=== PATIENT | female | born 1975 | race Caucasian/White ===

== ENCOUNTER → 2017-01-29 | Outpatient (CLI) | payer OTHER ==
[~2017-01-29] MED LIST: ALPR-385 PO; CYCL5TAB PO; DOCU-94 PO; DOXE100C4 PO; FRCT/ PO; HYDR2TAB3 PO; IBUP-1277 PO; METHADONE PO; METO-157 PO; MULT-513 PO; ONDA8TAB13 SL; PRAZ2CAP3 PO; SALI0.6510; SUMA6KIT2 INJ; TOPI200T14 PO; TPM100 PO; TRAM-453 PO; TRAZ50TA35 PO; [UNRECOGNIZED DRUG - CODE] PO
== END ==
LOC: C.PAPS 10:20
PROVIDERS: ATTEND Obstetrics & Gynecology
DX: Z01.419 Encounter for gynecological examination (general) (routine) without abnormal findings (principal)

== ENCOUNTER 2020-03-10 20:36 | Inpatient (IN) ==
[2020-03-10] MEDS ORDERED: DIAZEPAM 5 MG/ML INJ 10ML VIAL IV STA ×2 (21:17→22:01)
[2020-03-10] MEDS ORDERED: SODIUM CHLORIDE 0.9% 1000ML 1,000 ML IV SCH (21:30)
--- NOTE | 2020-03-10 21:31 | Emergency Department Note ---
Impression & Plan Hyperglycemic crisis in diabetes mellitus, Paresthesia of right leg, Right leg weakness, Muscle spasm of right lower extremity ED Provider Note CHIEF COMPLAINT: Right leg pain, numbness, weakness HISTORY OF PRESENTING ILLNESS: This is a 44-year-old female who presents to the emergency department via EMS with complaint of right leg pain and cramping spasms that started tonight. Patient states that she has been having some numbness in the leg for the past 1.5 weeks that has been getting progressively worse and she has also noticed that the legs felt a little bit weak the last few days. Today while she was in the shower the entire leg seized up and started spasming, and gave out on her causing her to fall in the shower. She states that her father is a retired surgeon and he is concerned that she is having a seizure in her leg. She denies any history of seizures in the past. She is followed by a neurologist for migraine headaches. She notes that she has some pain in her lower back as well, and reports a history of degenerative disc disease in her back and has received pain injections for this in the past, most recently June of last year. She received 0.5 mg IV Ativan by EMS on the way here, which she states did seem to help the leg spasms somewhat, but she states she has had 2 more since arriving to the emergency department. The leg spasms were witnessed by the ED nurse, who reports that the entire leg looks like it is twitching and shaking, and she continued to be alert and talkative during the episode and was complaining of pain with this. Patient states she has no pain except in the leg spasms, but when it starts to spasm and cramp up the pain is severe and she rates it an 8/10. She denies any headaches, vision changes, neck pain or stiffness, chest pain, shortness of breath, abdominal pain, nausea or vomiting, recent illness, cough or URI symptoms, fevers or chills. She denies any saddle paresthesias or bowel or bladder dysfunction. REVIEW OF SYSTEMS: A complete 10 point review of systems was reviewed with the patient with pertinent positives and negatives as per history of present illness. All else were negative. PAST MEDICAL HISTORY: Migraine headaches, cluster headaches, anxiety, chronic pain syndrome SOCIAL HISTORY: Lives at home with family, she denies tobacco use ALLERGIES: No known allergies PHYSICAL EXAM: CONSTITUTIONAL: Pleasant and cooperative. Nontoxic-appearing and in no acute distress. Mildly dehydrated, but otherwise well appearing and well nourished. HEENT: Normocephalic, atraumatic. PERRL, EOMI with no nystagmus. TMs normal, no hemotympanum. Pharynx normal. Tacky mucous membranes. NECK: Supple, full active range of motion without discomfort. No midline tenderness to palpation of the cervical spine. RESPIRATORY: Clear to auscultation bilaterally with no wheezing, crackles, rhonchi or stridor. Equal expansion bilaterally. CARDIOVASCULAR: Regular rate and rhythm with no murmurs, rubs or gallops. Normal peripheral perfusion. No edema. GASTROINTESTINAL: Soft, nontender, nondistended. No palpable masses or HSM. Bowel sounds present in all quadrants. DIGITAL RECTAL EXAM: Visible external hemorrhoids on inspection. Sensation intact to the perineum. A sterile, water-soluble lubricant was applied to the examiner's gloved finger prior to internal exam. No rectal vault tenderness. No rectal masses. Normal rectal tone. A nurse top knitter was present for the entirety of the exam. INTEGUMENTARY: Abrasions noted to the right ankle and right anterior calf, no active bleeding. No rash or other significant dermatologic conditions noted. MUSCULOSKELETAL: No muscle atrophy, erythema, or edema noted of the back. There is no midline tenderness over the lumbar spinous processes. There is mild t enderness over the paraspinous muscles of the lumbar region on the right. There is no midline tenderness over the thoracic spine or paraspinous muscles. There are no obvious muscle spasms present. The patient is slow to move around with maximum tenderness with bending and twisting at the waist. Negative straight leg raise test. NEURO: Patient was alert and oriented to person place and time. Sensation is intact to light touch, the patient does endorse decreased sensation along the dorsal and medial aspect of the foot and the medial aspect of the calf from the knee down. Achilles and patellar deep tendon reflexes 1+ in the right lower extremity, 2+ in the left lower extremity. Dorsalis pedis pulse 2+ bilaterally with brisk cap refill. Strength 5/5 in the left lower extremity, 3/5 in the right lower extremity with effort against gravity, hip flexion, knee extension and flexion. Dorsiflexion and plantarflexion of the right foot is 2/5. NEUROLOGIC: Alert and oriented X 4 with normal affect. Cranial nerves II-XII grossly intact, no facial droop. No pronator drift. [id number] testing normal. Normal speech. ED COURSE AND MEDICAL DECISION MAKING: CC: Patient presenting with complaint of right leg pain/spasms, numbness and weakness DIFFERENTIAL DIAGNOSIS: Includes, but not limited to muscle spasms, muscle cramps, musculoskeletal sprain/strain, lumbar radiculopathy/sciatica, spinal cord lesion, cauda equina syndrome, electrolyte abnormality, dehydration, focal seizure, brain mass or mass-effect, among others. INTERPRETATION OF LABS: No leukocytosis, no anemia, normal platelets, significant hyperglycemia with refractory hyponatremia and hypochloremia, gap is open at 14.0 with a normal bicarb, normal renal function, normal liver enzymes. UA negative for infection, shows 3+ glucose and 3+ ketones. IMAGING: CT brain noncontrast--preliminary read by [facility] IMPRESSION: Comparison is made to CT head on 01/31/2015. No acute intracranial abnormality identified. MEDICATION RECONCILIATION: I attest that I have personally reviewed the patient's current medication list. INITIAL VITAL SIGNS REVIEW: I reviewed the patient's initial vital signs and i nterpret them as follows: T: Afebrile; BP: Hypertensive; HR: Tachycardic; RR: Within normal limits; Pulse Ox: Within normal limits on room air. Blood pressure screening: The patient was found to have an elevated blood pressure and was referred to the inpatient team for further management. MDM SUMMARY: Patient was evaluated at bedside, history and physical exam performed. Patient is alert and oriented, in no acute distress, resting in the stretcher. She endorses some numbness in the right leg, and demonstrates weakness of the right lower extremity when compared to the left. She complains primarily of severe spasms of the entire right leg that are episodic and started today. She notes that the numbness has been ongoing for 1.5 weeks and the weakness started several days ago. She has not had any bowel or bladder dysfunction. Normal rectal tone on my exam with saddle sensation intact. Cardiac monitoring: An order was placed for continuous cardiac monitoring. The monitor shows a rate of 112 bpm with sinus tachycardia rhythm. Orders were placed at bedside for labs, UA, IV fluid bolus for hydration, x-rays of the right tibia/fibula and right ankle to evaluate for trauma, CT of the head and MRI of the lumbar spine to evaluate for right leg weakness/numbness. Patient discussed with Dr. Palacio, who agrees with my assessment, plan, and disposition. Patient was initially given 2 mg IV Valium to help with potential muscle cramps/spasms. Labs and x-ray imaging reviewed as above, labs are significant for marked hyperglycemia. The patient does not have any history of diabetes. Patient did not have any relief in her spasms after the 2 mg IV Valium and is requesting something further. She is afraid she will not be able to hold still for the MRI, she was given an additional 3 mg IV Valium prior to further imaging studies. CT of the head is normal. MRI of the lumbar spine results pending. Given the significant hyperglycemia of unknown etiology with the patient's other symptoms, I did feel the patient would warrant admission for further work-up. I spoke with Dr. Orantes, [facility] hospitalist, who agrees to evaluate the patient for admission. Patient was stable at time of admission. The chart was completed utilizing [employer] Speech voice recognition software. Grammatical errors, random word insertions, pronoun errors, and incomplete sentences are an occasional consequence of this system due to software limitations, ambient noise, and hardware issues. Any formal questions or concerns about the content, text, or information contained within the body of this dictation should be directly addressed to the nurse practitioner for clarification. Past Med/Surg History Medical History (Updated 03/11/20 @ 14:30 by SERGIO Monterroso) Cluster headache Drug abuse (Resolved) Migraine without aura, not intractable, without status migrainosus Psychosis (Resolved 01/10/14) Status post hysteroscopy Surgical History S/P laparoscopic procedure S/P LEEP of cervix Social History Preferred Language: Greek Communication Ability: Effective Beliefs That Will Affect Care: None Current Living Situation: Parent Other Information That Helps Us Care for You: No Feels Safe at Home: Yes Safety Concerns: Feels Safe At This Time Smoking Status: Former smoker Do You Dip or Chew Tobacco: No ; Second Hand Exposure: No ; Hx Alcohol Use: No Hx Substance Use: Yes substance use type: former substance user Allergies Allergies Allergy/AdvReac Type Severity Reaction Status Date / Time No Known Allergies Allergy Verified 03/11/20 00:57 Home Meds Home Medications Medication Instructions Recorded Confirmed doxepin 100 mg capsule 200 mg PO HS PRN cap 06/07/19 03/11/20 promethazine 50 mg tablet 50 mg PO Q8H PRN #20 tab 06/07/19 03/11/20 zolpidem 10 mg tablet 20 mg PO HS tab 06/07/19 03/11/20 ondansetron HCl 4 mg tablet 4 mg PO TID PRN #20 tab 06/30/19 03/11/20 adapalene [Differin] 1 applic TOPICAL HS PRN 03/11/20 03/11/20 baclofen 20 mg PO BID PRN 03/11/20 03/11/20 cyclobenzaprine 5 mg PO TID PRN 03/11/20 03/11/20 dextroamphetamine-amphetamine 20 mg PO DAILY PRN 03/11/20 03/11/20 [Adderall] methadone 202 mg PO DAILY 03/11/20 03/11/20 mupirocin calcium 1 applic TOPICAL TID PRN 03/11/20 03/11/20 norethindrone ac-eth estradiol 1 tab PO DAILY 03/11/20 03/11/20 [June10/27 ()] sumatriptan succinate 6 mg SUBCUT .UD PRN 03/11/20 03/11/20 tacrolimus 1 applic TOPICAL BID PRN 03/11/20 03/11/20 tizanidine 8 mg PO HS PRN 03/11/20 03/11/20 zolmitriptan [Zomig] 5 mg PO .DAILY/UD PRN MDD 2 DOSES 03/11/20 03/11/20 Previous Rx's Medication Instructions Recorded topiramate 50 mg tablet 50 mg PO BID #60 tab 01/20/20 rizatriptan 10 mg tablet 10 mg PO .COMPLEX PRN 30 Days #9 02/05/20 tab Results & Data (ED) Vital Signs Vital Signs - 24 hr 03/10/20 20:24 03/10/20 21:43 03/10/20 21:44 Temperature 37.1 C Temperature Source Oral Pulse Rate 112 H Pulse Rate [Finger] Pulse Rhythm Regular Pulse Strength Normal Respiratory Rate 14 Respiratory Effort / Characteristics Non-Labored Respiratory Depth Normal Respiratory Pattern Regular Blood Pressure 159/108 H Blood Pressure [Right Arm] Blood Pressure Mean 125 Blood Pressure Mean [Right Arm] Blood Pressure Position Lying Blood Pressure Position [Right Arm] Pulse Oximetry 96 Oxygen Delivery Method Room Air Room Air Room Air Sepsis Recent Fever Within 48 Hours No Sepsis New/Unexplained Change in Mental Status No Sepsis Action Taken by Nursing No Action Required 03/10/20 23:47 Temperature Temperature Source Pulse Rate Pulse Rate [Finger] 94 H Pulse Rhythm Pulse Strength Respiratory Rate 16 Respiratory Effort / Characteristics Non-Labored Respiratory Depth Normal Respiratory Pattern Blood Pressure Blood Pressure [Right Arm] 156/98 H Blood Pressure Mean Blood Pressure Mean [Right Arm] 117 Blood Pressure Position Blood Pressure Position [Right Arm] Sitting Pulse Oximetry 99 Oxygen Delivery Method Room Air Sepsis Recent Fever Within 48 Hours Sepsis New/Unexplained Change in Mental Status Sepsis Action Taken by Nursing Laboratory Data Result diagrams: 03/11/20 05:15 03/11/20 05:15 Lab Results 03/10/20 03/10/20 03/10/20 Range/Units 21:35 21:35 21:35 WBC 7.51 (4.8-10.8) K/uL RBC 4.16 L (4.2-5.4) M/uL Hgb 12.8 (12.0-16.0) g/dL POC Hgb (12.0-16.0) g/dl Hct 37.2 (37-47) % POC Hct (37-47) % MCV 89.4 (80-100) fL MCH 30.8 (25-34) pg MCHC 34.4 (32-36) g/dL RDW Std Deviation 41.4 (36.4-46.3) fL RDW Coeff of Renae 12.9 (11.5-14.5) % Plt Count 268 (130-400) K/uL MPV 10.7 H (7.4-10.4) fL Immature Gran % (Auto) 0.1 % Neut % (Auto) 76.0 % Lymph % (Auto) 16.0 % Mineral % (Auto) 5.9 % Eos % (Auto) 1.6 % Baso % (Auto) 0.4 % Immature Gran # (Auto) 0.01 (0.00-0.02) K/uL Neut # (Auto) 5.71 (1.4-6.5) K/uL Lymph # (Auto) 1.20 (1.2-3.4) K/uL Mineral # (Auto) 0.44 (0.11-0.59) K/uL Eos # (Auto) 0.12 (0-0.5) K/uL Baso # (Auto) 0.03 (0-0.2) K/uL POC Sodium (135-144) mmol/L Sodium 124 L (136-145) mmol/L POC Potassium (3.3-5.0) mmol/L Potassium (3.5-5.1) mmol/L POC Chloride (101-112) mmol/L Chloride 87 L (98-107) mmol/L Carbon Dioxide 23 (21-32) mmol/L POC Total CO2 (24-31) mmol/L Anion Gap 14.0 H (3-11) POC Anion Gap (16-25) mmol/L POC BUN (7-18) mg/dl BUN 11 (7-18) mg/dl Creatinine 1.08 (0.6-1.2) mg/dl POC Creatinine (0.6-1.3) mg/dl Est Cr Clr Drug Dosing 76.9 ml/min Est GFR ( Amer) 72.8 Est GFR (Non-Af Amer) 62.8 BUN/Creatinine Ratio 10.1 (10-20) Glucose 790 H* (70-99) mg/dl POC Glucose (other) (70-99) mg/dl Estimat Average Glucose 395 mg/dl Hemoglobin A1c 15.4 H (4.5-5.6) % Osmolality (280-300) mOsm/kg Calcium 8.8 (8.5-10.1) mg/dl POC Ioniz Calcium Gaby (1.12-1.32) mmol/l Phosphorus (2.5-4.9) mg/dl Magnesium (1.8-2.4) mg/dl Total Bilirubin 0.4 (0.2-1) mg/dl AST (15-37) U/L ALT 24 (12-78) U/L Alkaline Phosphatase 114 (45-117) U/L Total Creatine Kinase (26-192) U/L Total Protein 7.1 (6.4-8.2) gm/dl Albumin 3.2 L (3.4-5.0) gm/dl Globulin 3.9 (2.5-4.0) gm/dl Albumin/Globulin Ratio 0.8 L (0.9-2) Beta-Hydroxybutyric Acd (0.2-2.81) mg/dl TSH (0.300-4.500) uIu/ml Urine Color Urine Appearance (Clear) Urine pH (4.5-7.5) Ur Specific Hughes (1.000-1.030) Urine Protein (Negative) Urine Glucose (UA) (Negative) Urine Ketones (Negative) Urine Blood (Negative) Urine Nitrite (Negative) Urine Bilirubin (Negative) Urine Urobilinogen (Negative) Ur Leukocyte Esterase (Negative) Urine RBC (0-4) /hpf Urine WBC (0-5) /hpf Ur Epithelial Cells (0-5) /lpf Urine Bacteria (Negative) Urine Test (Negative) Urine Opiates Screen (Neg) Ur Methadone, Qual (Neg) Urine Barbiturates (Neg) Ur Phencyclidine (PCP) (Neg) U Amphetamin/Meth Scrn (Neg) MDMA (Ecstasy) Screen (Neg) U Benzodiazepines Scrn (Neg) Ur Cocaine Metabolite (Neg) U Marijuana (THC) Screen (Neg) 03/10/20 03/10/20 03/10/20 Range/Units 22:15 22:15 22:15 WBC (4.8-10.8) K/uL RBC (4.2-5.4) M/uL Hgb (12.0-16.0) g/dL POC Hgb (12.0-16.0) g/dl Hct (37-47) % POC Hct (37-47) % MCV (80-100) fL MCH (25-34) pg MCHC (32-36) g/dL RDW Std Deviation (36.4-46.3) fL RDW Coeff of Renae (11.5-14.5) % Plt Count (130-400) K/uL MPV (7.4-10.4) fL Immature Gran % (Auto) % Neut % (Auto) % Lymph % (Auto) % Mineral % (Auto) % Eos % (Auto) % Baso % (Auto) % Immature Gran # (Auto) (0.00-0.02) K/uL Neut # (Auto) (1.4-6.5) K/uL Lymph # (Auto) (1.2-3.4) K/uL Mineral # (Auto) (0.11-0.59) K/uL Eos # (Auto) (0-0.5) K/uL Baso # (Auto) (0-0.2) K/uL POC Sodium (135-144) mmol/L Sodium (136-145) mmol/L POC Potassium (3.3-5.0) mmol/L Potassium (3.5-5.1) mmol/L POC Chloride (101-112) mmol/L Chloride (98-107) mmol/L Carbon Dioxide (21-32) mmol/L POC Total CO2 (24-31) mmol/L Anion Gap (3-11) POC Anion Gap (16-25) mmol/L POC BUN (7-18) mg/dl BUN (7-18) mg/dl Creatinine (0.6-1.2) mg/dl POC Creatinine (0.6-1.3) mg/dl Est Cr Clr Drug Dosing ml/min Est GFR ( Amer) Est GFR (Non-Af Amer) BUN/Creatinine Ratio (10-20) Glucose (70-99) mg/dl POC Glucose (other) (70-99) mg/dl Estimat Average Glucose mg/dl Hemoglobin A1c (4.5-5.6) % Osmolality (280-300) mOsm/kg Calcium (8.5-10.1) mg/dl POC Ioniz Calcium Gaby (1.12-1.32) mmol/l Phosphorus (2.5-4.9) mg/dl Magnesium (1.8-2.4) mg/dl Total Bilirubin (0.2-1) mg/dl AST (15-37) U/L ALT (12-78) U/L Alkaline Phosphatase (45-117) U/L Total Creatine Kinase (26-192) U/L Total Protein (6.4-8.2) gm/dl Albumin (3.4-5.0) gm/dl Globulin (2.5-4.0) gm/dl Albumin/Globulin Ratio (0.9-2) Beta-Hydroxybutyric Acd (0.2-2.81) mg/dl TSH (0.300-4.500) uIu/ml Urine Color Yellow Urine Appearance Clear (Clear) Urine pH 5.0 (4.5-7.5) Ur Specific Hughes 1.037 H (1.000-1.030) Urine Protein Negative (Negative) Urine Glucose (UA) 3+ H (Negative) Urine Ketones 3+ H (Negative) Urine Blood 2+ H (Negative) Urine Nitrite Negative (Negative) Urine Bilirubin Negative (Negative) Urine Urobilinogen Negative (Negative) Ur Leukocyte Esterase Negative (Negative) Urine RBC 5-10 H (0-4) /hpf Urine WBC 0-5 (0-5) /hpf Ur Epithelial Cells >30 H (0-5) /lpf Urine Bacteria 1+ H (Negative) Urine Test Negative (Negative) Urine Opiates Screen Neg (Neg) Ur Methadone, Qual Pos H (Neg) Urine Barbiturates Neg (Neg) Ur Phencyclidine (PCP) Neg (Neg) U Amphetamin/Meth Scrn Neg (Neg) MDMA (Ecstasy) Screen Neg (Neg) U Benzodiazepines Scrn Neg (Neg) Ur Cocaine Metabolite Neg (Neg) U Marijuana (THC) Screen Neg (Neg) 03/10/20 03/10/20 03/10/20 Range/Units 23:49 23:49 23:54 WBC (4.8-10.8) K/uL RBC (4.2-5.4) M/uL Hgb (12.0-16.0) g/dL POC Hgb 12.9 (12.0-16.0) g/dl Hct (37-47) % POC Hct 38 (37-47) % MCV (80-100) fL MCH (25-34) pg MCHC (32-36) g/dL RDW Std Deviation (36.4-46.3) fL RDW Coeff of Renae (11.5-14.5) % Plt Count (130-400) K/uL MPV (7.4-10.4) fL Immature Gran % (Auto) % Neut % (Auto) % Lymph % (Auto) % Mineral % (Auto) % Eos % (Auto) % Baso % (Auto) % Immature Gran # (Auto) (0.00-0.02) K/uL Neut # (Auto) (1.4-6.5) K/uL Lymph # (Auto) (1.2-3.4) K/uL Mineral # (Auto) (0.11-0.59) K/uL Eos # (Auto) (0-0.5) K/uL Baso # (Auto) (0-0.2) K/uL POC Sodium 128 L (135-144) mmol/L Sodium 129 L (136-145) mmol/L POC Potassium 4.8 (3.3-5.0) mmol/L Potassium 4.7 (3.5-5.1) mmol/L POC Chloride 95 L (101-112) mmol/L Chloride 95 L (98-107) mmol/L Carbon Dioxide 22 (21-32) mmol/L POC Total CO2 21 L (24-31) mmol/L Anion Gap 12.0 H (3-11) POC Anion Gap 18.0 (16-25) mmol/L POC BUN 9 (7-18) mg/dl BUN 9 (7-18) mg/dl Creatinine 0.82 (0.6-1.2) mg/dl POC Creatinine 0.5 L (0.6-1.3) mg/dl Est Cr Clr Drug Dosing 101.3 ml/min Est GFR ( Amer) 101.6 Est GFR (Non-Af Amer) 87.6 BUN/Creatinine Ratio 11.4 (10-20) Glucose 608 H* (70-99) mg/dl POC Glucose (other) 582 H* (70-99) mg/dl Estimat Average Glucose mg/dl Hemoglobin A1c (4.5-5.6) % Osmolality 304 H (280-300) mOsm/kg Calcium 8.3 L (8.5-10.1) mg/dl POC Ioniz Calcium Gaby 1.16 (1.12-1.32) mmol/l Phosphorus 3.7 (2.5-4.9) mg/dl Magnesium 2.1 (1.8-2.4) mg/dl Total Bilirubin (0.2-1) mg/dl AST (15-37) U/L ALT (12-78) U/L Alkaline Phosphatase (45-117) U/L Total Creatine Kinase 6196 H (26-192) U/L Total Protein (6.4-8.2) gm/dl Albumin (3.4-5.0) gm/dl Globulin (2.5-4.0) gm/dl Albumin/Globulin Ratio (0.9-2) Beta-Hydroxybutyric Acd 32.54 H (0.2-2.81) mg/dl TSH 23.500 H (0.300-4.500) uIu/ml Urine Color Urine Appearance (Clear) Urine pH (4.5-7.5) Ur Specific Hughes (1.000-1.030) Urine Protein (Negative) Urine Glucose (UA) (Negative) Urine Ketones (Negative) Urine Blood (Negative) Urine Nitrite (Negative) Urine Bilirubin (Negative) Urine Urobilinogen (Negative) Ur Leukocyte Esterase (Negative) Urine RBC (0-4) /hpf Urine WBC (0-5) /hpf Ur Epithelial Cells (0-5) /lpf Urine Bacteria (Negative) Urine Test (Negative) Urine Opiates Screen (Neg) Ur Methadone, Qual (Neg) Urine Barbiturates (Neg) Ur Phencyclidine (PCP) (Neg) U Amphetamin/Meth Scrn (Neg) MDMA (Ecstasy) Screen (Neg) U Benzodiazepines Scrn (Neg) Ur Cocaine Metabolite (Neg) U Marijuana (THC) Screen (Neg) Administered Medications Cyclobenzaprine HCl (Flexeril) 5 mg PO TID PRN PRN Reason: Spasms Stop: 04/10/20 02:07 Last Admin: 03/11/20 06:48 Dose: 5 mg Documented by: [id number] Enoxaparin Sodium (Lovenox) 40 mg SQ QAM [facility] Stop: 04/10/20 08:59 Last Admin: 03/11/20 08:09 Dose: 40 mg Documented by: [id number] Lactated Ringer's (Lr) 1,000 mls @ 150 mls/hr IV .Q6H40M [facility] Stop: 03/12/20 06:14 Last Admin: 03/11/20 13:00 Dose: 150 mls/hr Documented by: [id number] Infusion: 03/11/20 12:55 Dose: 0 mls/hr Documented by: [id number] Admin: 03/11/20 06:21 Dose: 150 mls/hr Documented by: [id number] Insulin Aspart (Novolog Flexpen) 0 units SC ACHS [facility] Stop: 04/10/20 08:29 Last Admin: 03/11/20 12:59 Dose: 8 units Documented by: [id number] Cosigned by: [id number] Admin: 03/11/20 08:30 Dose: Not Given Documented by: [id number] Cosigned by: [id number] Ketorolac Tromethamine (Toradol) 15 mg IV Q6H PRN PRN Reason: Pain Stop: 03/16/20 02:07 Last Admin: 03/11/20 08:14 Dose: 15 mg Documented by: [id number] Miscellaneous (Order Awaiting Action) 1 ea N/A QS [facility] Stop: 04/10/20 07:59 Last Admin: 03/11/20 07:43 Dose: Not Given Documented by: [id number] Non-Formulary Medication (Patient's Own Controlled Med) 1 ea PO DAILY@0500 [facility] Stop: 03/25/20 06:29 Last Admin: 03/11/20 06:47 Dose: 202 mg Documented by: [id number] Topiramate (Topamax) 50 mg PO BID [facility] Stop: 04/10/20 02:07 Last Admin: 03/11/20 08:10 Dose: 50 mg Documented by: [id number] Admin: 03/11/20 03:11 Dose: 50 mg Documented by: [id number] Discontinued Medications Alprazolam (Xanax) Confirm Administered Dose 0.5 mg .ROUTE .STK-MED ONE Stop: 03/11/20 10:44 Last Admin: 03/11/20 11:03 Dose: 0.5 mg Documented by: [id number] Diazepam (Valium) 2 mg IV NOW STA Stop: 03/10/20 21:18 Last Admin: 03/10/20 21:58 Dose: 2 mg Documented by: [id number] Diazepam (Valium) 3 mg IV NOW STA Stop: 03/10/20 22:02 Last Admin: 03/10/20 22:08 Dose: 3 mg Documented by: [id number] Sodium Chloride (Nss 1000ml) 1,000 mls @ 100 mls/hr IV .Q10H [facility]IF Stop: 03/11/20 07:29 Last Infusion: 03/11/20 03:14 Dose: 0 mls/hr Documented by: [id number] Admin: 03/10/20 21:57 Dose: 100 mls/hr Documented by: [id number] Sodium Chloride (Nss 1000ml) 1,000 mls @ 999 mls/hr IV .Q1H1M ONE Stop: 03/10/20 23:41 Last Infusion: 03/11/20 02:10 Dose: 0 mls/hr Documented by: [id number] Admin: 03/11/20 00:01 Dose: 999 mls/hr Documented by: [id number] Insulin Human Regular 250 (units/ Sodium Chloride) 250 mls @ 6.7 mls/hr IV .Q24H ATIF; Protocol Stop: 03/11/20 11:30 Last Titration: 03/11/20 10:30 Dose: 6.7 units/hr, 6.7 mls/hr Documented by: [id number] Cosigned by: [id number] Titration: 03/11/20 09:41 Dose: 5.6 units/hr, 5.6 mls/hr Documented by: [id number] Cosigned by: [id number] Titration: 03/11/20 08:46 Dose: 4 units/hr, 4 mls/hr Documented by: [id number] Cosigned by: [id number] Titration: 03/11/20 07:30 Dose: 4 units/hr, 4 mls/hr Documented by: [id number] Cosigned by: [id number] Titration: 03/11/20 06:32 Dose: 3.3 units/hr, 3.3 mls/hr Documented by: [id number] Cosigned by: [id number] Titration: 03/11/20 05:30 Dose: 3.3 units/hr, 3.3 mls/hr Documented by: [id number] Cosigned by: [id number] Titration: 03/11/20 04:33 Dose: 3.3 units/hr, 3.3 mls/hr Documented by: [id number] Cosigned by: [id number] Titration: 03/11/20 03:34 Dose: 4.1 units/hr, 4.1 mls/hr Documented by: [id number] Cosigned by: [id number] Titration: 03/11/20 02:30 Dose: 2.9 units/hr, 2.9 mls/hr Documented by: [id number] Cosigned by: [id number] Titration: 03/11/20 01:31 Dose: 2.9 units/hr, 2.9 mls/hr Documented by: [id number] Cosigned by: [id number] Admin: 03/11/20 00:32 Dose: 3.6 units/hr, 3.6 mls/hr Documented by: [id number] Cosigned by: [id number] Sodium Chloride (Nss 1000ml) 1,000 mls @ 200 mls/hr IV .Q5H ATIF Stop: 04/10/20 01:02 Last Infusion: 03/11/20 06:23 Dose: 0 mls/hr Documented by: [id number] Admin: 03/11/20 04:30 Dose: 200 mls/hr Documented by: [id number] Infusion: 03/11/20 04:30 Dose: 200 mls/hr Documented by: [id number] Admin: 03/11/20 01:09 Dose: 200 mls/hr Documented by: [id number] Insulin Aspart (Novolog Flexpen) 0 units SC ACHS [facility] Stop: 03/11/20 08:29 Last Admin: 03/11/20 08:05 Dose: 4 units Documented by: [id number] Cosigned by: [id number] Admin: 03/11/20 06:49 Dose: 6 units Documented by: [id number] Cosigned by: [id number] Insulin Glargine (Lantus Solostar Pen) 25 units SC NOW STA Stop: 03/11/20 06:24 Last Admin: 03/11/20 07:42 Dose: 25 units Documented by: [id number] Cosigned by: [id number] Insulin Glargine (Lantus Solostar Pen) 10 units SC NOW ONE Stop: 03/11/20 09:16 Last Admin: 03/11/20 09:42 Dose: 10 units Documented by: [id number] Cosigned by: [id number] Insulin Human Regular (Novolin R Bolus From Bag) 3.5 units IV ONE ONE Stop: 03/11/20 00:31 Last Admin: 03/11/20 00:33 Dose: 3.5 units Documented by: [id number] Cosigned by: [id number] Methadone HCl (Methadone Hcl) 202 mg PO DAILY ATIF Stop: 03/25/20 08:59 Last Admin: 03/11/20 06:57 Dose: 202 mg Documented by: [id number] Miscellaneous Information (Dc Iv Insulin Infusion) 1 ea N/A ONE ONE Stop: 03/11/20 11:38 Last Admin: 03/11/20 11:39 Dose: 1 ea Documented by: [id number] Potassium Chloride (Klor-Con M20) 40 meq PO NOW STA Stop: 03/11/20 06:17 Last Admin: 03/11/20 07:43 Dose: 40 meq Documented by: [id number] Zolpidem Tartrate (Ambien) Confirm Administered Dose 10 mg PO .STK-MED ONE Stop: 03/11/20 03:09 Last Admin: 03/11/20 03:12 Dose: 10 mg Documented by: [id number] Discharge Plan Visit Data *Final* Discharge Date/Time: 03/11/20 01:33 Chief Complaint: Leg Injury/Pain Stated Complaint: LEG CRAMPS ED Provider: Salvador Palacio ED Midlevel Provider: Trang Bloom Discharge Problem: Hyperglycemic crisis in diabetes mellitus, Paresthesia of right leg, Right leg weakness, Muscle spasm of right lower extremity Patient Disposition: Admitted As Inpatient Discharge Instructions Interventions: ED Discharge Assessment Last Done: 03/11/20 01:33
[2020-03-10 21:48] LABS: Basophils # (auto) 0.03 K/uL (0-0.2); Basophils % (auto) 0.4 %; Eosinophils # (auto) 0.12 K/uL (0-0.5); Eosinophils % (auto) 1.6 %; Hematocrit (blood only) 37.2 % (37-47); Hemoglobin 12.8 g/dL (12.0-16.0); Immature Granulocytes # (auto) 0.01 K/uL (0.00-0.02); Immature Granulocytes % (auto) 0.1 %; Mean Corpuscular Hemoglobin 30.8 pg (25-34); Mean Corpuscular Hgb Conc 34.4 g/dL (32-36); Mean Corpuscular Volume 89.4 fL (80-100); Mean Platelet Volume 10.7 fL (7.4-10.4); Monocytes # (auto) 0.44 K/uL (0.11-0.59); Monocytes % (auto) 5.9 %; Neutrophils # (auto) 5.71 K/uL (1.4-6.5); Platelet Count 268 K/uL (130-400); RDW Coefficient of Variation 12.9 % (11.5-14.5); RDW Standard Deviation 41.4 fL (36.4-46.3); Red Blood Count 4.16 M/uL (4.2-5.4); White Blood Count 7.51 K/uL (4.8-10.8)
[2020-03-10 22:13] LABS: Albumin Globulin Ratio 0.8 (0.9-2); Albumin Level 3.2 gm/dl (3.4-5.0); BUN Creatinine Ratio 10.1 (10-20); Bilirubin,Total 0.4 mg/dl (0.2-1); Calcium 8.8 mg/dl (8.5-10.1); Creatinine Clr Calc Pharmacy 76.9 ml/min; Est GFR (African American) 72.8; Est GFR (Non-African American) 62.8; Globulin 3.9 gm/dl (2.5-4.0); Total Protein 7.1 gm/dl (6.4-8.2)
[2020-03-10] MEDS ORDERED: SODIUM CHLORIDE 0.9% 1000ML 1,000 ML IV ONE (22:41)
[2020-03-10 22:54] LABS: Appearance Urine Clear (Clear); Bilirubin Urine Negative (Negative); Blood Urine 2+ (Negative); Color Urine Yellow; Glucose Urine UA 3+ (Negative); Ketones Urine 3+ (Negative); Leukocyte Esterase Urine Negative (Negative); Nitrite Urine Negative (Negative); Protein Urine Negative (Negative); Specific Gravity Urine 1.037 (1.000-1.030); Urobilinogen Urine Negative (Negative)
[2020-03-10 23:29] LABS: Bacteria Urine 1+ (Negative); Epithelial Cell Urine >30 /lpf (0-5); WBC Urine 0-5 /hpf (0-5)
[2020-03-10 23:48] LABS: Amphetamines+Metham, Urine Neg (Neg); Barbiturates, Urine Neg (Neg); Benzodiazepine, Urine Neg (Neg); Cocaine, Urine Neg (Neg); MDMA (Ecstacy), Urine Neg (Neg); Methadone, Urine Pos (Neg); Opiate, Urine Neg (Neg); Phencyclidine, Urine Neg (Neg)
[2020-03-11] MEDS ORDERED: INSULIN PROTOCOL GOAL RANGE ONE (00:09)
[2020-03-11] MEDS ORDERED: SEVERE STRESS LEVEL ONE (00:09)
--- NOTE | 2020-03-11 00:10 | History & Physical Report ---
Date of Service March 11, 2020 Assessment & Plan (1) Hyperglycemic crisis in diabetes mellitus: New diagnosis of DM associated with rhabdomyolysis. anxiety disorder, at baseline hx chronic pain/opiate addiction on methadone migraine, stable endometriosis status post surgery Elevated TSH, probable new diagnosis of hypothyroidism Medical telemetry IV insulin Check hemoglobin A1c May benefit from Pharmacy glycemic control consultation DM education pending HgA1c results IVF, monitor CPK Judicious narcotic use given history of opiate addiction Repeat TSH, initiate levothyroxine if persistently elevated DVT prophylaxis per Lovenox subcu Full code Text document was generated using [employer] voice recognition software. It may contain grammatical or spelling errors. Kindly contact undersigned for clarification of any documentation item in question. History of Present Illness Chief Complaint: Right leg pain Primary Care Provider: Yovanny Davis MD History obtained from patient and records. Medical history significant for anxiety disorder, chronic pain/opiate addiction on methadone, history of migraine, endometriosis status post surgery. Last confinement February 2015 for intractable migraine symptoms. About 10 days ago, patient noted numbness on the right leg which later progressed to right lower leg pain worse on motion. Some back discomfort. Doing a lot of walking to lose weight. No chest pain, no S OB. At the shower last night, right leg started spasming causing her to fall down. No head trauma, no LOC, no syncope. Patient consulted ER. BSG upon arrival to ER was 790. Medical History as above Surgical History : Gynecologic laparoscopic procedures, dental surgery, Family History : Breast cancer, esophageal cancer, hypertension, skin cancer Personal/Social history : Non-smoker, no EtOH intake, disabled/part-time hairstylist Allergies Allergy/AdvReac Type Severity Reaction Status Date / Time No Known Allergies Allergy Verified 03/11/20 00:57 Home Medications Home Medications Medication Instructions Recorded Confirmed Type doxepin 100 mg capsule 200 mg PO HS PRN cap 06/07/19 03/11/20 History promethazine 50 mg tablet 50 mg PO Q8H PRN #20 tab 06/07/19 03/11/20 History zolpidem 10 mg tablet 20 mg PO HS tab 06/07/19 03/11/20 History ondansetron HCl 4 mg tablet 4 mg PO TID PRN #20 tab 06/30/19 03/11/20 History topiramate 50 mg tablet 50 mg PO BID #60 tab 01/20/20 03/11/20 Rx rizatriptan 10 mg tablet 10 mg PO .COMPLEX PRN 30 Days #9 02/05/20 03/11/20 Rx tab adapalene [Differin] 1 applic TOPICAL HS PRN 03/11/20 03/11/20 History baclofen 20 mg PO BID PRN 03/11/20 03/11/20 History cyclobenzaprine 5 mg PO TID PRN 03/11/20 03/11/20 History dextroamphetamine-amphetamine 20 mg PO DAILY PRN 03/11/20 03/11/20 History [Adderall] methadone 202 mg PO DAILY 03/11/20 03/11/20 History mupirocin calcium 1 applic TOPICAL TID PRN 03/11/20 03/11/20 History norethindrone ac-eth estradiol 1 tab PO DAILY 03/11/20 03/11/20 History [Junel 10/27 (21)] sumatriptan succinate 6 mg SUBCUT .UD PRN 03/11/20 03/11/20 History tacrolimus 1 applic TOPICAL BID PRN 03/11/20 03/11/20 History tizanidine 8 mg PO HS PRN 03/11/20 03/11/20 History zolmitriptan [Zomig] 5 mg PO .DAILY/UD PRN MDD 2 DOSES 03/11/20 03/11/20 History Past Med/Surg History Medical History (Updated 03/11/20 @ 03:47 by Tres Ruby MD) Cluster headache Drug abuse (Resolved) Migraine without aura, not intractable, without status migrainosus Psychosis (Resolved 01/10/14) Status post hysteroscopy Surgical History S/P laparoscopic procedure S/P LEEP of cervix Social History Preferred Language: Danish Communication Ability: Effective Beliefs That Will Affect Care: None Current Living Situation: Parent Other Information That Helps Us Care for You: No Feels Safe at Home: Yes Safety Concerns: Feels Safe At This Time Smoking Status: Former smoker Do You Dip or Chew Tobacco: No ; Second Hand Exp osure: No ; Hx Alcohol Use: No Hx Substance Use: Yes substance use type: former substance user Review of Systems Review of Systems: As per HPI, all 10 systems reviewed, all other ROS negative Physical Exam Physical Exam: GENERAL: uncomfortable, slightly anxious, obese, no respiratory distress SKIN: Normal color, warm HEENT: Marty palpebral conjunctivae, no ptosis, dry buccal mucosa NECK : Supple, short neck, no tenderness CHEST : CTA, no tenderness HEART : RRR, no obvious murmurs ABDOMEN: Some distention, nontender BACK : Negative overt tenderness, negative straight leg raise test EXTREMITIES : RLE tenderness with some abrasions noted, RLE movement somewhat limited by pain, no other conspicuous deformities noted NEUROLOGIC : Coherent, no facial asymmetry, no other gross focality Results & Data Results & Data ([facility]) Vital Signs (Past 12 Hours) Vital Signs Temp Pulse Pulse Resp BP BP Pulse Ox 03/10/20 23:47 94 H 16 156/98 H 99 03/10/20 20:24 37.1 C 112 H 14 159/108 H 96 Laboratory Results Laboratory Results WBC 7.51 K/uL (4.8-10.8) 03/10/20 21:35 RBC 4.16 M/uL (4.2-5.4) L 03/10/20 21:35 Hgb 12.8 g/dL (12.0-16.0) 03/10/20 21:35 Hct 37.2 % (37-47) 03/10/20 21:35 MCV 89.4 fL (80-100) 03/10/20 21:35 MCH 30.8 pg (25-34) 03/10/20 21:35 MCHC 34.4 g/dL (32-36) 03/10/20 21:35 RDW Std Deviation 41.4 fL (36.4-46.3) 03/10/20 21:35 RDW Coeff of Renae 12.9 % (11.5-14.5) 03/10/20 21:35 Plt Count 268 K/uL (130-400) 03/10/20 21:35 MPV 10.7 fL (7.4-10.4) H 03/10/20 21:35 Immature Gran % (Auto) 0.1 % 03/10/20 21:35 Neut % (Auto) 76.0 % 03/10/20 21:35 Lymph % (Auto) 16.0 % 03/10/20 21:35 [place] % (Auto) 5.9 % 03/10/20 21:35 Eos % (Auto) 1.6 % 03/10/20 21:35 Baso % (Auto) 0.4 % 03/10/20 21:35 Immature Gran # (Auto) 0.01 K/uL (0.00-0.02) 03/10/20 21:35 Neut # (Auto) 5.71 K/uL (1.4-6.5) 03/10/20 21:35 Lymph # (Auto) 1.20 K/uL (1.2-3.4) 03/10/20 21:35 [place] # (Auto) 0.44 K/uL (0.11-0.59) 03/10/20 21:35 Eos # (Auto) 0.12 K/uL (0-0.5) 03/10/20 21:35 Baso # (Auto) 0.03 K/uL (0-0.2) 03/10/20 21:35 Sodium 124 mmol/L (136-145) L 03/10/20 21:35 Potassium mmol/L (3.5-5.1) 03/10/20 21:35 Chloride 87 mmol/L (98-107) L 03/10/20 21:35 Carbon Dioxide 23 mmol/L (21-32) 03/10/20 21:35 Anion Gap 14.0 (3-11) H 03/10/20 21:35 BUN 11 mg/dl (7-18) 03/10/20 21:35 Creatinine 1.08 mg/dl (0.6-1.2) 03/10/20 21:35 Est Cr Clr Drug Dosing 76.9 ml/min 03/10/20 21:35 Est GFR ( Amer) 72.8 03/10/20 21:35 Est GFR (Non-Af Amer) 62.8 03/10/20 21:35 BUN/Creatinine Ratio 10.1 (10-20) 03/10/20 21:35 Glucose 790 mg/dl (70-99) H* 03/10/20 21:35 Calcium 8.8 mg/dl (8.5-10.1) 03/10/20 21:35 Total Bilirubin 0.4 mg/dl (0.2-1) 03/10/20 21:35 AST U/L (15-37) 03/10/20 21:35 ALT 24 U/L (12-78) 03/10/20 21:35 Alkaline Phosphatase 114 U/L (45-117) 03/10/20 21:35 Total Creatine Kinase U/L (26-192) 03/10/20 21:35 Total Protein 7.1 gm/dl (6.4-8.2) 03/10/20 21:35 Albumin 3.2 gm/dl (3.4-5.0) L 03/10/20 21:35 Globulin 3.9 gm/dl (2.5-4.0) 03/10/20 21:35 Albumin/Globulin Ratio 0.8 (0.9-2) L 03/10/20 21:35 Beta-Hydroxybutyric Acd mg/dl (0.2-2.81) 03/10/20 21:35 Urine Color Yellow 03/10/20 22:15 Urine Appearance Clear (Clear) 03/10/20 22:15 Urine pH 5.0 (4.5-7.5) 03/10/20 22:15 Ur Specific [place] 1.037 (1.000-1.030) H 03/10/20 22:15 Urine Protein Negative (Negative) 03/10/20 22:15 Urine Glucose (UA) 3+ (Negative) H 03/10/20 22:15 Urine Ketones 3+ (Negative) H 03/10/20 22:15 Urine Blood 2+ (Negative) H 03/10/20 22:15 Urine Nitrite Negative (Negative) 03/10/20 22:15 Urine Bilirubin Negative (Negative) 03/10/20 22:15 Urine Urobilinogen Negative (Negative) 03/10/20 22:15 Ur Leukocyte Esterase Negative (Negative) 03/10/20 22:15 Urine RBC 5-10 /hpf (0-4) H 03/10/20 22:15 Urine WBC 0-5 /hpf (0-5) 03/10/20 22:15 Ur Epithelial Cells >30 /lpf (0-5) H 03/10/20 22:15 Urine Bacteria 1+ (Negative) H 03/10/20 22:15 Urine Opiates Screen Neg (Neg) 06/03/20 22:15 Ur Methadone, Qual Pos (Neg) H 03/10/20 22:15 Urine Barbiturates Neg (Neg) 03/10/20 22:15 Ur Phencyclidine (PCP) Neg (Neg) 03/10/20 22:15 U Amphetamin/Meth Scrn Neg (Neg) 03/10/20 22:15 MDMA (Ecstasy) Screen Neg (Neg) 03/10/20 22:15 U Benzodiazepines Scrn Neg (Neg) 03/10/20 22:15 Ur Cocaine Metabolite Neg (Neg) 03/10/20 22:15 U Marijuana (THC) Screen Neg (Neg) 03/10/20 22:[address] head initial read: No acute intracranial abnormality Lumbar spine MRI initial read: Mild bilateral L4-L5 and L5-S1 foraminal narrowing secondary to posterior disc bulges and facet arthropathy. Small annular fissure at L5-S1. Right ankle x-ray read pending Right tibia-fibula x-ray read pending Ultrasound venous right lower extremity initial read no evidence of DVT.
[2020-03-11] MEDS ORDERED: INSULIN REGULAR 250 UNITS in SODIUM CHLORIDE 0.9% 247.5 ML IV SCH (00:15)
[2020-03-11 00:22] LABS: iSTAT Creatinine 0.5 mg/dl (0.6-1.3); iSTAT Hemoglobin 12.9 g/dl (12.0-16.0); iSTAT Ionized Calcium 1.16 mmol/l (1.12-1.32); iSTAT Potassium 4.8 mmol/L (3.3-5.0)
[2020-03-11] MEDS ORDERED: NovoLIN-R BOLUS FROM BAG IV ONE (00:30)
[2020-03-11] MEDS ORDERED: GLUCOSE 10 TABS/TUBE PO PRN ×2 (00:30→06:07)
[2020-03-11] MEDS ORDERED: GLUCAGON FOR INJ 1 MG VIAL IM PRN (00:30)
[2020-03-11] MEDS ORDERED: CARBOHYDRATES FOR HYPOGLYCEMIA PO PRN ×2 (00:30→06:07)
[2020-03-11] MEDS ORDERED: GLUCOSE 40% GEL 15 GM TUBE PO PRN ×2 (00:30→06:07)
[2020-03-11] MEDS ORDERED: DEXTROSE 50% 50 ML SYRINGE IV PRN ×2 (00:30→06:07)
[2020-03-11 00:35] LABS: BUN Creatinine Ratio 11.4 (10-20); Calcium 8.3 mg/dl (8.5-10.1); Creatinine Clr Calc Pharmacy 101.3 ml/min; Est GFR (African American) 101.6; Est GFR (Non-African American) 87.6; Magnesium 2.1 mg/dl (1.8-2.4); Potassium 4.7 mmol/L (3.5-5.1); Thyroid Stimulating Hormone 23.5 uIu/ml (0.300-4.500)
[2020-03-11 00:36] LABS: Beta-Hydroxybutyrate 32.54 mg/dl (0.2-2.81)
[2020-03-11] MEDS: SODIUM CHLORIDE 0.9% 1000ML 1,000 ML IV SCH ×2 (01:09→04:30)
[2020-03-11] MEDS ORDERED: CYCLOBENZAPRINE HCL 5 MG TAB PO PRN (02:08)
[2020-03-11] MEDS ORDERED: PROMETHAZINE HCL 12.5 MG in SODIUM CHLORIDE 0.9% 50 ML IV PRN (02:08)
[2020-03-11] MEDS ORDERED: LORazepam 0.5 MG/1 ML VIAL IV PRN (02:08)
[2020-03-11] MEDS ORDERED: OXYCODONE HCL IR 5 MG TAB (IMMEDIATE RELEASE) PO PRN (02:08)
[2020-03-11] MEDS ORDERED: ACETAMINOPHEN 325 MG TAB PO PRN (02:08)
[2020-03-11] MEDS ORDERED: TIZANIDINE HCL 4 MG TABLET PO PRN (02:08)
[2020-03-11] MEDS ORDERED: SODIUM CHLORIDE 0.9% 1000ML 1,000 ML IV SCH (02:08)
[2020-03-11 02:26] LABS: Pregnancy Test, Urine Negative (Negative)
[2020-03-11] MEDS ORDERED: ZOLPIDEM TARTRATE 10 MG TAB PO ONE (03:08)
[2020-03-11] MEDS: TOPIRAMATE 50 MG TAB PO SCH ×3 (03:11→20:11)
[2020-03-11 04:16] LABS: Phosphorus 3.7 mg/dl (2.5-4.9)
[2020-03-11 05:34] LABS: Basophils # (auto) 0.05 K/uL (0-0.2); Basophils % (auto) 0.5 %; Eosinophils # (auto) 0.21 K/uL (0-0.5); Eosinophils % (auto) 2.2 %; Hematocrit (blood only) 34.8 % (37-47); Hemoglobin 12.3 g/dL (12.0-16.0); Immature Granulocytes # (auto) 0.02 K/uL (0.00-0.02); Immature Granulocytes % (auto) 0.2 %; Lymphocytes # (auto) 2.74 K/uL (1.2-3.4); Lymphocytes % (auto) 28.8 %; Mean Corpuscular Hemoglobin 30.4 pg (25-34); Mean Corpuscular Hgb Conc 35.3 g/dL (32-36); Mean Corpuscular Volume 85.9 fL (80-100); Mean Platelet Volume 10.1 fL (7.4-10.4); Monocytes # (auto) 0.74 K/uL (0.11-0.59); Monocytes % (auto) 7.8 %; Neutrophils # (auto) 5.74 K/uL (1.4-6.5); Neutrophils % (auto) 60.5 %; Platelet Count 278 K/uL (130-400); RDW Coefficient of Variation 12.6 % (11.5-14.5); RDW Standard Deviation 39.2 fL (36.4-46.3); Red Blood Count 4.05 M/uL (4.2-5.4)
[2020-03-11 05:50] LABS: Estimated Average Glucose 395 mg/dl; Hemoglobin A1C 15.4 % (4.5-5.6)
[2020-03-11 05:57] LABS: BUN Creatinine Ratio 10.9 (10-20); Calcium 8.5 mg/dl (8.5-10.1); Creatinine Clr Calc Pharmacy 133.9 ml/min; Est GFR (African American) 129.4; Est GFR (Non-African American) 111.6; Potassium 3.2 mmol/L (3.5-5.1)
[2020-03-11] MEDS ORDERED: GLUCAGON FOR INJ 1 MG VIAL SQ PRN (06:07)
[2020-03-11] MEDS ORDERED: POTASSIUM CHLORIDE 20 MEQ TABCR PO STA (06:16)
[2020-03-11] MEDS: LACTATED RINGER'S 1,000 ML IV SCH ×3 (06:21→19:46)
[2020-03-11] MEDS ORDERED: INSULIN GLARGINE SOLOSTAR 100 UNITS/ML 3 ML PEN SC STA (06:23)
[2020-03-11 06:25] LABS: T4 Free Thyroxine 0.82 ng/dl (0.8-1.6); Thyroid Stimulating Hormone 15.6 uIu/ml (0.300-4.500)
[2020-03-11] MEDS: METHADONE PO SCH (06:47)
[2020-03-11] MEDS: INSULIN ASPART 100 UNITS/ML 3 ML PEN SC SCH ×6 (06:49→21:08)
--- NOTE | 2020-03-11 06:52 | CT Scan Report ---
CT head/brain wo con CLINICAL HISTORY: leg spasms, weak/numb, ? focal seizures COMPARISON STUDY: 01/31/2015 TECHNIQUE: Axial CT of the brain is performed from the vertex to the skull base. IV contrast was not administered for this examination. A dose lowering technique was utilized adhering to the principles of ALARA. CT DOSE: 537.48 mGy.cm FINDINGS: No intra or extra-axial mass lesions are visualized. There is no CT evidence of acute cortical infarc tion. There is no evidence of midline shift. There is no acute hemorrhage. No calvarial fractures ar e visualized. There is no evidence of pathologic ventricular dilatation. There is no evidence of acute sinusitis IMPRESSION: No acute intracranial findings ACT 112: Negative or not required by law. Electronically signed by: Sridhar Cam M.D. 03/11/2020 6:51 AM
--- NOTE | 2020-03-11 07:00 | Ultrasound Report ---
US venous doppler LE RT CLINICAL HISTORY: RLE pain COMPARISON STUDY: No previous studies for comparison. FINDINGS: Real-time and color flow Doppler imaging were performed. Flow was seen within the femoral, popliteal and calf veins with no intraluminal thrombus demonstrated. The saphenous vein is patent. IMPRESSION: No evidence of right lower extremity DVT. ACT 112: Negative or not required by law. Electronically signed by: Sridhar Cam M.D. 03/11/2020 6:59 AM
--- NOTE | 2020-03-11 07:18 | Magnetic Resonance Report ---
MR lumbar spine wo con CLINICAL HISTORY: Low back pain. Right leg pain. Weakness. INABILITY TO AMBULATE. TECHNIQUE: Sagittal and axial T1, T2 and STIR images were obtained. COMPARISON STUDY: June 2019 OBSERVATIONS: The vertebral bodies and posterior elements appear intact. There is no abnormal bony signal present t o suggest a marrow replacement process. L1-2: No disc protrusions or extrusions. No evidence of spinal canal or neural foraminal compromise. L2-3: No disc protrusions or extrusions. No evidence of spinal canal or neural foraminal compromise. L3-4: No disc protrusions or extrusions. No evidence of spinal canal or neural foraminal compromise. L4-5: There is a minimal circumferential disc bulge. There is no significant spinal or foraminal sten osis L5-S1: There is a left-sided annular fissure. There is an associated tiny left paracentral disc protr usion. There is no significant canal compromise. There is no foraminal stenosis. The conus medullaris and cauda equina appear normal. IMPRESSION: 1. No significant change from the prior study. Annular fissure and tiny left paracentral disc protrus ion at the L5-S1 level. There is no significant mass effect on the thecal sac. There is no foraminal narrowing. ACT 112: Negative or not required by law. Electronically signed by: Sridhar Cam M.D. 03/11/2020 7:16 AM
[2020-03-11] MEDS: JUNEL~ORDER AWAITING ACTION SCH ×2 (07:43→20:03)
--- NOTE | 2020-03-11 07:59 | XRay Report ---
XR ankle RT min 3V routine CLINICAL HISTORY: fall, eval trauma trauma. Pain. COMPARISON: None. DISCUSSION: The bones and joint spaces appear intact. There is no evidence of fracture, dislocation o r bony disease. There is no evidence for soft tissue swelling. IMPRESSION: Negative study. ACT 112: Negative or not required by law. The above report was generated using voice recognition software. It may contain grammatical, syntax or spelling errors. Electronically signed by: Mitch Arana M.D. 03/11/2020 7:58 AM
--- NOTE | 2020-03-11 07:59 | XRay Report ---
XR tibia fibula RT 2V CLINICAL HISTORY: fall, eval trauma trauma. Pain. COMPARISON: None. DISCUSSION: The bones and joint spaces appear intact. There is no evidence of fracture, dislocation o r bony disease. There is no evidence for soft tissue swelling. IMPRESSION: Negative study. ACT 112: Negative or not required by law. The above report was generated using voice recognition software. It may contain grammatical, syntax or spelling errors. Electronically signed by: Mitch Arana M.D. 03/11/2020 7:57 AM
[2020-03-11] MEDS ORDERED: PNEUMOCOCCAL ADMINISTRATION CHARGE ONE (08:00)
[2020-03-11] MEDS ORDERED: PNEUMOCOCCAL POLYSACCHARIDES 25 MCG/0.5 ML VIAL/SYR IM ONE (08:00)
[2020-03-11] MEDS: ENOXAPARIN INJ 40 MG/0.4 ML SYR SQ SCH (08:09)
[2020-03-11] MEDS: KETOROLAC TROMETHAMINE 15 MG/ML VIAL IV PRN ×2 (08:14→15:11)
[2020-03-11] MEDS ORDERED: PATIENT'S OWN CONTROLLED MED PO SCH ×2 (09:00)
[2020-03-11] MEDS ORDERED: METHADONE ORAL SOLN 2 MG/ML PO SCH (09:00)
[2020-03-11] MEDS ORDERED: PHARMACY GLYCEMIC MGMT CONSULT PRN (09:02)
[2020-03-11] MEDS ORDERED: INSULIN GLARGINE SOLOSTAR 100 UNITS/ML 3 ML PEN SC ONE (09:15)
[2020-03-11] MEDS ORDERED: ALPRAZolam 0.5 MG TABLET PO STA (10:40)
[2020-03-11] MEDS ORDERED: ALPRAZolam 0.5 MG TABLET ONE (10:43)
[2020-03-11] MEDS ORDERED: DC IV INSULIN INFUSION 1 EA DEVI ONE (11:37)
--- NOTE | 2020-03-11 13:34 | Pharmacy Report ---
Glycemic Control Consultation - Date of Service March 11, 2020 - Scope Scope: Glycemic Pharmacist consulted for glycemic control and to write orders per [facility] inpatient glycemic control protocol. - Objective Weight: 89.9 kg Accuchecks BSG (last 24hrs): 03/10/20 03/10/20 03/10/20 21:35 23:49 23:54 Glucose 790 H* 608 H* POC Glucose POC Glucose (other) 582 H* 03/11/20 03/11/20 03/11/20 01:31 02:30 03:29 Glucose POC Glucose 398 H* 295 H 331 H* POC Glucose (other) 03/11/20 03/11/20 03/11/20 04:30 05:15 05:32 Glucose 229 H POC Glucose 249 H 233 H POC Glucose (other) 03/11/20 03/11/20 03/11/20 06:33 07:33 08:30 Glucose POC Glucose 222 H 243 H 214 H POC Glucose (other) 03/11/20 03/11/20 03/11/20 09:32 10:34 11:32 Glucose POC Glucose 301 H* 277 H 208 H POC Glucose (other) Laboratory Data (last 24hrs): 03/10/20 03/10/20 03/10/20 21:35 23:49 23:49 Potassium 4.7 Carbon Dioxide 23 22 Anion Gap 14.0 H 12.0 H Creatinine 1.08 0.82 Est Cr Clr Drug Dosing 76.9 101.3 Osmolality 304 H Beta-Hydroxybutyric Acd 32.54 H 03/11/20 05:15 Potassium 3.2 L D Carbon Dioxide 25 Anion Gap 8.0 Creatinine 0.60 Est Cr Clr Drug Dosing 133.9 Osmolality Beta-Hydroxybutyric Acd HbA1c: Hemoglobin A1c 15.4 % (4.5-5.6) H 03/10/20 21:35 - Recent Pertinent Medications Outpatient Anti-diabetic Regimen: * N/A The patient is currently receiving: * Basal insulin: Lantus 25 units SQ x 1 * Correctional Insulin: Novolog Correction per scale ACHS Goal Range: Low --- mg/dL - High -- mg/dL Correction Factor: -- mg/dL/unit * Prandial insulin: Per carb ratio of 1 unit per (per insulin infusion) grams CHO consumed * Insulin infusion running at 4 units/hr Risk Factors for Insulin Resistance: * Diet: T2DM - Assessment & Plan Assessment & Plan: ASSESSMENT: * Ms Cardenas is a 44 y/o F with a PMH of undiagnosed diabetes. Average blood sugar per A1C is around 400 mg/dL. * Presenting blood sugar was 790 mg/dL - patient placed on insulin infusion and given 25 units of Lantus this morning. * Pharmacy was consulted. Provided additional 10 units this morning for total of 35 units of Lantus (slightly more than full weight-based stress of 2) plus Novolog weight-based stress of 3. * Per nurse patient is sweating but vitals stable. Patient has anxiety. Monitor patient closely as mentioned above average BSG was almost 400 mg/dL for unknown period of time. Patient may have hypoglycemia at blood sugars less than 200 mg/dL. PLAN FOR INPATIENT GLYCEMIC CONTROL: * d/c insulin infusion about 4 hours after Lantus 25 units given so around 1130 AM * Basal insulin * Lantus 35 units SQ today then start scale tomorrow based on BSGs today. * Bolus insulin * NovoLog per scale ACHS or Q6hrs while NPO * Goal Range: Low 110 mg/dL - High 140 mg/dL * Correction Factor: 20 mg/dL/unit * Nutritional / Prandial insulin per carb ratio of 1 unit per 6 grams CHO consumed * Please note that the plan above was derived based on current level of insulin resistance and hospital stress. These recommendations are appropriate for inpatient admission only. Plan of care upon discharge will need to be reassessed to avoid potential outpatient hypo/hyperglycemia. Thank you.
--- NOTE | 2020-03-11 16:08 | Hospitalist Progress Note ---
Date of Service March 11, 2020 Assessment & Plan (1) Hyperglycemic crisis in diabetes mellitus: DM Type II:New diagnosis HbA1C:15.4 Continue Insulin Therapy Appreciate glycemic pharmacist Input Monitor BGs Diabetic education provided Needs close follow-up with PCP upon discharge Rhabdomyolysis. Right leg pain Likely secondary to fall CK: [id number] Venous Doppler:No evidence of right lower extremity DVT. Right Tibia/Fibula X ray:Negative study. Right Ankle X ray:Negative study Continue IV fluids Monitor renal function, CK Hypokalemia Hyponatremia Replete electrolytes as needed Monitor Anxiety disorder Continue home medications Follows with Psychiatrist as outpatient Chronic pain/opiate addiction On methadone Migraine stable H/O Endometriosis S/P surgery Elevated TSH Normal Free T4 Will repeat thyroid function test in AM DVT Px: Lovenox SQ Code Status Full code Disposition Expect to discharge home when stable Admission and Anticipated Discharge Date Admission Date: March 11, 2020 Subjective Patient is seen and examined at bedside Complains of right leg pain/spasms Also states having anxiety earlier today as per RN Denies any chest pain, shortness of breath, dizziness, nausea, abdominal pain Offers no other complaints Review of Systems Review of Systems: All systems reviewed & are unremarkable except as noted in HPI & below Physical Exam Physical Exam: Physical Exam: Vitals signs as noted above General Appearance:Moderately built and nourished, no apparent distress Head: normocephalic, Atraumatic Eyes: normal inspection, EOMI Neck: supple, Trachea midline Respiratory/Chest: Normal breath sounds, CTA, No accessory muscle use Cardiovascular: S1, S2, No murmur Abdomen/GI:Soft, Non tender, Bowel sounds present Extremities/Musculoskelatal:normal inspection, no edema, Right leg mild tender Neurologic/Psych:AAOX3, grossly no focal neurological deficits Skin: normal color, warm Results & Data Results & Data ([facility]) Vital Signs (Past 12 Hours) Vital Signs Temp Pulse Pulse Resp BP Pulse Ox 03/11/20 15:35 36.6 C 92 H 18 116/83 96 03/11/20 12:05 36.6 C 85 18 118/84 96 03/11/20 08:02 36.7 C 88 16 119/81 94 03/11/20 08:00 89 03/11/20 04:00 36.6 C 91 H 20 119/84 97 Laboratory Results Short CBC 03/10/20 03/11/20 Range/Units 21:35 05:15 WBC 7.51 9.50 (4.8-10.8) K/uL Hgb 12.8 12.3 (12.0-16.0) g/dL Hct 37.2 34.8 L (37-47) % Plt Count 268 278 (130-400) K/uL BMP 03/10/20 03/10/20 03/11/20 21:35 23:49 05:15 Sodium 124 L 129 L 136 D Potassium 4.7 3.2 L D Chloride 87 L 95 L 103 Carbon Dioxide 23 22 25 BUN 11 9 7 Creatinine 1.08 0.82 0.60 Glucose 790 H* 608 H* 229 H Calcium 8.8 8.3 L 8.5 Cardiac Enzymes 03/10/20 03/10/20 03/11/20 Range/Units 21:35 23:49 05:15 Total Creatine Kinase 6196 H 35524 H (26-192) U/L Liver Function 03/10/20 Range/Units 21:35 Total Bilirubin 0.4 (0.2-1) mg/dl AST (15-37) U/L ALT 24 (12-78) U/L Alkaline Phosphatase 114 (45-117) U/L Albumin 3.2 L (3.4-5.0) gm/dl Urine 03/10/20 Range/Units 22:15 Urine Color Yellow Urine Appearance Clear (Clear) Urine pH 5.0 (4.5-7.5) Ur Specific [place] 1.037 H (1.000-1.030) Urine Protein Negative (Negative) Urine Glucose (UA) 3+ H (Negative)
--- NOTE | 2020-03-11 16:58 | Electrocardiogram Report ---
Test Reason : Blood Pressure : / mmHG Vent. Rate : 086 BPM Atrial Rate : 086 BPM P-R Int : 160 ms QRS Dur : 088 ms QT Int : 402 ms P-R-T Axes : 049 032 026 degrees QTc Int : 481 ms Normal sinus rhythm Possible Inferior infarct , age undetermined Abnormal ECG When compared with ECG of 27-JAN-2016 07:45, Borderline criteria for Inferior infarct are now Present Nonspecific T wave abnormality, worse in Inferior leads Nonspecific T wave abnormality now evident in Anterolateral leads Confirmed by Yefri Hodge ([id number]) on 03/11/2020 4:58:43 PM Referred By: REFERRED SELF Confirmed By:Yefri Hodge
[2020-03-11] MEDS ORDERED: POLYETHYLENE (MIRALAX) 17 GM PACK PO PRN (17:03)
[2020-03-11] MEDS ORDERED: DOCUSATE SODIUM 100 MG CAP PO ONE (17:03)
[2020-03-11] MEDS: DOCUSATE SODIUM 100 MG CAP PO SCH (20:11)
[2020-03-11] MEDS ORDERED: INSULIN GLARGINE SOLOSTAR 100 UNITS/ML 3 ML PEN SC SCH (21:00)
[2020-03-11] MEDS: DOXEPIN HCL 50 MG CAPSULE PO PRN (21:08)
[2020-03-11] MEDS: ZOLPIDEM TARTRATE 10 MG TAB PO PRN (21:08)
[2020-03-12] MEDS: JUNEL~ORDER AWAITING ACTION SCH ×3 (01:15→18:47)
[2020-03-12] MEDS: LACTATED RINGER'S 1,000 ML IV SCH ×3 (02:22→19:16)
[2020-03-12] MEDS: METHADONE PO SCH (06:26)
[2020-03-12] MEDS: METHADONE ORAL SOLN 2 MG/ML PO SCH ×2 (06:26→09:14)
[2020-03-12] MEDS: DOCUSATE SODIUM 100 MG CAP PO SCH ×2 (08:03→20:59)
[2020-03-12] MEDS: ENOXAPARIN INJ 40 MG/0.4 ML SYR SQ SCH (08:03)
[2020-03-12 08:06] LABS: BUN Creatinine Ratio 7.2 (10-20); Calcium 8.9 mg/dl (8.5-10.1); Creatinine Clr Calc Pharmacy 40.8 ml/min; Est GFR (African American) 35.2; Est GFR (Non-African American) 30.4; Magnesium 2.1 mg/dl (1.8-2.4)
[2020-03-12] MEDS: TOPIRAMATE 50 MG TAB PO SCH ×2 (08:06→21:54)
[2020-03-12] MEDS: ALPRAZolam 0.5 MG TABLET PO PRN ×2 (08:16→19:15)
[2020-03-12] MEDS: INSULIN ASPART 100 UNITS/ML 3 ML PEN SC SCH ×5 (08:17→23:34)
[2020-03-12 08:20] LABS: Beta-Hydroxybutyrate 4.99 mg/dl (0.2-2.81); Thyroid Stimulating Hormone 33.6 uIu/ml (0.300-4.500)
[2020-03-12 08:37] LABS: T4 Free Thyroxine 0.87 ng/dl (0.8-1.6)
[2020-03-12] MEDS ORDERED: INSULIN GLARGINE SOLOSTAR 100 UNITS/ML 3 ML PEN SC SCH ×3 (09:00→21:00)
[2020-03-12 11:02] LABS: Creatinine Clr Calc Pharmacy 43.9 ml/min; Est GFR (African American) 38.5; Est GFR (Non-African American) 33.2
[2020-03-12] MEDS ORDERED: INSULIN GLARGINE SOLOSTAR 100 UNITS/ML 3 ML PEN SC ONE ×2 (12:30)
[2020-03-12] MEDS ORDERED: INSULIN HUMAN REGULAR IV BOLUS 5 UNITS in SYRINGE 0 ML IV ONE (12:30)
--- NOTE | 2020-03-12 14:21 | Pharmacy Report ---
Glycemic Control Progress Note - Date of Service March 12, 2020 - Scope Glycemic Pharmacist consulted for glycemic control to write orders per [facility] inpatient glycemic control protocol. - Objective Accuchecks BSG(last 24 hours):: 03/11/20 03/11/20 03/12/20 16:54 21:05 07:04 Glucose 361 H* POC Glucose 151 H 164 H 03/12/20 03/12/20 03/12/20 07:41 07:42 11:41 Glucose POC Glucose 355 H* 354 H* 401 H* 03/12/20 11:43 Glucose POC Glucose 389 H* HbA1c:: Hemoglobin A1c 15.4 % (4.5-5.6) H 03/10/20 21:35 - Recent Pertinent Medications The patient is currently receiving: * Basal insulin: Lantus 35 units every 24 hours * Correctional Insulin: Novolog Correction per scale ACHS Goal Range: Low 110 mg/dL - High 140 mg/dL Correction Factor: 20 mg/dL/unit * Prandial insulin: Per carb ratio of 1 unit per 6 grams CHO consumed - Outpatient Anti-Diabetic Meds n/a - Assessment & Plan ASSESSMENT: * See progress note from 03/11/2020 for more background info, in short: * Pt receiving SQ basal bolus insulin regimen for hyperglycemia secondary to baseline DM (new diagnosis). * Patient is currently receiving an average of 58 units of insulin per day + insulin infusion until 1130 AM * 35 units of basal insulin * 23 units of prandial/correctional insulin * BSGs ranging 151 - 331 mg/dl over the past 24hrs * Changes needed to insulin regimen: * AM Fasting BSG = 354 mg/dl. This is above goal range for patient based on inpatient targets and co-morbidities. Therefore Basal insulin will be increased to 45 units. (originally given 35 units at breakfast and then 10 units at lunch). Plan for this as baseline morning dose tomorrow. Overnight accuchecks to determine additional basal deficiency. * Post-prandial BSGs became more elevated today. Tighten CF/CR. * Total daily dose TBD PLAN FOR INPATIENT GLYCEMIC CONTROL: * Increasing Lantus to 45 units SQ qAM * TIGHTENING correction factor to 18 mg/dl/unit * TIGHTENING carb ratio to 1 unit per 6 grams CHO consumed * Continuing goal range of Low 110 mg/dL - High 140 mg/dL * Please note that the plan above was derived based on current level of insulin resistance and hospital stress. These recommendations are appropriate for inpatient admission only. Plan of care upon discharge will need to be reassessed to avoid potential outpatient hypo/hyperglycemia. Thank you.
--- NOTE | 2020-03-12 19:16 | Hospitalist Progress Note ---
Date of Service March 12, 2020 Assessment & Plan (1) Hyperglycemic crisis in diabetes mellitus: DM Type II:New diagnosis HbA1C:15.4 Appreciate glycemic pharmacist Input Monitor BGs Diabetic education provided Needs close follow-up with PCP upon discharge Continue insulin therapy Acute Kidney Injury Likely due to Rhabdo, Toradol Toradol discontinued Avoid nephrotoxic agents as able Continue IV fluids Monitor renal function Rhabdomyolysis. Right leg pain Likely secondary to fall CK: [id number] Venous Doppler:No evidence of right lower extremity DVT. Right Tibia/Fibula X ray:Negative study. Right Ankle X ray:Negative study Continue IV fluids Monitor renal function, CK Hypokalemia Hyponatremia Replete electrolytes as needed Monitor Anxiety disorder Continue home medications Follows with Psychiatrist as outpatient Chronic pain/opiate addiction On methadone Migraine stable H/O Endometriosis S/P surgery Elevated TSH Normal Free T4 Will need repeat thyroid function tests as outpatient DVT Px: Heparin SQ Code Status Full code Disposition Expect to discharge home when stable Admission and Anticipated Discharge Date Admission Date: March 11, 2020 Subjective Patient is seen and examined at bedside Leg pain, numbness improved No new complaints Creatinine levels worsened today CK levels improving Denies any chest pain, SOB, dizziness, nausea, abdominal pain Offers no other complaints Review of Systems Review of Systems: All systems reviewed & are unremarkable except as noted in HPI & below Physical Exam Physical Exam: Physical Exam: Vitals signs as noted above General Appearance:Moderately built and nourished, no apparent distress Head: normocephalic, Atraumatic Eyes: normal inspection, EOMI Neck: supple, Trachea midline Respiratory/Chest: Normal breath sounds, CTA, No accessory muscle use Cardiovascular: S1, S2, No murmur Abdomen/GI:Soft, Non tender, Bowel sounds present Extremities/Musculoskelatal:normal inspection, no edema, Right leg mild tender Neurologic/Psych:AAOX3, grossly no focal neurological deficits Skin: normal color, warm Results & Data Results & Data ([facility]) Vital Signs (Past 12 Hours) Vital Signs Temp Pulse Pulse Resp BP Pulse Ox 03/12/20 15:07 37.1 C 96 H 18 130/86 97 03/12/20 15:00 90 03/12/20 07:26 91 H 03/12/20 07:21 36.6 C 88 18 132/88 97 Laboratory Results [facility] 03/12/20 03/12/20 07:04 10:34 Sodium 136 Potassium 4.0 D Chloride 105 Carbon Dioxide 24 BUN 14 D Creatinine 1.97 H D 1.83 H Glucose 361 H* Calcium 8.9 Cardiac Enzymes 03/12/20 Range/Units 07:04 Total Creatine Kinase 5662 H (26-192) U/L
[2020-03-12] MEDS: ZOLPIDEM TARTRATE 10 MG TAB PO PRN (20:59)
[2020-03-12] MEDS: DOXEPIN HCL 50 MG CAPSULE PO PRN (20:59)
[2020-03-12 23:29] LABS: Methadone, Ur Metabolite 6480 ng/mL (<100)
[2020-03-13] MEDS: JUNEL~ORDER AWAITING ACTION SCH ×2 (00:25→08:18)
[2020-03-13] MEDS: INSULIN ASPART 100 UNITS/ML 3 ML PEN SC SCH ×3 (03:26→12:42)
[2020-03-13] MEDS: LACTATED RINGER'S 1,000 ML IV SCH ×2 (03:27→12:37)
[2020-03-13] MEDS: METHADONE ORAL SOLN 2 MG/ML PO SCH (04:34)
[2020-03-13] MEDS: METHADONE PO SCH (04:37)
[2020-03-13] MEDS: TOPIRAMATE 50 MG TAB PO SCH (08:18)
[2020-03-13] MEDS: DOCUSATE SODIUM 100 MG CAP PO SCH (08:18)
[2020-03-13] MEDS: ALPRAZolam 0.5 MG TABLET PO PRN (08:28)
[2020-03-13] MEDS ORDERED: HEPARIN SOD 5,000 UNIT/0.5 ML VIAL SQ SCH (09:00)
[2020-03-13] MEDS ORDERED: INSULIN GLARGINE SOLOSTAR 100 UNITS/ML 3 ML PEN SC SCH (09:00)
[2020-03-13 09:09] LABS: BUN Creatinine Ratio 7.7 (10-20); Calcium 8.9 mg/dl (8.5-10.1); Creatinine Clr Calc Pharmacy 67.6 ml/min; Est GFR (African American) 62.8; Est GFR (Non-African American) 54.2; Potassium 3.6 mmol/L (3.5-5.1)
--- NOTE | 2020-03-13 09:54 | Pharmacy Report ---
Pharmacy Glycemic Short Note 2 - Date of Service March 13, 2020 - Glycemic Short BSG Results (Last 24 hours): 03/12/20 03/12/20 03/12/20 11:41 11:43 14:38 Glucose POC Glucose 401 H* 389 H* 281 H 03/12/20 03/12/20 03/12/20 16:44 20:34 21:54 Glucose POC Glucose 163 H 96 93 03/12/20 03/13/20 03/13/20 23:22 03:21 07:37 Glucose POC Glucose 90 185 H 215 H 03/13/20 07:43 Glucose 219 H POC Glucose OUTPATIENT ANTIDIABETIC REGIMEN: * n/a - NEW DIAGNOSIS of diabetes per A1c > 6.5% * A1c = 15.4% on 03/10/2020 ASSESSMENT: * 44 yo female with new diagnosis of DMT2 * Pt has been requiring ~ 90 units of insulin per day for near-adequate control. BSgs still above goal range but will slowly bring BSGs down since pt is likely to feel hypo at otherwise normal BSGs based on significantly elevated A1c * Typically - patients require higher insulin doses the first few days of admission and then can taper back on dosing once steady state is reached. Recommending ~ 10% decrease in insulin dosing for discharge recommendations to prevent hypo as an outpatient. Close outpatient f/u needed - DM educator or provider can adjust insulin based on BSG logs. PLAN FOR INPATIENT GLYCEMIC CONTROL: * Basal insulin * Continue Lantus 45 units SQ daily in AM for inpatient use - will need slightly lower dose for outpatient which can then be titrated by provider. * Bolus insulin- no change for inpatient. Will use fixed dosing for outpatient * NovoLog per scale ACHS or Q6hrs while NPO * Goal Range: Low 110 mg/dL - High 140 mg/dL * Correction Factor: 18 mg/dL/unit * Nutritional / Prandial insulin per carb ratio of 1 unit per 5 grams CHO consumed PLAN FOR DISCHARGE: 1. Lantus 40 units SQ once daily in AM + Novolog 12 units (pre-set dose) SQ TID with meals 2. Possible addition of Metformin for insulin resistance. PCP to start this as an outpatient once Scr stabilizes and rhabdomyolysis resolves. 3. SMBG 4x/day- before meals/bedtime. 4. A1c > 9%/new diagnosis- pt will need close follow-up post-discharge. PRESCRIPTIONS NEEDED: 1. Lantus Solostar pen. 2. Novolog Flexpen. 3. BD Sharon insulin pen needles 5/32 (4mm) x 32G. 4. OneTouch Verio test strips to check 4x/day (100 strips/25 days). 5. OneTouch Delica lancets.
--- NOTE | 2020-03-13 12:41 | Hospitalist Progress Note ---
Date of Service March 13, 2020 Assessment & Plan (1) Hyperglycemic crisis in diabetes mellitus: DM Type II:New diagnosis HbA1C:15.4 Appreciate glycemic pharmacist Input Monitor BGs Diabetic education provided Needs close follow-up with PCP upon discharge Plan to discharge on Lantus 40 units SQ daily, Novolog 12 units TID with meals Acute Kidney Injury Likely due to Rhabdo, Toradol Toradol discontinued Avoid nephrotoxic agents as able DC IV fluids Monitor renal function Resolved Rhabdomyolysis. Right leg pain Likely secondary to fall CK: [id number] Venous Doppler:No evidence of right lower extremity DVT. Right Tibia/Fibula X ray:Negative study. Right Ankle X ray:Negative study Received IV fluids Monitor renal function, CK Hypokalemia Hyponatremia Replete electrolytes as needed Monitor Anxiety disorder Continue home medications Follows with Psychiatrist as outpatient Chronic pain/opiate addiction On methadone Migraine stable H/O Endometriosis S/P surgery Elevated TSH Normal Free T4 Will need repeat thyroid function tests as outpatient DVT Px: Heparin SQ Code Status Full code Disposition Plan to discharge home today Admission and Anticipated Discharge Date Admission Date: March 11, 2020 Subjective Patient is seen and examined at bedside Doing much better today No significant Leg pain/numbness Denies any chest pain, SOB, dizziness, nausea, abdominal pain Offers no other complaints Review of Systems Review of Systems: All systems reviewed & are unremarkable except as noted in HPI & below Physical Exam Physical Exam: Physical Exam: Vitals signs as noted above General Appearance:Moderately built and nourished, no apparent distress Head: normocephalic, Atraumatic Eyes: normal inspection, EOMI Neck: supple, Trachea midline Respiratory/Chest: Normal breath sounds, CTA, No accessory muscle use Cardiovascular: S1, S2, No murmur Abdomen/GI:Soft, Non tender, Bowel sounds present Extremities/Musculoskelatal:normal inspection, no edema, Right leg mild tender Neurologic/Psych:AAOX3, grossly no focal neurological deficits Skin: normal color, warm Results & Data Results & Data ([facility]) Vital Signs (Past 12 Hours) Vital Signs Temp Pulse Pulse Resp BP BP Pulse Ox 03/13/20 12:16 36.7 C 86 20 110/81 95 03/13/20 08:00 82 03/13/20 07:00 36.5 C 81 18 110/77 94 Laboratory Results [facility] 03/13/20 07:43 Sodium 142 Potassium 3.6 Chloride 109 H Carbon Dioxide 26 BUN 9 D Creatinine 1.22 H D Glucose 219 H Calcium 8.9 Cardiac Enzymes 03/13/20 Range/Units 07:43 Total Creatine Kinase 2341 H (26-192) U/L
--- NOTE | 2020-03-13 12:55 | Discharge Summary ---
Date of Service March 13, 2020 Admission HPI Per Admitting Provider History obtained from patient and records. Medical history significant for anxiety disorder, chronic pain/opiate addiction on methadone, history of migraine, endometriosis status post surgery. Last confinement February 2015 for intractable migraine symptoms. About 10 days ago, patient noted numbness on the right leg which later progressed to right lower leg pain worse on motion. Some back discomfort. Doing a lot of walking to lose weight. No chest pain, no S OB. At the shower last night, right leg started spasming causing her to fall down. No head trauma, no LOC, no syncope. Patient consulted ER. BSG upon arrival to ER was 790. Medical History as above Surgical History : Gynecologic laparoscopic procedures, dental surgery, Family History : Breast cancer, esophageal cancer, hypertension, skin cancer Personal/Social history : Non-smoker, no EtOH intake, disabled/part-time hairstylist Admission Exam Per Admitting Provider Physical Exam Physical Exam: GENERAL: uncomfortable, slightly anxious, obese, no respiratory distress SKIN: Normal color, warm HEENT: [place] palpebral conjunctivae, no ptosis, dry buccal mucosa NECK : Supple, short neck, no tenderness CHEST : CTA, no tenderness HEART : RRR, no obvious murmurs ABDOMEN: Some distention, nontender BACK : Negative overt tenderness, negative straight leg raise test EXTREMITIES : RLE tenderness with some abrasions noted, RLE movement somewhat limited by pain, no other conspicuous deformities noted NEUROLOGIC : Coherent, no facial asymmetry, no other gross focality Principal Diagnosis Rhabdomyolysis Acute kidney injury Hypokalemia Diabetes mellitus --New Diagnosis Discharge Data Allergies Allergy/AdvReac Type Severity Reaction Status Date / Time No Known Allergies Allergy Verified 03/11/20 00:57 Consultations 03/10/20 23:04 ED Decision to Admit Stat Ordered Studies 03/10/20 21:17 CT head/brain wo con Urgent MR lumbar spine wo con Urgent 03/11/20 00:08 US venous doppler LE RT Urgent Hospital Course (1) Hyperglycemic crisis in diabetes mellitus: DM Type II:New diagnosis HbA1C:15.4 Appreciate glycemic pharmacist Input Monitor BGs Diabetic education provided Needs close follow-up with PCP upon discharge Plan to discharge on Lantus 40 units SQ daily, Novolog 12 units TID with meals Acute Kidney Injury Likely due to Rhabdo, Toradol Toradol discontinued Avoid nephrotoxic agents as able DC IV fluids Monitor renal function Resolved Rhabdomyolysis. Right leg pain Likely secondary to fall CK: [id number] Venous Doppler:No evidence of right lower extremity DVT. Right Tibia/Fibula X ray:Negative study. Right Ankle X ray:Negative study Received IV fluids Monitor renal function, CK Hypokalemia Hyponatremia Replete electrolytes as needed Monitor Anxiety disorder Continue home medications Follows with Psychiatrist as outpatient Chronic pain/opiate addiction On methadone Migraine stable H/O Endometriosis S/P surgery Elevated TSH Normal Free T4 Will need repeat thyroid function tests as outpatient DVT Px: Heparin SQ Code Status Full code Disposition Plan to discharge home today Total Time Total Time Spent Total Time Spent (In Minutes): 40 minutes Total Time Includes: Examination of the Patient, Discharge Planning, Medication Reconciliation, Communication With Other Providers and Other Discharge Plan Discharge Items Patient Disposition: Home - Self-Care Reason For Visit: HYPERGLYCEMIC CRISIS Discharge Diagnosis: Rhabdomyolysis Acute kidney injury Hypokalemia Diabetes mellitus --New Diagnosis Activity: Per Instructions section Exercise/Sports: Gradually increase as tolerated Non-emergency contact: Primary Care Provider Call non-emergency contact if: you have any medication questions, your symptoms worsen, your pain is not controlled, your pain is worsening, your pain is unusual for you, your pain is concerning for you and you have a fever Follow-up/Referrals: Yovanny Davis MD [Primary Care Provider] - Diet: Carb Consistent or DM2 Addtl Attending Provider Instructions: Follow-up with your primary care physician Dr. Bridges on March 15, 2020 at 9:05AM Follow-up with your intermediate card tender as advised Seek immediate medical attention if your symptoms reoccur or worsen Get Thyroid Function test as outpatient and further management as per your Primary Care Physician Check you blood sugar levels regularly as advised. Pending Studies at Discharge: No Stand-Alone Forms: My [employer], Smoking Cessation Medications and DC Order Prescriptions: New polyethylene glycol 3350 [Miralax] 17 gram Powder In Packet 17 g PO DAILY PRN (Reason: constipation) 30 Days Qty: 30 RF: 0 Basaglar KwikPen U-100 Insulin 100 unit/mL (3 mL) insulin pen 40 units SQ DAILY 30 Days Qty: 12 RF: 0 insulin aspart U-100 [Novolog Flexpen U-100 Insulin] 100 unit/mL (3 mL) Insulin Pen 12 units SC TIDM 30 Days Qty: 4 RF: 0 Continued ondansetron HCl 4 mg tablet 4 mg PO TID PRN (Reason: nausea and vomiting) Qty: 20 RF: 0 rizatriptan 10 mg tablet 10 mg PO .COMPLEX PRN (Reason: migraine headache) 30 Days Qty: 9 RF: 3 topiramate 50 mg tablet 50 mg PO BID Qty: 60 RF: 2 zolpidem 10 mg tablet 20 mg PO HS RF: 0 doxepin 100 mg capsule 200 mg PO HS PRN (Reason: Insomnia) RF: 0 promethazine 50 mg tablet 50 mg PO Q8H PRN (Reason: Nausea) Qty: 20 RF: 0 methadone 10 mg/mL Concentrate 202 mg PO DAILY RF: 0 tizanidine 4 mg tablet 8 mg PO HS PRN (Reason: muscle spasticity) RF: 0 norethindrone ac-eth estradiol [Junel 10/27 ()] 1-20 mg-mcg tablet 1 tab PO DAILY RF: 0 baclofen 20 mg Tablet 20 mg PO BID PRN (Reason: Spasms) RF: 0 mupirocin calcium 2 % Cream 1 applic TOPICAL TID PRN (Reason: Skin Irritation) RF: 0 adapalene [Differin] 0.1 % Gel 1 applic TOPICAL HS PRN (Reason: Skin Irritation) RF: 0 tacrolimus 0.1 % Ointment 1 applic TOPICAL BID PRN (Reason: Skin Irritation) RF: 0 cyclobenzaprine 5 mg Tablet 5 mg PO TID PRN (Reason: Spasms) RF: 0 zolmitriptan [Zomig] 5 mg Tablet 5 mg PO .DAILY/UD MDD 2 DOSES PRN (Reason: Migraine Headache) RF: 0 dextroamphetamine-amphetamine [Adderall] 20 mg Tablet 20 mg PO DAILY PRN (Reason: .CONCENTRATION) RF: 0 sumatriptan succinate 6 mg/0.5 mL Pen Injector 6 mg SUBCUT .UD PRN (Reason: Migraine Headache) RF: 0 alprazolam 0.5 mg PO TID PRN (Reason: Anxiety) RF: 0 Discharge Orders: Discharge Order (Routine); Ordered 03/13/20 Ordered By: Pascual Barnett/Other Patient Handouts: Diabetes Personal Financial Representative Complications, Hyperglycemia, Hypoglycemia, Diabetes Type 1 Managing, Insulin Types, A1C Admission Data Admit Date/Time: 03/11/20 00:13 Attending Provider: Pascual Alfred Admit Provider: Tres Ruby Primary Care Provider: Yovanny Davis Other Providers: Tres Ruby Other Interventions: Discharge Summary Assessment (RN) Last Done: 03/13/20 13:47 DC Date/Time DO NOT enter until pt leaves facility: 03/13/20 15:30
== END 2020-03-13 15:30 | disposition home or self-care (01) | DRG 638 ==
LOC: ED 20:36 → 2W 03-11 00:13

== ENCOUNTER 2021-12-28 22:55 | Inpatient (IN) ==
[2021-12-28] MEDS ORDERED: SODIUM CHLORIDE 0.9% 1000ML 1,000 ML IV ONE (23:07)
--- NOTE | 2021-12-28 23:08 | Emergency Department Note ---
Impression & Plan DKA (diabetic ketoacidosis) ADMIT ED Provider Note HPI: The patient is a 46-year-old female with history of drug abuse, diabetes, psychosis, presents the emergency department today with altered mental status. Patient reportedly was last seen in her normal state of health yesterday. On arrival here to the ED the patient has profound encephalopathy, she is exhibiting Kussmaul breathing, blood sugar is noted to be 402. Patient is not tachycardic, blood pressure stable at 146/102, patient is saturating well on room air. No outward evidence of trauma is appreciated. Patient is unable to provide me with any history on arrival. 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 Shortly after arrival IVs were established, patient was placed on the front desk monitor, blood pressure stable, patient is nontachycardic, she is afebrile on arrival but is actually noted to be hypothermic at 34.2 and warming blankets were placed, patient is saturating well on room air on arrival and she is protecting her airway. Lab work shows evidence of florid diabetic ketoacidosis, elevated anion gap of 34, patient is noted to have serum bicarbonate level of only 3, pH on venous blood gas is 6.98, patient was started on multiple IV fluid boluses shortly after arrival and was also started on a sodium bicarbonate drip. Lab work shows a normal potassium level therefore insulin drip was also ordered. Patient is noted to have a leukocytosis greater than 20,000 without an obvious source for bacterial infection, urine does not show evidence of infection, chest x-ray does not show pneumonia, CT imaging of the head was obtained that shows no evidence of intracranial bleeding or mass. Given the patient leukocytosis broad-spectrum antibiotics were ordered for coverage, blood cultures were obtained shortly after the patient arrived. Procalcitonin is noted to be low. While here in the ED the following fluid resuscitation the patient did become more responsive and somewhat agitated at times, these episodes did resolve after 1 to 2 minutes at a time. I discussed the above findings with the on-call admitting hospitalist for [facility], Dr. Orantes, and the patient will be admitted to the ICU for further care for diabetic ketoacidosis. * CRITICAL CARE TIME: (50) minutes -Treatment of severe diabetic ketoacidosis with elevated anion gap, severely low serum bicarbonate levels, requiring initiation of insulin drip and aggressive fluid resuscitation as well as sodium bicarbonate drip initiation, discussion with other healthcare providers, arrangement of admission to intensive care Diagnosis: 1. Metabolic encephalopathy 2. Diabetic ketoacidosis with altered mental status 3. Lactic acidosis 4. Ketonuria 5. Thrombocytosis Disposition: Admission Mitch Quintero DO Emergency Medicine Past Med/Surg History Medical History Cluster headache Drug abuse Migraine without aura, not intractable, without status migrainosus Psychosis (01/10/14) Status post hysteroscopy Surgical History S/P laparoscopic procedure S/P LEEP of cervix S/P wisdom tooth extraction Family History Mother Cancer Breast cancer Skin cancer Insomnia Melanoma Panic attacks Grandmother (Maternal) Breast cancer Sister Anxiety Depression Father Insomnia Low back pain Panic attacks Aunt Panic attacks Social History Smoking Status: Unknown if ever smoked Second Hand Exposure: No; Hx Alcohol Use: No Hx Substance Use: Yes Preferred Language: Albanian Communication Ability: Effective Beliefs That Will Affect Care: None Current Living Situation: Parent current occupational status: disabled Feels Safe at Home: Yes Dental Care, Regularly: Yes Physical Activity Frequency: Does not Exercise Seatbelt Use: always Sunscreen Use: Yes Assistive Devices: None Allergies Allergies Allergy/AdvReac Type Severity Reaction Status Date / Time lamotrigine Allergy diarrhea Verified 03/10/21 14:05 Home Meds Home Medications Medication Instructions Recorded Confirmed doxepin 100 mg capsule 200 mg PO HS PRN cap 06/07/19 03/10/21 promethazine 50 mg tablet 50 mg PO Q8H PRN #20 tab 06/07/19 03/10/21 zolpidem 10 mg tablet 20 mg PO HS tab 06/07/19 03/10/21 adapalene 0.1 % topical gel 1 applic TOPICAL HS PRN 03/11/20 03/10/21 (Differin) dextroamphetamine-amphetamine 20 20 mg PO DAILY PRN 03/11/20 03/10/21 mg tablet (Adderall) methadone 10 mg/mL oral concentrate 202 mg PO DAILY 03/11/20 03/10/21 mupirocin calcium 2 % topical cream 1 applic TOPICAL TID PRN 03/11/20 03/10/21 tacrolimus 0.1 % topical ointment 1 applic TOPICAL BID PRN 03/11/20 03/10/21 alprazolam PO 03/10/21 03/10/21 dulaglutide [Trulicity] SUBCUT 03/10/21 03/10/21 empagliflozin 10 mg tablet 10 mg PO DAILY 03/10/21 03/10/21 (Jardiance) metformin PO 03/10/21 03/10/21 Previous Rx's Medication Instructions Recorded blood sugar diagnostic (OneTouch #100 ea 03/15/20 Verio test strips) lancets 30 gauge (OneTouch Delica #100 ea 03/15/20 Lancets) naproxen 500 mg tablet 500 mg PO TID PRN #30 tab 07/07/20 nitrofurantoin 100 mg PO BID #30 cap 03/10/21 monohydrate/macrocrystals 100 mg capsule (Macrobid) eletriptan 40 mg tablet (Relpax) 40 mg PO .COMPLEX PRN #9 tab 03/21/21 norethindrone acetate 1 mg-ethinyl 2 tab PO DAILY #168 tab 06/30/21 estradiol 20 mcg tablet (Junel) tizanidine 4 mg tablet See Rx Instructions .ROUTE 11/04/21 .COMPLEX #270 tab fluconazole 150 mg tablet 150 mg PO Q3D #2 tab 12/04/21 Results & Data (ED) Vital Signs Vital Signs - 24 hr 12/28/21 23:19 12/29/21 00:07 12/29/21 00:08 Temperature 34.2 C L Temperature Source Rectal Pulse Rate 88 Pulse Rate [Apical] 79 Respiratory Rate 26 H 19 19 Respiratory Effort / Characteristics Non-Labored Spontaneous Respiratory Depth Normal Respiratory Pattern Regular Blood Pressure 146/104 H Blood Pressure [Right Arm] 167/98 H Blood Pressure Mean 118 Blood Pressure Mean [Right Arm] 121 Blood Pressure Position Lying Pulse Oximetry 99 100 100 Oxygen Delivery Method Room Air Room Air Room Air Sepsis Recent Fever Within 48 Hours No Sepsis New/Unexplained Change in Mental Status Yes Sepsis Action Taken by Nursing No Action Required Laboratory Data Result diagrams: 12/28/21 23:21 12/28/21 23:21 Lab Results 12/28/21 12/28/21 12/28/21 Range/Units 23:01 23:03 23:21 WBC 20.17 H (4.8-10.8) K/uL RBC 5.02 (4.2-5.4) M/uL Hgb 15.4 (12.0-16.0) g/dL Hct 46.6 (37-47) % MCV 92.8 (80-100) fL MCH 30.7 (25-34) pg MCHC 33.0 (32-36) g/dL RDW Std Deviation 45.4 (36.4-46.3) fL RDW Coeff of Renae 13.3 (11.5-14.5) % Plt Count 821 H (130-400) K/uL MPV 9.8 (7.4-10.4) fL Immature Gran % (Auto) 1.3 % Neut % (Auto) 82.0 % Lymph % (Auto) 13.4 % Waller % (Auto) 3.1 % Eos % (Auto) 0.0 % Baso % (Auto) 0.2 % Neut # (Auto) 16.53 H (1.4-6.5) K/uL Lymph # (Auto) 2.70 (1.2-3.4) K/uL Waller # (Auto) 0.62 H (0.11-0.59) K/uL Eos # (Auto) 0.01 (0-0.5) K/uL Baso # (Auto) 0.05 (0-0.2) K/uL Immature Gran # (Auto) 0.26 H (0.00-0.02) K/uL PT (9.0-12.0) Seconds INR (0.9-1.1) APTT (21.0-31.0) Seconds PTT Ratio VBG pH (7.36-7.41) VBG pCO2 (38-50) mmHg VBG pO2 mmHg VBG HCO3 mmol/L VBG O2 Saturation % VBG Base Excess mEq/L Barometric Pressure mm/Hg Sodium (136-145) mmol/L Potassium (3.5-5.1) mmol/L Chloride (98-107) mmol/L Carbon Dioxide (21-32) mmol/L Anion Gap (3-11) BUN (6-23) mg/dl Creatinine (0.6-1.2) mg/dl Est Cr Clr Drug Dosing Est GFR ( Amer) ml/min Est GFR (Non-Af Amer) ml/min BUN/Creatinine Ratio (10-20) Glucose (70-99(Fasting)) mg/dl POC Glucose 389 H* 402 H* (70-99) mg/dl Lactate (0.4-2.0) mmol/L Calcium (8.5-10.1) mg/dl Magnesium (1.7-2.4) mg/dl Total Bilirubin (0.2-1.0) mg/dl AST (13-39) U/L ALT (7-52) U/L Alkaline Phosphatase (34-104) U/L Troponin I (0-0.04) ng/ml Total Protein (6.0-8.3) gm/dl Albumin (3.4-5.0) gm/dl Globulin (2.5-4.0) gm/dl Albumin/Globulin Ratio (0.9-2) Procalcitonin (0-0.5) ng/ml Urine Color Urine Appearance (Clear) Urine pH (4.5-7.5) Ur Specific Cactus (1.000-1.030) Urine Protein (Negative) Urine Glucose (UA) (Negative) Urine Ketones (Negative) Urine Blood (Negative) Urine Nitrite (Negative) Urine Bilirubin (Negative) Urine Urobilinogen (Negative) Ur Leukocyte Esterase (Negative) Urine WBC (Auto) (0-5) /hpf Urine RBC (Auto) (0-4) /hpf U Hyaline Cast (Auto) (0-5) /lpf U Epithel Cells (Auto) (0-5) /lpf Urine Bacteria (Auto) (Negative) SARS-CoV-2, RNA, NAAT (NEGATIVE) 12/28/21 12/28/21 12/28/21 Range/Units 23:21 23:21 23:21 WBC (4.8-10.8) K/uL RBC (4.2-5.4) M/uL Hgb (12.0-16.0) g/dL Hct (37-47) % MCV (80-100) fL MCH (25-34) pg MCHC (32-36) g/dL RDW Std Deviation (36.4-46.3) fL RDW Coeff of Renae (11.5-14.5) % Plt Count (130-400) K/uL MPV (7.4-10.4) fL Immature Gran % (Auto) % Neut % (Auto) % Lymph % (Auto) % Waller % (Auto) % Eos % (Auto) % Baso % (Auto) % Neut # (Auto) (1.4-6.5) K/uL Lymph # (Auto) (1.2-3.4) K/uL Waller # (Auto) (0.11-0.59) K/uL Eos # (Auto) (0-0.5) K/uL Baso # (Auto) (0-0.2) K/uL Immature Gran # (Auto) (0.00-0.02) K/uL PT 10.1 (9.0-12.0) Seconds INR 0.9 (0.9-1.1) APTT 28.9 (21.0-31.0) Seconds PTT Ratio 1.1 VBG pH (7.36-7.41) VBG pCO2 (38-50) mmHg VBG pO2 mmHg VBG HCO3 mmol/L VBG O2 Saturation % VBG Base Excess mEq/L Barometric Pressure mm/Hg Sodium 136 (136-145) mmol/L Potassium 4.6 (3.5-5.1) mmol/L Chloride 99 (98-107) mmol/L Carbon Dioxide 3 L* (21-32) mmol/L Anion Gap 34 H (3-11) BUN 20 (6-23) mg/dl Creatinine 1.17 (0.6-1.2) mg/dl Est Cr Clr Drug Dosing Not Reportable Est GFR ( Amer) 65.2 ml/min Est GFR (Non-Af Amer) 56.2 ml/min BUN/Creatinine Ratio 17.1 (10-20) Glucose 399 H* (70-99(Fasting)) mg/dl POC Glucose (70-99) mg/dl Lactate 3.7 H* (0.4-2.0) mmol/L Calcium 9.3 (8.5-10.1) mg/dl Magnesium 2.5 H (1.7-2.4) mg/dl Total Bilirubin 0.3 (0.2-1.0) mg/dl AST 14 (13-39) U/L ALT 14 (7-52) U/L Alkaline Phosphatase 76 (34-104) U/L Troponin I < 0.03 (0-0.04) ng/ml Total Protein 8.6 H (6.0-8.3) gm/dl Albumin 4.7 (3.4-5.0) gm/dl Globulin 3.9 (2.5-4.0) gm/dl Albumin/Globulin Ratio 1.2 (0.9-2) Procalcitonin (0-0.5) ng/ml Urine Color Urine Appearance (Clear) Urine pH (4.5-7.5) Ur Specific Cactus (1.000-1.030) Urine Protein (Negative) Urine Glucose (UA) (Negative) Urine Ketones (Negative) Urine Blood (Negative) Urine Nitrite (Negative) Urine Bilirubin (Negative) Urine Urobilinogen (Negative) Ur Leukocyte Esterase (Negative) Urine WBC (Auto) (0-5) /hpf Urine RBC (Auto) (0-4) /hpf U Hyaline Cast (Auto) (0-5) /lpf U Epithel Cells (Auto) (0-5) /lpf Urine Bacteria (Auto) (Negative) SARS-CoV-2, RNA, NAAT (NEGATIVE) 12/28/21 12/28/21 12/28/21 Range/Units 23:21 23:21 23:30 WBC (4.8-10.8) K/uL RBC (4.2-5.4) M/uL Hgb (12.0-16.0) g/dL Hct (37-47) % MCV (80-100) fL MCH (25-34) pg MCHC (32-36) g/dL RDW Std Deviation (36.4-46.3) fL RDW Coeff of Renae (11.5-14.5) % Plt Count (130-400) K/uL MPV (7.4-10.4) fL Immature Gran % (Auto) % Neut % (Auto) % Lymph % (Auto) % Waller % (Auto) % Eos % (Auto) % Baso % (Auto) % Neut # (Auto) (1.4-6.5) K/uL Lymph # (Auto) (1.2-3.4) K/uL Waller # (Auto) (0.11-0.59) K/uL Eos # (Auto) (0-0.5) K/uL Baso # (Auto) (0-0.2) K/uL Immature Gran # (Auto) (0.00-0.02) K/uL PT (9.0-12.0) Seconds INR (0.9-1.1) APTT (21.0-31.0) Seconds PTT Ratio VBG pH 6.98 L (7.36-7.41) VBG pCO2 21 L (38-50) mmHg VBG pO2 63 mmHg VBG HCO3 5 mmol/L VBG O2 Saturation 81.3 % VBG Base Excess -25.3 mEq/L Barometric Pressure 727.9 mm/Hg Sodium (136-145) mmol/L Potassium (3.5-5.1) mmol/L Chloride (98-107) mmol/L Carbon Dioxide (21-32) mmol/L Anion Gap (3-11) BUN (6-23) mg/dl Creatinine (0.6-1.2) mg/dl Est Cr Clr Drug Dosing Est GFR ( Amer) ml/min Est GFR (Non-Af Amer) ml/min BUN/Creatinine Ratio (10-20) Glucose (70-99(Fasting)) mg/dl POC Glucose (70-99) mg/dl Lactate (0.4-2.0) mmol/L Calcium (8.5-10.1) mg/dl Magnesium (1.7-2.4) mg/dl Total Bilirubin (0.2-1.0) mg/dl AST (13-39) U/L ALT (7-52) U/L Alkaline Phosphatase (34-104) U/L Troponin I (0-0.04) ng/ml Total Protein (6.0-8.3) gm/dl Albumin (3.4-5.0) gm/dl Globulin (2.5-4.0) gm/dl Albumin/Globulin Ratio (0.9-2) Procalcitonin < 0.05 (0-0.5) ng/ml Urine Color Yellow Urine Appearance Clear (Clear) Urine pH 5.0 (4.5-7.5) Ur Specific Cactus 1.025 (1.000-1.030) Urine Protein 2+ H (Negative) Urine Glucose (UA) 3+ H (Negative) Urine Ketones 4+ H (Negative) Urine Blood 1+ H (Negative) Urine Nitrite Negative (Negative) Urine Bilirubin Negative (Negative) Urine Urobilinogen Negative (Negative) Ur Leukocyte Esterase Negative (Negative) Urine WBC (Auto) 0 (0-5) /hpf Urine RBC (Auto) 0-4 (0-4) /hpf U Hyaline Cast (Auto) 1-5 (0-5) /lpf U Epithel Cells (Auto) 0-5 (0-5) /lpf Urine Bacteria (Auto) Negative (Negative) SARS-CoV-2, RNA, NAAT (NEGATIVE) 12/28/21 12/29/21 Range/Units 23:30 00:02 WBC (4.8-10.8) K/uL RBC (4.2-5.4) M/uL Hgb (12.0-16.0) g/dL Hct (37-47) % MCV (80-100) fL MCH (25-34) pg MCHC (32-36) g/dL RDW Std Deviation (36.4-46.3) fL RDW Coeff of Renae (11.5-14.5) % Plt Count (130-400) K/uL MPV (7.4-10.4) fL Immature Gran % (Auto) % Neut % (Auto) % Lymph % (Auto) % Waller % (Auto) % Eos % (Auto) % Baso % (Auto) % Neut # (Auto) (1.4-6.5) K/uL Lymph # (Auto) (1.2-3.4) K/uL Waller # (Auto) (0.11-0.59) K/uL Eos # (Auto) (0-0.5) K/uL Baso # (Auto) (0-0.2) K/uL Immature Gran # (Auto) (0.00-0.02) K/uL PT (9.0-12.0) Seconds INR (0.9-1.1) APTT (21.0-31.0) Seconds PTT Ratio VBG pH (7.36-7.41) VBG pCO2 (38-50) mmHg VBG pO2 mmHg VBG HCO3 mmol/L VBG O2 Saturation % VBG Base Excess mEq/L Barometric Pressure mm/Hg Sodium (136-145) mmol/L Potassium (3.5-5.1) mmol/L Chloride (98-107) mmol/L Carbon Dioxide (21-32) mmol/L Anion Gap (3-11) BUN (6-23) mg/dl Creatinine (0.6-1.2) mg/dl Est Cr Clr Drug Dosing Est GFR ( Amer) ml/min Est GFR (Non-Af Amer) ml/min BUN/Creatinine Ratio (10-20) Glucose (70-99(Fasting)) mg/dl POC Glucose 339 H* (70-99) mg/dl Lactate (0.4-2.0) mmol/L Calcium (8.5-10.1) mg/dl Magnesium (1.7-2.4) mg/dl Total Bilirubin (0.2-1.0) mg/dl AST (13-39) U/L ALT (7-52) U/L Alkaline Phosphatase (34-104) U/L Troponin I (0-0.04) ng/ml Total Protein (6.0-8.3) gm/dl Albumin (3.4-5.0) gm/dl Globulin (2.5-4.0) gm/dl Albumin/Globulin Ratio (0.9-2) Procalcitonin (0-0.5) ng/ml Urine Color Urine Appearance (Clear) Urine pH (4.5-7.5) Ur Specific Cactus (1.000-1.030) Urine Protein (Negative) Urine Glucose (UA) (Negative) Urine Ketones (Negative) Urine Blood (Negative) Urine Nitrite (Negative) Urine Bilirubin (Negative) Urine Urobilinogen (Negative) Ur Leukocyte Esterase (Negative) Urine WBC (Auto) (0-5) /hpf Urine RBC (Auto) (0-4) /hpf U Hyaline Cast (Auto) (0-5) /lpf U Epithel Cells (Auto) (0-5) /lpf Urine Bacteria (Auto) (Negative) SARS-CoV-2, RNA, NAAT NEGATIVE (NEGATIVE) Administered Medications Discontinued Medications Sodium Chloride (Nss 1000ml) 1,000 mls @ 999 mls/hr IV .Q1H1M ATIF Stop: 12/29/21 00:06 Last Admin: 12/28/21 23:22 Dose: 999 mls/hr Documented by: [id number] Sodium Chloride (Nss 1000ml) 1,000 mls @ 999 mls/hr IV .Q1H1M ONE Stop: 12/29/21 00:07 Last Admin: 12/28/21 23:21 Dose: 999 mls/hr Documented by: [id number] Discharge Plan Visit Data Chief Complaint: Hyperglycemia ED Provider: Mitch Quintero Discharge Problem: DKA (diabetic ketoacidosis) Forms Stand Alone Forms: [facility] Prescriptions Prescriptions: No Action naproxen 500 mg tablet 500 mg PO TID PRN (Reason: pain) Qty: 30 RF: 1 norethindrone ac-eth estradiol [10/27 (21)] 1-20 mg-mcg tablet 2 tab PO DAILY Qty: 168 RF: 3 tizanidine 4 mg tablet See Rx Instructions .ROUTE .COMPLEX Qty: 270 RF: 0 fluconazole 150 mg tablet 150 mg PO Q3D Qty: 2 RF: 0 eletriptan [Relpax] 40 mg tablet 40 mg PO .COMPLEX PRN (Reason: migraine headache) Qty: 9 RF: 5 zolpidem 10 mg tablet 20 mg PO HS RF: 0 doxepin 100 mg capsule 200 mg PO HS PRN (Reason: Insomnia) RF: 0 promethazine 50 mg tablet 50 mg PO Q8H PRN (Reason: Nausea) Qty: 20 RF: 0 alprazolam PO RF: 0 Jardiance 10 mg tablet 10 mg PO DAILY RF: 0 metformin PO RF: 0 dulaglutide subcut RF: 0 nitrofurantoin monohyd/m-cryst [Macrobid] 100 mg capsule 100 mg PO BID Qty: 30 RF: 3 methadone 10 mg/mL Concentrate 202 mg PO DAILY RF: 0 mupirocin calcium 2 % Cream 1 applic TOPICAL TID PRN (Reason: Skin Irritation) RF: 0 adapalene [Differin] 0.1 % Gel 1 applic TOPICAL HS PRN (Reason: Skin Irritation) RF: 0 tacrolimus 0.1 % Ointment 1 applic TOPICAL BID PRN (Reason: Skin Irritation) RF: 0 dextroamphetamine-amphetamine [Adderall] 20 mg Tablet 20 mg PO DAILY PRN (Reason: .CONCENTRATION) RF: 0 (DME) blood sugar diagnostic [OneTouch Verio test strips] Strip See Rx Instructions .ROUTE .MEDSUPPLY Qty: 100 RF: 0 (DME) lancets [OneTouch Delica Lancets] 30 gauge misc See Rx Instructions .ROUTE .MEDSUPPLY Qty: 100 RF: 0 Referrals Referrals: Yovanny Davis MD [Primary Care Provider] - Discharge Problem: DKA (diabetic ketoacidosis) Qualifiers: Diabetes mellitus type: other specified (including BELLA) Diabetes mellitus complication detail: with coma Qualified Code(s): E13.11 - Other specified diabetes mellitus with ketoacidosis with coma
[2021-12-28] MEDS ORDERED: SODIUM CHLORIDE 0.9% 1000ML 1,000 ML IV SCH (23:15)
[2021-12-28 23:31] LABS: Hematocrit (blood only) 46.6 % (37-47); Hemoglobin 15.4 g/dL (12.0-16.0); Mean Corpuscular Hemoglobin 30.7 pg (25-34); Mean Corpuscular Volume 92.8 fL (80-100); Mean Platelet Volume 9.8 fL (7.4-10.4); Platelet Count 821 K/uL (130-400); RDW Coefficient of Variation 13.3 % (11.5-14.5); RDW Standard Deviation 45.4 fL (36.4-46.3); Red Blood Count 5.02 M/uL (4.2-5.4); White Blood Count 20.17 K/uL (4.8-10.8)
[2021-12-28 23:43] LABS: INR 0.9 (0.9-1.1); Partial Thromboplastin Ratio 1.1; Partial Thromboplastin Time 28.9 Seconds (21.0-31.0); Prothrombin Time 10.1 Seconds (9.0-12.0)
[2021-12-28 23:44] LABS: Base Excess VBG -25.3 mEq/L; Oxygen Saturation VBG 81.3 %; pH VBG 6.98 (7.36-7.41)
[2021-12-28] MEDS ORDERED: SODIUM BICARBONATE 8.4% 150 MEQ in WATER, STERILE 1,000 ML IV SCH (23:45)
[2021-12-28 23:53] LABS: Basophils # (auto) 0.05 K/uL (0-0.2); Basophils % (auto) 0.2 %; Eosinophils # (auto) 0.01 K/uL (0-0.5); Immature Granulocytes # (auto) 0.26 K/uL (0.00-0.02); Immature Granulocytes % (auto) 1.3 %; Lymphocytes % (auto) 13.4 %; Monocytes # (auto) 0.62 K/uL (0.11-0.59); Monocytes % (auto) 3.1 %; Neutrophils # (auto) 16.53 K/uL (1.4-6.5); Troponin I < 0.03 ng/ml (0-0.04)
[2021-12-28] MEDS ORDERED: LACTATED RINGER'S 2,000 ML IV ONE (23:53)
[2021-12-29 00:04] LABS: Appearance Urine Clear (Clear); Bacteria Urine Automated Negative (Negative); Bilirubin Urine Negative (Negative); Blood Urine 1+ (Negative); Color Urine Yellow; Epithelial Cell Urine Auto 0-5 /lpf (0-5); Glucose Urine UA 3+ (Negative); Ketones Urine 4+ (Negative); Leukocyte Esterase Urine Negative (Negative); Nitrite Urine Negative (Negative); Protein Urine 2+ (Negative); RBC Urine Automated 0-4 /hpf (0-4); Specific Gravity Urine 1.025 (1.000-1.030); Urobilinogen Urine Negative (Negative); WBC Urine Automated 0 /hpf (0-5)
[2021-12-29 00:07] LABS: Alanine Aminotransferase 14 U/L (7-52); Albumin Globulin Ratio 1.2 (0.9-2); Albumin Level 4.7 gm/dl (3.4-5.0); Alkaline Phosphatase 76 U/L (34-104); Anion Gap 34 (3-11); Aspartate Aminotransferase 14 U/L (13-39); BUN Creatinine Ratio 17.1 (10-20); Bilirubin,Total 0.3 mg/dl (0.2-1.0); Blood Urea Nitrogen 20 mg/dl (6-23); Calcium 9.3 mg/dl (8.5-10.1); Carbon Dioxide 3 mmol/L (21-32); Chloride 99 mmol/L (98-107); Est GFR (African American) 65.2 ml/min; Est GFR (Non-African American) 56.2 ml/min; Globulin 3.9 gm/dl (2.5-4.0); Glucose 399 mg/dl (70-99(Fasting)); Magnesium 2.5 mg/dl (1.7-2.4); Potassium 4.6 mmol/L (3.5-5.1); Sodium 136 mmol/L (136-145); Total Protein 8.6 gm/dl (6.0-8.3)
[2021-12-29] MEDS ORDERED: STAT IV Infusion **Titration per Protocol STA ×3 (00:09→01:55)
[2021-12-29] MEDS ORDERED: CEFEPIME 2,000 MG/20 ML VIAL IV STA (00:23)
[2021-12-29] MEDS ORDERED: VANCOMYCIN CONSULT ACTIVE PRN (00:23)
[2021-12-29] MEDS ORDERED: VANCOMYCIN HCL 1,750 MG in SODIUM CHLORIDE 0.9% 500 ML IV ONE (00:23)
[2021-12-29] MEDS ORDERED: LACTATED RINGER'S 1,000 ML IV ONE (00:32)
--- NOTE | 2021-12-29 00:46 | History & Physical Report ---
Date of Service December 29, 2021 Assessment & Plan (1) Encephalopathy: Plan: Multifactorial: DKA, DM2 insulin requiring, suboptimal control as of recent hemoglobin A1c of 8.08 September 2021 Home narcotics/multiple neuropsychotropic meds contributory hx chronic pain/opiate addiction on methadone Hypothyroidism, euthyroid as of today's TSH Rule out occult infection ICU IVF, IV insulin Bicarb drip indicated for severe metabolic acidosis Pharmacy glycemic control consult Update hemoglobin A1c Hold home narcotics, neuropsychotropic meds until patient mentation back to baseline CS, hold antibiotics for now until source of bacterial infection found. DVT prophylaxis per Lovenox subcu Full code Attempted to contact patient's father (Dr. Aubrey Liz, contact #[phone] ) over the phone to obtain additional history. No answer. Will request morning provider to reattempt contact in a.m. Text document was generated using Oral[employer] voice recognition software. It may contain grammatical or spelling errors. Kindly contact undersigned for clarification of any documentation item in question. History of Present Illness Chief Complaint: Unresponsiveness as per records Primary Care Provider: Yovanny Davis MD History obtained from ER provider and records. Unable to obtain history from patient secondary to disorientation. Medical history significant for DM2 insulin requiring, hypothyroidism, anxiety disorder, chronic pain/opiate addiction on methadone, history of migraine, endo metriosis status post surgery. Last confinement March 2020 for hyperglycemic crisis, new diagnosis of DM2. Patient discharged on insulin regimen. Patient found to be unresponsive at home by family last night. Patient known to be well 2 nights ago. EMS summoned by family. BSG noted to be 300 at patient's home. IV insulin, bicarb initiated at the ER for DKA. Vancomycin and cefepime administered for possible sepsis. Ativan and Haldol administered for agitation. Medical Historyas above Surgical History : Gynecologic laparoscopic procedures, dental surgery Family History : Breast cancer, esophageal cancer, hypertension, skin cancer Personal/Social history : Non-smoker, no EtOH intake, disabled/part-time hairstylist Allergies Allergy/AdvReac Type Severity Reaction Status Date / Time lamotrigine Allergy diarrhea Verified 12/29/21 00:45 Home Medications Medication Instructions Recorded Confirmed Type adapalene 0.1 % topical gel 1 applic TOPICAL HS 12/29/21 12/29/21 History alprazolam 0.5 mg disintegrating 0.5 mg PO HS PRN 12/29/21 12/29/21 History tablet betamethasone valerate 0.1 % 1 applic TOPICAL BID 12/29/21 12/29/21 History topical cream qurspitsvf-xynnlwsntphav-mfxlvrku 1 tab PO BID PRN 12/29/21 12/29/21 History 50 mg-325 mg-40 mg tablet doxepin 100 mg capsule 200 mg PO HS PRN 12/29/21 12/29/21 History dulaglutide 4.5 mg/0.5 mL 4.5 mg SUBCUT WE 12/29/21 12/29/21 History subcutaneous pen injector (Trulicity) empagliflozin 25 mg tablet 25 mg PO DAILY 12/29/21 12/29/21 History (Jardiance) insulin aspart U-100 100 unit/mL 8 unit SUBCUT TIDM 12/29/21 12/29/21 History (3 mL) subcutaneous pen (Novolog Flexpen U-100 Insulin aspart) insulin glargine 100 unit/mL (3 10 unit SUBCUT DAILY 12/29/21 12/29/21 History mL) subcutaneous pen (Basaglar KwikPen U-100 Insulin) levothyroxine 75 mcg tablet 75 mcg PO DAILY 12/29/21 12/29/21 History metformin 500 mg tablet,extended 2,000 mg PO DAILY 12/29/21 12/29/21 History release 24 hr methadone 10 mg/mL oral concentrate 0 mg PO DIRECTED 12/29/21 12/29/21 History metronidazole 0.75 % topical cream 1 applic TOPICAL BID 12/29/21 12/29/21 History (MetroCream) mupirocin calcium 2 % topical cream 1 applic TOPICAL TID 12/29/21 12/29/21 History norethindrone acetate 1 mg-ethinyl 1 tab PO DAILY 12/29/21 12/29/21 History estradiol 20 mcg tablet (Junel) ondansetron HCl 8 mg tablet 8 mg PO Q4 PRN 12/29/21 12/29/21 History polyethylene glycol 3350 17 17 g PO BID PRN 12/29/21 12/29/21 History gram/dose oral powder (Miralax) promethazine 50 mg tablet 50 mg PO DIRECTED PRN 12/29/21 12/29/21 History tacrolimus 0.1 % topical ointment 1 applic TOPICAL BID PRN 12/29/21 12/29/21 History tizanidine 4 mg tablet 4 mg PO TID PRN 12/29/21 12/29/21 History zolmitriptan 5 mg tablet 5 mg PO DIRECTED PRN 12/29/21 12/29/21 History zolpidem 10 mg tablet 10 mg PO HS 12/29/21 12/29/21 History Past Med/Surg History Medical History Cluster headache Drug abuse Migraine without aura, not intractable, without status migrainosus 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 Insomnia Melanoma Panic attacks Grandmother (Maternal) Breast cancer Sister Anxiety Depression Father Insomnia Low back pain Panic attacks Aunt Panic attacks Social History Smoking Status: Unknown if ever smoked Second Hand Exposure: No; Hx Alcohol Use: No Hx Substance Use: Yes Preferred Language: Setswana Communication Ability: Effective Beliefs That Will Affect Care: None Current Living Situation: Parent current occupational status: disabled Feels Safe at Home: Yes Dental Care, Regularly: Yes Physical Activity Frequency: Does not Exercise Seatbelt Use: always Sunscreen Use: Yes Assistive Devices: None Review of Systems Review of Systems: Could not be reliably obtained secondary to agitation Physical Exam Physical Exam: GENERAL: Uncomfortable, agitated, disoriented minimal respiratory distress SKIN: Normal color, warm HEENT: [place] palpebral conjunctivae, no ptosis, dry buccal mucosa NECK : Supple, no tenderness CHEST : Decreased breath sounds, occasional expiratory wheezes, no tenderness HEART : Tachycardic , no obvious murmurs ABDOMEN: Some distention, nontender EXTREMITIES : No LE swelling/tenderness, no other conspicuous deformities noted NEUROLOGIC : Agitated, disoriented, no facial asymmetry, gait and stance not assessed Results & Data Results & Data ([facility]) Vital Signs (Past 12 Hours) Vital Signs Temp Pulse Pulse Resp BP BP Pulse Ox 12/29/21 00:08 19 100 12/29/21 00:07 79 19 167/98 H 100 12/28/21 23:19 34.2 C L 88 26 H 146/104 H 99 Laboratory Results Laboratory Results WBC 20.17 K/uL (4.8-10.8) H 12/28/21 23: RBC 5.02 M/uL (4.2-5.4) 12/28/21 23:21 Hgb 15.4 g/dL (12.0-16.0) 12/28/21 23: Hct 46.6 % (37-47) 12/28/21 23: MCV 92.8 fL (80-100) 12/28/21 23: MCH 30.7 pg (25-34) 12/28/21 23: MCHC 33.0 g/dL (32-36) 12/28/21 23: RDW Std Deviation 45.4 fL (36.4-46.3) 12/28/21 23: RDW Coeff of Renae 13.3 % (11.5-14.5) 12/28/21 23: Plt Count 821 K/uL (130-400) H 12/28/21 23:21 MPV 9.8 fL (7.4-10.4) 12/28/21 23: Immature Gran % (Auto) 1.3 % 12/28/21 23: Neut % (Auto) 82.0 % 12/28/21 23: Lymph % (Auto) 13.4 % 12/28/21 23:21 [place] % (Auto) 3.1 % 12/28/21 23: Eos % (Auto) 0.0 % 12/28/21 23: Baso % (Auto) 0.2 % 12/28/21 23: Neut # (Auto) 16.53 K/uL (1.4-6.5) H 12/28/21 23:21 Lymph # (Auto) 2.70 K/uL (1.2-3.4) 12/28/21 23: [place] # (Auto) 0.62 K/uL (0.11-0.59) H 12/28/21 23: Eos # (Auto) 0.01 K/uL (0-0.5) 12/28/21 23: Baso # (Auto) 0.05 K/uL (0-0.2) 12/28/21 23: Immature Gran # (Auto) 0.26 K/uL (0.00-0.02) H 12/28/21 23: PT 10.1 Seconds (9.0-12.0) 12/28/21: INR 0.9 (0.9-1.1) 12/28/21: APTT 28.9 Seconds (21.0-31.0) 12/28/21: PTT Ratio 1.1 12/28/21: VBG pH 6.98 (7.36-7.41) L 12/28/21: VBG pCO2 21 mmHg (38-50) L 12/28/21: VBG pO2 63 mmHg 12/28/21: VBG HCO3 5 mmol/L 12/28/21 23: VBG O2 Saturation 81.3 % 12/28/21 23: VBG Base Excess -25.3 mEq/L 12/28/21 23: Barometric Pressure 727.9 mm/Hg 12/28/21 23: Sodium 136 mmol/L (136-145) 12/28/21 23: Potassium 4.6 mmol/L (3.5-5.1) 12/28/21 23: Chloride 99 mmol/L (98-107) 12/28/21: Carbon Dioxide 3 mmol/L (21-32) L* 12/28/21 23: Anion Gap 34 (3-11) H 12/28/21 23: BUN 20 mg/dl (6-23) 12/28/21 23: Creatinine 1.17 mg/dl (0.6-1.2) 12/28/21: Est Cr Clr Drug Dosing Not Reportable 12/28/21: Est GFR ( Amer) 65.2 ml/min 12/28/21 23: Est GFR (Non-Af Amer) 56.2 ml/min 12/28/21: BUN/Creatinine Ratio 17.1 (10-20) 12/28/21 23:21 Glucose 399 mg/dl (70-99(Fasting)) H* 12/28/21 23:21 POC Glucose 339 mg/dl (70-99) H* 12/29/21 00:02 Lactate 3.7 mmol/L (0.4-2.0) H* 12/28/21 23:21 Calcium 9.3 mg/dl (8.5-10.1) 12/28/21 23: Magnesium 2.5 mg/dl (1.7-2.4) H 12/28/21 23:21 Total Bilirubin 0.3 mg/dl (0.2-1.0) 12/28/21 23: AST 14 U/L (13-39) 12/28/21 23: ALT 14 U/L (7-52) 12/28/21 23: Alkaline Phosphatase 76 U/L (34-104) 12/28/21 23: Troponin I < 0.03 ng/ml (0-0.04) 12/28/21 23: Total Protein 8.6 gm/dl (6.0-8.3) H 12/28/21 23: Albumin 4.7 gm/dl (3.4-5.0) 12/28/21 23: Globulin 3.9 gm/dl (2.5-4.0) 12/28/21 23: Albumin/Globulin Ratio 1.2 (0.9-2) 12/28/21 23: Procalcitonin < 0.05 ng/ml (0-0.5) 12/28/21 23: Urine Color Yellow 12/28/21 23:30 Urine Appearance Clear (Clear) 12/28/21 23:30 Urine pH 5.0 (4.5-7.5) 12/28/21 23:30 Ur Specific [place] 1.025 (1.000-1.030) 12/28/21 23: Urine Protein 2+ (Negative) H 12/28/21 23:30 Urine Glucose (UA) 3+ (Negative) H 12/28/21 23:30 Urine Ketones 4+ (Negative) H 12/28/21 23: Urine Blood 1+ (Negative) H 12/28/21 23:30 Urine Nitrite Negative (Negative) 12/28/21 23:30 Urine Bilirubin Negative (Negative) 12/28/21 23:30 Urine Urobilinogen Negative (Negative) 12/28/21 23:30 Ur Leukocyte Esterase Negative (Negative) 12/28/21 23:30 Urine WBC (Auto) 0 /hpf (0-5) 12/28/21 23:30 Urine RBC (Auto) 0-4 /hpf (0-4) 12/28/21 23: U Hyaline Cast (Auto) 1-5 /lpf (0-5) 12/28/21 23:30 U Epithel Cells (Auto) 0-5 /lpf (0-5) 12/28/21 23:30 Urine Bacteria (Auto) Negative (Negative) 12/28/21 23:30 SARS-CoV-2, RNA, NAAT NEGATIVE (NEGATIVE) 12/28/21 23:[address] head initial read: No acute intracranial hemorrhage. No midline shift or mass effect. The territorial campuzano-white matter differentiation is maintained throughout. The ventricles and sulci are commensurate with age. Chest x-ray as per my interpretation no congestion EKG as per my interpretation : Rate 95, NSR, normal axis, QTC 520
[2021-12-29] MEDS: INSULIN REGULAR 250 UNITS in SODIUM CHLORIDE 0.9% 247.5 ML IV SCH (00:57)
[2021-12-29] MEDS ORDERED: HALOPERIDOL LACTATE 5 MG/ML 1 ML VIAL IM STA (00:59)
[2021-12-29] MEDS ORDERED: LORazepam 2 MG/1 ML VIAL IM STA (00:59)
[2021-12-29] MEDS ORDERED: OLANZapine 10 MG/2.1 ML SDV IM PRN (01:15)
[2021-12-29] MEDS ORDERED: ACETAMINOPHEN 1,000 MG/100 ML VIAL IV PRN (01:49)
[2021-12-29 02:02] LABS: Pregnancy Test, Urine Negative (Negative)
[2021-12-29] MEDS ORDERED: POLYETHYLENE (MIRALAX) 17 GM PACK PO PRN (02:39)
[2021-12-29] MEDS ORDERED: PHARMACY GLYCEMIC MGMT CONSULT PRN (02:39)
[2021-12-29] MEDS ORDERED: PROMETHAZINE HCL 12.5 MG in SODIUM CHLORIDE 0.9% 50 ML IV PRN (02:39)
[2021-12-29] MEDS ORDERED: ACETAMINOPHEN 325 MG TAB PO PRN (02:39)
[2021-12-29 02:48] LABS: Amphetamines+Metham, Urine Neg (Neg); Barbiturates, Urine Neg (Neg); Benzodiazepine, Urine Neg (Neg); Cocaine, Urine Neg (Neg); MDMA (Ecstacy), Urine Neg (Neg); Methadone, Urine Pos (Neg); Opiate, Urine Neg (Neg); Phencyclidine, Urine Neg (Neg)
[2021-12-29 03:25] LABS: iSTAT Art Bld Gas pCO2 Correct 10 mmHg (35-46); iSTAT Art Bld Gas pH Corrected 7.001 (7.35-7.45); iSTAT Arterial Blood Gas HCO3 3 meg/L (19-24); iSTAT Arterial Blood Gas pCO2 11 mmHg (35-46); iSTAT Arterial Blood Gas pH 6.97 (7.35-7.45); iSTAT Arterial Blood Gas pO2 66 mmHg (80-95); iSTAT Arterial Blood Gas pO2 C 57; iSTAT Carbon Dioxide < 5 mmol/L (24-31); iSTAT Hematocrit 33 % (37-47); iSTAT Hemoglobin 11.2 g/dl (12.0-16.0); iSTAT Potassium 4.1 mmol/L (3.3-5.0); iSTAT Site L Brachial; iSTAT Sodium 131 mmol/L (135-144)
[2021-12-29 03:25] LABS: iSTAT Allen Test Pass; iSTAT Art Bld Gas pCO2 Correct 15 mmHg (35-46); iSTAT Art Bld Gas pH Corrected 6.939 (7.35-7.45); iSTAT Arterial Blood Gas HCO3 3 meg/L (19-24); iSTAT Arterial Blood Gas pCO2 17 mmHg (35-46); iSTAT Arterial Blood Gas pH 6.91 (7.35-7.45); iSTAT Arterial Blood Gas pO2 51 mmHg (80-95); iSTAT Arterial Blood Gas pO2 C 44; iSTAT Carbon Dioxide < 5 mmol/L (24-31); iSTAT Hematocrit 41 % (37-47); iSTAT Hemoglobin 13.9 g/dl (12.0-16.0); iSTAT Potassium 4.6 mmol/L (3.3-5.0); iSTAT Site L Radial; iSTAT Sodium 139 mmol/L (135-144)
[2021-12-29] MEDS ORDERED: SODIUM BICARB 8.4% INJ 50 MEQ/50 ML SYR IV STA (03:37)
[2021-12-29] MEDS ORDERED: STAT IV STA (03:39)
--- NOTE | 2021-12-29 03:40 | Critical Care Consultation ---
Date of Consultation December 29, 2021 Assessment & Plan (1) Admitted to intensive care unit: Reason Critically Ill: 46-year-old female presenting in profound DKA with respiratory distress with Kussmaul respirations and metabolic encephalopathy requiring close monitoring for multiple medication, drip changes, possible need for airway intervention. NEURO - * CAM ICU: POSITIVE * Metabolic encephalopathy: * Likely secondary to acute of illness, acidosis, respiratory failure. * CT head unremarkable. * Monitor for improvements with improvements in underlying presenting condition. CARDIAC/VASCULAR - * Tachycardia: * Likely compensatory in the acutely ill patient with profound DKA. * Continue to monitor for improvement with correction of underlying acidosis, volume depletion, etc. * Prolonged QTC: * Withhold from further QTc prolonging agents. * Monitor for any changes in rhythm. * Maximize electrolytes. * EKG: Normal sinus rhythm at [address] or T wave changes noted. QTc prolongation at 519 ms. * Monitor on telemetry. RESPIRATORY - * Respiratory distress: * Compensatory in the setting of profound DKA. Patient presenting with Kussmaul respirations. Will allow for permissive tachypnea at this time. I am concerned that the patient has showed some slowing of her respiratory rate which I am concerned may be to a degree contributed to sedation versus tiring out. Because of this, and known high risk for intubating profoundly acidotic patient's, will apply BiPAP to maximize patient's respiratory effort and allow her to continue to blow CO2 to correct underlying acidosis until we are able to continue to treat the baseline problem. ABGs will be obtained frequently to assess for changes in respiratory status. Not requiring oxygen at this time. Saturating well on room air. * Would attempt to maximize patient's respiratory status without the need for intubation if at all possible as this would likely create a catastrophe given her underlying acidosis and compensatory breathing at this time. GI/NUTRITION - * N.p.o. * Prophylaxis: Famotidine RENAL/LYTES - * High anion gap metabolic acidosis: * Secondary to DKA with associated lactic acidosis. * Received aggressive fluid resuscitation in the emergency department. * Continue with insulin drip. * Patient persistently profoundly acidotic with worsening respiratory function. Will treat with 2 A of bicarb IV as well as increase in the rate of bicarb drip. Understanding that the situation, certainly there is the potential for rebound which is understood, however patient's respiratory status is too tenuous at this point and I am afraid the patient will deteriorate and require intubation which will only further worsen her condition. * Will increase bicarb gtt for now. * Serial Lytes. * Close monitoring of potassium with insulin/bicarb gtts. * IVF: D5W + 3 amps HCO3 @ 200 mL/Hr - * Salomon in place - Strict I&Os. ENDO - * Profound DKA * BSGs per unit protocol. ISS --> gtt per unit policy. * See RENAL/LYTES * Hypothyroidism: * Continue home dosing when appropriate. HEME - * Leukocytosis: * Likely stress response. ID - * Patient presenting with profound DKA, substantial leukocytosis, and elevated lactate. * Covered prophylactically with vanc/cefepime. * PCT wnl * Agree with holding antibiotics for now. LINES/IV ACCESS - * PIVs x3 * RIGHT Radial A line * Salomon DVT PROPHYLAXIS - * Lovenox * SCDs I have personally spent 65 minutes of critical care time in the direct management of this patient. This is a life/limb threatening event. This includes time spent evaluating patient, direct bedside care, chart review, placing orders, interpretation of diagnostic studies, discussion with consultants, patient, and family members, as well as other required patient management activities. This time is exclusive of all separately billable procedures, and teaching time and separate from and in addition to any other critical care service time. Thank you for allowing us to participate in the care of this patient. Please refer to my attending physician's documentation for any further recommendations. (2) DKA (diabetic ketoacidosis): (3) High anion gap metabolic acidosis: (4) Kussmaul breathing: History of Present Illness Attending Physician: Mauro Robbins MD History of Present Illness Patient is a 46-year-old female with significant past medical history of insulin-dependent diabetes migraine headaches, cluster headaches, anxiety, chronic abdominal pain, and spasticity of the RIGHT lower extremity. Patient had apparently been sick for the past few days and had not been utilizing her medications including insulin. She presented to the emergency department in significant distress with Kussmaul respirations and encephalopathy. Patient was aggressively resuscitated with fluids. Insulin drip was started. VBG noted pH to be 6.9. Patient started on bicarb drip as well. Patient apparently became increasingly agitated and did require sedation in the emergency department. Otherwise, upon my evaluation in the ICU, patient unable to contribute to history of present illness. Allergies Allergy/AdvReac Type Severity Reaction Status Date / Time lamotrigine Allergy diarrhea Verified 12/29/21 00:45 Home Medications Medication Instructions Recorded Confirmed Type adapalene 0.1 % topical gel 1 applic TOPICAL HS 12/29/21 12/29/21 History alprazolam 0.5 mg disintegrating 0.5 mg PO HS PRN 12/29/21 12/29/21 History tablet betamethasone valerate 0.1 % 1 applic TOPICAL BID 12/29/21 12/29/21 History topical cream [id number]-ixcnmstogukju-xogsdszf 1 tab PO BID PRN 12/29/21 12/29/21 History 50 mg-325 mg-40 mg tablet doxepin 100 mg capsule 200 mg PO HS PRN 12/29/21 12/29/21 History dulaglutide 4.5 mg/0.5 mL 4.5 mg SUBCUT WE 12/29/21 12/29/21 History subcutaneous pen injector (Trulicity) empagliflozin 25 mg tablet 25 mg PO DAILY 12/29/21 12/29/21 History (Jardiance) insulin aspart U-100 100 unit/mL 8 unit SUBCUT TIDM 12/29/21 12/29/21 History (3 mL) subcutaneous pen (Novolog Flexpen U-100 Insulin aspart) insulin glargine 100 unit/mL (3 10 unit SUBCUT DAILY 12/29/21 12/29/21 History mL) subcutaneous pen (Basaglar KwikPen U-100 Insulin) levothyroxine 75 mcg tablet 75 mcg PO DAILY 12/29/21 12/29/21 History metformin 500 mg tablet,extended 2,000 mg PO DAILY 12/29/21 12/29/21 History release 24 hr methadone 10 mg/mL oral concentrate 0 mg PO DIRECTED 12/29/21 12/29/21 History metronidazole 0.75 % topical cream 1 applic TOPICAL BID 12/29/21 12/29/21 History (MetroCream) mupirocin calcium 2 % topical cream 1 applic TOPICAL TID 12/29/21 12/29/21 History norethindrone acetate 1 mg-ethinyl 1 tab PO DAILY 12/29/21 12/29/21 History estradiol 20 mcg tablet (Junel) ondansetron HCl 8 mg tablet 8 mg PO Q4 PRN 12/29/21 12/29/21 History polyethylene glycol 3350 17 17 g PO BID PRN 12/29/21 12/29/21 History gram/dose oral powder (Miralax) promethazine 50 mg tablet 50 mg PO DIRECTED PRN 12/29/21 12/29/21 History tacrolimus 0.1 % topical ointment 1 applic TOPICAL BID PRN 12/29/21 12/29/21 History tizanidine 4 mg tablet 4 mg PO TID PRN 12/29/21 12/29/21 History zolmitriptan 5 mg tablet 5 mg PO DIRECTED PRN 12/29/21 12/29/21 History zolpidem 10 mg tablet 10 mg PO HS 12/29/21 12/29/21 History Patient History Medical History Cluster headache Drug abuse Migraine without aura, not intractable, without status migrainosus 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 Insomnia Melanoma Panic attacks Grandmother (Maternal) Breast cancer Sister Anxiety Depression Father Insomnia Low back pain Panic attacks Aunt Panic attacks Social History Smoking Status: Unknown if ever smoked Second Hand Exposure: No; Hx Alcohol Use: No Hx Substance Use: Yes Preferred Language: Libyan Communication Ability: Effective Beliefs That Will Affect Care: None Current Living Situation: Parent current occupational status: disabled Feels Safe at Home: Yes Dental Care, Regularly: Yes Physical Activity Frequency: Does not Exercise Seatbelt Use: always Sunscreen Use: Yes Assistive Devices: None Review of Systems Review of Systems: Unobtainable due to cognitive status Physical Exam Physical Exam: VITAL SIGNS - Vital signs and nursing notes were reviewed. GENERAL - 46-year-old female appearing her stated age who is in moderate respiratory distress. Agitated with Kussmaul respirations. SKIN - Without rashes. HEAD - NC/AT. EYES - PERRL with EOMI bilaterally. Sclera anicteric. EARS - No deformities of external structures noted on gross examination bilaterally. NOSE - Midline and without cyanosis. No epistaxis or purulent drainage noted. MOUTH/OROPHARYNX - Without perioral cyanosis. Buccal mucosa pink and dry. NECK - Neck with FROM. Supple to palpation. No nuchal rigidity. LUNGS - Tachypneic. Chest wall symmetric without accessory muscle use, intercostals retractions, or central cyanosis. Normal vesicular breath sounds CTA B/L. No wheezes, rales, or rhonchi appreciated. CARDIAC - RRR with S1/S2. No murmur, rubs, or gallops appreciated. ABDOMEN - Abdominal contour obese without pulsations or visible masses. BS normoactive all four quadrants. No tenderness, palpable masses, hepatosplenomegaly, or ascites noted. EXTREMITIES - Mottling of the lower extremities noted. No clubbing or peripheral cyanosis. No pretibial edema present. +3/5 radial and dorsalis pedis pulses palpated throughout. NEUROLOGIC - No focal neurological deficits note. Unable to fully assess secondary to sedation and encephalopathy. Results & Data Results & Data ([facility]) Vital Signs (Past 12 Hours) Vital Signs Temp Pulse Pulse Resp BP BP Pulse Ox 12/29/21 03:05 34.9 C L 102 H 27 H 150/125 H 99 12/29/21 03:00 34.8 C L 96 H 21 100 12/29/21 02:50 34.9 C L 100 H 30 H 99 12/29/21 02:44 34.9 C L 104 H 27 H 150/125 H 100 12/29/21 02:40 34.8 C L 111 H 26 H 100 12/29/21 02:36 109 H 25 H 12/29/21 02:10 92 H 22 100 12/29/21 02:00 99 H 28 H 150/98 H 100 12/29/21 01:50 96 H 29 H 100 12/29/21 01:45 95 H 27 H 158/95 H 100 12/29/21 01:40 94 H 30 H 100 12/29/21 01:35 94 H 30 H 163/101 H 100 12/29/21 01:30 93 H 31 H 163/101 H 100 12/29/21 01:20 94 H 27 H 100 12/29/21 01:10 100 H 27 H 99 12/29/21 01:00 34 H 97 12/29/21 00:50 98 H 28 H 95 12/29/21 00:46 94 H 35 H 161/121 H 12/29/21 00:40 88 33 H 12/29/21 00:30 83 28 H 161/112 H 100 12/29/21 00:20 75 19 100 12/29/21 00:16 76 19 171/103 H 100 12/29/21 00:10 76 18 100 12/29/21 00:08 19 100 12/29/21 00:07 79 19 167/98 H 100 12/29/21 00:01 87 22 167/98 H 100 12/29/21 00:00 91 H 27 H 100 12/28/21 23:56 94 H 32 H 12/28/21 23:40 100 12/28/21 23:31 92 H 26 H 177/98 H 100 12/28/21 23:30 95 H 28 H 98 12/28/21 23:20 86 25 H 99 12/28/21 23:19 34.2 C L 88 26 H 146/104 H 99 12/28/21 23:16 97 H 37 H 114/96 12/28/21 23:14 86 30 H 167/88 H 12/28/21 23:10 84 23 12/28/21 23:05 86 25 H Coding Level of Care Code Critical Care 1st 30-74 mins Diagnoses Admitted to intensive care unit Z78.9 DKA (diabetic ketoacidosis) E13.11 Diabetes mellitus complication detail: with coma Diabetes mellitus type: other specified (including BELLA) High anion gap metabolic acidosis E87.2 Kussmaul breathing E87.2 Time Spent (min) 65 (1) DKA (diabetic ketoacidosis) Diabetes mellitus complication detail: with coma Diabetes mellitus type: other specified (including BELLA) Qualified Code(s): E13.11 - Other specified diabetes mellitus with ketoacidosis with coma
--- NOTE | 2021-12-29 03:41 | Procedure Note ---
Procedure Note Date of Service December 29, 2021 Note Procedure: Arterial Line Placement Attending: Dr. Ordaz APC: Chris Hoskins PA-C Indication: Hemodynamic monitoring Anesthesia: Lidocaine 1% Emergent Consent implied in the setting of clinical deterioration and need for close hemodynamic monitoring, ABG monitoring, frequent lab draws, etc. A time-out was completed verifying correct patient, procedure, site, positioning, and implant(s) or special equipment if applicable. Allens test was performed to ensure adequate perfusion. Patients RIGHT wrist was prepped and draped in the usual sterile fashion. Ultrasound guidance was used to aid needle placement. A 20g Arrow arterial line was introduced into the RIGHT Radial artery. Catheter was threaded, and the needle was removed with appropriate blood return. Good waveform was observed. The patient tolerated the procedure well. Confirmation of placement with ultrasound. Blood Loss: Minimal Complications: None Procedural Ultrasound Guidance: Procedure Date: 12/29/2021 Indication: Hemodynamic Monitoring, Frequent ABGs/Lab draws. Attending: Dr. Ordaz APC: Chris Hoskins PA-C Artery Identified: YES Line confirmed in Artery with ultrasound: YES Complications: NONE Patient tolerated procedure: WELL Coding CPT Codes Tubes, Drains, and Vasc Access - Tubes, Drains, and Vasc Access: [id number] Place Catheter In Ar[place] ([id number]) [facility] [place] Codes (Charges) Tubes, Drains, and Vasc Access Procedure 1: Tubes, Drains, and Vasc Access: [id number] Place Catheter In Artery
[2021-12-29 03:52] LABS: Hematocrit (blood only) 42.6 % (37-47); Hemoglobin 13.3 g/dL (12.0-16.0); Mean Corpuscular Hemoglobin 29.4 pg (25-34); Mean Corpuscular Hgb Conc 31.2 g/dL (32-36); Mean Corpuscular Volume 94.2 fL (80-100); Mean Platelet Volume 9.8 fL (7.4-10.4); Platelet Count 636 K/uL (130-400); RDW Coefficient of Variation 13.3 % (11.5-14.5); RDW Standard Deviation 45.6 fL (36.4-46.3); Red Blood Count 4.52 M/uL (4.2-5.4); White Blood Count 33.27 K/uL (4.8-10.8)
[2021-12-29 03:53] LABS: Basophils # (auto) 0.03 K/uL (0-0.2); Basophils % (auto) 0.1 %; Echinocytes 2+; Immature Granulocytes # (auto) 0.32 K/uL (0.00-0.02); Lymphocytes # (auto) 1.91 K/uL (1.2-3.4); Lymphocytes % (auto) 5.7 %; Monocytes # (auto) 2.16 K/uL (0.11-0.59); Monocytes % (auto) 6.5 %; Neutrophils # (auto) 28.85 K/uL (1.4-6.5); Neutrophils % (auto) 86.7 %
[2021-12-29 04:08] LABS: Calcium 8.2 mg/dl (8.5-10.1); Creatinine Clr Calc Pharmacy 80.1 ml/min; Est GFR (African American) 88.3 ml/min; Est GFR (Non-African American) 76.2 ml/min; Phosphorus 5.2 mg/dl (2.5-4.9); Potassium 4.5 mmol/L (3.5-5.1)
[2021-12-29] MEDS: SODIUM BICARBONATE 8.4% 150 MEQ in DEXTROSE 5% 1,000 ML IV SCH ×5 (04:27→19:13)
[2021-12-29] MEDS: LEVOTHYROXINE SODIUM 75 MCG TABLET PO SCH (05:45)
[2021-12-29 06:10] LABS: iSTAT Art Bld Gas pCO2 Correct 16 mmHg (35-46); iSTAT Arterial Blood Gas HCO3 8 meg/L (19-24); iSTAT Arterial Blood Gas pCO2 16 mmHg (35-46); iSTAT Arterial Blood Gas pH 7.29 (7.35-7.45); iSTAT Arterial Blood Gas pO2 150 mmHg (80-95); iSTAT Arterial Blood Gas pO2 C 148; iSTAT Carbon Dioxide 8 mmol/L (24-31); iSTAT FiO2 30 %; iSTAT Hematocrit 33 % (37-47); iSTAT Hemoglobin 11.2 g/dl (12.0-16.0); iSTAT Potassium 3.6 mmol/L (3.3-5.0); iSTAT Site Art Line; iSTAT Sodium 144 mmol/L (135-144)
[2021-12-29] MEDS ORDERED: PNEUMOCOCCAL Polysaccharide Vaccine 25mcg/0.5mL vial/Syr IM ONE (06:30)
[2021-12-29] MEDS ORDERED: Flu Vaccine (Fluarix) 0.5mL SYR (Standard Dose) IM ONE (06:30)
[2021-12-29] MEDS ORDERED: GLUCOSE 40% GEL 15 GM TUBE PO PRN (07:00)
[2021-12-29] MEDS ORDERED: DEXTROSE 50% 50 ML SYRINGE IV PRN (07:00)
[2021-12-29] MEDS ORDERED: CARBOHYDRATES FOR HYPOGLYCEMIA PO PRN (07:00)
[2021-12-29] MEDS ORDERED: GLUCAGON FOR INJ 1 MG VIAL IM PRN (07:00)
[2021-12-29] MEDS ORDERED: GLUCOSE 10 TABS/TUBE PO PRN (07:00)
--- NOTE | 2021-12-29 07:29 | CT Scan Report ---
HEAD CT NONCONTRAST CT DOSE: 614.27 mGy.cm HISTORY: Altered mental status. TECHNIQUE: Multiaxial CT images of the head were performed without the use of intravenous contrast. A utomated exposure control was utilized for this study. A dose lowering technique was utilized adheri ng to the principles of ALARA. Comparison: Head CT 03/10/2020. Findings: The paranasal sinuses and mastoid air cells are clear. The calvarium and skull base are int act. The ventricles and sulci are within normal limits. There is no mass, hematoma, midline shift, or acute infarct. Impression: No acute intracranial abnormality. ACT 112: Negative or not required by law. Electronically signed by: Russ Torres M.D. 12/29/2021 7:28 AM
[2021-12-29 07:53] LABS: Estimated Average Glucose 174 mg/dl; Hemoglobin A1C 7.7 % (4.5-5.6)
[2021-12-29 08:00] LABS: BUN Creatinine Ratio 26.5 (10-20); Calcium 7.5 mg/dl (8.5-10.1); Creatinine Clr Calc Pharmacy 107.6 ml/min; Est GFR (African American) 122.4 ml/min; Est GFR (Non-African American) 105.6 ml/min; Potassium 3.5 mmol/L (3.5-5.1)
--- NOTE | 2021-12-29 08:05 | XRay Report ---
XR chest 1V portable CLINICAL HISTORY: SEPSIS TECHNIQUE: Single frontal radiograph of the chest was obtained. Comparison: None available at the time of this dictation. FINDINGS: No lines and tubes are seen. The cardiomediastinal silhouette is normal. The lungs are clear. No evid ence of pleural effusion or pneumothorax. IMPRESSION: No acute abnormality and in particular no evidence of pneumonia. ACT 112: Negative or not required by law. Electronically signed by: Jeff Jimenez M.D. 12/29/2021 8:04 AM
[2021-12-29] MEDS ORDERED: POTASSIUM CHLORIDE 40 MEQ in SODIUM CHLORIDE 0.45 % 1,000 ML IV SCH (08:45)
[2021-12-29] MEDS ORDERED: SODIUM BICARBONATE 8.4% 150 MEQ, POTASSIUM CHLORIDE 40 MEQ in DEXTROSE 5% 1,000 ML IV SCH (08:45)
--- NOTE | 2021-12-29 08:48 | Critical Care Progress Note ---
Date of Service December 29, 2021 Assessment & Plan (1) Admitted to intensive care unit: (2) High anion gap metabolic acidosis: (3) Kussmaul breathing: (4) DKA (diabetic ketoacidosis): Plan: Reason Critically Ill: 46-year-old female presenting in profound DKA with re spiratory distress with Kussmaul respirations and metabolic encephalopathy requiring close monitoring for multiple medication, drip changes, possible need for airway intervention. NEURO - * CAM ICU: POSITIVE * Metabolic encephalopathy: * Likely secondary to acute of illness, acidosis, respiratory failure. * CT head unremarkable. * Monitor for improvements with improvements in underlying presenting condition. * RASS -4 CARDIAC/VASCULAR - * Tachycardia: * Likely compensatory in the acutely ill patient with profound DKA. * Continue to monitor for improvement with correction of underlying acidosis, volume depletion, etc. * Prolonged QTC: * Withhold from further QTc prolonging agents. * Monitor for any changes in rhythm. * Maximize electrolytes. * EKG: Normal sinus rhythm at [address] or T wave changes noted. QTc prolongation at 519 ms. * Monitor on telemetry. RESPIRATORY - * Respiratory distress: * Compensatory in the setting of profound DKA. Patient presenting with Kussmaul respirations. Permissive tachypnea at this time on BIPAP to correct underlying acidosis. Freq. ABGs. Not requiring oxygen at this time. Saturating well on room air. * ABG 7.3/16/148 * VBGs ordered q4 GI/NUTRITION - * N.p.o. * Prophylaxis: none RENAL/LYTES - * High anion gap metabolic acidosis: * Secondary to DKA with associated lactic acidosis. * Received aggressive fluid resuscitation in the emergency department. Started Insulin drip, bicarb with KCl, D5 half normal saline. Will dc bicarb after current bag finished * Serial Lytes BMP q4 * anion gap improving, bicarb improving * Maintain potassium between 3.3 and 5.5. If below 3.3 stop insulin, if above 5.5 stop IV fluids - * Aguilar in place - Strict I&Os. * I/O: +2825, 2800 urine * Methadone present in urine drug screen uncertain if this is patient's home medication, cannot find in PDMP, do not give for now ENDO - * Profound DKA * BSGs per unit protocol. ISS --> gtt per unit policy. * See RENAL/LYTES * Hypothyroidism: * Continue home dosing when appropriate. HEME - * Leukocytosis: * Likely stress response. ID - * Patient presenting with profound DKA, substantial leukocytosis, and elevated lactate. * received vanc/cefepime in ED, dc'd * PCT wnl * hold antibiotics for now. LINES/IV ACCESS - * PIVs x3 * RIGHT Radial A line * Aguilar DVT PROPHYLAXIS - * Lovenox * SCDs Admission and Anticipated Discharge Date Admission Date: December 29, 2021 Supervising Physician Co-Signing Physician Notes Dr. Mesa was the resident-physician during care of patient. I separately evaluated patient for simon portions of the history and the exam. I was present during the critical portion of medical decision making, and I discussed the case with the resident. I generally agree with the findings and plan except for any additions/exceptions noted. Patient seen and examined at bedside. No acute distress Patient was on BiPAP She is very somnolent not answering any questions Hemodynamically she is stable Constitutional: No acute distress HEENT: EOMI, PERRLA Respiratory system: Decreased antibiotic, no wheeze, no rhonchi, no crackles CVS: S1-S2 positive, no murmurs or gallops Abdomen: Soft, nontender, nondistended, positive bowel sounds x4, obese Extremities: +2 pulses bilaterally radialis/ dorsalis pedis, no cyanosis, no edema Neuro: Somnolent Psych: Unable to assess G/U: Positive Aguilar --Prophylaxis VTE: Lovenox GI: None Lines: Right radial, peripheral Diet: N.p.o. Plan: In/out: +2.8 L, urine output [address] head was negative She still very somnolent This could all be from DKA. Continue to monitor Bicarb at the presentation was 3 which went up to 4 On the repeat lab it was 12 and then WBC count is 33,000. Chest x-ray is clean. Procalcitonin negative patient got vancomycin and cefepime in the ER. Right now I do not see any indication for patient to be on antibiotics. No rashes or abdominal tenderness. Lipase within normal limit Continue with insulin drip. Will discontinue bicarb drip later today based on bicarb in the serum I have personally spent additional 40 minutes of critical care time in the direct management of this patient. This is a life/limb threatening event. This includes time spent evaluating patient, direct bedside care, chart review, placing orders, interpretation of diagnostic studies, discussion with consultants, patient, and/or family members regarding treatment decisions, as w ell as other required patient management activities. This time is exclusive of all separately billable procedures, and teaching time and separate from and in addition to any other critical care service time. Subjective Patient seen at bedside asleep, comfortable, some grimaces to significant physical agitation. Bipap present, aguilar present. No significant events overnight. Review of Systems Review of Systems: Unobtainable due to reduced consciousness Physical Exam Constitutional: WD/WN, vitals as above + lethargic and + overweight ENMT: external ear and nose normal, oropharynx normal Neck: trachea midline, no thyromegaly Respiratory: + tachypneic BIPAP present, crackles noted LLL Cardiovascular: Rate/Rhythm: regular rhythm and + tachycardic Chest (Breasts): Chest: normal inspection of chest Gastrointestinal (Abdomen): normal bowel sounds, soft, nontender, no hepatosplenomegaly Skin: no rashes, warm and dry Results & Data Results & Data ([facility]) Vital Signs (Past 12 Hours) Vital Signs Temp Pulse Pulse Resp BP BP Pulse Ox 12/29/21 07:39 113 H 30 H 100 12/29/21 07:32 37.3 C 108 H 20 118/81 99 12/29/21 07:30 37.4 C 94 H 15 100 12/29/21 07:17 37.3 C 95 H 14 112/77 100 12/29/21 07:15 37.3 C 95 H 15 100 12/29/21 07:00 37.2 C 97 H 14 100 12/29/21 06:47 37.1 C 95 H 15 123/79 100 12/29/21 06:46 93 H 12/29/21 06:45 37.1 C 96 H 15 100 12/29/21 06:32 37.0 C 82 14 114/81 100 12/29/21 06:30 36.9 C 79 13 100 12/29/21 06:17 36.8 C 84 13 118/83 100 12/29/21 06:15 36.8 C 88 13 100 12/29/21 06:02 36.7 C 93 H 15 103/81 99 12/29/21 06:00 36.7 C 93 H 15 100 12/29/21 05:47 36.5 C 92 H 15 127/88 100 12/29/21 05:45 36.5 C 94 H 15 100 12/29/21 05:32 36.4 C L 93 H 15 108/87 12/29/21 05:30 36.4 C L 93 H 15 100 12/29/21 05:17 36.2 C L 110 H 23 142/109 H 100 12/29/21 05:15 36.2 C L 91 H 15 100 12/29/21 05:02 36.0 C L 94 H 16 121/90 100 12/29/21 05:00 35.9 C L 110 H 95 H 26 H 144/72 H 100 12/29/21 04:45 35.7 C L 85 14 100 12/29/21 04:32 35.6 C L 94 H 16 135/92 100 12/29/21 04:30 35.5 C L 94 H 16 100 12/29/21 04:18 35.4 C L 100 H 17 125/102 H 100 12/29/21 04:15 35.3 C L 107 H 22 100 12/29/21 04:10 102 H 30 H 100 12/29/21 04:03 35.2 C L 111 H 32 H 140/106 H 100 12/29/21 04:00 35.1 C L 97 H 14 100 12/29/21 03:48 35.0 C L 102 H 20 151/87 H 100 12/29/21 03:45 35.0 C L 105 H 27 H 100 12/29/21 03:33 34.9 C L 105 H 21 151/115 H 100 12/29/21 03:30 34.9 C L 108 H 26 H 100 12/29/21 03:15 34.8 C L 97 H 24 100 12/29/21 03:05 34.9 C L 102 H 27 H 150/125 H 99 12/29/21 03:00 34.8 C L 96 H 21 100 12/29/21 02:50 34.9 C L 100 H 30 H 99 12/29/21 02:44 34.9 C L 104 H 27 H 150/125 H 100 12/29/21 02:40 34.8 C L 111 H 26 H 100 12/29/21 02:36 109 H 25 H 12/29/21 02:10 92 H 22 100 12/29/21 02:00 99 H 28 H 150/98 H 100 12/29/21 01:50 96 H 29 H 100 12/29/21 01:45 95 H 27 H 158/95 H 100 12/29/21 01:40 94 H 30 H 100 12/29/21 01:35 94 H 30 H 163/101 H 100 12/29/21 01:30 93 H 31 H 163/101 H 100 12/29/21 01:20 94 H 27 H 100 12/29/21 01:10 100 H 27 H 99 12/29/21 01:00 34 H 97 12/29/21 00:50 98 H 28 H 95 12/29/21 00:46 94 H 35 H 161/121 H 12/29/21 00:40 88 33 H 12/29/21 00:30 83 28 H 161/112 H 100 12/29/21 00:20 75 19 100 12/29/21 00:16 76 19 171/103 H 100 12/29/21 00:10 76 18 100 12/29/21 00:08 19 100 12/29/21 00:07 79 19 167/98 H 100 12/29/21 00:01 87 22 167/98 H 100 12/29/21 00:00 91 H 27 H 100 12/28/21 23:56 94 H 32 H 12/28/21 23:40 100 12/28/21 23:31 92 H 26 H 177/98 H 100 12/28/21 23:30 95 H 28 H 98 12/28/21 23:20 86 25 H 99 12/28/21 23:19 34.2 C L 88 26 H 146/104 H 99 12/28/21 23:16 97 H 37 H 114/96 12/28/21 23:14 86 30 H 167/88 H 12/28/21 23:10 84 23 12/28/21 23:05 86 25 H Resident Activity Tracking Resident Involvement: Resident Care Provided Care Provided: Adult Hospital Medicine (1) DKA (diabetic ketoacidosis) Diabetes mellitus complication detail: with coma Diabetes mellitus type: other specified (including BELLA) Qualified Code(s): E13.11 - Other specified diabetes mellitus with ketoacidosis with coma
[2021-12-29] MEDS: INSULIN ASPART PER UNIT SC SCH ×4 (09:10→20:26)
[2021-12-29] MEDS: POTASSIUM CHLORIDE / WTR 10 MEQ/100 ML PLCT IV SCH ×6 (09:11→21:59)
[2021-12-29] MEDS ORDERED: MAGNESIUM SULFATE / D5W 1 GM/100 ML BAG IV ONE (09:23)
[2021-12-29] MEDS: ENOXAPARIN INJ 40 MG/0.4 ML SYR SQ SCH (11:06)
[2021-12-29 11:22] LABS: BUN Creatinine Ratio 26.2 (10-20); Calcium 7.6 mg/dl (8.5-10.1); Creatinine Clr Calc Pharmacy 119.9 ml/min; Est GFR (African American) 126.9 ml/min; Est GFR (Non-African American) 109.5 ml/min; Potassium 3.9 mmol/L (3.5-5.1)
[2021-12-29 11:26] LABS: iSTAT Sodium 143 mmol/L (135-144)
[2021-12-29 11:27] LABS: iSTAT Arterial Blood Gas pCO2 8 mmHg (35-46); iSTAT Arterial Blood Gas pH 7.03 (7.35-7.45); iSTAT Arterial Blood Gas pO2 133 mmHg (80-95); iSTAT Hematocrit 38 % (37-47); iSTAT Hemoglobin 12.9 g/dl (12.0-16.0)
[2021-12-29 11:28] LABS: iSTAT Arterial Blood Gas HCO3 2 meg/L (19-24); iSTAT Carbon Dioxide < 5 mmol/L (24-31)
[2021-12-29 11:29] LABS: iSTAT Hemoglobin 11.9 g/dl (12.0-16.0); iSTAT Potassium 3.6 mmol/L (3.3-5.0); iSTAT Sodium 143 mmol/L (135-144)
[2021-12-29 11:30] LABS: iSTAT Arterial Blood Gas HCO3 6 meg/L (19-24); iSTAT Arterial Blood Gas pCO2 14 mmHg (35-46); iSTAT Arterial Blood Gas pH 7.23 (7.35-7.45); iSTAT Arterial Blood Gas pO2 163 mmHg (80-95); iSTAT Carbon Dioxide 6 mmol/L (24-31); iSTAT Hematocrit 35 % (37-47)
--- NOTE | 2021-12-29 12:20 | Pharmacy Report ---
Pharmacy Glycemic Short Note 2 - Date of Service December 29, 2021 - Glycemic Short BSG Results (Last 24 hours): 12/28/21 12/28/21 12/28/21 23:01 23:03 23:21 Glucose 399 H* POC Glucose 389 H* 402 H* 12/29/21 12/29/21 12/29/21 00:02 00:57 02:07 Glucose POC Glucose 339 H* 316 H* 329 H* 12/29/21 12/29/21 12/29/21 02:35 02:45 02:49 Glucose POC Glucose 299 H 264 H 251 H 12/29/21 12/29/21 12/29/21 03:06 03:43 04:40 Glucose 264 H POC Glucose 180 H 172 H 12/29/21 12/29/21 12/29/21 05:41 06:39 07:12 Glucose 130 H POC Glucose 153 H 137 H 12/29/21 12/29/21 12/29/21 07:52 09:07 09:58 Glucose POC Glucose 129 H 109 H 116 H 12/29/21 12/29/21 10:51 11:13 Glucose 119 H POC Glucose 101 H OUTPATIENT ANTIDIABETIC REGIMEN: * Basaglar 10 units daily * Novolog 8units TIDM * metformin 2000mg daily * Trulicity 4.5mg weekly * empagliflozin 25mg PO daily ASSESSMENT: * Patient is a 46 YO F who presented encephalopathic with respiratory distress and Kussmaul respirations found to be in DKA. Initial labs: pH-7.03, HCO3 - 3, AG-34, BSG-389. Patient initiated on insulin infusion per DKA protocol and pharmacy consulted to assist with management. * Continue insulin infusion per DKA protocol (goal BSG 150-200mg/dL) until AG<12, HCO3 >/=15, and pH>7.3 and mentating appropriately to transition to SQ. Average insulin drip rate ~ 5 unit/hr over 11hr. Bicarb drip running (in D5W) @ 150mL/hr (to d/c this afternoon) and dextrose/potassium containing IVF on board. PLAN FOR INPATIENT GLYCEMIC CONTROL: * Hold outpatient oral diabetes medications * Basal insulin * Insulin infusion per DKA protocol * Bolus insulin * NovoLog per scale ACHS or Q6hrs while NPO * Goal Range: Low 110 mg/dL - High 140 mg/dL * Correction Factor: n/a while on insulin drip * Nutritional / Prandial insulin per carb ratio of 1 unit per 10 grams CHO consumed
[2021-12-29] MEDS: POTASSIUM CHLORIDE 40 MEQ in D5W AND 1/2NSS 1,000 ML IV SCH ×3 (12:53→20:26)
[2021-12-29 15:22] LABS: Influenza A virus by PCR Negative (Negative); Influenza B virus by PCR Negative (Negative)
[2021-12-29 15:29] LABS: BUN Creatinine Ratio 19.7 (10-20); Calcium 7.6 mg/dl (8.5-10.1); Creatinine Clr Calc Pharmacy 119.9 ml/min; Est GFR (African American) 126.9 ml/min; Est GFR (Non-African American) 109.5 ml/min; Potassium 3.7 mmol/L (3.5-5.1)
--- NOTE | 2021-12-29 16:08 | Billing Data ---
Date of Service December 29, 2021 Coding Level of Care Code Critical Care ea addt'l 30 min Time Spent (min) 40
--- NOTE | 2021-12-29 16:08 | Hospitalist Progress Note ---
Date of Service December 29, 2021 Assessment & Plan (1) Encephalopathy: Plan: Metabolic encephalopathy Could be multifactorial due to DKA Home narcotics/multiple neuropsychotropic meds contributory CT head showed no acute intracranial abnormality Not awake yet but continue to moan with tactile stimuli Continue monitor closely in the ICU DKA Diabetes Hemoglobin A1c 7.7 Elevated anion gap on admission 34 ABG on admission with pH 6.9, PCO2 15 received IVF and starting on insulin drip Anion gap 17 and pH 7.3 and PCo2 16 Continue IVF, bicarb and insulin drip Pharmacy on board for glycemic management Continue monitor BMP Continue monitor closely in the ICU Elevated WBC Possible reactive due to DKA Received IV cefepime and Vanco on admission Blood culture pending We will hold on antibiotics for now Chronic pain syndrome On methadone ICU team resident will contact pain management Will defer with organ tuner electronic about when to resume it Hypothyroidism Continue levothyroxine DVT prophylaxis per Lovenox subcu Full code Admission and Anticipated Discharge Date Admission Date: December 29, 2021 Subjective Pt was seen and examined for follow up of encephalopathy and DKA She is not awake, but able to move her legs when I scratched the bottom of her feet Staff said that she has not been able to wake up, but she moans when i shook it She continues to have an open anion gap and continue to be on Insulin drip Review of Systems Review of Systems: All systems reviewed & are unremarkable except as noted in Subjective Physical Exam Physical Exam: General- not awake Head- atraumatic Eyes- PERRL, EOMI, ENT- oropharynx clear Neck- supple, no JVD Lungs- clear to auscultation Heart- regular rhythm; no murmur Abdomen- normal bowel sounds, soft, nontender Extremities- no calf tenderness, no edema Neuro- PERRL, able to move extremity, no facial palsy; no dysarthria Skin- warm & dry Results & Data Results & Data ([facility]) Vital Signs (Past 12 Hours) Vital Signs Temp Pulse Pulse Resp BP BP Pulse Ox 12/29/21 15:08 89 30 H 100 12/29/21 12:33 37.3 C 95 H 29 H 145/86 H 89 L 12/29/21 12:30 37.3 C 98 H 26 H 100 12/29/21 12:18 37.3 C 87 26 H 134/80 100 12/29/21 12:15 37.3 C 89 30 H 100 12/29/21 12:03 37.3 C 97 H 24 153/78 H 97 12/29/21 12:00 37.3 C 87 23 145/86 H 100 12/29/21 11:47 37.3 C 90 27 H 143/80 H 100 12/29/21 11:45 37.3 C 88 28 H 100 12/29/21 11:32 37.3 C 87 27 H 139/84 100 12/29/21 11:30 37.3 C 82 23 100 12/29/21 11:17 37.3 C 92 H 25 H 135/84 100 12/29/21 11:15 37.3 C 87 25 H 100 12/29/21 11:02 37.3 C 85 24 138/82 100 12/29/21 11:00 37.3 C 81 30 H 100 12/29/21 10:47 37.3 C 88 23 142/84 H 100 12/29/21 10:45 37.3 C 93 H 28 H 100 12/29/21 10:32 37.3 C 82 18 130/80 100 12/29/21 10:30 37.3 C 85 20 100 12/29/21 10:17 37.2 C 95 H 23 132/81 99 12/29/21 10:15 37.2 C 84 19 99 12/29/21 10:00 37.2 C 86 22 100 12/29/21 09:47 37.2 C 91 H 25 H 135/82 98 12/29/21 09:45 37.2 C 92 H 21 99 12/29/21 09:32 37.3 C 103 H 21 132/90 97 12/29/21 09:30 37.4 C 83 16 98 12/29/21 09:17 37.4 C 84 15 124/79 97 12/29/21 09:15 37.4 C 86 16 98 12/29/21 09:02 37.4 C 85 16 116/80 97 12/29/21 09:00 37.4 C 86 16 98 12/29/21 08:47 37.5 C 87 16 129/75 99 12/29/21 08:45 37.5 C 85 14 99 12/29/21 08:30 37.4 C 92 H 16 99 12/29/21 08:17 37.4 C 90 13 112/78 98 12/29/21 08:16 37.4 C 93 H 15 99 12/29/21 08:02 37.4 C 90 15 118/76 98 12/29/21 08:00 37.4 C 92 H 14 100 12/29/21 07:47 37.4 C 94 H 15 121/77 98 12/29/21 07:45 37.4 C 92 H 14 100 12/29/21 07:39 113 H 30 H 100 12/29/21 07:32 37.3 C 108 H 20 118/81 99 12/29/21 07:30 37.4 C 94 H 15 100 12/29/21 07:17 37.3 C 95 H 14 112/77 100 12/29/21 07:15 37.3 C 95 H 15 100 12/29/21 07:00 37.2 C 97 H 14 100 12/29/21 06:47 37.1 C 95 H 15 123/79 100 12/29/21 06:46 93 H 12/29/21 06:45 37.1 C 96 H 15 100 12/29/21 06:32 37.0 C 82 14 114/81 100 12/29/21 06:30 36.9 C 79 13 100 12/29/21 06:17 36.8 C 84 13 118/83 100 12/29/21 06:15 36.8 C 88 13 100 12/29/21 06:02 36.7 C 93 H 15 103/81 99 12/29/21 06:00 36.7 C 93 H 15 100 12/29/21 05:47 36.5 C 92 H 15 127/88 100 12/29/21 05:45 36.5 C 94 H 15 100 12/29/21 05:32 36.4 C L 93 H 15 108/87 12/29/21 05:30 36.4 C L 93 H 15 100 12/29/21 05:17 36.2 C L 110 H 23 142/109 H 100 12/29/21 05:15 36.2 C L 91 H 15 100 12/29/21 05:02 36.0 C L 94 H 16 121/90 100 12/29/21 05:00 35.9 C L 110 H 95 H 26 H 144/72 H 100 12/29/21 04:45 35.7 C L 85 14 100 12/29/21 04:32 35.6 C L 94 H 16 135/92 100 12/29/21 04:30 35.5 C L 94 H 16 100 12/29/21 04:18 35.4 C L 100 H 17 125/102 H 100 12/29/21 04:15 35.3 C L 107 H 22 100 12/29/21 04:10 102 H 30 H 100
[2021-12-29] MEDS ORDERED: [UNRECOGNIZED DRUG - REMARK] ONE (16:30)
[2021-12-29] MEDS ORDERED: PENDING D5 1/2NS+40mEq KCL IVF ONE (16:30)
--- NOTE | 2021-12-29 16:57 | Electrocardiogram Report ---
Test Reason : Blood Pressure : / mmHG Vent. Rate : 093 BPM Atrial Rate : 093 BPM P-R Int : 158 ms QRS Dur : 082 ms QT Int : 400 ms P-R-T Axes : 062 058 051 degrees QTc Int : 498 ms Normal sinus rhythm Prolonged QT Abnormal ECG When compared with ECG of 11-MAR-2020 06:42, Borderline criteria for Inferior infarct are no longer Present Nonspecific T wave abnormality no longer evident in Inferior leads Nonspecific T wave abnormality no longer evident in Anterolateral leads Confirmed by Desean Calix ([id number]) on 12/29/2021 4:56:51 PM Referred By: REFERRED SELF Confirmed By:Waqar Calix
[2021-12-29 19:28] LABS: BUN Creatinine Ratio 17.9 (10-20); Calcium 7.8 mg/dl (8.5-10.1); Creatinine Clr Calc Pharmacy 130.7 ml/min; Est GFR (African American) 130.5 ml/min; Est GFR (Non-African American) 112.6 ml/min; Potassium 3.4 mmol/L (3.5-5.1)
[2021-12-29] MEDS ORDERED: D5W AND 1/2NSS + 20MEQ KCL 20 MEQ/1,000 ML BAG IV SCH (19:45)
[2021-12-30] MEDS: POTASSIUM CHLORIDE 40 MEQ in D5W AND 1/2NSS 1,000 ML IV SCH ×2 (01:14→06:04)
[2021-12-30 01:44] LABS: Calcium 6.9 mg/dl (8.5-10.1); Creatinine Clr Calc Pharmacy 170.2 ml/min; Est GFR (African American) 142.4 ml/min; Est GFR (Non-African American) 122.8 ml/min; Magnesium 1.5 mg/dl (1.7-2.4); Phosphorus 1.2 mg/dl (2.5-4.9); Potassium 3.2 mmol/L (3.5-5.1)
[2021-12-30] MEDS ORDERED: POTASSIUM PHOS 3 MMOL/1 ML INFUSION IV STA ×2 (01:47→07:35)
[2021-12-30] MEDS: MAGNESIUM SULFATE / D5W 1 GM/100 ML BAG IV SCH ×3 (02:00→06:04)
[2021-12-30] MEDS ORDERED: POTASSIUM PHOSPHATE 15 MMOL in SODIUM CHLORIDE 0.9% 250 ML IV ONE ×2 (02:15→08:00)
[2021-12-30] MEDS: INSULIN REGULAR 250 UNITS in SODIUM CHLORIDE 0.9% 247.5 ML IV SCH ×2 (02:30→07:03)
[2021-12-30] MEDS: LEVOTHYROXINE SODIUM 75 MCG TABLET PO SCH (05:17)
[2021-12-30 07:19] LABS: Basophils # (auto) 0.01 K/uL (0-0.2); Basophils % (auto) 0.1 %; Eosinophils # (auto) 0.02 K/uL (0-0.5); Eosinophils % (auto) 0.1 %; Hematocrit (blood only) 36.9 % (37-47); Immature Granulocytes # (auto) 0.03 K/uL (0.00-0.02); Immature Granulocytes % (auto) 0.2 %; Lymphocytes # (auto) 2.53 K/uL (1.2-3.4); Lymphocytes % (auto) 18.3 %; Mean Corpuscular Hemoglobin 30.3 pg (25-34); Mean Corpuscular Hgb Conc 35.2 g/dL (32-36); Mean Platelet Volume 9.2 fL (7.4-10.4); Monocytes % (auto) 6.5 %; Neutrophils % (auto) 74.8 %; Platelet Count 531 K/uL (130-400); RDW Coefficient of Variation 13.5 % (11.5-14.5); RDW Standard Deviation 42.1 fL (36.4-46.3); Red Blood Count 4.29 M/uL (4.2-5.4); White Blood Count 13.79 K/uL (4.8-10.8)
[2021-12-30 07:20] LABS: Calcium 8.5 mg/dl (8.5-10.1); Creatinine Clr Calc Pharmacy 128.6 ml/min; Est GFR (African American) 129.8 ml/min; Magnesium 2.5 mg/dl (1.7-2.4)
[2021-12-30] MEDS: INSULIN ASPART PER UNIT SC SCH ×5 (07:56→22:31)
[2021-12-30] MEDS: ENOXAPARIN INJ 40 MG/0.4 ML SYR SQ SCH (07:56)
[2021-12-30] MEDS ORDERED: D5W AND 1/2NSS + 20MEQ KCL 20 MEQ/1,000 ML BAG IV SCH (08:30)
--- NOTE | 2021-12-30 08:34 | Critical Care Progress Note ---
Date of Service December 30, 2021 Assessment & Plan (1) Admitted to intensive care unit: (2) High anion gap metabolic acidosis: (3) Kussmaul breathing: (4) DKA (diabetic ketoacidosis): Plan: Reason Critically Ill: 46-year-old female presenting in profound DKA with re spiratory distress with Kussmaul respirations and metabolic encephalopathy requiring close monitoring for multiple medication, drip changes, possible need for airway intervention. NEURO - * CAM ICU: Negative * Metabolic encephalopathy: * Likely secondary to acute of illness, acidosis, respiratory failure. Mostly resolved, occasional confusion * CT head unremarkable. * Patient noted to be on 202mg Methadone daily, will hold for now given patient's occasional confusion CARDIAC/VASCULAR - * Tachycardia: resolved * Likely compensatory in the acutely ill patient with profound DKA. * Prolonged QTC: * Withhold from further QTc prolonging agents. * Monitor for any changes in rhythm. * Maximize electrolytes. * EKG: Normal sinus rhythm at [address] or T wave changes noted. QTc prolongation at 519 ms. Repeat EKG ordered * Monitor on telemetry. * elevated BP noted, if continue may start medication for BP control RESPIRATORY - * Respiratory distress:Resolved * Compensatory in the setting of profound DKA. Patient arrived with Kussmaul respirations, placed on BIPAP. Currently breathing without assistance on room air * last ABG 7.3/148 * CXR unremarkable. Started albuterol, mucinex for throat discomfort GI/NUTRITION - * DM2 carb consistent diet * Prophylaxis: none RENAL/LYTES - * High anion gap metabolic acidosis: * Secondary to DKA with associated lactic acidosis. * Received aggressive fluid resuscitation in the emergency department. Started Insulin drip, bicarb with KCl, D5 half normal saline. Fluids and insulin dc/d today * anion gap improving, bicarb improving * trend BMPs - * Salomon in place - Strict I&Os. * I/O: +3300, 5900 urine ENDO - * Profound DKA * BSGs per unit protocol. ISS --> gtt per unit policy. * See RENAL/LYTES * Hypothyroidism: * Continue home dosing when appropriate. HEME - * Leukocytosis: * Likely stress response. Downtrending ID - * Patient presenting with profound DKA, substantial leukocytosis, and elevated lactate. * received vanc/cefepime in ED, dc'd * PCT wnl * hold antibiotics for now. LINES/IV ACCESS - * PIVs x3 DVT PROPHYLAXIS - * Lovenox * SCDs Admission and Anticipated Discharge Date Admission Date: December 29, 2021 Supervising Physician Co-Signing Physician Notes Dr. Mesa was the resident-physician during care of patient. I separately evaluated patient for simon portions of the history and the exam. I was present during the critical portion of medical decision making, and I discussed the case with the resident. I generally agree with the findings and plan except for any additions/exceptions noted. Patient seen and examined at bedside. No acute distress She was on room air. She is more alert and awake today. Answering all the questions appropriately. Denies any chest pain, no shortness of breath, no headache, no nausea, no vomiting. Asking for food Constitutional: No acute distress HEENT: EOMI, PERRLA Respiratory system: Decreased air entry bilaterally, no wheeze, no rhonchi, no crackles CVS: S1-S2 positive, no murmurs or gallops Abdomen: Soft, nontender, nondistended, positive bowel sounds x4, obese Extremities: +2 pulses bilaterally radialis/ dorsalis pedis, no cyanosis, no edema Neuro: Awake alert oriented x3 Psych: Normal mood and affect G/U: Positive Salomon --Prophylaxis VTE: Lovenox GI: None Lines: Right radial DC 12/30/2021, peripheral Diet: Diabetic diet Plan: In/out: +3.5 L, urine output 5900 Patient bicarb is improved. She has been off bicarb drip for more than 12 hours Phosphorus is being replaced. Start diabetic diet. Bridge to subcu insulin Patient blood pressure is a bit on the higher side. I will start her on amlodipine 5 mg on a daily basis She does take methadone 202 mg from the methadone clinic. She is not asking for any medications right now If need be we will resume her medication. Patient does have prolonged QTC with latest being 482. Need to keep an eye on it given the patient is on methadone. Will DC olanzapine We will discontinue A-line as well as Salomon today I have personally spent additional 35 minutes of critical care time in the direct management of this patient. This is a life/limb threatening event. This includes time spent evaluating patient, direct bedside care, chart review, placing orders, interpretation of diagnostic studies, discussion with consultants, patient, and/or family members regarding treatment decisions, as well as other required patient management activities. This time is exclusive of all separately billable procedures, and teaching time and separate from and in addition to any other critical care service time. Subjective Patient seen at bedside awake breathing room air, calm comfortable cooperative. She is oriented x3, states she only went 5hr without her diabetes medications before getting symptoms, states she would like to eat food and drink water. No other events overnight. Review of Systems Review of Systems: Negative fever chills Negative headache dizziness Negative chest pain palpitations SOB Negative nausea vomitting diarrhea constipation Negative numbness tingling rash swelling Physical Exam Constitutional: WD/WN, vitals as above + overweight Eyes: PERRL, conjunctivae normal, anicteric sclerae ENMT: external ear and nose normal, oropharynx normal Neck: trachea midline, no thyromegaly Respiratory: normal respiratory effort, lungs clear to auscultation + stridor (noted on right) Cardiovascular: Rate/Rhythm: regular rate and regular rhythm Chest (Breasts): Chest: normal inspection of chest Gastrointestinal (Abdomen): normal bowel sounds, soft, nontender, no hepatosplenomegaly Skin: no rashes, warm and dry Psychiatric: Orientation: oriented x 3 Mood: + anxious mood Results & Data Results & Data ([facility]) Vital Signs (Past 12 Hours) Vital Signs Temp Pulse Resp BP Pulse Ox 12/30/21 06:15 36.9 C 77 19 100 12/30/21 06:00 36.9 C 76 17 100 12/30/21 05:48 36.8 C 87 18 169/99 H 12/30/21 05:45 36.8 C 86 24 99 12/30/21 05:30 36.8 C 76 18 100 12/30/21 05:15 36.8 C 77 21 100 12/30/21 05:00 36.9 C 75 19 100 12/30/21 04:48 36.9 C 80 21 165/111 H 100 12/30/21 04:45 36.9 C 76 20 100 12/30/21 04:30 36.9 C 76 17 100 12/30/21 04:15 36.9 C 89 20 100 12/30/21 04:00 36.9 C 83 21 155/92 H 98 12/30/21 03:48 37.0 C 83 18 158/113 H 96 12/30/21 03:45 37.0 C 83 20 97 12/30/21 03:30 37.1 C 81 19 97 12/30/21 03:15 37.1 C 84 17 98 12/30/21 03:00 37.1 C 81 20 99 12/30/21 02:48 37.1 C 86 17 163/101 H 99 12/30/21 02:45 37.1 C 80 19 100 12/30/21 02:30 37.1 C 83 21 100 12/30/21 02:15 37.1 C 75 19 100 12/30/21 02:00 37.2 C 78 18 100 12/30/21 01:48 37.2 C 82 18 156/106 H 99 12/30/21 01:45 37.2 C 82 18 99 12/30/21 01:30 37.3 C 82 20 100 12/30/21 01:15 37.3 C 76 19 100 12/30/21 01:00 37.3 C 73 20 100 12/30/21 00:48 37.2 C 73 21 147/97 H 100 12/30/21 00:45 37.2 C 79 21 100 12/30/21 00:30 37.2 C 71 27 H 100 12/30/21 00:15 37.2 C 88 25 H 99 12/30/21 00:00 37.3 C 72 22 140/107 H 100 12/29/21 23:48 37.4 C 80 26 H 154/94 H 99 12/29/21 23:45 37.5 C 74 22 99 12/29/21 23:30 37.5 C 67 19 100 12/29/21 23:15 37.5 C 74 27 H 100 12/29/21 23:00 37.5 C 77 23 100 12/29/21 22:45 37.5 C 67 21 100 12/29/21 22:40 86 12/29/21 22:33 37.5 C 85 26 H 138/102 H 95 12/29/21 22:30 37.5 C 68 23 99 12/29/21 22:18 37.5 C 80 30 H 159/120 H 98 12/29/21 22:15 37.5 C 72 24 100 12/29/21 22:03 37.6 C H 82 24 158/109 H 100 12/29/21 22:00 37.6 C H 80 34 H 95 12/29/21 21:45 37.7 C H 86 40 H 98 12/29/21 21:34 37.6 C H 106 H 32 H 151/128 H 80 L 12/29/21 21:30 37.6 C H 90 32 H 100 12/29/21 21:19 37.6 C H 82 24 174/82 H 100 12/29/21 21:15 37.6 C H 85 35 H 100 12/29/21 21:10 37.6 C H 82 29 H 141/109 H 100 12/29/21 21:00 37.6 C H 82 27 H 100 12/29/21 20:45 37.6 C H 83 28 H 100 Resident Activity Tracking Resident Involvement: Resident Care Provided Care Provided: Adult Hospital Medicine (1) DKA (diabetic ketoacidosis) Diabetes mellitus complication detail: with coma Diabetes mellitus type: other specified (including BELLA) Qualified Code(s): E13.11 - Other specified diabetes mellitus with ketoacidosis with coma
[2021-12-30] MEDS ORDERED: INSULIN GLARGINE SOLOSTAR 100 UNITS/ML 3 ML PEN SC ONE (08:45)
--- NOTE | 2021-12-30 12:07 | Billing Data ---
Date of Service December 30, 2021 Coding Level of Care Code Critical Care 1st 30-74 mins Time Spent (min) 35
[2021-12-30] MEDS: amLODIPine BESYLATE 5 MG TAB PO SCH (12:40)
[2021-12-30 13:22] LABS: Methadone, Ur Metabolite >10000 ng/mL (<100)
--- NOTE | 2021-12-30 13:40 | Electrocardiogram Report ---
Test Reason : Blood Pressure : / mmHG Vent. Rate : 100 BPM Atrial Rate : 100 BPM P-R Int : 134 ms QRS Dur : 072 ms QT Int : 374 ms P-R-T Axes : 041 016 012 degrees QTc Int : 482 ms Poor data quality, interpretation may be adversely affected Normal sinus rhythm Prolonged QT Abnormal ECG When compared with ECG of 28-DEC-2021 23:34, Nonspecific T wave abnormality now evident in Anterior leads Confirmed by Desean Calix ([id number]) on 12/30/2021 1:40:32 PM Referred By: REFERRED SELF Confirmed By:Waqar Calix
[2021-12-30] MEDS ORDERED: INSULIN ASPART PER UNIT SC ONE (14:30)
--- NOTE | 2021-12-30 15:07 | Pharmacy Report ---
Pharmacy Glycemic Short Note 2 - Date of Service December 30, 2021 - Glycemic Short BSG Results (Last 24 hours): 12/29/21 12/29/21 12/29/21 14:55 15:01 15:58 Glucose 204 H POC Glucose 186 H 179 H 12/29/21 12/29/21 12/29/21 17:03 17:50 18:51 Glucose 175 H POC Glucose 151 H 139 H 12/29/21 12/29/21 12/29/21 19:02 20:03 21:50 Glucose POC Glucose 152 H 168 H 152 H 12/29/21 12/29/21 12/29/21 22:21 23:04 23:54 Glucose POC Glucose 169 H 150 H 152 H 12/30/21 12/30/21 12/30/21 00:48 01:18 02:23 Glucose 144 H POC Glucose 148 H 159 H 12/30/21 12/30/21 12/30/21 03:17 04:11 05:07 Glucose Cancelled POC Glucose 138 H 158 H 12/30/21 12/30/21 12/30/21 05:11 05:12 06:06 Glucose POC Glucose 197 H 182 H 187 H 12/30/21 12/30/21 12/30/21 06:37 06:40 08:41 Glucose 207 H POC Glucose 195 H 216 H 12/30/21 12/30/21 12/30/21 10:11 11:39 11:40 Glucose POC Glucose 213 H 351 H* 349 H* 12/30/21 14:34 Glucose POC Glucose 151 H OUTPATIENT ANTIDIABETIC REGIMEN: * Basaglar 10 units daily * Novolog 8units TIDM * metformin 2000mg daily * Trulicity 4.5mg weekly * empagliflozin 25mg PO daily ASSESSMENT: 12/30: * Pt within goal range overnight on insulin drip. Required D5 infusion @ high rates (~200mL/hr) to maintain BSG within range and insulin drip running @ only ~1 unit/hr overnight. * This AM, mentation improved, pH-7.5, bicarb-19, and AG-14. Able to take PO. Insulin infusion transitioned to SQ with 10units of Lantus (home regimen given insulin sensitivity) this AM with breakfast. * Lantus tonight per BSG scale. Novolog per scale ACHS (wt/stress 2) -- may need tightened tonight pending dinner BSG. * Overnight checks tonight. 12/29: * Patient is a 46 YO F who presented encephalopathic with respiratory distress and Kussmaul respirations found to be in DKA. Initial labs: pH-7.03, HCO3 - 3, AG-34, BSG-389. Patient initiated on insulin infusion per DKA protocol and pharmacy consulted to assist with management. * Continue insulin infusion per DKA protocol (goal BSG 150-200mg/dL) until AG<12, HCO3 >/=15, and pH>7.3 and mentating appropriately to transition to SQ. Average insulin drip rate ~ 5 unit/hr over 11hr. Bicarb drip running (in D5W) @ 150mL/hr (to d/c this afternoon) and dextrose/potassium containing IVF on board. PLAN FOR INPATIENT GLYCEMIC CONTROL: * Hold outpatient oral diabetes medications * Basal insulin * Lantus 10units qAM, HS scale * Bolus insulin * NovoLog per scale ACHS or Q6hrs while NPO * Goal Range: Low 110 mg/dL - High 140 mg/dL * Correction Factor: 1 unit per 30mg/dL>140 * Nutritional / Prandial insulin per carb ratio of 1 unit per 10 grams CHO consumed
--- NOTE | 2021-12-30 15:17 | Hospitalist Progress Note ---
Date of Service December 30, 2021 Assessment & Plan (1) Encephalopathy: Plan: Metabolic encephalopathy Could be multifactorial due to DKA Home narcotics/multiple neuropsychotropic meds contributory CT head showed no acute intracranial abnormality Not awake yet but continue to moan with tactile stimuli Continue monitor closely in the ICU Clinically improves significantly DKA Diabetes Hemoglobin A1c 7.7 Elevated anion gap on admission 34 ABG on admission with pH 6.9, PCO2 15 received IVF and starting on insulin drip Anion gap 17 and pH 7.3 and PCo2 16. Anion gap 14 today Pharmacy on board for glycemic management Insulin drip was discontinued and bridge on Lantus Continue monitor BMP Will continue monitor anion gap Elevated WBC Possible reactive due to DKA WBC increased to 33K, now trending down to 13K Received IV cefepime and Vanco on admission Blood culture no growth We will hold on antibiotics for now Continue monitor CBC Electrolytes abnormality Phosphate 2 today Phos relpaced Continue monitor electrolytes Chronic pain syndrome On methadone ICU team resident will contact pain management Will defer with aids nurse about when to resume it Hypothyroidism Continue levothyroxine DVT prophylaxis per Lovenox subcu Full code Admission and Anticipated Discharge Date Admission Date: December 29, 2021 Subjective Pt was seen and examined for follow up of encephalopathy and DKA Lying in bed with with no acute distress She is awake answered questions and follow command Denies any chest pain, palpitation, dizziness and SOB Review of Systems Review of Systems: All systems reviewed & are unremarkable except as noted in Subjective Physical Exam Physical Exam: General- No acute distress Head- atraumatic Eyes- PERRL, EOMI, ENT- oropharynx clear Neck- supple, no JVD Lungs- clear to auscultation Heart- regular rhythm; no murmur Abdomen- normal bowel sounds, soft, nontender Extremities- no calf tenderness, no edema Neuro- AA)x3, speech normal PERRL, able to move extremity, no facial palsy; no dysarthria Skin- warm & dry Results & Data Results & Data ([facility]) Vital Signs (Past 12 Hours) Vital Signs Temp Pulse Resp BP Pulse Ox 12/30/21 14:00 88 23 100 12/30/21 13:47 88 20 142/100 H 99 12/30/21 13:00 93 H 24 99 12/30/21 12:47 86 22 153/115 H 98 12/30/21 12:00 96 H 16 99 12/30/21 11:47 98 H 28 H 143/103 H 100 12/30/21 11:42 93 H 20 141/106 H 99 12/30/21 11:00 99 H 24 98 12/30/21 10:00 87 32 H 100 12/30/21 09:48 81 20 99 12/30/21 09:00 79 17 100 12/30/21 08:48 83 28 H 100 12/30/21 08:00 36.8 C 79 21 99 12/30/21 07:48 36.8 C 83 24 144/102 H 100 12/30/21 07:00 36.9 C 85 18 100 12/30/21 06:45 36.9 C 78 17 100 12/30/21 06:15 36.9 C 77 19 100 12/30/21 06:00 36.9 C 76 17 100 12/30/21 05:48 36.8 C 87 18 169/99 H 100 12/30/21 05:45 36.8 C 86 24 99 12/30/21 05:30 36.8 C 76 18 100 12/30/21 05:15 36.8 C 77 21 100 12/30/21 05:00 36.9 C 75 19 100 12/30/21 04:48 36.9 C 80 21 165/111 H 100 12/30/21 04:45 36.9 C 76 20 100 12/30/21 04:30 36.9 C 76 17 100 12/30/21 04:15 36.9 C 89 20 100 12/30/21 04:00 36.9 C 83 21 155/92 H 98 12/30/21 03:48 37.0 C 83 18 158/113 H 96 12/30/21 03:45 37.0 C 83 20 97 12/30/21 03:30 37.1 C 81 19 97 12/30/21 03:15 37.1 C 84 17 98
[2021-12-30] MEDS: INSULIN GLARGINE SOLOSTAR 100 UNITS/ML 3 ML PEN SC SCH (22:25)
[2021-12-31] MEDS: INSULIN ASPART PER UNIT SC SCH ×7 (00:14→21:23)
[2021-12-31 05:51] LABS: Basophils # (auto) 0.03 K/uL (0-0.2); Basophils % (auto) 0.2 %; Eosinophils # (auto) 0.01 K/uL (0-0.5); Eosinophils % (auto) 0.1 %; Hematocrit (blood only) 41.5 % (37-47); Hemoglobin 14.2 g/dL (12.0-16.0); Immature Granulocytes # (auto) 0.03 K/uL (0.00-0.02); Immature Granulocytes % (auto) 0.2 %; Lymphocytes # (auto) 3.09 K/uL (1.2-3.4); Lymphocytes % (auto) 24.9 %; Mean Corpuscular Hemoglobin 29.6 pg (25-34); Mean Corpuscular Hgb Conc 34.2 g/dL (32-36); Mean Corpuscular Volume 86.6 fL (80-100); Mean Platelet Volume 9.6 fL (7.4-10.4); Monocytes # (auto) 1.15 K/uL (0.11-0.59); Monocytes % (auto) 9.3 %; Neutrophils % (auto) 65.3 %; Platelet Count 532 K/uL (130-400); RDW Coefficient of Variation 13.6 % (11.5-14.5); Red Blood Count 4.79 M/uL (4.2-5.4); White Blood Count 12.41 K/uL (4.8-10.8)
[2021-12-31] MEDS: LEVOTHYROXINE SODIUM 75 MCG TABLET PO SCH (06:00)
[2021-12-31 06:13] LABS: BUN Creatinine Ratio 21.6 (10-20); Calcium 8.8 mg/dl (8.5-10.1); Creatinine Clr Calc Pharmacy 143.7 ml/min; Est GFR (African American) 134.6 ml/min; Est GFR (Non-African American) 116.1 ml/min; Phosphorus 3.1 mg/dl (2.5-4.9); Potassium 3.3 mmol/L (3.5-5.1)
[2021-12-31] MEDS: amLODIPine BESYLATE 5 MG TAB PO SCH (08:35)
[2021-12-31] MEDS: ENOXAPARIN INJ 40 MG/0.4 ML SYR SQ SCH (08:36)
[2021-12-31] MEDS ORDERED: METHADONE HCL 10 MG TAB PO SCH (09:00)
[2021-12-31] MEDS ORDERED: INSULIN GLARGINE SOLOSTAR 100 UNITS/ML 3 ML PEN SC SCH (09:00)
[2021-12-31] MEDS ORDERED: POTASSIUM CHLORIDE 10 MEQ TABCR PO STA (09:02)
[2021-12-31] MEDS: INSULIN GLARGINE SOLOSTAR 100 UNITS/ML 3 ML PEN SC SCH (21:23)
--- NOTE | 2021-12-31 21:25 | Hospitalist Progress Note ---
Date of Service December 31, 2021 Assessment & Plan (1) Encephalopathy: Plan: Metabolic encephalopathy Could be multifactorial due to DKA Home narcotics/multiple neuropsychotropic meds contributory CT head showed no acute intracranial abnormality Mental status back to normal resolved DKA Diabetes Hemoglobin A1c 7.7 Elevated anion gap on admission 34 ABG on admission with pH 6.9, PCO2 15 received IVF and starting on insulin drip Anion gap 17 and pH 7.3 and PCo2 16. Anion gap closed Pharmacy on board for glycemic management Insulin drip discontinued Continue lantus as per pharmacy recommendation head animal keeper on board Will check Glutamic acid decarboxylase -65, Insulin Autoantibody and Zinc transporter 8 to check if pt is type 1 or type 2 If Type 1, consider to discontinue the oral diabetes meds Will need to follow up with the [facility] to manage her insulin Continue monitor your blood sugar Elevated WBC Possible reactive due to DKA WBC increased to 33K, now trending down to 13K Received IV cefepime and Vanco on admission Blood culture no growth Continue to hold on antibiotics for now Continue monitor CBC Electrolytes abnormality Potassium 3.3 today K replaced Continue monitor electrolytes Chronic pain syndrome On methadone ICU team resident will contact pain management Pt mother said pt is on methadone 202 mg daily Currently on methadone 100mg Spoke to pharmacy to confirm the dose and slowly increase the dose Pharmacy is waiting for call back from the methadone clinic Hypothyroidism Continue levothyroxine DVT prophylaxis per Lovenox subcu Full code Admission and Anticipated Discharge Date Admission Date: December 29, 2021 Subjective Pt was seen and examined for follow up of encephalopathy and DKA Lying in bed with with no acute distress with mother at bedside Denies any chest pain, palpitation, dizziness and SOB Review of Systems Review of Systems: All systems reviewed & are unremarkable except as noted in Subjective Physical Exam Physical Exam: General- No acute distress Head- atraumatic Eyes- PERRL, EOMI, ENT- oropharynx clear Neck- supple, no JVD Lungs- clear to auscultation Heart- regular rhythm; no murmur Abdomen- normal bowel sounds, soft, nontender Extremities- no calf tenderness, no edema Neuro- AA)x3, speech normal PERRL, able to move extremity, no facial palsy; no dysarthria Skin- warm & dry Results & Data Results & Data ([facility]) Vital Signs (Past 12 Hours) Vital Signs Temp Pulse Resp BP Pulse Ox 12/31/21 19:34 36.9 C 103 H 18 161/109 H 97 12/31/21 16:21 36.6 C 93 H 16 131/96 98 12/31/21 11:33 36.6 C 88 16 141/99 H 97
[2022-01-01] MEDS ORDERED: cloNIDine HCL 0.1 MG TAB PO ONE (03:54)
[2022-01-01] MEDS: LEVOTHYROXINE SODIUM 75 MCG TABLET PO SCH (05:03)
[2022-01-01 05:53] LABS: Basophils # (auto) 0.03 K/uL (0-0.2); Basophils % (auto) 0.3 %; Eosinophils # (auto) 0.02 K/uL (0-0.5); Eosinophils % (auto) 0.2 %; Hematocrit (blood only) 41.7 % (37-47); Hemoglobin 14.2 g/dL (12.0-16.0); Immature Granulocytes # (auto) 0.03 K/uL (0.00-0.02); Immature Granulocytes % (auto) 0.3 %; Lymphocytes # (auto) 2.34 K/uL (1.2-3.4); Lymphocytes % (auto) 23.4 %; Mean Corpuscular Hemoglobin 29.8 pg (25-34); Mean Corpuscular Hgb Conc 34.1 g/dL (32-36); Mean Corpuscular Volume 87.6 fL (80-100); Mean Platelet Volume 9.7 fL (7.4-10.4); Monocytes # (auto) 0.75 K/uL (0.11-0.59); Monocytes % (auto) 7.5 %; Neutrophils # (auto) 6.83 K/uL (1.4-6.5); Neutrophils % (auto) 68.3 %; Platelet Count 514 K/uL (130-400); RDW Coefficient of Variation 13.3 % (11.5-14.5); RDW Standard Deviation 43.1 fL (36.4-46.3); Red Blood Count 4.76 M/uL (4.2-5.4)
[2022-01-01 06:33] LABS: BUN Creatinine Ratio 34.7 (10-20); Creatinine Clr Calc Pharmacy 149.6 ml/min; Est GFR (African American) 136.4 ml/min; Est GFR (Non-African American) 117.7 ml/min; Magnesium 1.7 mg/dl (1.7-2.4); Phosphorus 3.4 mg/dl (2.5-4.9); Potassium 3.4 mmol/L (3.5-5.1)
[2022-01-01] MEDS ORDERED: INSULIN GLARGINE SOLOSTAR 100 UNITS/ML 3 ML PEN SC SCH (07:30)
[2022-01-01] MEDS ORDERED: POTASSIUM CHLORIDE CRTAB 20 MEQ TABCR PO STA (08:16)
[2022-01-01] MEDS: ENOXAPARIN INJ 40 MG/0.4 ML SYR SQ SCH (08:37)
[2022-01-01] MEDS: amLODIPine BESYLATE 5 MG TAB PO SCH (08:37)
[2022-01-01] MEDS: INSULIN ASPART PER UNIT SC SCH ×2 (08:42→13:02)
[2022-01-01] MEDS ORDERED: METHADONE HCL 10 MG TAB PO SCH (09:00)
--- NOTE | 2022-01-01 10:15 | Pharmacy Report ---
Pharmacy Glycemic Short Note 2 - Date of Service January 01, 2022 - Glycemic Short BSG Results (Last 24 hours): 12/31/21 12/31/21 12/31/21 11:43 16:37 20:22 Glucose POC Glucose 210 H 176 H 188 H 01/01/22 01/01/22 05:25 07:32 Glucose 215 H POC Glucose 194 H OUTPATIENT ANTIDIABETIC REGIMEN: * Basaglar 10 units daily * Novolog 8units TIDM * metformin 2000mg daily * Trulicity 4.5mg weekly * empagliflozin 25mg PO daily ASSESSMENT: 01/01 * Patient received 15 units basal and 27 units prandial/correctional insulin yesterday, blood sugars mostly above goal, fasting 215mg/dl * Increase Basal and give all in AM, tighten CR * Discussed pt with CDE and Dr Robbins, concern that pt is Type 1 DM or BOB, c- peptide normal, but this does not differentiate between type 1 vs 2. * Recommended labs (Glutamic Acid Decarboxylase-65, Insulin Autoantibody, Zinc Transporter 8 (ZnT8) Ab) and DC Jardiance as it has been linked to DKA in those making minimal insulin under stress * Dr Robbins to order these labs today, pt to DC today or tomorrow to home, holding Jardiance, and OLY Sauer to follow-up on labs when they come back next week. * Pt following [facility] with [facility]. 12/30: * Pt within goal range overnight on insulin drip. Required D5 infusion @ high rates (~200mL/hr) to maintain BSG within range and insulin drip running @ only ~1 unit/hr overnight. * This AM, mentation improved, pH-7.5, bicarb-19, and AG-14. Able to take PO. Insulin infusion transitioned to SQ with 10units of Lantus (home regimen given insulin sensitivity) this AM with breakfast. * Lantus tonight per BSG scale. Novolog per scale ACHS (wt/stress 2) -- may need tightened tonight pending dinner BSG. * Overnight checks tonight. 12/29: * Patient is a 46 YO F who presented encephalopathic with respiratory distress and Kussmaul respirations found to be in DKA. Initial labs: pH-7.03, HCO3 - 3, AG-34, BSG-389. Patient initiated on insulin infusion per DKA protocol and pharmacy consulted to assist with management. * Continue insulin infusion per DKA protocol (goal BSG 150-200mg/dL) until AG<12, HCO3 >/=15, and pH>7.3 and mentating appropriately to transition to SQ. Average insulin drip rate ~ 5 unit/hr over 11hr. Bicarb drip running (in D5W) @ 150mL/hr (to d/c this afternoon) and dextrose/potassium containing IVF on board. PLAN FOR INPATIENT GLYCEMIC CONTROL: * Hold outpatient oral diabetes medications * Basal insulin * Lantus 20 units qAM * Bolus insulin * NovoLog per scale ACHS or Q6hrs while NPO * Goal Range: Low 110 mg/dL - High 140 mg/dL * Correction Factor: 30mg/dL/unit * Nutritional / Prandial insulin per carb ratio of 1 unit per 7 grams CHO consumed
--- NOTE | 2022-01-01 15:07 | Discharge Summary ---
Date of Service January 01, 2022 Admission HPI Per Admitting Provider History obtained from ER provider and records. Unable to obtain history from patient secondary to disorientation. Medical history significant for DM2 insulin requiring, hypothyroidism, anxiety disorder, chronic pain/opiate addiction on methadone, history of migraine, endometriosis status post surgery. Last confinement March 2020 for hyperglycemic crisis, new diagnosis of DM2. Patient discharged on insulin regimen. Patient found to be unresponsive at home by family last night. Patient known to be well 2 nights ago. EMS summoned by family. BSG noted to be 300 at patient's home. IV insulin, bicarb initiated at the ER for DKA. Vancomycin and cefepime administered for possible sepsis. Ativan and Haldol administered for agitation. Medical Historyas above Surgical History : Gynecologic laparoscopic procedures, dental surgery Family History : Breast cancer, esophageal cancer, hypertension, skin cancer Personal/Social history : Non-smoker, no EtOH intake, disabled/part-time hairstylist Admission Exam Per Admitting Provider GENERAL: Uncomfortable, agitated, disoriented minimal respiratory distress SKIN: Normal color, warm HEENT: [place] palpebral conjunctivae, no ptosis, dry buccal mucosa NECK : Supple, no tenderness CHEST : Decreased breath sounds, occasional expiratory wheezes, no tenderness HEART : Tachycardic , no obvious murmurs ABDOMEN: Some distention, nontender EXTREMITIES : No LE swelling/tenderness, no other conspicuous deformities noted NEUROLOGIC : Agitated, disoriented, no facial asymmetry, gait and stance not assessed Principal Diagnosis Metabolic encephalopathy Diabetic ketoacidosis Diabetes Elevated WBC Electrolytes abnormality Chronic pain syndrome Hypothyroidism Discharge Exam General- No acute distress Head- atraumatic Eyes- PERRL, EOMI, ENT- oropharynx clear Neck- supple, no JVD Lungs- clear to auscultation Heart- regular rhythm; no murmur Abdomen- normal bowel sounds, soft, nontender Extremities- no calf tenderness, no edema Neuro- AA)x3, speech normal PERRL, able to move extremity, no facial palsy; no dysarthria Skin- warm & dry Discharge Data Allergies Allergy/AdvReac Type Severity Reaction Status Date / Time lamotrigine Allergy diarrhea Verified 12/29/21 00:45 Consultations 12/29/21 00:30 ED Decision to Admit Stat 12/29/21 02:39 Consult Director Of Web Marketing Routine Ordered Studies 12/28/21 23:07 CT head/brain wo con Urgent HEAD CT NONCONTRAST CT DOSE: 614.27 mGy.cm HISTORY: Altered mental status. TECHNIQUE: Multiaxial CT images of the head were performed without the use of intravenous contrast. Automated exposure control was utilized for this study. A dose lowering technique was utilized adhering to the principles of ALARA. Comparison: Head CT 03/10/2020. Findings: The paranasal sinuses and mastoid air cells are clear. The calvarium and skull base are intact. The ventricles and sulci are within normal limits. There is no mass, hematoma, midline shift, or acute infarct. Impression: No acute intracranial abnormality. ACT 112: Negative or not required by law. Electronically signed by: Russ Torres M.D. 12/29/2021 7:28 AM Dictated:12/29/21 0717 Transcribed: 12/29/2118 XR chest 1V portable CLINICAL HISTORY: SEPSIS TECHNIQUE: Single frontal radiograph of the chest was obtained. Comparison: None available at the time of this dictation. FINDINGS: No lines and tubes are seen. The cardiomediastinal silhouette is normal. The lungs are clear. No evidence of pleural effusion or pneumothorax. IMPRESSION: No acute abnormality and in particular no evidence of pneumonia. ACT 112: Negative or not required by law. Electronically signed by: Jeff Jimenez M.D. 12/29/2021 8:04 AM Dictated:12/29/21 0804 Transcribed: 12/29/21 0804 Diabetes Follow up Follow up with [facility] Hospital Course (1) Encephalopathy: Metabolic encephalopathy Could be multifactorial due to DKA Home narcotics/multiple neuropsychotropic meds contributory CT head showed no acute intracranial abnormality Mental status back to normal resolved DKA Diabetes Hemoglobin A1c 7.7 Elevated anion gap on admission 34 ABG on admission with pH 6.9, PCO2 15 received IVF and starting on insulin drip Anion gap 17 and pH 7.3 and PCo2 16. Anion gap closed Pharmacy on board for glycemic management Insulin drip discontinued Continue lantus as per pharmacy recommendation steward/stewardess economy class on board Will check Glutamic acid decarboxylase -65, Insulin Autoantibody and Zinc transporter 8 to check if pt is type 1 or type 2 ( sent out, PCP will need to f ollow the result) If Type 1, consider to discontinue the oral diabetes meds Will need to follow up with the [facility] to manage her insulin Spoke to pharmacy that suggested to increase the Basaglar 15units daily and decreased Jardiance Continue monitor your blood sugar Elevated WBC Possible reactive due to DKA WBC increased to 33K, now normalized at 10 Received IV cefepime and Vanco on admission Blood culture no growth Continue to hold on antibiotics for now Continue monitor CBC Electrolytes abnormality Potassium 3.4 today K replaced Continue monitor electrolytes Will discharge on K supplement Hypertension Amlodipine was starting by the ICU team BP stable Will continue amlodipine If any proteinuria consider to start on a Low dose ACEI for renal protection Chronic pain syndrome On methadone ICU team resident will contact pain management Pt mother said pt is on methadone 202 mg daily Currently on methadone 150mg Spoke to the nurse at the methadone clinic to inform them pt took 150mg today since she was admitted for DKA and unresponsive Pt will follow with the methadone clinic in am and they will manage her methadone Hypothyroidism Continue levothyroxine DVT prophylaxis per Lovenox subcu Full code Disposition Will discharge home today Total Time Total Time Spent Total Time Spent (In Minutes): 35 minutes Discharge Plan Discharge Items Patient Disposition: Home - Self-Care Reason For Visit: DKA Discharge Diagnosis: Metabolic encephalopathy Diabetic ketoacidosis Diabetes Elevated WBC Electrolytes abnormality Chronic pain syndrome Hypothyroidism Activity: Resume your previous activity Non-emergency contact: Primary Care Provider and Pain Management Call non-emergency contact if: you have any medication questions and your temperature is above 101 Follow-up/Referrals: Yovanny Davis MD [Outside Practitioners] - Diet: Carb Consistent or DM2 Addtl Attending Provider Instructions: You were admitted at [facility] due to diabetes complication ( Diabetic ketoacidosis) Follow up with your primary care provider with Dr. Davis within 1 week Follow up with [facility] to continue managing your diabetes and your insulin Follow up with the methadone clinic tomorrow ( Your last methadone dose was 150mg on 01/01 ) Continue monitor your blood sugar and bring your blood sugar log at your next appointment with your provider or the [facility]. Follow up a healthy diabetic diet and limited concentrated sweet intake Continue monitor your blood pressure Check BMP in 1 week to monitor your electrolytes Basaglar increased to 15 units daily Consider to discontinue or decrease Zolpidem if it causes you to be drowsy and sleepy ( will defer it to your provider) Pending Studies at Discharge: Yes Studies:: Glutamic acid decarboxylase-65, Insulin Autoantibody and Zinc transporter 8 ( those markers will help to differentiate type 1&2 diabetes) Stand-Alone Forms: My [facility] One Month, Smoking Cessation Medications and DC Order Prescriptions: New amlodipine [Norvasc] 5 mg Tablet 5 mg PO QAM 30 Days Qty: 30 RF: 0 potassium chloride 10 mEq capsule, extended release 10 meq PO DAILY Qty: 30 RF: 0 (DME) Ketone Urine Test Strip See Rx Instructions .Route Qty: 50 RF: 0 Continued tizanidine 4 mg tablet 4 mg PO TID PRN (Reason: Muscle Spasm) RF: 0 ondansetron HCl 8 mg Tablet 8 mg PO Q4 PRN (Reason: Nausea) RF: 0 zolmitriptan 5 mg Tablet 5 mg PO DIRECTED PRN (Reason: Migraine Headache) RF: 0 [id number] [Fioricet] 50-325-40 mg Tablet 1 tab PO BID PRN (Reason: Migraine Headache) RF: 0 levothyroxine 75 mcg tablet 75 mcg PO DAILY RF: 0 betamethasone valerate 0.1 % Cream 1 applic TOPICAL BID RF: 0 promethazine 50 mg Tablet 50 mg PO DIRECTED PRN (Reason: Nausea) RF: 0 doxepin 100 mg capsule 200 mg PO HS PRN (Reason: Sleep) RF: 0 tacrolimus 0.1 % Ointment 1 applic TOPICAL BID PRN (Reason: eczema) RF: 0 metronidazole [MetroCream] 0.75 % Cream 1 applic TOPICAL BID RF: 0 mupirocin calcium 2 % Cream 1 applic TOPICAL TID RF: 0 norethindrone ac-eth estradiol [June10/27 ()] 1-20 mg-mcg tablet 1 tab PO DAILY RF: 0 methadone 10 mg/mL Concentrate 202 mg PO DAILY RF: 0 polyethylene glycol 3350 [Miralax] 17 gram/dose Powder 17 g PO BID PRN (Reason: Constipation) RF: 0 zolpidem 10 mg tablet 10 mg PO HS RF: 0 metformin 500 mg tablet extended release 24 hr 2,000 mg PO DAILY RF: 0 adapalene 0.1 % Gel 1 applic TOPICAL HS RF: 0 insulin aspart U-100 [Novolog Flexpen U-100 Insulin] 100 unit/mL (3 mL) insulin pen 8 unit SUBCUT TIDM RF: 0 alprazolam 0.5 mg Tablet,Disintegrating 0.5 mg PO HS PRN (Reason: Insomnia) RF: 0 Trulicity 4.5 mg/0.5 mL pen injector 4.5 mg SUBCUT WE RF: 0 Changed Basaglar KwikPen U-100 Insulin 100 unit/mL (3 mL) insulin pen 15 unit SUBCUT DAILY Qty: 0 RF: 0 Discontinued Jardiance 25 mg tablet 25 mg PO DAILY RF: 0 Discharge Orders: Discharge Order (Routine); Ordered 01/01/22 Ordered By: Mauro Barnett/Other Patient Handouts: Understanding Carbohydrates, Diabetic Ketoacidosis, Managing Diabetes When You're Ill Admission Data Admit Date/Time: 12/29/21 01:52 Attending Provider: Mauro Robbins Admit Provider: Tres Ruby Primary Care Provider: Louis Brenner Other Providers: Tres Ruby ; Frank Trotter
== END 2022-01-01 16:22 | disposition home or self-care (01) | DRG 637 ==
LOC: ED 22:55 → 1E 12-29 01:52 → 2N 12-30 20:31

== ENCOUNTER 2024-07-07 01:34 | Observation (INO) ==
--- OUTSIDE RECORDS SUMMARY | 2024-07-07 01:38 | External Medical Summary ---
Author Name Unknown Address Unknown Organization [id number]:[facility] [place] [address] [place] [address] Laboratory Report Ordering Provider Test Date Status ARABELLA NEW 07/04/2024 14:09:26 Final Observation Date Value Abnormality Reference (Units ) Status HbA1C 07/04/2024 14:09:26 7.1 Above high normal 4. 0-5.6 (%) Final The use of HbA1c to monitor glycemic status is based on normal hemoglobin and HbA composition. This test should not be used in patients with abnormal hemoglobin that affects the half life of the red blood cell or the in vivo glycation rates. Glucose, estimated average 07/04/2024 14:09:26 157 Above high normal <126 (mg/dL) Parker hudson Performing Location [facility] [place] - [address] [place] [address]
--- OUTSIDE RECORDS SUMMARY | 2024-07-07 01:38 | External Medical Summary | Summary of Care ---
Author Name Unknown Organization [facility] Address [address] [place] [address] Phone [phone] Care Team Providers Care Window Unit Air Conditioning Mechanic Name Role Phone Elidia POWERS MD, Sandy Mirza Primary Care Provider [phone] Reason for Visit * Reason Onset Date Comments Medication Refill 06/27/2024 Encounter Details Date Type Department Care Team (Late st Contact Info) Description 06/27/2024 Refill Family Practice [facility] [address] [place] [address] Sandy Cerna III, MD [address] [place] [address] Allergies Active Allergy Reactions Criticality Noted Date Comments Lamotrigine Diarrhea 12/29/2021 Pollen 12/10/2019 documented as of this encounter (statuses as of 06/28/2024) Medications Medication Sig Dispensed Refills Start Date End Date Status 10/27 1-20 MG-MCG PO TABSIndications:Pr ecancerous changes of the cervix Take by mouth. Takes at night 5 4 Active METHADONE HCL INTENSOL 10 MG/ML PO CONCIndications:Op iate addiction (HCC),Chronic pain syndrome,Interstit ial cystitis,Endometri osis 4 Active butalbital-acetami nophen-caffeine 50-325-40 mg per tab (FIORICET) 50-325-40 MG TAKE 1 OR 2 TABLET(S) BY MOUTH TWICE A DAY NEEDED 20 Tab 0 6 Active SUMAtriptan Succinate (IMITREX) 6 MG/0.5ML injection Inject at onset of headache, may repeat in 2hrs if needed 10 Syringe 3 7 Active adapalene (DIFFERIN) 0.1 % gelIndications:Acn e vulgaris Apply topically to affected area at bedtime. Apply to affected area at bedtime. 45 g 5 8 Active Promethazine HCl 50 MG TABS Take 1 Tablet by mouth as needed. 2 9 Active polyethylene glycol 3350 (MIRALAX) packet Take 1 Packet by mouth daily as needed. Active Rizatriptan Benzoate 10 MG Tablet Take 1 Tablet by mouth as needed. For Migraine headache Active tiZANidine HCl 4 MG Capsule Take 2 Capsules by mouth at bedtime as needed. Active [email or web address] Verio Flex System w/Device Kit Use as directed . Use to test blood sugars once a day Dx E11.9 1 Kit 1 2 Active [employer] Delica Plus [id number] USE TO TEST BLOOD SUGAR 3 TIMES DAILY E11.9 300 Each 3 2 Active Ondansetron 8 MG Oral Tablet Disintegrating (Zofran)Indication s:Precancerous changes of the cervix One tablet every 4 hours as needed for nausea and vomiting dissolve on tongue. 30 Tablet 4 2 Active Ketostix In Vitro Strip (Acetone (Urine) Test) Test urine for ketones every 3 hours when glucose is above 200 50 Strip 5 3 Active Dexcom G6 Medical Representative Device Use as directed 1 Each 3 Active Dexcom G6 Sensor Apply a new sensor every 10 days 9 Each 3 3 Active Dexcom G6 Transmitter Use with Adfaces continuous glucose sensor as directed by level glass forming machine operator 1 Each 4 3 Active Silver sulfADIAZINE 1 % External Cream (Silvadene) Apply topically to affected area daily. 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 90 Tablet 3 3 Active ALPRAZolam 0.25 MG Oral Tablet (Xanax) Take 1 Tablet by mouth 3 times a day as needed for Anxiety. 30 Tablet 4 Active Levothyroxine Sodium 125 MCG Oral Tablet (Levoxyl) Take 1 Tablet by mouth daily first thing in the morning. (at least 30 min prior to breakfast or other meds) 90 Tablet 3 4 Active Vitamin B-12 1000 MCG Oral Tablet (Cyanocobalamin) Take 1 Tablet by mouth in the morning. Please purchase without a prescription and take one daily. 100 Tablet 3 4 Active Promethazine HCl 25 MG Oral Tablet (Phenergan) Take 1 Tablet by mouth every 6 hours as needed for Nausea. 30 Tablet 4 Active Potassium Chloride ER 10 MEQ Oral Tablet Extended Release Take 1 Tablet by mouth in the morning. 90 Tablet 3 4 Active Insulin Glargine Solostar 100 UNIT/ML Subcutaneous Solution Pen-injector (Basaglar KwikPen) INJECT 18 UNITS UNDER THE SKIN ONCE DAILY. Increase by 1 unit daily until glucose is stable and controlled overnight. TDD: 50 units/d 45 mL 3 4 Active Ozempic (1 MG/DOSE) 4 MG/3ML Subcutaneous Solution Pen-injector (Semaglutide (1 MG/DOSE)) Inject 1 mg under the skin once a week. 9 mL 3 4 Active metFORMIN HCl ER 500 MG Oral Tablet Extended Release 24 Hour (Glucophage XR) TAKE 4 TABLETS BY MOUTH DAILY WITH FOOD 360 Tablet 3 4 Active Gvoke HypoPen 2-Pack 1 MG/0.2ML Subcutaneous Solution Auto-injector (Glucagon) Inject 1.0 mg under the skin of belly/thigh or upper arm as needed for unresponsiveness due to suspected hypoglycemia 0.4 mL 11 4 Active Lisinopril 10 MG Oral Tablet (Prinivil) Take 1 Tablet by mouth in the morning. 90 Tablet 3 4 Active Triamcinolone Acetonide 0.1 % External Cream (Aristocort)Indica tions:Flexural atopic dermatitis Apply topically to affected area 2 times a day. 454 g 1 4 Active Doxepin HCl 100 MG Oral Capsule (SINEquan)Indicati ons:Anxiety,Insomn ia,Migraine with aura TAKE 2 CAPSULES BY MOUTH AT BEDTIME NEEDED FOR SLEEP 180 Capsule 4 Active Magnesium Hydroxide 400 MG/5ML Oral Suspension Take by mouth daily as needed for Constipation. Active Linzess 72 MCG Oral Capsule (linaCLOtide) Take 1 Capsule by mouth daily before breakfast. 30 Capsule 4 07/24/20 24 Active Zolpidem Tartrate 10 MG Oral Tablet (Ambien)Indication s:Insomnia Take 1 Tablet by mouth at bedtime. 30 Tablet 4 Active BD Pen Needle Sharon 2nd Gen 32G X 4 MM (Insulin Pen Needle)Indications :DM type 1, not at goal (HCC) USE 4 TIMES DAILY. 400 Each 1 4 Active NovoLOG FlexPen 100 UNIT/ML Subcutaneous Solution Pen-injector (insulin aspart)Indications :DM type 1, not at goal (HCC) Inject 2-9 units + 1:50>150 SSI before meals. 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), 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 Overview: BOB, 3 elevated autoantibodies at [facility] December 2021 History of narcotic addiction 04/29/2015 TMJ (temporomandibular joint disorder) 5 Chronic rhinitis 11/23/2014 Chronic pain syndrome 10/06/2014 Obesity, Class I, BMI 30.0-34.9 (see actual BMI) 09/29/2014 Overview: bmi= 33.67 09/29/14 Opiate addiction 06/08/2014 Overview: [place] [facility] Insomnia Migraine aura, persistent Overview: hospitalzied at times Endometriosis Overview: diasgnosed at surgery- Dr Fitzpatrick Interstitial cystitis Anxiety IBS (irritable bowel syndrome) documented as of this encounter (statuses as of 06/28/2024) Resolved Problems Problem Noted Date Diagnosed Date Resolved Date Paresis of single lower extremity 02/20/2023 09/18/2023 Hyperglycemic crisis in diabetes mellitus 02/20/2023 07/04/2023 Diabetic acidosis without coma 02/20/2023 07/04/2023 Cervical cancer 02/20/2023 07/04/2023 Uncontrolled type 2 diabetes mellitus with hyperglycemia 03/23/2021 12/21/2022 TMJ (temporomandibular joint syndrome) 08/07/2016 02/20/2023 Overweight (BMI 25.0-29.9) 12/15/2015 0 02/20/2023 Overview: bmi= 27.96 12/15/15 Migraine variant, intractable 02/12/2015 12/15/2015 Endometriosis of other specified sites 09/29/2014 Migraine with aura 6 documented as of this encounter (statuses as of 06/28/2024) Immunizations Name Administration Dates Next Due COVID-19 mRNA, LNP-s, No Pre serve, 2-Dose Series (Moderna) 12/14/2020,11/09/2020 COVID-19, LNP-s, No Preserve , Tj-sucrose, Ages 12+ (Pfizer) 06/20/2022 COVID-19, mRNA, LNP-s, PF, B ooster, 100mcg/0.5mg (Moderna) 08/22/2023,06/20/2022,08/14/2021 Pneumococcal Polysaccharide PPV23 (Pneumovax) 04/28/2020 Seasonal Influenza, PF, 6 M & above, IM , (FluLaval or Fluzone) 07/04/2023 Seasonal Influenza, QUAD, wi th Preserv, 6 mons & Above, 0.5 mL, IM 06/20/2022 Seasonal Influenza, Quadriva lent, No Preserve, IM 06/20/2022 documented as of this encounter Social History Tobacco Use Types Packs/Day Years Used Date Smoking Tobacco: Former Cigarettes Q uit: 10/27/2014 Smokeless Tobacco: Never Comments:began at age 29 Alcohol Use Standard Drinks/Week Comments Never 0 (1 standard drink = 0.6 oz pur e alcohol) PHQ-2 Answer Date Recorded PHQ-2 Score 0 03/22/2020 Hunger Vital Sign Answer Date Recorded Within the past 12 months, y ou worried that your food would run out before you got the money to buy more. Never true 09/11/20 23 Within the past 12 months, t he food you bought just didn't last and you didn't have money to get more. Never true 09/11/2023 Childcare Answer Date Recorded Do you feel overwhelmed with taking care of a child, family member or friend? No 09/11/2023 Does your family need help f inding childcare? (Household - for ages 0-17 years) Not on file 09/11/2023 Clothing Answer Date Recorded Have you been unable to get clothing when it was really needed? No 09/11/2023 Is your family able to get c lothes or diapers when needed? (Household - for ages 0-17 years) Not on file 09/11/2023 Personal Safety Answer Date Recorded Do you feel unsafe or have concerns for your saf ety? No 09/11/2023 Do you have concerns for you r family's safety? (Household - for ages 0-17 years) Not on file 09/11/2023 Utilities Answer Date Recorded Do you have trouble paying y our heating, water, or electric bill? No 09/11/2023 Is your family able to pay t he heat, water, or electric bill? (Household - for ages 0-17 years) Not on file 09/11/2023 Does your family have access to good internet? (Household - for ages 0-17 years) Not on file 09/11/2023 Employment Status Answer Date Recorded Are you unemployed or without regular income? Ye s 09/11/2023 Does the household have a re gular source of income? (Household - for ages 0-17 years) Not on file 09/11/2023 Social Connections Answer Date Recorded How often do you feel lonely or isolated from those around you? Sometimes 09/11/2023 Financial Resource Strain Answer Date R ecorded Do you have any trouble payi ng for your medications, or do you think you might in the future? No 09/11/2023 Does your family have troubl e paying for medicine? (Household - for ages 0-17 years) Not on file 09/11/2023 Transportation Needs Answer Date Record ed READ ONLY Do you have troubl e getting a ride to medical visits or work? Never True 09/11/2023 Does your family have a hard time getting a ride to doctors visits? (Household - for ages 0-17 years) Not on file 09/11/2023 Has lack of transportation k ept you from medical appointments, meetings, work, or from getting things needed for daily living? Check all that apply. (Adult - for ages 18 years and over) Not on file 09/11/2023 Do you (or your family) have trouble finding or paying for a ride (transportation)? (Household - for ages 0-17 years) Not on file 09/11/2023 Housing Stability Answer Date Recorded Do you currently live in a s helter or have no steady place to sleep at night? No 09/11/2023 READ ONLY Do you think you a re at risk of becoming homeless? No 09/11/2023 Does your family worry about paying for your home or becoming homeless? (Household - for ages 0-17 years) Not on file 1 11/12/2022 Are you homeless or worried that you might be in the future? (Adult - for ages 18 years and over) Not on file Are you (or your family) dianelys eless or worried that you might be in the future? (Household - for ages 0-17 years) Not on file Food Insecurity Answer Date Recorded Do you need food for this week? No 09/11/2023 Are you able to get enough f ood for your family? (Household - for ages 0-17 years) Not on file 09/11/2023 Does your family need food t his week? (Household - for ages 0-17 years) Not on file 09/11/2023 Do you always have enough fo od for your family? (Household - for ages 0-17 years) Not on file 09/11/2023 Sex and Gender Information Value Date Recorded Sex Assigned at Female 03/12/2019 1:54 PM EDT Gender Identity Female 03/12/2019 1:54 PM EDT Sexual Orientation Straight 03/12/2019 1: 54 PM EDT Job Start Date Occupation Industry Not on file Not on file Not on file documented as of this encounter Functional Status Functional Status Response Date of Assess ment Are you deaf or do you have serious difficulty h earing? No 08/07/2016 Are you blind or do you have serious difficulty seeing, even when wearing glasses? No 08/07/2016 Do you have serious difficul ty walking or climbing stairs? (5 years old or older) No 08/07/2016 Do you have difficulty dress ing or bathing? (5 years old or older) No 08/07/2016 Because of a physical, menta l, or emotional condition, do you have difficulty doing errands alone such as visiting a doctor s office or shopping? (15 years old or older) No 08/07/20 16 Cognitive Status Response Date of Assessm ent Because of a physical, menta l, or emotional condition, do you have serious difficulty concentrating, remembering, or making decisions? (5 years old or older) No 08/07/2016 documented as of this encounter Miscellaneous Notes * Telephone Encounter - Balta Ortiz [facility] - 06/28/2024 9:10 AM EDTSigned Prescriptions: Disp Refills OneTouch Verio In Vitro Strip (Glucose Blo*300 St*1 Sig: USE TO TEST BLOOD SUGAR 3 TIMES DAILY E11.9Authorizing Provider: SANDY CERNA III User: BALTA FAJARDO documented in this encounter Plan of Treatment Upcoming Encounters Date Type Department Care Team (Late st Contact Info) Description 07/04/2024 1:20 PM EDT Office Visit Family Practice [facility] [place] [address] [place], [place] [address] Alejandra Quintanilla MD [address] [place] [address] 11/04/2024 2:30 PM EST Office Visit Gastroenterology, [facility] [address] [place] [place] [address] Valentin Moran CRNP [address] [place] [address] Health Maintenance Due Date Last Done Comments HIV Screening 1991 Diabetic Foot Exam 1994 DTap/Tdap Vaccines (1 - Tdap) 1995 Hepatitis B Vaccine (1 of 3 - 19+ 3-dose series) 1995 HPV/Co-Test 2006 Depression Screening 03/22/2021 03/22/2020 Pneumococcal Vaccine: Pediatrics (0 to 5 Years) and At-Risk Patients (6 to 64 Years) (2 of 2 - PCV) 04/28/2021 04/28/2020 Diabetic Eye Exam 05/21/2021 05/21/2020 Colonoscopy 2021 Fecal Occult Blood Test 2021 Sigmoidoscopy 2021 Cervical Cancer Screening 06/18/2021 Pap Smear 06/18/2021 06/18/2018, 01/07, 12/09/2014 COVID-19 Vaccine ( season) 2024 08/22/2023, 06/20/2022, 06/20/2022, Additional history exists Influenza Vaccine (FLU shot) (#1) 2024 07/04/2023, 06/20/2022, 06/20/2022 HbA1c 09/09/2024 03/10/2024, 12/06, 09/18/2023, Additional history exists Albumin/Creatinine Ratio 12/16/2024 12/17/2023 GFR 03/10/2025 03/10/2024, 12/06, 03/06/2023, Additional history exists TSH 04/14/2025 04/14/2024, 06/0 12/2023, 12/17/2023, Additional history exists Mammogram 04/24/2025 04/24/2024, 04/02/2023 Cologuard 08/22/2026 08/22/2023, 12/2022, 08/10/2023 Colorectal Cancer Screening 08/22/2026 Lipid Panel 12/16/2028 12/17/2023, 02/07, 08/09/2022 HPV (Gardasil) Vaccine Aged Out No lo nger eligible based on patient's age to complete this topic MENINGOCOCCAL (MENACTRA/MENVEO) Aged Out No longer eligible based on patient's age to complete this topic documented as of this encounter Medical Devices Not on filedocumented as of this encounter Advance Directives * Full Code (Latest Code Status on File) Date Activated Date Inactivated Comments 08/07/2016 2:00 AM 08/07/2016 11:03 PM This orde r reflects the patients wishes and were consensually agreed upon. Question Answer Comments Discussion of Advance Directives occurred with: Patient Does the patient have a Living Will? No Does the patient have Health Care Power of Attor yefri? No Care Teams Window Unit Air Conditioning Mechanic Relationship Specialty Start Date End Date Sandy Cerna III, MD [address] [place] [address] PCP - General Family Medicine 04/28/20 documented as of this encounter
--- OUTSIDE RECORDS SUMMARY | 2024-07-07 01:38 | External Medical Summary | Summary of Care ---
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 Takes at night 5 4 Active METHADONE HCL INTENSOL 10 MG/ML PO CONCIndications:Opi ate addiction (HCC),Chronic pain syndrome,Interstiti al cystitis,Endometrio sis 202 4 Active SUMAtriptan Succinate (IMITREX) 6 MG/0.5ML injection Inject at onset of headache, may repeat in 2hrs if needed 10 Syringe 3 7 Active adapalene (DIFFERIN) 0.1 % gelIndications:Acne vulgaris Apply topically to affected area at [...] by mouth at bedtime as needed. Active Done. Verio Flex System w/Device Kit Use as directed . Use to test blood sugars once a day Dx E11.9 1 Kit 1 2 Active [employer] Delica Plus [id number] USE TO TEST BLOOD SUGAR 3 TIMES DAILY E11.9 300 Each 3 2 Active Ondansetron 8 MG Oral Tablet Disintegrating (Zofran)Indications :Precancerous changes of the cervix One tablet every 4 hours as needed for nausea and vomiting dissolve on tongue. 30 Tablet 4 2 Active Ketostix In Vitro Strip (Acetone (Urine) Test) Test urine for ketones every 3 hours when glucose is above 200 50 Strip 5 3 Active Dexcom G6 Agricultural Economics Professor Device Use as directed 1 Each 3 Active Dexcom G6 Sensor Apply a new sensor every 10 days 9 Each 3 3 Active Dexcom G6 Transmitter Use with dex com continuous glucose sensor as directed by records and information manager 1 Each 4 3 Active Silver sulfADIAZINE 1 % External Cream (Silvadene) Apply topically to affected area daily. 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 90 Tablet 3 3 Active Levothyroxine Sodium 125 MCG Oral Tablet [...] 50 units/d 45 mL 3 4 Active metFORMIN HCl ER [...] Active Triamcinolone Acetonide 0.1 % External Cream (Aristocort)Indicat ions:Flexural atopic dermatitis Apply topically to affected area 2 times a day. 454 g 1 4 Active Magnesium Hydroxide 400 MG/5ML Oral Suspension Take by mouth daily as needed for Constipation. Active Zolpidem Tartrate 10 MG Oral Tablet (Ambien)Indications :Insomnia Take 1 Tablet by mouth at bedtime. 30 Tablet 4 Active BD Pen Needle Sharon 2nd Gen 32G X 4 MM (Insulin Pen Needle)Indications: DM type 1, not at goal (HCC) USE 4 TIMES DAILY. 400 Each 1 4 Active Linzess 290 MCG Oral Capsule (linaCLOtide) Take 1 Capsule by mouth daily before breakfast. 30 Capsule 2 4 10/01/20 24 Active OneTouch Verio In Vitro Strip (Glucose Blood)Indications:L ADA (latent autoimmune diabetes in adults), managed as type 1 (HCC) USE TO TEST BLOOD SUGAR 3 TIMES DAILY E11.9 300 Strip 3 4 Active ALPRAZolam 0.25 MG Oral Tablet (Xanax)Indications: Anxiety Take up to 1 tablet by mouth daily as needed for anxiety 10 Tablet 4 Active Doxepin HCl 100 MG Oral Capsule (SINEquan)Indicatio ns:Anxiety,Insomnia ,Migraine with aura Take 2 capsules by mouth at bedtime 180 Capsule 3 4 Active Resgslxibx-UELF-Ulr feine 50-325-40 MG Oral Tablet (Fioricet)Indicatio ns:Migraine with aura Take 1 tablet by mouth as needed for headache (max dose 2 tablets in 24 hours) 20 Tablet 4 Active NovoLOG FlexPen 100 UNIT/ML Subcutaneous Solution Pen-injector (insulin aspart)Indications: 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), 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 Overview: BOB, 3 elevated autoantibodies at [facility] December 2021 History of narcotic addiction 04/29/2015 TMJ (temporomandibular joint disorder) 5 Chronic rhinitis 11/23/2014 Chronic pain syndrome 10/06/2014 Obesity, Class I, BMI 30.0-34.9 (see actual BMI) 09/29/2014 Overview: bmi= 33.67 09/29/14 Opiate addiction 06/08/2014 Overview: [place] [facility] Insomnia Migraine aura, persistent Overview: hospitalzied at times Endometriosis Overview: diasgnosed at surgery- Dr Fitzpatrick Interstitial cystitis Anxiety IBS (irritable bowel syndrome) documented as of this encounter (statuses as of 07/04/2024) Resolved Problems Problem Noted Date Diagnosed Date [...] as of this encounter (statuses as of 07/04/2024) Immunizations Name Administration Dates Next Due COVID-19 [...] No 08/07/2016 documented as of this encounter Plan of Treatment Upcoming Encounters Date Type Department Care Team (Late st Contact Info) Description 11/04/2024 2:30 PM EST Office Visit Gastroenterology, 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 No Care Teams Swimming Pool Attendant Relationship Specialty Start Date End Date Louis Brenner III, MD [address] [facility] [place] [address] PCP - General Family Medicine 04/28/20 documented as of this encounter
--- OUTSIDE RECORDS SUMMARY | 2024-07-07 01:38 | External Medical Summary | Summary of Care ---
Author Name Unknown Organization [facility] Address [address] [place] [address] Phone [phone] Care Team Providers Care Product Strategy Director Name Role Phone Elidia POWERS MD, Louis Mirza Primary Care Provider [phone] Reason for Visit * Reason Onset Date Comments Med Request 04/03/2024 Encounter Details Date Type Department Care Team (Late st Contact Info) Description 04/03/2024 Telephone Family Practice [facility] [address] [place] [address] Louis Brenner III, MD [address] [place] [address] Med Request Allergies Active Allergy Reactions Criticality Noted Date Comments Lamotrigine Diarrhea 12/29/2021 Pollen 12/10/2019 documented as of this encounter (statuses as of 07/03/2024) Medications Medication Sig Dispensed Refills Start Date End Date Status 10/27 1-20 MG-MCG PO TABSIndications:P recancerous changes of the cervix Take by mouth. Takes at night 5 09/21/20 14 Active METHADONE HCL INTENSOL 10 MG/ML PO CONCIndications:O piate addiction (HCC),Chronic pain syndrome,Intersti tial cystitis,Endometr iosis 202 10/06/20 14 Active butalbital-acetam inophen-caffeine 50-325-40 mg per tab (FIORICET) 50-325-40 MG TAKE 1 OR 2 TABLET(S) BY MOUTH TWICE A DAY NEEDED 20 Tab 0 04/18/20 16 Active SUMAtriptan Succinate (IMITREX) 6 MG/0.5ML injection Inject at onset of headache, may repeat in 2hrs if needed 10 Syringe 3 04/07/20 17 Active adapalene (DIFFERIN) 0.1 % gelIndications:Ac ne vulgaris Apply topically to affected area at bedtime. Apply to affected area at bedtime. 45 g 5 03/13/20 18 Active Promethazine HCl 50 MG TABS Take 1 Tablet by mouth as needed. 2 01/07/20 19 Active polyethylene glycol 3350 (MIRALAX) packet Take 1 Packet by mouth daily as needed. Active Rizatriptan Benzoate 10 MG Tablet Take 1 Tablet by mouth as needed. For Migraine headache Active tiZANidine HCl 4 MG Capsule Take 2 Capsules by mouth at bedtime as needed. Active Natural [employer] Concepts Verio Flex System w/Device Kit Use as directed . Use to test blood sugars once a day Dx E11.9 1 Kit 1 01/12/20 22 Active Oxlo Systemsuch Delica Plus [id number] USE TO TEST BLOOD SUGAR 3 TIMES DAILY E11.9 300 Each 3 02/10/20 22 Active Ondansetron 8 MG Oral Tablet Disintegrating (Zofran)Indicatio ns:Precancerous changes of the cervix One tablet every 4 hours as needed for nausea and vomiting dissolve on tongue. 30 Tablet 4 09/05/20 22 Active Ketostix In Vitro Strip (Acetone (Urine) Test) Test urine for ketones every 3 hours when glucose is above 200 50 Strip 5 12/22/19 23 Active Dexcom G6 Community Arts Worker Device Use as directed 1 Each 12/23/19 23 Active Dexcom G6 Sensor Apply a new sensor every 10 days 9 Each 3 12/23/19 23 Active Dexcom G6 Transmitter Use with [employer] continuous glucose sensor as directed by painter mirror 1 Each 4 12/23/19 23 Active Silver sulfADIAZINE 1 % External Cream (Silvadene) Apply topically to affected area daily. 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 90 Tablet 3 09/18/20 23 Active ALPRAZolam 0.25 MG Oral Tablet (Xanax) Take 1 Tablet by mouth 3 times a day as needed for Anxiety. 30 Tablet 12/05/19 24 Active Levothyroxine Sodium 125 MCG Oral Tablet (Levoxyl) Take 1 Tablet by mouth daily first thing in the morning. (at least 30 min prior to breakfast or other meds) 90 Tablet 3 12/19/19 24 Active Vitamin B-12 1000 MCG Oral Tablet (Cyanocobalamin) Take 1 Tablet by mouth in the morning. Please purchase without a prescription and take one daily. 100 Tablet 12/19/19 24 Active Promethazine HCl 25 MG Oral Tablet (Phenergan) Take 1 Tablet by mouth every 6 hours as needed for Nausea. 30 Tablet 01/15/20 24 Active Potassium Chloride ER 10 MEQ Oral Tablet Extended Release Take 1 Tablet by mouth in the morning. 90 Tablet 01/15/20 24 Active Insulin Glargine Solostar 100 UNIT/ML Subcutaneous Solution Pen-injector (Basaglar KwikPen) INJECT 18 UNITS UNDER THE SKIN ONCE DAILY. Increase by 1 unit daily until glucose is stable and controlled overnight. TDD: 50 units/d 45 mL 01/15/20 24 Active Ozempic (1 MG/DOSE) 4 MG/3ML Subcutaneous Solution Pen-injector (Semaglutide (1 MG/DOSE)) Inject 1 mg under the skin once a week. 9 mL 01/15/20 24 Active metFORMIN HCl ER 500 MG Oral Tablet Extended Release 24 Hour (Glucophage XR) TAKE 4 TABLETS BY MOUTH DAILY WITH FOOD 360 Tablet 01/15/20 24 Active Gvoke HypoPen 2-Pack 1 MG/0.2ML Subcutaneous Solution Auto-injector (Glucagon) Inject 1.0 mg under the skin of belly/thigh or upper arm as needed for unresponsiveness due to suspected hypoglycemia 0.4 mL 11 01/15/20 24 Active Lisinopril 10 MG Oral Tablet (Prinivil) Take 1 Tablet by mouth in the morning. 90 Tablet 3 02/19/20 24 Active Triamcinolone Acetonide 0.1 % External Cream (Aristocort)Indic ations:Flexural atopic dermatitis Apply topically to affected area 2 times a day. 454 g 1 03/13/20 24 Active BD Pen Needle Sharon 2nd Gen 32G X 4 MM (Insulin Pen Needle) USE 4 TIMES DAILY 400 Each 3 12/22/19 23 024 Discontinued(R efill) OneTouch Verio In Vitro Strip (Glucose Blood) USE TO TEST BLOOD SUGAR 3 TIMES DAILY E11.9 300 Strip 1 10/26/19 24 024 Discontinued(R efill) NovoLOG FlexPen 100 UNIT/ML Subcutaneous Solution Pen-injector (insulin aspart) Inject 2-9 units + 1:50>150 SSI before meals. Total daily dose 50 units per day 45 mL 1 01/15/20 24 024 Discontinued Doxepin HCl 100 MG Oral Capsule (SINEquan)Indicat ions:Anxiety,Inso mnia,Migraine with aura TAKE 2 CAPSULES BY MOUTH AT BEDTIME NEEDED FOR SLEEP 180 Capsule 1 02/02/20 24 024 Discontinued(R efill) Zolpidem Tartrate 10 MG Oral Tablet (Ambien)Indicatio ns:Insomnia Take 1 Tablet by mouth at bedtime. 30 Tablet 03/24/20 24 024 Discontinued(R efill) Zolpidem Tartrate 10 MG Oral Tablet (Ambien)Indicatio ns:Insomnia Take 1 Tablet by mouth at bedtime. 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 Overview: BOB, 3 elevated autoantibodies at [facility] December 2021 History of narcotic addiction 04/29/2015 TMJ (temporomandibular joint disorder) 5 Chronic rhinitis 11/23/2014 Chronic pain syndrome 10/06/2014 Obesity, Class I, BMI 30.0-34.9 (see actual BMI) 09/29/2014 Overview: bmi= 33.67 09/29/14 Opiate addiction 06/08/2014 Overview: [facility] Insomnia Migraine aura, persistent Overview: hospitalzied at times Endometriosis Overview: diasgnosed at surgery- Dr Fitzpatrick Interstitial cystitis Anxiety IBS (irritable bowel syndrome) documented as of this encounter (statuses as of 07/03/2024) Resolved Problems Problem Noted Date Diagnosed Date [...] as of this encounter (statuses as of 07/03/2024) Immunizations Name Administration Dates Next Due COVID-19 [...] encounter Miscellaneous Notes * Telephone Encounter - Tiny Aponte OSA - 04/03/2024 9:44 AM EDT Patient requesting medication refill for May 01 or as patient will be out of town and will need. Zolpidem Tartrate 10 MG Oral Tablet (Ambien) 03/24/2024 30 Tablet 0 ordered Patient Sig: Take 1 Tablet by mouth at bedtime. Summary: Take 1 Tablet by mouth at bedtime., Disp-30 Tablet, R-0, ePrescribing Please call patient with any further questions or concerns. documented in this encounter Plan of Treatment Upcoming Encounters Date Type Department Care Team (Late st Contact Info) Description 07/04/2024 1:20 PM EDT Office Visit Family Practice [facility] [place] [address] [place] [address] Alejandra Quintanilla MD [address] [place] [address] 11/04/2024 2:30 PM EST Office Visit Gastroenterology, [facility] [address] [facility] [place] [address] Valentin Moran CRNP [address] [place] [address] Health Maintenance Due Date Last Done Comments [...] 03/06/2023, Additional history exists TSH 04/14/2025 04/14/2024, 12/2023, 12/17/2023, Additional history exists Mammogram 04/24/2025 [...] as of this encounter Visit Diagnoses Diagnosis Insomnia Insomnia, unspecified documented in this encounter Advance Directives * [...] Power of Attor yefri? No Care Teams Product Strategy Director Relationship Specialty Start Date End Date Louis Brenner III, MD [address] [place] [address] PCP - General Family Medicine 04/28/20 documented as of this encounter
--- OUTSIDE RECORDS SUMMARY | 2024-07-07 01:39 | External Medical Summary | Summary of Care ---
Author Name Unknown Organization [facility] Address [address] [place] [address] Phone [phone] Care Team Providers Care Core Winding Operator Name Role Phone Elidia POWERS MD, Louis Mirza Primary Care Provider [phone] Reason for Visit * Reason Onset Date Comments Appointment 03/05/2024 Encounter Details Date Type Department Care Team (Late st Contact Info) Description 03/05/2024 Telephone Otolaryngology, [facility] [address] [address] Services, Scheduling [address] [place] [address] Appointment Allergies Active Allergy Reactions Criticality Noted Date Comments Lamotrigine Diarrhea 12/29/2021 Pollen 12/10/2019 documented as of this encounter (statuses as of 06/04/2024) Medications Medication Sig Dispensed Refills Start Date End Date Status 10/27 1-20 MG-MCG PO TABSIndications:Pre cancerous changes of the cervix Take by mouth. Takes at night 5 4 Active METHADONE HCL INTENSOL 10 MG/ML PO CONCIndications:Opi ate addiction (HCC),Chronic pain syndrome,Interstiti al cystitis,Endometrio sis 202 4 Active butalbital-acetamin ophen-caffeine 50-325-40 mg per tab (FIORICET) 50-325-40 MG [...] by mouth at bedtime as needed. Active Arteriocyte Medical Systemsio Flex System w/Device Kit Use as directed . Use to test blood sugars once a day Dx E11.9 1 Kit 1 2 Active Math[employer] Engineering & Education[employer] Delica Plus [id number] USE TO TEST BLOOD SUGAR 3 TIMES DAILY E11.9 300 Each 3 2 Active Ondansetron 8 MG Oral Tablet Disintegrating (Zofran)Indications :Precancerous changes of the cervix One tablet every 4 hours as needed for nausea and vomiting dissolve on tongue. 30 Tablet 4 2 Active BD Pen Needle Sharon 2nd Gen 32G X 4 MM (Insulin Pen Needle) USE 4 TIMES DAILY 400 Each 3 3 Active Ketostix In Vitro Strip (Acetone (Urine) Test) Test urine for ketones every 3 hours when glucose is above 200 50 Strip 5 3 Active Dexcom G6 Cascara Bark Cutter Device Use as directed 1 Each 3 Active Dexcom G6 Sensor Apply a new sensor every 10 days 9 Each 3 3 Active Dexcom G6 Transmitter Use with dex Loandesk continuous glucose sensor as directed by saute chef 1 Each 4 3 Active Silver sulfADIAZINE 1 % External Cream (Silvadene) Apply topically to affected area daily. 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 90 Tablet 3 3 Active OneTouch Verio In Vitro Strip (Glucose Blood) USE TO TEST BLOOD SUGAR 3 TIMES DAILY E11.9 300 Strip 1 4 Active ALPRAZolam 0.25 MG Oral Tablet (Xanax) [...] suspected hypoglycemia 0.4 mL 11 4 Active Doxepin HCl 100 MG Oral Capsule (SINEquan)Indicatio ns:Anxiety,Insomnia ,Migraine with aura TAKE 2 CAPSULES BY MOUTH AT BEDTIME NEEDED FOR SLEEP 180 Capsule 1 4 Active Lisinopril 10 MG Oral Tablet (Prinivil) Take 1 Tablet by mouth in the morning. 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 Overview: BOB, 3 elevated autoantibodies at [facility] December 2021 History of narcotic addiction 04/29/2015 TMJ (temporomandibular joint disorder) 5 Chronic rhinitis 11/23/2014 Chronic pain syndrome 10/06/2014 Obesity, Class I, BMI 30.0-34.9 (see actual BMI) 09/29/2014 Overview: bmi= 33.67 09/29/14 Opiate addiction 06/08/2014 Overview: [facility] Insomnia Migraine aura, persistent Overview: hospitalzied at times Endometriosis Overview: diasgnosed at surgery- Dr Fitzpatrick Interstitial cystitis Anxiety IBS (irritable bowel syndrome) documented as of this encounter (statuses as of 06/04/2024) Resolved Problems Problem Noted Date Diagnosed Date [...] as of this encounter (statuses as of 06/04/2024) Immunizations Name Administration Dates Next Due COVID-19 [...] 18 years and over) Not on file 3 Are you (or your family) dianelys eless [...] encounter Miscellaneous Notes * Telephone Encounter - Mariaelena Serrano OSA - 03/05/2024 9:35 AM EDT Pt called for appt for hearing loss. Is scheduled in May first available. Was not able to schedule audio with that visit Please contact patient to schedule audio. documented in this encounter Plan of Treatment Upcoming Encounters Date Type Department Care Team (Late st Contact Info) Description 06/19/2024 3:00 PM EDT Telemedicine Orthopaedics [facility] [address] [place] [address] Sharer, Iirsh Solomon PA-C [address] [place] [address] 06/24/2024 2:40 PM EDT Office Visit Gastroenterology, [facility] [address] [place] [address] Kandy Jackson MD [address] [place] [address] 07/04/2024 1:20 PM EDT Office Visit Family Practice [facility] [address] [place] [address] Alejandra Quintanilla MD [address] [facility] [place] [address] Health Maintenance Due Date Last Done Comments [...] Cancer Screening 06/18/2021 Pap Smear 06/18/2021 06/18/2018, 04/2 01/2017, 12/09/2014 COVID-19 Vaccine ( season) 2023 08/22/2023, 06/20/2022, 06/20/2022, Additional history exists Influenza Vaccine (FLU shot) (#1) 2024 07/04/2023, 06/20/2022, 06/20/2022 HbA1c 09/09/2024 03/10/2024, 12/06, 09/18/2023, Additional history exists Albumin/Creatinine Ratio 12/16/2024 12/17/2023 GFR 03/10/2025 03/10/2024, 12/06, 03/06/2023, Additional history exists TSH 04/14/2025 04/14/2024, 12/2023, 12/17/2023, Additional history exists Mammogram 04/24/2025 04/24/2024, 04/02/2023 Cologuard 08/22/2026 08/22/2023, 1112/2022, 08/10/2023 Colorectal Cancer Screening 08/22/2026 Lipid Panel [...] Power of Attor yefri? No Care Teams Core Winding Operator Relationship Specialty Start Date End Date Louis Brenner III, MD [address] [place] [address] PCP - General Family Medicine 04/28/20 documented as of this encounter
--- OUTSIDE RECORDS SUMMARY | 2024-07-07 01:39 | External Medical Summary | Summary of Care ---
Author Name Unknown Organization [facility] Address [address] [place] [address] Phone [phone] Care Team Providers Care Chemical Cell Changer Name Role Phone Elidia POWERS MD, Sandy Mirza Primary Care Provider [phone] Reason for Visit * Reason Onset Date Comments Medication Refill 05/25/2024 Encounter Details Date Type Department Care Team (Late st Contact Info) Description 05/25/2024 Refill Family Practice [facility] [address] [place] [address] Sandy Cerna III, MD [address] [place] [address] Insomnia Allergies Active Allergy Reactions Criticality Noted Date Comments Lamotrigine Diarrhea 12/29/2021 Pollen 12/10/2019 documented as of this encounter (statuses as of 05/27/2024) Medications Medication Sig Dispensed Refills Start Date [...] by mouth at bedtime as needed. Active Bvents Flex System w/Device Kit Use as directed . Use to test blood sugars once a day Dx E11.9 1 Kit 1 2 Active Sport[employer]uch Delica Plus [id number] USE TO TEST BLOOD SUGAR 3 TIMES [...] 50 Strip 5 3 Active Dexcom G6 Rn Family Practice Device Use as directed 1 Each 3 Active Dexcom G6 Sensor Apply a new sensor every 10 days 9 Each 3 3 Active Dexcom G6 Transmitter Use with dex Sarta continuous glucose sensor as directed by human resource internship 1 Each 4 3 Active Silver sulfADIAZINE 1 % External Cream (Silvadene) Apply topically to affected area daily. 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 90 Tablet 3 3 Active Hubble TelemedicalTouch Verio In Vitro Strip (Glucose Blood) USE [...] a day. 454 g 1 4 Active NovoLOG FlexPen 100 UNIT/ML Subcutaneous Solution Pen-injector (insulin aspart)Indications :DM type 1, not at goal (HCC) INJECT 2-9 UNITS + 1:50>150 SSI BEFORE MEALS. TOTAL DAILY DOSE 50 UNITS PER DAY 45 mL 1 4 Active Zolpidem Tartrate 10 MG Oral Tablet (Ambien)Indication s:Insomnia Take 1 Tablet by mouth at bedtime. 30 Tablet 4 Active Zolpidem Tartrate 10 MG Oral Tablet (Ambien)Indication s:Insomnia Take 1 Tablet by mouth at bedtime. 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 Overview: BOB, 3 elevated autoantibodies at [facility] December 2021 History of narcotic addiction 04/29/2015 TMJ (temporomandibular joint disorder) 5 Chronic rhinitis 11/23/2014 Chronic pain syndrome 10/06/2014 Obesity, Class I, BMI 30.0-34.9 (see actual BMI) 09/29/2014 Overview: bmi= 33.67 09/29/14 Opiate addiction 06/08/2014 Overview: [place] [facility] Insomnia Migraine aura, persistent Overview: hospitalzied at times Endometriosis Overview: diasgnosed at surgery- Dr Fitzpatrick Interstitial cystitis Anxiety IBS (irritable bowel syndrome) documented as of this encounter (statuses as of 05/27/2024) Resolved Problems Problem Noted Date Diagnosed Date [...] as of this encounter (statuses as of 05/27/2024) Immunizations Name Administration Dates Next Due COVID-19 [...] encounter Miscellaneous Notes * Telephone Encounter - Sandy Cerna III, MD - 05/27/2024 11:25 AM EDTSigned Prescriptions: Disp Refills Zolpidem Tartrate 10 MG Oral Tablet (Ambie*30 Tab*0 Sig: Take 1 Tablet by mouth at bedtime.Authorizing Provider: SANDY CERNA III * Telephone Encounter - Yesi Meraz RP - 05/27/2024 10:08 AM EDTPending Prescriptions: Disp Refills Zolpidem Tartrate 10 MG Oral Tablet (Ambie*30 Tab*0 Sig: Take 1 Tablet by mouth at bedtime. * Telephone Encounter - Yesi Meraz RP - 05/27/2024 10:07 AM EDT I have reviewed the patients controlled substance dispensing history in the Prescription Drug Monitoring Program in compliance with the [facility] regulations before prescribing a controlled substance. PDMP checked on 05/27/2024. Pending Prescriptions: Disp Refills Zolpidem Tartrate 10 MG Oral Tablet (Ambi*30 Tab*0 Sig: Take 1 Tablet by mouth at bedtime. Last Visit: 01/15/2024 (in office), 03/13/2024 (telemedicine) Next Visit: 07/04/2024 Date medication was last filled: 04/23 Date medication is due for refill: 05/22 Pharmacy: [id number] [id number] [facility] Is this request for a controlled substance? Yes and Urine Drug Screen was completed Toxicology results: Results for orders placed or performed during the hospital encounter of 03/09/19 TOX SCREEN, URINE, W/O CONFIRMATION Result Value AMPHETAMINES NEGATIVE BENZODIAZEPINES POSITIVE (A) CANNABINOIDS NEGATIVE COCAINE METABOLITE NEGATIVE HYDROCODONE NEGATIVE MORPHINE/ CODEINE NEGATIVE OXYCODONE NEGATIVE METHADONE METABOLITE POSITIVE (A) NOTE: THE ABOVE SCREENING RESULTS ARE PRESUMPTIVE AND CAN ONLY BE USED FOR MEDICAL PURPOSES. CONFIRMATORY TESTING IS AVAILABLE UPON REQUEST. CUTOFF CONCENTRATION Please approve if appropriate. Thanks, Yesi Meraz, PharmD Clinical Pharmacist [facility] ([facility]) [phone] 05/27/2024 10:07 AM documented in this encounter Plan of Treatment Upcoming Encounters Date Type Department Care Team (Late st Contact Info) Description 06/19/2024 3:00 PM EDT Telemedicine Orthopaedics [facility] [address] [address] Sharer, Irish Solomon PA-C [address] [place] [address] 06/24/2024 2:40 PM EDT Office Visit Gastroenterology, [facility] [address] [place] [address] Kandy Jackson MD [address] [place] [address] 07/04/2024 1:20 PM EDT Office Visit Family Practice [facility] [place] [address] [facility] [place] [address] Alejandra Quintanilla MD [address] [facility] [place] [address] Health Maintenance Due Date Last Done Comments HIV Screening 1991 Diabetic Foot Exam 1994 DTaP,Tdap,and Td Vaccines (1 - Tdap) 1995 Hepatitis B [...] 06/18/2018, 01/07, 12/09/2014 COVID-19 Vaccine ( season) 2023 08/22/2023, 06/20/2022, 06/20/2022, Additional history exists Influenza Vaccine (FLU shot) (#1) 2024 07/04/2023, 06/20/2022, 06/20/2022 HbA1c 09/09/2024 03/10/2024, 12/06, 09/18/2023, Additional history exists Albumin/Creatinine Ratio 12/16/2024 12/17/2023 GFR 03/10/2025 03/10/2024, 12/06, 03/06/2023, Additional history exists TSH 04/14/2025 04/14/2024, 06/12/2023, 12/17/2023, Additional history exists Mammogram 04/24/2025 04/24/2024, [...] Power of Attor yefri? No Care Teams Chemical Cell Changer Relationship Specialty Start Date End Date Sandy Cerna III, MD [address] [facility] [place] [address] PCP - General Family Medicine 04/28/20 documented as of this encounter
--- OUTSIDE RECORDS SUMMARY | 2024-07-07 01:39 | External Medical Summary | Summary of Care ---
Author Name Unknown Organization [facility] Address [address] [place] [address] Phone [phone] Care Team Providers Care Seed And Fertilizer Specialist Name Role Phone Elidia POWERS MD, Louis Mirza Primary Care Provider [phone] Reason for Visit * Reason Onset Date Comments Advice 03/11/2024 Encounter Details Date Type Department Care Team (Late st Contact Info) Description 03/11/2024 Telephone Family Practice [facility] [address] [place] [address] Louis Brenner III, MD [address] [place] [address] Advice Allergies Active Allergy Reactions Criticality Noted Date Comments Lamotrigine Diarrhea 12/29/2021 Pollen 12/10/2019 documented as of this encounter (statuses as of 06/10/2024) Medications Medication Sig Dispensed Refills Start Date [...] in 2hrs if needed 10 Syringe 3 07/01/201 7 Active adapalene (DIFFERIN) 0.1 % gelIndications:Acne [...] by mouth at bedtime as needed. Active BiOM Verio Flex System w/Device Kit Use as directed . 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), 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 Overview: BOB, 3 elevated autoantibodies at [facility] December 2021 History of narcotic addiction 04/29/2015 TMJ (temporomandibular joint disorder) 5 Chronic rhinitis 11/23/2014 Chronic pain syndrome 10/06/2014 Obesity, Class I, BMI 30.0-34.9 (see actual BMI) 09/29/2014 Overview: bmi= 33.67 09/29/14 Opiate addiction 06/08/2014 Overview: [facility] Insomnia Migraine aura, persistent Overview: hospitalzied at times Endometriosis Overview: diasgnosed at surgery- Dr Fitzpatrick Interstitial cystitis Anxiety IBS (irritable bowel syndrome) documented as of this encounter (statuses as of 06/10/2024) Resolved Problems Problem Noted Date Diagnosed Date [...] as of this encounter (statuses as of 06/10/2024) Immunizations Name Administration Dates Next Due COVID-19 [...] encounter Miscellaneous Notes * Telephone Encounter - Willard Newman LPN - 03/11/2024 8:38 AM EDT Pt calling to give up on alprazolam. She decreased it to once or twice a month. She has only been using it for dental appts. She is inquiring if alprazolam could be changed to as needed? She has not used the lorazepam for a long, the lorazepam as it make her feel loopy. She doesn't want it d/c as she would like to keep it for emergency situations. She saw psych on 01/15 during the visit there was indication of taking her off all her meds including her diabetic meds. This made pt very uneasy. I scheduled VV with Dr Quintanilla on 03/13 at 9:40 to discuss her anxiety meds. This is FYI * Telephone Encounter - Ria Hansen OSA - 03/11/2024 8:34 AM EDT Reason for patient's call: pt requested to speak to nurse regarding medication. Caller was transferred to willard at the nurse line. documented in this encounter Plan of Treatment Upcoming Encounters Date Type Department Care Team (Late st Contact Info) Description 06/19/2024 3:00 PM EDT Telemedicine Orthopaedics [facility] [address] [place] [address] SharerIrish PA-C [address] [place] [address] 06/24/2024 2:40 PM EDT Office Visit Gastroenterology, [facility] [address] [place] [address] Kandy Jackson MD [address] [place] [address] 07/04/2024 1:20 PM EDT Office Visit [facility] 200 [facility] [place] [address] Alejandra Quintanilla MD 200 [place] [address] Health Maintenance Due Date Last Done Comments [...] Smear 06/18/2021 06/18/2018, 01/07, 12/09/2014 COVID-19 Vaccine (2022- season) 2024 08/22/2023, 06/20/2022, 06/20/2022, Additional history [...] Power of Attor yefri? No Care Teams Seed And Fertilizer Specialist Relationship Specialty Start Date End Date Louis Brenner III, MD 200 [place] [address] PCP - General Family Medicine 04/28/20 documented as of this encounter
--- OUTSIDE RECORDS SUMMARY | 2024-07-07 01:39 | External Medical Summary | Summary of Care ---
Author Name Unknown Organization [facility] Address [address] [place] [address] Phone [phone] Care Team Providers Care Fisher Lobster Name Role Phone Elidia POWERS MD, Louis Mirza Primary Care Provider [phone] Reason for Visit * Reason Onset Date Comments Medication Refill 06/25/2024 Encounter Details Date Type Department Care Team (Late st Contact Info) Description 06/25/2024 Refill Endocrinology, [place] [address] [place], [place] [id number] Angus Mohr PA-C [address] [place] [address] DM type 1, not at goal (HCC) Allergies Active Allergy Reactions Criticality Noted Date Comments Lamotrigine Diarrhea 12/29/2021 Pollen 12/10/2019 documented as of this encounter (statuses as of 06/26/2024) Medications Medication Sig Dispensed Refills Start Date [...] by mouth at bedtime as needed. Active MobiVita Flex System w/Device Kit Use as directed . Use to test blood sugars once a day Dx E11.9 1 Kit 1 2 Active Perfectus Biomeduch Delica Plus [id number] USE TO TEST BLOOD SUGAR 3 TIMES [...] 50 Strip 5 3 Active Dexcom G6 Racing Board Marker Device Use as directed 1 Each 3 Active Dexcom G6 Sensor Apply a new sensor every 10 days 9 Each 3 3 Active Dexcom G6 Transmitter Use with [email or web address] continuous glucose sensor as directed by deicer inspector pneumatic 1 Each 4 3 Active Silver sulfADIAZINE 1 % External Cream (Silvadene) Apply topically to affected area daily. 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 90 Tablet 3 3 Active Cherry BirdTouch Verio In Vitro Strip (Glucose Blood) USE [...] breakfast. 30 Capsule 4 07/24/20 24 Active BD Pen Needle Sharon 2nd [...] per day 45 mL 1 4 Active BD Pen Needle Sharon 2nd Gen 32G X 4 MM (Insulin Pen Needle) USE 4 TIMES DAILY 400 Each 3 3 06/25/20 24 Discontin ued(Refil l) NovoLOG FlexPen 100 UNIT/ML Subcutaneous Solution Pen-injector (insulin aspart)Indications :DM type 1, not at goal (HCC) INJECT 2-9 UNITS + 1:50>150 SSI BEFORE MEALS. TOTAL DAILY DOSE 50 UNITS PER DAY 45 mL 1 4 06/25/20 24 Discontin ued(Refil l) Zolpidem Tartrate 10 MG Oral Tablet (Ambien)Indication s:Insomnia Take 1 Tablet by mouth at bedtime. 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 Overview: BOB, 3 elevated autoantibodies at [facility] December 2021 History of narcotic addiction 04/29/2015 TMJ (temporomandibular joint disorder) 5 Chronic rhinitis 11/23/2014 Chronic pain syndrome 10/06/2014 Obesity, Class I, BMI 30.0-34.9 (see actual BMI) 09/29/2014 Overview: bmi= 33.67 09/29/14 Opiate addiction 06/08/2014 Overview: [facility] Insomnia Migraine aura, persistent Overview: hospitalzied at times Endometriosis Overview: diasgnosed at surgery- Dr Fitzpatrick Interstitial cystitis Anxiety IBS (irritable bowel syndrome) documented as of this encounter (statuses as of 06/26/2024) Resolved Problems Problem Noted Date Diagnosed Date [...] as of this encounter (statuses as of 06/26/2024) Immunizations Name Administration Dates Next Due COVID-19 [...] encounter Miscellaneous Notes * Telephone Encounter - Angus Mohr PA-C - 06/26/2024 12:09 PM EDT Signed Prescriptions: Disp Refills BD Pen Needle Sharon 2nd Gen 32G X 4 MM (Ins*400 Ea*1 Sig: USE 4 TIMES DAILY. Authorizing Provider: ANGUS MOHR NovoLOG FlexPen 100 UNIT/ML Subcutaneous S*45 mL 1 Sig: Inject 2-9 units + 1:50>150 SSI before meals. Total daily dose 50 units per day Authorizing Provider: ANGUS MOHR * Telephone Encounter - Crystal Centeno CMA - 06/26/2024 10:40 AM EDTPending Prescriptions: Disp Refills BD Pen Needle Sharon 2nd Gen 32G X 4 MM (Ins*400 Ea*1 Sig: USE 4 TIMES DAILY. NovoLOG FlexPen 100 UNIT/ML Subcutaneous S*45 mL 1 Sig: Inject 2-9 units + 1:50>150 SSI before meals. Total daily dose 50 units per day * Telephone Encounter - Crystal Centeno CMA - 06/26/2024 10:24 AM EDT This medication has been pended for renewal in accordance with our office medication renewal policy. Pending Prescriptions: Disp Refills BD Pen Needle Sharon 2nd Gen 32G X 4 MM (In*400 Ea*1 Sig: USE 4 TIMES DAILY. NovoLOG FlexPen 100 UNIT/ML Subcutaneous *45 mL 1 Sig: Inject 2-9 units + 1:50>150 SSI before meals. Total daily dose 50 units per day Visit date not found (in office), 01/15/2024 (telemedicine) Visit date not found If no future appointments scheduled, and last appointment is greater than a year ago, please schedule patient for a follow-up appointment Last date the medication was ordered: 12/21/2022 Pharmacy: [id number] [place] [address] Labs: Lab Results Component Value Date/Time CREAT GFR 0.81 08/07/2016 02:35 AM CREATININE - [facility] 0.8 03/10/2024 08:01 AM CREATININE - [facility] 0.7 05/10/2020 02:05 PM CREATININE, RANDOM URINE - [facility] 191 12/17/2023 07:19 AM No components found for: "E G" * Telephone Encounter - Conchis Trinh OSA - 06/25/2024 11:36 AM EDTPending Prescriptions: Disp Refills BD Pen Needle Sharon 2nd Gen 32G X 4 MM (Ins*400 Ea*3 Sig: USE 4 TIMES DAILY NovoLOG FlexPen 100 UNIT/ML Subcutaneous S*45 mL 1 Sig: Inject 2-9 units + 1:50>150 SSI before meals. Total daily dose 50 units per day documented in this encounter Plan of Treatment Upcoming Encounters Date Type Department Care Team (Late st Contact Info) Description 07/04/2024 1:20 PM EDT Office Visit Family Practice [facility] [address] [facility] [place] [address] Alejandra Quintanilla MD [address] [facility] [place] [address] 11/04/2024 2:30 PM EST Office Visit Gastroenterology, [facility] [address] [place] [address] Valentin Moran CRNP [address] [place] [address] Health Maintenance Due Date Last Done Comments [...] as of this encounter Visit Diagnoses Diagnosis DM type 1, not at goal (HCC) Type I (juvenile type) diabetes mellitus without mention of complication, not [...] Power of Attor yefri? No Care Teams Fisher Lobster Relationship Specialty Start Date End Date Louis Brenner III, MD [address] [place] [address] PCP - General Family Medicine 04/28/20 documented as of this encounter
--- OUTSIDE RECORDS SUMMARY | 2024-07-07 01:39 | External Medical Summary | Summary of Care ---
Author Name Unknown Organization [facility] Address [address] [place] [address] Phone [phone] Care Team Providers Care Circulation Manager Name Role Phone Elidia POWERS MD, Louis Mirza Primary Care Provider [phone] Reason for Visit * Reason Comments eRx-Medication Refill Encounter Details Date Type Department Care Team (Late st Contact Info) Description 06/26/2024 Refill Family Practice [facility] [address] [place] [address] Louis Brenner III, MD [address] [place] [address] Allergies Active Allergy Reactions Criticality Noted Date Comments Lamotrigine Diarrhea 12/29/2021 Pollen 12/10/2019 documented as of this encounter (statuses as of 06/27/2024) Medications Medication Sig Dispensed Refills Start Date [...] by mouth at bedtime as needed. Active [place] [employer] Verio Flex System w/Device Kit Use as directed . Use to test blood sugars once a day Dx E11.9 1 Kit 1 2 Active Arrayent HealthTouch Delica Plus [id number] USE TO TEST BLOOD SUGAR 3 TIMES [...] 50 Strip 5 3 Active Dexcom G6 Car Installations Supervisor Device Use as directed 1 Each 3 Active Dexcom G6 Sensor Apply a new sensor every 10 days 9 Each 3 3 Active Dexcom G6 Transmitter Use with dex com continuous glucose sensor as directed by braid maker 1 Each 4 3 Active Silver sulfADIAZINE [...] 100 UNIT/ML Subcutaneous Solution Pen-injector (insulin aspart)Indications: DM type 1, not at goal (HCC) Inject 2-9 units + 1:50>150 SSI before meals. 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 Overview: BOB, 3 elevated autoantibodies at [facility] December 2021 History of narcotic addiction 04/29/2015 TMJ (temporomandibular joint disorder) 5 Chronic rhinitis 11/23/2014 Chronic pain syndrome 10/06/2014 Obesity, Class I, BMI 30.0-34.9 (see actual BMI) 09/29/2014 Overview: bmi= 33.67 09/29/14 Opiate addiction 06/08/2014 Overview: [facility] Insomnia Migraine aura, persistent Overview: hospitalzied at times Endometriosis Overview: diasgnosed at surgery- Dr Fitzpatrick Interstitial cystitis Anxiety IBS (irritable bowel syndrome) documented as of this encounter (statuses as of 06/27/2024) Resolved Problems Problem Noted Date Diagnosed Date [...] as of this encounter (statuses as of 06/27/2024) Immunizations Name Administration Dates Next Due COVID-19 [...] encounter Miscellaneous Notes * Telephone Encounter - Sonia Muñoz RPh - 06/27/2024 8:48 AM EDT Refused Prescriptions: Disp Refills OneTouch Verio In Vitro Strip (Glucose Blo*300 St*1 Sig: USE TOTEST BLOOD SUGAR 3 TIMES DAILY E11.9Refused By: SONIA MUÑOZ for Refusal: Duplicate Re quest documented in this encounter Plan of Treatment Upcoming Encounters Date Type Department Care Team (Late st Contact Info) Description 07/04/2024 1:20 PM EDT Office Visit Family Practice [facility] [address] [place] [address] Alejandra Quintanilla MD [address] [place] [address] 11/04/2024 2:30 PM EST Office Visit Gastroenterology, [facility] [address] [address] Valentin Moran CRNP [address] [place] [address] Health Maintenance Due Date Last Done Comments [...] Power of Attor yefri? No Care Teams Circulation Manager Relationship Specialty Start Date End Date Louis Brenner III, MD [address] [facility] [place] [address] PCP - General Family Medicine 04/28/20 documented as of this encounter
--- OUTSIDE RECORDS SUMMARY | 2024-07-07 01:39 | External Medical Summary | Summary of Care ---
Author Name Unknown Organization [facility] Address [address] [place] [address] Phone [phone] Care Team Providers Care Disaster Response Director Name Role Phone Elidia POWERS MD, Louis Mirza Primary Care Provider [phone] Reason for Visit * Reason Comments NEW PATIENT New pt ref by Dr Dee tt for constipation. Pt state she can only have a BM if she takes MOM. Has dealt with constipation for about 7 years. Pt denies bleeding, straining or hard stools. Pt c/o abd discomfort/bloating. * Evaluate & Treat - Unlimited Visits (Within 10 days (routine)) - Pending Review Specialty Diagnoses / Procedures Referred By Ximena jenkins Referred To Contact Gastroenterology Diagnoses Constipation, unspecified constipation type Louis Brenner III, MD [address] [place] [address] Referral ID Status Reason Start Date Expiration Date Visits Requested Visits Authorized [id number] Pending Review Specialty Services Required 01/15/[id number] Encounter Details Date Type Department Care Team (Late st Contact Info) Description 06/24/2024 2:40 PM EDT Office Visit Gastroenterology, [facility] [address] [place] [address] Kandy Jackson MD [address] [place] [address] Constipation, unspecified constipation type* Allergies Active Allergy Reactions Criticality Noted Date Comments Lamotrigine Diarrhea 12/29/2021 Pollen 12/10/2019 documented as of this encounter (statuses as of 06/24/2024) Medications Medication Sig Dispensed Refills Start Date [...] by mouth at bedtime as needed. Active ScaleBase Verio Flex System w/Device Kit Use as directed . Use to test blood sugars once a day Dx E11.9 1 Kit 1 2 Active Rx NetworkTouch Delica Plus [id number] USE TO TEST BLOOD SUGAR 3 TIMES [...] 50 Strip 5 3 Active Dexcom G6 Technical Consultant Device Use as directed 1 Each 3 Active Dexcom G6 Sensor Apply a new sensor every 10 days 9 Each 3 3 Active Dexcom G6 Transmitter Use with dex com continuous glucose sensor as directed by automatic winder operator 1 Each 4 3 Active Silver [...] DM type 1, not at goal (HCC) INJECT 2-9 UNITS + 1:50>150 SSI BEFORE MEALS. TOTAL DAILY DOSE 50 UNITS PER DAY 45 mL 1 4 Active Zolpidem Tartrate 10 MG Oral Tablet (Ambien)Indications :Insomnia Take 1 Tablet by mouth at bedtime. 30 Tablet 4 Active Magnesium Hydroxide 400 MG/5ML Oral Suspension Take by mouth daily as needed for Constipation. Active Linzess 72 MCG Oral Capsule (linaCLOtide) Take 1 Capsule by mouth daily before breakfast. 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 Overview: BOB, 3 elevated autoantibodies at [facility] December 2021 History of narcotic addiction 04/29/2015 TMJ (temporomandibular joint disorder) 5 Chronic rhinitis 11/23/2014 Chronic pain syndrome 10/06/2014 Obesity, Class I, BMI 30.0-34.9 (see actual BMI) 09/29/2014 Overview: bmi= 33.67 09/29/14 Opiate addiction 06/08/2014 Overview: [facility] Insomnia Migraine aura, persistent Overview: hospitalzied at times Endometriosis Overview: diasgnosed at surgery- Dr Fitzpatrick Interstitial cystitis Anxiety IBS (irritable bowel syndrome) documented as of this encounter (statuses as of 06/24/2024) Resolved Problems Problem Noted Date Diagnosed Date [...] as of this encounter (statuses as of 06/24/2024) Immunizations Name Administration Dates Next Due COVID-19 [...] Cigarettes Q uit: 10/27/2014 Smokeless Tobacco: Never Tobacco Cessation:Counseling Given: Not Answered Comments:began at age 29 Alcohol Use Standard [...] on file documented as of this encounter Last Filed Vital Signs Vital Sign Reading Time Taken Comments Blood Pressure 136/82 06/24/2024 2:54 PM EDT Pulse 90 06/24/2024 2:54 PM EDT Temperature 36.7 C (98.1 F) 06/24/2024 2:54 PM ED T Respiratory Rate - - Oxygen Saturation - - Inhaled Oxygen Concentration - - Weight 96.6 kg (213 lb) 06/24/2024 2:54 PM EDT Height 165.1 cm (5' 5") 06/24/2024 2:54 PM EDT Body Mass Index 35.45 06/24/2024 2:54 PM EDT documented in this encounter Functional Status Functional Status Response [...] No 08/07/2016 documented as of this encounter Progress Notes * Kandy Jackson MD - 06/24/2024 3:10 PM EDT HPI: 49 year old female seen for sontipation. Without laxatives, she has BM every few weeks to once a month. + bloating, but no abd pain or nausea. No gastroparesis symptoms. Has tried Miralax, stool softeners, senna tabs and "natural laxatives." Has h/o chronic pelvic pain, s/p mult surgeries for endometriosis. On Methadone. Also has h/o DM last A1 c 7.1 - On Ozepmic - off and on. Treats her constipation with MOM- "takes 13 gulps" - with this regimen, she will have a complete BMevery two weeks. Has done cologuard for CRC screen last year. ROS: GEN: no weight loss, fever, fatigue HEENT: no changes in vision or hearing, no sinus problems, no sore throat, no hoarsenss RESP: no cough, wheezing, SOB or change in breathing CARDIOVASCULAR: no exertional chest pain, dyspnea, palpitations GI: see HPI , otherwise negative : no dysuria, hematuria, polyuria MUSCULOSKELETAL: no change in joint pains, no new arthritis PSYCHIATRIC: no significant anxiety or depression, unchanged sleep pattern HEME: no bleeding tendency, no transfusion history NEURO: no significant headache, no seizures , no tremors SKIN: no new rashes, no itching ALLERGIES: Review of patient's allergies indicates: Allergen Reactions Lamotrigine Diarrhea Pollen Past Medical History: Diagnosis Date Anxiety Constipation Endometriosis age 16 diasgnosed at surgery- Dr Fitzpatrick H/O SANDRO Headache(784.0) Headache NOS IBS (irritable bowel syndrome) Insomnia as a child Interstitial cystitis 2008 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 UNLISTED LAPAROSCOPY;UTERUS x 5 VAGINAL DELIVERY ONLY x 1 Family History Problem Relation Name Age of Onset Cancer Mother 44 breast Mental Disorder Mother anxiety Hypertension Father Anxiety Disorder Father Anxiety Disorder Sister Cancer Grandmother (Paternal) esophageal ca Hypertension Grandfather (Paternal) Diabetes None Heart Disorder None Stroke None Anxiety Disorder Aunt (Maternal) Social History Socioeconomic History Marital status: Spouse name: Jim Number of children: 1 Occupational History Occupation: retail department supervisor chair inspector Tobacco Use Smoking status: Former Current packs/day: 0.00 Types: Cigarettes Quit date: 10/27/2014 Years since quittin.6 Smokeless tobacco: Never Tobacco comments: began at age 29 Vaping Use Vaping status: Never Used Substance and Sexual Activity Alcohol use: Never Drug use: No Comment: limits caffeine Sexual activity: Not Currently Partners: Male control/protection: Condom Social History Narrative Disability- age 33 interstitial cystitis/endometriosis/migraine job: Was [employer] education: 2 years college service: no hobbies/interests: music/sabianism transfusions: no exercise: no diet: no mormon/jainism: orthodox marital status: Will divorce in 10/2014 children: 1 gc: 0 ggc: 0 pets: no exposure to violence/threats/abuse: no things to improve: routine Social Determinants of Health Financial Resource Strain: Low Risk (09/11/2023) Financial Resource Strain Do you have any trouble paying for your medications, or do you think you might in the future? (Adult - for ages 18 years and over): No Food Insecurity: No Food Insecurity (09/11/2023) Food Insecurity Do you need food for this week? (Adult - for ages 18 years and over): No Transportation Needs: No Transportation Needs (09/11/2023) Transportation Needs Do you have trouble getting a ride to medical visits or work? (Adult - for ages 18 years and over):Never True Social Connections: Socially Integrated (09/11/2023) Social Connections How often do you feel lonely or isolated from those around you? (Adult - for ages 18 years and over): Sometimes Housing Stability: Low Risk (09/11/2023) Housing Stability Do you currently live in a care home or have no steady place to sleep at night? (Adult - for ages 18 years and over): No Do you think you are at risk of becoming homeless? (Adult - for ages 18 years and over): No Current Outpatient Medications Medication Sig Dispense Refill 10/27 1-20 MG-MCG PO TABS Take by mouth. Takes at night 5 METHADONE HCL INTENSOL 10 MG/ML PO CONC 202 adapalene (DIFFERIN) 0.1 % gel Apply topically to affected area at bedtime. Apply to affected area at bedtime. 45 g 5 tiZANidine HCl 4 MG Capsule Take 2 Capsules by mouth at bedtime as needed. Rosuvastatin Calcium 20 MG Oral Tablet (Crestor) Take 1 Tablet by mouth daily. 90 Tablet 3 Levothyroxine Sodium 125 MCG Oral Tablet (Levoxyl) Take 1 Tablet by mouth daily first thing in the morning. (at least 30 min prior to breakfast or other meds) 90 Tablet 3 Vitamin B-12 1000 MCG Oral Tablet (Cyanocobalamin) Take 1 Tablet by mouth in the morning. Please purchase without a prescription and take one daily. 100 Tablet 3 Potassium Chloride ER 10 MEQ Oral Tablet Extended Release Take 1 Tablet by mouth in the morning. 90Tablet 3 Insulin Glargine Solostar 100 UNIT/ML Subcutaneous Solution Pen-injector (Basaglar KwikPen) INJECT 18 UNITS UNDER THE SKIN ONCE DAILY. Increase by 1 unit daily until glucose is stable and controlled overnight. TDD: 50 units/d 45 mL 3 Ozempic (1 MG/DOSE) 4 MG/3ML Subcutaneous Solution Pen-injector (Semaglutide (1 MG/DOSE)) Inject 1 mg under the skin once a week. 9 mL 3 metFORMIN HCl ER 500 MG Oral Tablet Extended Release 24 Hour (Glucophage XR) TAKE 4 TABLETS BY MOUTH DAILY WITH FOOD 360 Tablet 3 Doxepin HCl 100 MG Oral Capsule (SINEquan) TAKE 2 CAPSULES BY MOUTH AT BEDTIME NEEDED FOR SLEEP 180 Capsule 1 Lisinopril 10 MG Oral Tablet (Prinivil) Take 1 Tablet by mouth in the morning. 90 Tablet 3 NovoLOG FlexPen 100 UNIT/ML Subcutaneous Solution Pen-injector (insulin aspart) INJECT 2-9 UNITS + 1:50>150 SSI BEFORE MEALS. TOTAL DAILY DOSE 50 UNITS PER DAY 45 mL 1 Zolpidem Tartrate 10 MG Oral Tablet (Ambien) Take 1 Tablet by mouth at bedtime. 30 Tablet 0 Magnesium Hydroxide 400 MG/5ML Oral Suspension Take by mouth daily as needed for Constipation. suzfzbszet-epjzqijubxwwn-uqwynkfo 50-325-40 mg per tab (FIORICET) 50-325-40 MG TAKE 1 OR 2 TABLET(S) BY MOUTH TWICE A DAY NEEDED 20 Tab 0 SUMAtriptan Succinate (IMITREX) 6 MG/0.5ML injection Inject at onset of headache, may repeat in 2hrs if needed 10 Syringe 3 Promethazine HCl 50 MG TABS Take 1 Tablet by mouth as needed. 2 polyethylene glycol 3350 (MIRALAX) packet Take 1 Packet by mouth daily as needed. (Patient not taking: Reported on 06/24/2024) Rizatriptan Benzoate 10 MG Tablet Take 1 Tablet by mouth as needed. For Migraine headache Protea Medical Flex System w/Device Kit Use as directed . Use to test blood sugars once a day Dx E11.9 1 Kit 1 Nexaweb Technologiesuch Delica Plus [id number] USE TO TEST BLOOD SUGAR 3 TIMES DAILY E11.9 300 Each 3 Ondansetron 8 MG Oral Tablet Disintegrating (Zofran) One tablet every 4 hours as needed for nausea and vomiting dissolve on tongue. 30 Tablet 4 BD Pen Needle Sharon 2nd Gen 32G X 4 MM (Insulin Pen Needle) USE 4 TIMES DAILY 400 Each 3 Ketostix In Vitro Strip (Acetone (Urine) Test) Test urine for ketones every 3 hours when glucose isabove 200 50 Strip 5 Dexcom G6 Technical Consultant Device Use as directed 1 Each 0 Dexcom G6 Sensor Apply a new sensor every 10 days 9 Each 3 Dexcom G6 Transmitter Use with GenJuice continuous glucose sensor as directed by automatic winder operator 1 Each4 Silver sulfADIAZINE 1 % External Cream (Silvadene) Apply topically to affected area daily. Apply toburn 50 g 1 Rx NetworkTouch Verio In Vitro Strip (Glucose Blood) USE TO TEST BLOOD SUGAR 3 TIMES DAILY E11.9 300 Strip1 ALPRAZolam 0.25 MG Oral Tablet (Xanax) Take 1 Tablet by mouth 3 times a day as needed for Anxiety. 30 Tablet 0 Promethazine HCl 25 MG Oral Tablet (Phenergan) Take 1 Tablet by mouth every 6 hours as needed for Nausea. 30 Tablet 0 Gvoke HypoPen 2-Pack 1 MG/0.2ML Subcutaneous Solution Auto-injector (Glucagon) Inject 1.0 mg under the skin of belly/thigh or upper arm as needed for unresponsiveness due to suspected hypoglycemia 0.4 mL 11 Triamcinolone Acetonide 0.1 % External Cream (Aristocort) Apply topically to affected area 2 times a day. 454 g 1 No current facility-administered medications for this visit. BP 136/82 | Pulse 90 | Temp 36.7 C (98.1 F) | Ht 1.651 m (5' 5") | Wt 96.6 kg (213 lb) | BMI 35.45 kg/m | BSA 2.1 m GENERAL: obese in no acute distress SKIN: no rashes, ulcers, or spider angiomata HEENT: normocephalic, sclerae clear, pharynx normal NECK: supple, no masses or thyroid enlargement LUNGS: clear to auscultation and percussion HEART: regular rate & rhythm, no murmurs and no gallops ABDOMEN: non-tender without guarding or rebound, soft, normo-active bowel sounds, no masses, no hepatosplenomegaly, no rebound or guarding, no bruits EXTREMITIES: no palmar erythema, no edema, no skin discoloration, no clubbing, no cyanosis NEURO: no lateralizing findings, Sensory/Motor grossly normal ASSESSMENT/PLAN: Severe constipation that is refractory to all OTC laxatives. - Begin Linzess 72, then escalate dose to 290 every 2 weeks; if no improvement, then motegrity or Movantik. If no impprovement afte r1 monht of thee drugs, use Ibsrela. RTC 3 mos with mid level. Kandy Jackson MD documented in this encounter Nursing Notes * Mariola Sotomayor CMA - 06/24/2024 2:54 PM EDT Chief Complaint Patient presents with NEW PATIENT New pt ref by Dr Brenner for constipation. Pt state she can only have a BM if she takes MOM. Has dealt with constipation for about 7 years. Pt denies bleeding, straining or hard stools. Pt c/o abd discomfort/bloating. documented in this encounter Plan of Treatment Upcoming Encounters Date Type Department Care Team (Late st Contact Info) Description 07/04/2024 1:20 PM EDT Office Visit Family Practice [facility] [address] [place] [address] Alejandra Quintanilla MD [address] [place] [address] 11/04/2024 2:30 PM EST Office Visit Gastroenterology, [facility] [address] [place] [address] Valentin Moran CRNP [address] [place] [address] Health Maintenance Due Date Last Done Comments [...] as of this encounter Visit Diagnoses Diagnosis Constipation, unspecified constipation type- Primary documented in this encounter Advance Directives * [...] Power of Attor yefri? No Care Teams Disaster Response Director Relationship Specialty Start Date End Date Louis Brenner III, MD [address] [place] [address] PCP - General Family Medicine 04/28/20 documented as of this encounter
--- OUTSIDE RECORDS SUMMARY | 2024-07-07 01:39 | External Medical Summary | Summary of Care ---
Author Name Unknown Organization [facility] Address [address] [place] [address] Phone [phone] Care Team Providers Care Bankruptcy Judge Name Role Phone Elidia POWERS MD, Sandy Mirza Primary Care Provider [phone] Reason for Visit * Reason Onset Date Comments Medication Refill 06/25/2024 Encounter Details Date Type Department Care Team (Late st Contact Info) Description 06/25/2024 Refill Family Practice [facility] [address] [place] [address] Sandy Cerna III, MD [address] [place] [address] Insomnia Allergies Active Allergy Reactions Criticality Noted [...] by mouth at bedtime as needed. Active Memrise Flex System w/Device Kit Use as directed . Use to test blood sugars once a day Dx E11.9 1 Kit 1 2 Active [employer] Delica Plus [id number] USE TO TEST BLOOD SUGAR 3 TIMES [...] 50 Strip 5 3 Active Dexcom G6 Manager Software Device Use as directed 1 Each 3 Active Dexcom G6 Sensor Apply a new sensor every 10 days 9 Each 3 3 Active Dexcom G6 Transmitter Use with dex Armasight continuous glucose sensor as directed by swimming pool serviceperson 1 Each 4 3 Active Silver sulfADIAZINE 1 % External Cream (Silvadene) Apply topically to affected area daily. 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 90 Tablet 3 3 Active FoodemTouch Verio In Vitro Strip (Glucose Blood) USE [...] PER DAY 45 mL 1 4 Active Doxepin HCl 100 MG [...] elevated autoantibodies at [facility] December 2021 History of narcotic addiction 04/29/2015 TMJ (temporomandibular joint disorder) 5 Chronic rhinitis 11/23/2014 Chronic pain syndrome 10/06/2014 Obesity, Class I, BMI 30.0-34.9 (see actual BMI) 09/29/2014 Overview: bmi= 33.67 09/29/14 Opiate addiction 06/08/2014 Overview: [facility] Insomnia Migraine aura, persistent Overview: [...] Encounter - Sandy Cerna III, MD - 06/26/2024 11:11 AM EDTSigned Prescriptions: Disp Refills Zolpidem Tartrate 10 MG Oral Tablet (Ambie*30 Tab*0 Sig: Take 1 Tablet by mouth at bedtime.Authorizing Provider: SANDY CERNA III * Telephone Encounter - Balta Ortiz, [facility] - 06/26/2024 10:15 AM EDTPending Prescriptions: Disp Refills Zolpidem Tartrate 10 MG Oral Tablet (Ambie*30 Tab*0 Sig: Take 1 Tablet by mouth at bedtime. * Telephone Encounter - Balta Ortiz [facility] - 06/26/2024 10:14 AM EDT I have reviewed the patients controlled substance dispensing history in the Prescription Drug Monitoring Program in compliance with the [facility] regulations before prescribing a controlled substance. PDMP checked on 06/26/2024. Pending Prescriptions: Disp Refills Zolpidem Tartrate 10 MG Oral Tablet (Ambi*30 Tab*0 Sig: Take 1 Tablet by mouth at bedtime. Last Visit: 01/15/2024 (in office), 03/13/2024 (telemedicine) Next Visit: 07/04/2024 Date medication was last filled: 05/27/24 Date medication is due for refill: 06/25/24 Pharmacy: [id number] [address] [place] [address] Is this request for a controlled substance? Yes and Urine Drug Screen Not completed Toxicology results: Results for orders placed [...] REQUEST. CUTOFF CONCENTRATION Please approve if appropriate. Thank You, Balta Ayers [facility] Clinical Pharmacist [facility] ([facility] 06/26/2024, 10:14 AM documented in this encounter Plan of Treatment Upcoming Encounters Date Type Department Care Team (Late st Contact Info) Description 07/04/2024 1:20 PM EDT Office Visit Family Practice [facility] [address] [place] [address] Alejandra Quintanilla MD [address] [place] [address] 11/04/2024 2:30 PM EST Office Visit Gastroenterology, [facility] [address] [place] [address] Valentin Moran CRNP [address] [place] [address] Health Maintenance Due Date Last Done Comments [...] Power of Attor yefri? No Care Teams Bankruptcy Judge Relationship Specialty Start Date End Date Sandy Cerna III, MD [address] [place] [address] PCP - General Family Medicine 04/28/20 documented as of this encounter
--- OUTSIDE RECORDS SUMMARY | 2024-07-07 01:39 | External Medical Summary | Summary of Care ---
Author Name Unknown Organization [facility] Address [address] [place] [address] Phone [phone] Care Team Providers Care Deli Bakery Clerk Name Role Phone Elidia POWERS MD, Sandy Mirza Primary Care Provider [phone] Reason for Visit * Reason Onset Date Comments Medication Refill 06/23/2024 Encounter Details Date Type Department Care Team (Late st Contact Info) Description 06/23/2024 Refill Family Practice [facility] [address] [place] [address] Sandy Cerna III, MD [address] [place] [address] Anxiety; Insomnia; Migraine with aura Allergies Active Allergy Reactions Criticality Noted Date Comments Lamotrigine Diarrhea 12/29/2021 Pollen 12/10/2019 documented as of this encounter (statuses as of 06/25/2024) Medications Medication Sig Dispensed Refills Start Date [...] by mouth at bedtime as needed. Active Rebtel Verio Flex System w/Device Kit Use as directed . Use to test blood sugars once a day Dx E11.9 1 Kit 1 2 Active Netmoda Internet Hizmetleri A.S.Touch Delica Plus [id number] USE TO TEST BLOOD SUGAR 3 TIMES [...] 50 Strip 5 3 Active Dexcom G6 Airplane Coverer Device Use as directed 1 Each 3 Active Dexcom G6 Sensor Apply a new sensor every 10 days 9 Each 3 3 Active Dexcom G6 Transmitter Use with A-TEX continuous glucose sensor as directed by sped teacher 1 Each 4 3 Active Silver sulfADIAZINE [...] mouth at bedtime. 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 Overview: BOB, 3 elevated autoantibodies at [facility] December 2021 History of narcotic addiction 04/29/2015 TMJ (temporomandibular joint disorder) 5 Chronic rhinitis 11/23/2014 Chronic pain syndrome 10/06/2014 Obesity, Class I, BMI 30.0-34.9 (see actual BMI) 09/29/2014 Overview: bmi= 33.67 09/29/14 Opiate addiction 06/08/2014 Overview: [facility] Insomnia Migraine aura, persistent Overview: hospitalzied at times Endometriosis Overview: diasgnosed at surgery- Dr Fitzpatrick Interstitial cystitis Anxiety IBS (irritable bowel syndrome) documented as of this encounter (statuses as of 06/25/2024) Resolved Problems Problem Noted Date Diagnosed Date [...] as of this encounter (statuses as of 06/25/2024) Immunizations Name Administration Dates Next Due COVID-19 [...] encounter Miscellaneous Notes * Telephone Encounter - Cassandra Young RPh - 06/25/2024 9:28 AM EDT Signed Prescriptions: Disp Refills Doxepin HCl 100 MG Oral Capsule (SINEquan) 180 Ca*0 Sig: TAKE 2 CAPSULES BY MOUTH AT BEDTIME NEEDED FOR SLEEPAuthorizing Provider: SANDY CERNA III User: CASSANDRA YOUNG * Telephone Encounter - Cassandra Young RPh - 06/25/2024 9:27 AM EDT RX authorized. Zero refills given until upcoming appt. 07/04/2024 Thank you, Cassandra Young PharmD Clinical Pharmacist [facility] 06/25/24 9:27 AM [phone] documented in this encounter Plan of Treatment Upcoming Encounters Date Type Department Care Team (Late st Contact Info) Description 07/04/2024 1:20 PM EDT Office [facility] [address] [facility] [place] [address] Alejandra Quintanilla MD 200 [facility] [place] [address] 11/04/2024 2:30 PM EST Office Visit Gastroenterology, [facility] [address] [place] [address] Valentin Moran CRNP [address] [place] [address] Health Maintenance Due Date Last Done Comments [...] as of this encounter Visit Diagnoses Diagnosis Anxiety Anxiety state, unspecified Insomnia Insomnia, unspecified Migraine with aura Migraine with aura, without mention of intractable migraine without mention of status migrainosus documented in this encounter Advance Directives * [...] Power of Attor yefri? No Care Teams Deli Bakery Clerk Relationship Specialty Start Date End Date Sandy Cerna III, MD [address] [place] [address] PCP - General Family Medicine 04/28/20 documented as of this encounter
--- OUTSIDE RECORDS SUMMARY | 2024-07-07 01:40 | External Medical Summary | Summary of Care ---
Author Name Unknown Organization [facility] Address [address] [place] [address] Phone [phone] Care Team Providers Care Security Professional Name Role Phone Elidia POWERS MD, Louis Mirza Primary Care Provider [phone] Reason for Referral * Evaluate & Treat - Unlimited Visits (Within 10 days (routine)) - Authorized Specialty Diagnoses / Procedures Referred By Ximena jenkins Referred To Contact Physical Therapy / Physical Medicine And Rehab Diagnoses Foot sprain, left, initial encounter Closed nondisplaced avulsion fracture of left talus with routine healing, subsequent encounter ChancerIrish PA-C [address] [place] [address] Referral ID Status Reason Start Date Expiration Date Visits Requested Visits Authorized [id number] Authorized Specialty Services Required 05/09/[phone] Question Answer Referral Priority Within 10 days (routine) Where should this appointment be scheduled? External Comments Foot sprain with talar avulsion fracture Proprioception and lateral ankle strengthening PT 2 x week for 4-6 weeks with HEP Reason for Visit * Reason Comments Follow Up Left ankle Encounter Details Date Type Department Care Team (Late st Contact Info) Description 05/09/2024 1:00 PM EDT Office Visit Orthopaedics [facility] [address] [place] [address] Irish Mabry PA-C [address] [place] [address] Foot sprain, left, initial encounter*; Closed nondisplaced avulsion fracture of left talus with routine healing, subsequent encounter Allergies Active Allergy Reactions Criticality Noted Date Comments Lamotrigine Diarrhea 12/29/2021 Pollen 12/10/2019 documented as of this encounter (statuses as of 05/09/2024) Medications Medication Sig Dispensed Refills Start Date [...] by mouth at bedtime as needed. Active Novawise Verio Flex System w/Device Kit Use as directed . Use to test blood sugars once a day Dx E11.9 1 Kit 1 2 Active FinisarTouch Delica Plus [id number] USE TO TEST BLOOD SUGAR 3 TIMES [...] 50 Strip 5 3 Active Dexcom G6 Stress Test Technician Device Use as directed 1 Each 3 Active Dexcom G6 Sensor Apply a new sensor every 10 days 9 Each 3 3 Active Dexcom G6 Transmitter Use with iCents.net com continuous glucose sensor as directed by front desk administrator 1 Each 4 3 Active Silver sulfADIAZINE [...] Glargine Solostar 100 UNIT/ML Subcutaneous Solution Pen-injector (ZaBeCor Pharmaceuticalsar TechnimotionikPen) INJECT 18 UNITS UNDER THE SKIN ONCE [...] a day. 454 g 1 4 Active Zolpidem Tartrate 10 MG Oral Tablet (Ambien)Indications :Insomnia Take 1 Tablet by mouth at bedtime. 30 Tablet 4 Active NovoLOG FlexPen 100 UNIT/ML Subcutaneous Solution Pen-injector (insulin aspart)Indications: DM type 1, not at goal (HCC) INJECT 2-9 UNITS + 1:50>150 SSI BEFORE MEALS. 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), 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 Overview: BOB, 3 elevated autoantibodies at [facility] December 2021 History of narcotic addiction 04/29/2015 TMJ (temporomandibular joint disorder) 5 Chronic rhinitis 11/23/2014 Chronic pain syndrome 10/06/2014 Obesity, Class I, BMI 30.0-34.9 (see actual BMI) 09/29/2014 Overview: bmi= 33.67 09/29/14 Opiate addiction 06/08/2014 Overview: [facility] Insomnia Migraine aura, persistent Overview: hospitalzied at times Endometriosis Overview: diasgnosed at surgery- Dr Fitzpatrick Interstitial cystitis Anxiety IBS (irritable bowel syndrome) documented as of this encounter (statuses as of 05/09/2024) Resolved Problems Problem Noted Date Diagnosed Date [...] as of this encounter (statuses as of 05/09/2024) Immunizations Name Administration Dates Next Due COVID-19 mRNA, LNP-s, No Pre serve, 2-Dose Series (Moderna) 12/14/2020,11/09/2020 COVID-19, LNP-s, No Preserve , Tj-sucrose, Ages 12+ (Wafer[employer] Biosystems) 06/20/2022 COVID-19, mRNA, LNP-s, PF, B ooster, [...] as of this encounter Progress Notes * Sharer, Irish Solomon PA-C - 05/09/2024 1:25 PM EDT Reshma Cardenas is a 48 year old female who presents for consultation to [facility] for left foot injury/pain. Consult requested by Self. Reshma Cardenas is here unaccompanied History: Reshma Cardenas presents for one-month follow-up of left mid foot sprain with talar avulsion fracture. She was weaned out of the boot over the past week. Reports interval improvement. She continues to have intermittent pain throughout the midfoot. She was not yet initiated physical therapy. Review of systems: All others negative except those noted above in HPI. 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), managed as type 1 (HCC) 12/21/2022 BOB, 3 elevated autoantibodies at [facility] December 2021 Migraine aura, persistent age 16 hospitalzied at times Migraine with aura Opiate addiction (HCC) 06/2014 [facility] Precancerous changes of the cervix age 32 LEEP and cryo- will see DR Fitzpatrick again Patient Active Problem List Diagnosis Obesity, Class I, BMI 30.0-34.9 (see actual BMI) Insomnia Migraine aura, persistent Endometriosis Interstitial cystitis Anxiety IBS (irritable bowel syndrome) Opiate addiction (HCC) Chronic pain syndrome Chronic rhinitis TMJ (temporomandibular joint disorder) History of narcotic addiction (HCC) 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), managed as type 1 (HCC) Acquired hypothyroidism Past Surgical History: Procedure Laterality Date DENTAL SURGERY PROCEDURE NEC in 90s wisdom teeth x 2 EGD, FLEXIBLE, DIAGNOSTIC N/A 08/07/2016 ESOPHAGOGASTRODUODENOSCOPY (EGD), FLEXIBLE, TRANSORAL, DIAGNOSTIC performed by Joon Tejeda DO at OR [facility] UNLISTED LAPAROSCOPY;UTERUS x 5 VAGINAL DELIVERY ONLY x 1 Social History Socioeconomic History Marital status: Spouse name: Jim Number of children: 1 Years of education: Not on file Highest education level: Not on file Occupational History 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 Tobacco Use Smoking status: Former Current packs/day: 0.00 Types: Cigarettes Quit date: 10/27/2014 Years since quittin.5 Smokeless tobacco: Never Tobacco comments: began at age 29 Vaping Use Vaping status: Never Used Substance and Sexual Activity Alcohol use: Never Drug use: No Comment: limits caffeine Sexual activity: Not Currently Partners: Male control/protection: Condom Other Topics Concern Not on file Social History Narrative Disability- age 33 interstitial cystitis/endometriosis/migraine job: Was [employer] education: 2 years college service: no hobbies/interests: music/buddhist transfusions: no exercise: no diet: no religious/jehovah's witness: moravian marital status: Will divorce in 10/2014 children: 1 gc: 0 ggc: 0 pets: no exposure to violence/threats/abuse: no things to improve: routine Social Determinants of Health Financial Resource Strain: Low Risk (09/11/2023) Financial Resource Strain Do you have any trouble paying for your medications, or do you think you might in the future? (Adult - for ages 18 years and over): No Does your family have trouble paying for medicine? (Household - for ages 0-17 years): Not on file Food Insecurity: No Food Insecurity (09/11/2023) Food Insecurity Do you need food for this week? (Adult - for ages 18 years and over): No Are you able to get enough food for your family? (Household - for ages 0-17 years): Not on file Does your family need food this week? (Household - for ages 0-17 years): Not on file Do you always have enough food for your family? (Household - for ages 0-17 years): Not on file Transportation Needs: No Transportation Needs (09/11/2023) Transportation Needs Do you have trouble getting a ride to medical visits or work? (Adult - for ages 18 years and over):Never True Does your family have a hard time getting a ride to doctors visits? (Household - for ages 0-17 years): Not on file Has lack of transportation kept you from medical appointments, meetings, work, or from getting things needed for daily living? Check all that apply. (Adult - for ages 18 years and over): Not on file Do you (or your family) have trouble finding or paying for a ride (transportation)? (Household - for ages 0-17 years): Not on file Social Connections: Socially Integrated (09/11/2023) Social Connections How often do you feel lonely or isolated from those around you? (Adult - for ages 18 years and over): Sometimes Housing Stability: Low Risk (09/11/2023) Housing Stability Do you currently live in a intermediate or have no steady place to sleep at night? (Adult - for ages 18 years and over): No Do you think you are at risk of becoming homeless? (Adult - for ages 18 years and over): No Does your family worry about paying for your home or becoming homeless? (Household - for ages 0-17 years): Not on file Are you homeless or worried that you might be in the future? (Adult - for ages 18 years and over): Not on file Are you (or your family) homeless or worried that you might be in the future? (Household - for ages0-17 years): Not on file Family History Problem Relation Name Age of Onset Cancer Mother 44 breast Mental Disorder Mother anxiety Hypertension Father Anxiety Disorder Father Anxiety Disorder Sister Cancer Grandmother (Paternal) esophageal ca Hypertension Grandfather (Paternal) Diabetes None Heart Disorder None Stroke None Anxiety Disorder Aunt (Maternal) Family History; none relevant to today's HPI Review of patient's allergies indicates: Allergen Reactions Lamotrigine Diarrhea Pollen Current Outpatient Medications Medication Sig Dispense Refill 10/27 1-20 MG-MCG PO TABS Take by mouth. Takes at night 5 METHADONE HCL INTENSOL 10 MG/ML PO CONC 202 wfmrsetjxa-bpejpbghcjxnn-flojphtl 50-325-40 mg per tab (FIORICET) 50-325-40 MG TAKE 1 OR 2 TABLET(S) BY MOUTH TWICE A DAY NEEDED 20 Tab 0 SUMAtriptan Succinate (IMITREX) 6 MG/0.5ML injection Inject at onset of headache, may repeat in 2hrs if needed 10 Syringe 3 adapalene (DIFFERIN) 0.1 % gel Apply topically to affected area at bedtime. Apply to affected area at bedtime. 45 g 5 Promethazine HCl 50 MG TABS Take 1 Tablet by mouth as needed. 2 polyethylene glycol 3350 (MIRALAX) packet Take 1 Packet by mouth daily as needed. Rizatriptan Benzoate 10 MG Tablet Take 1 Tablet by mouth as needed. For Migraine headache tiZANidine HCl 4 MG Capsule Take 2 Capsules by mouth at bedtime as needed. ProcureSafeio Flex System w/Device Kit Use as directed . Use to test blood sugars once a day Dx E11.9 1 Kit 1 FinisarTouch Delica Plus [id number] USE TO TEST BLOOD SUGAR 3 TIMES [...] isabove 200 50 Strip 5 Dexcom G6 Stress Test Technician Device Use as directed 1 Each 0 Dexcom G6 Sensor Apply a new sensor every 10 days 9 Each 3 Dexcom G6 Transmitter Use with JumpSeat continuous glucose sensor as directed by front desk administrator 1 Each4 Silver sulfADIAZINE 1 % External Cream (Silvadene) Apply topically to affected area daily. Apply toburn 50 g 1 Rosuvastatin Calcium 20 MG Oral Tablet (Crestor) Take 1 Tablet by mouth daily. 90 Tablet 3 OneTouch Verio In Vitro Strip (Glucose Blood) USE TO TEST BLOOD SUGAR 3 TIMES DAILY E11.9 300 Strip1 ALPRAZolam 0.25 MG Oral Tablet (Xanax) Take 1 Tablet by mouth 3 times a day as needed for Anxiety. 30 Tablet 0 Levothyroxine Sodium 125 MCG Oral Tablet (Levoxyl) Take 1 Tablet by mouth daily first thing in the morning. (at least 30 min prior to breakfast or other meds) 90 Tablet 3 Vitamin B-12 1000 MCG Oral Tablet (Cyanocobalamin) Take 1 Tablet by mouth in the morning. Please purchase without a prescription and take one daily. 100 Tablet 3 Promethazine HCl 25 MG Oral Tablet (Phenergan) Take 1 Tablet by mouth every 6 hours as needed for Nausea. 30 Tablet 0 Potassium Chloride ER 10 MEQ Oral Tablet [...] MOUTH DAILY WITH FOOD 360 Tablet 3 Gvoke HypoPen 2-Pack 1 MG/0.2ML Subcutaneous Solution Auto-injector (Glucagon) Inject 1.0 mg under the skin of belly/thigh or upper arm as needed for unresponsiveness due to suspected hypoglycemia 0.4 mL 11 Doxepin HCl 100 MG Oral Capsule (SINEquan) TAKE 2 CAPSULES BY MOUTH AT BEDTIME NEEDED FOR SLEEP 180 Capsule 1 Lisinopril 10 MG Oral Tablet (Prinivil) Take 1 Tablet by mouth in the morning. 90 Tablet 3 Triamcinolone Acetonide 0.1 % External Cream (Aristocort) Apply topically to affected area 2 times a day. 454 g 1 Zolpidem Tartrate 10 MG Oral Tablet (Ambien) Take 1 Tablet by mouth at bedtime. 30 Tablet 0 NovoLOG FlexPen 100 UNIT/ML Subcutaneous Solution Pen-injector (insulin aspart) INJECT 2-9 UNITS + 1:50>150 SSI BEFORE MEALS. TOTAL DAILY DOSE 50 UNITS PER DAY 45 mL 1 No current facility-administered medications for this visit. Objective: Physical Exam There were no vitals filed for this visit. Estimated body mass index is 36.21 kg/m as calculated from the following: Height as of 07/17/23: 1.651 m (5' 5"). Weight as of 01/15/24: 98.7 kg (217 lb 9.6 oz). General: generally well-nourished and in no acute distress HEENT: normocephalic, atraumatic, EOMI, sclera anicteric. Psych: mood and affect normal , cooperative Card: Peripheral pulses: normal in affected extremity (s) Resp: equal chest rise, non-tachypneic, non-labored breathing Skin: no rash, normal Neuro: Coordination: normal; Sensation: normal on affected extremity (s) MSK: Inspection: No significant swelling. No ecchymosis. Palpation: Mild tenderness throughout the midfoot. Ankle is completely nontender. Range of motion: Dorsiflexion (normal 20): L - 20, R - 20 Plantarflexion (normal 50): L -50, R - 50 Inversion (normal 35): L - 35, R - 35 Eversion (normal 25): L - 25, R - 25 Strength: Dorsiflexion: L - 5/5, R - 5/5 Plantarflexion: L - 5/5, R - 5/5 Inversion: L - 5/5, R - 5/5 Eversion: L - 5/5, R - 5/5 Toe Flexion: L 5/5, R 5/5 Toe Extension: L 5/5, R 5/5 Great Toe Flexion: L 5/5, R 5/5 Great Toe Extension: L 5/5, R 5/5 Special Tests: Heel Cord tenderness: negative Bilateral Anterior Drawer: Negative Bilateral Assessment and Plan: Foot sprain, left, initial encounter (Primary) - PHYSICAL THERAPY REFERRAL OP Closed nondisplaced avulsion fracture of left talus with routine healing, subsequent encounter - PHYSICAL THERAPY REFERRAL OP Left mid foot sprain with small anterior talar avulsion fracture. Recommend course of physical therapy. Follow Up: Return for Telephone Visit 4-6 weeks . | For: Telephone Visit 4-6 weeks Irish Mabry PA-C Orthopaedics [facility] [address] [facility] [address] documented in this encounter Nursing Notes * Trang Allan MED ASSIST - 05/09/2024 1:03 PM EDT Here for 4 week follow up on left ankle fracture. Doing well and is improving. documented in this encounter Plan of Treatment Upcoming Encounters Date Type Department Care Team (Late st Contact Info) Description 05/19/2024 2:00 PM EDT Office Visit Otolaryngology, [facility] [address] [place] [address] [facility] [place] [address] 05/26/2024 2:00 PM EDT Telemedicine Endocrinology [address] [place] [phone] Wanda Mohr PA-C [address] [facility] [place] [id number] 06/19/2024 3:00 PM EDT Telemedicine Orthopaedics [facility] [address] [facility] [place] [address] Irish Mabry PA-C [address] [place] [address] 06/24/2024 2:40 PM EDT Office Visit Gastroenterology, [facility] [address] [place] [address] Kandy Jackson MD [address] [place] [address] 07/04/2024 1:20 PM EDT Office Visit Family Practice [facility] [address] [facility] [place] [address] Alejandra Quintanilla MD [address] [facility] [place] [address] Scheduled Referrals Name Type Priority Associated Diagnoses Orde r Schedule PHYSICAL THERAPY REFERRAL OP Referral Within 10 days (routine) Foot sprain, left, initial encounter Closed nondisplaced avulsion fracture of left talus with routine healing, subsequent encounter Ordered: 05/09/2024 Health Maintenance Due Date Last Done Comments [...] Cancer Screening 06/18/2021 Pap Smear 06/18/2021 06/18/2018, /01/2017, 12/09/2014 COVID-19 Vaccine ( season) 2023 08/22/2023, [...] as of this encounter Visit Diagnoses Diagnosis Foot sprain, left, initial encounter- Primary Closed nondisplaced avulsion fracture of left talus with routine healing, subsequent encounter documented in this encounter Advance Directives * [...] Power of Attor yefri? No Care Teams Security Professional Relationship Specialty Start Date End Date Louis Brenner III, MD [address] [place] [address] PCP - General Family Medicine 04/28/20 documented as of this encounter
--- NOTE | 2024-07-07 01:51 | Emergency Department Note ---
Impression & Plan Hyperglycemia, Altered mental status, Anemia ED Provider Note ED Provider Note NAME: RAYMOND BARNES AGE:49 SEX: Female : 1975 ARRIVES VIA: EMS INFORMANT: Patient, EMS ED PROVIDER(s): Marsha North DO CHIEF COMPLAINT: Elevated blood sugar, confused, recent falls HPI: This is a 49-year-old female who presents to the emergency department by EMS due to family's concern for blood glucose monitor reading "high" this evening, and patient having 3 falls with subsequent confusion. Patient states her blood sugar readings were low earlier in the day, states they were around 90, and she felt dizzy and shaky. She states then this evening they were high. Patient denies falls despite what family reported to EMS. She talks about playing soccer with her son. Patient denies any recent dietary indiscretions. She states she only drinks water throughout the day. She denies headaches, chest pain, shortness of breath, abdominal pain. Patient does seem to have some difficulty answering questions as when asked about changes in urine or stools she begins talking about something completely different. Patient did give herself 6 units of subcu insulin prior to arrival. PAST MEDICAL HISTORY:See Below PAST SURGICAL HISTORY:See Below FAMILY HISTORY:See Below SOCIAL HISTORY:See Below HOME MEDICATIONS:See Below ALLERGIES:See Below VITALS:See Below PHYSICAL EXAMINATION: GENERAL: alert, well nourished, no distress, non-toxic HEAD: nc/at EYE EXAM: normal conjunctiva, PERRL and EOM's grossly intact OROPHARYNX: no exudate, no erythema, lips, buccal mucosa, and tongue normal and mucous membranes are dry NECK: supple, no nuchal rigidity, no adenopathy, non-tender, FROM LUNGS: Clear to auscultation. Normal chest wall mechanics, no w/r/r HEART: no murmurs, S1 normal and S2 normal CHEST WALL: no pain with palpation along ribs, no evidence of trauma ABDOMEN: abdomen soft, non-tender, normo-active bowel sounds, no masses, no rebound or guarding. BACK: Back is symmetrical on inspection and there is no deformity, no midline tenderness, no CVA tenderness. SKIN: no rashes, petechiae, orbruising UPPER EXTREMITIES: upper extremities are grossly normal. FROM, nml pulses b/l. Dexcom noted left proximal upper extremity. No evidence of trauma/deformity LOWER EXTREMITIES: No pitting edema. FROM, nml pulses b/l. Superficial abrasions and contusions noted to bilateral distal lower extremities NEURO EXAM: Intermittently confused giving strange answers to questions, cranial nerves II-XII grossly intact, normal speech, no facial droop,nogross weakness of arms, no gross weakness of legs. Gross sensation intact. No ataxia. Vital Signs: reviewed and remarkable Differential Diagnosis: DKA, HHS, dehydration, eri, electrolyte abnormality, medication adr, noncompliance, as well as others were considered MEDICAL DECISION MAKING: THis is a 49 yo female who presents to the ER due to increased confusion and hyperglycemia. Patient intermittently confused in the ER. Family reported to EMS recent falls also. Labs drawn and sent, IV established, EKG and CXR performed and interpreted at bedside, and patient placed on telemetry. GLucose >600, no evidence of DKA. Patient had been started on NSS be EMS. She did appear clinically dehydrated. Their liter was finished and another liter given. Insulin drip started per protocol. PLasma lyte ordered as maintenance. CT head/cspine reassuring. I have a low suspicion for occult traumatic injury. Case discussed with the hospitalist team for additional evaluation and mgmt. I suspect confusion may be multifactorial given HHS, dehydration, and medications which include methadone, tizanidine, and doxepin. Patient cannot recall at bedside if/when she took her evening meds. Patient remained stable while in the ER. Consultation(s): 0326: Discussed with Dr. Gary, [facility] hospitalist team for additional evaluation. ER Treatment Provided: See below Diagnostics Interpreted By Me: -ECG: Normal sinus at 85, normal axis, normal intervals, no acute ST/T wave changes -Cardiac Monitoring: An order was placed for continuous cardiac monitoring. The monitor shows a rate of 90 with normal sinus rhythm. -Laboratory studies: As stated above and show below. -Imaging studies: X-ray Chest: A single view study of the chest was reviewed and was negative for cardiomegaly, focal infiltrate, effusion, pulmonary edema, or wide mediastinum. Triage Nursing Note Reviewed Prior/Outside Records Reviewed Critical Care: Critical care of 41 min performed to assess and manage high likelihood of life- threatening hyperglycemia, involving labs and imaging performed with assessment to evaluate XX diagnosis] with frequent reassessment. This time includes bedside time, treatment discussions with patient/family/consultants, documentation time and excludes procedure time. Past Med/Surg History Problem List (Updated 07/08/24 @ 09:31 by Marsha North DO) Anemia (Acute) Heme positive stool Encephalopathy Altered mental status (Acute) Hyperglycemia (Acute) Dyslipidemia Overweight Hypertension Hypothyroidism Diabetes type 1, controlled Migraines Cluster headache Medical History (Updated 07/08/24 @ 09:31 by Marsha North DO) Breast pain, right Status post hysteroscopy Surgical History S/P wisdom tooth extraction S/P laparoscopic procedure S/P LEEP of cervix Family History Mother Cancer Breast cancer Skin cancer Insomnia Melanoma Panic attacks Grandmother (Maternal) Breast cancer Sister Anxiety Depression Father Insomnia Low back pain Panic attacks Aunt Panic attacks Social History Smoking Status: Never smoker Second Hand Exposure: No; Hx Alcohol Use: No Hx Substance Use: No Preferred Language: [place] Communication Ability: Effective Channel Turner Required: No Beliefs That Will Affect Care: None marital status: Current Living Situation: Parent Current Living Situation Comment: Lives with family current occupational status: disabled Feels Safe at Home: Yes Dental Care, Regularly: Yes Physical Activity Frequency: Does not Exercise Seatbelt Use: always Sunscreen Use: Yes Assistive Devices: None Allergies Allergies Allergy/AdvReac Type Severity Reaction Status Date / Time lamotrigine Allergy diarrhea Verified 05/05/24 08:15 Home Meds Home Medications Medication Instructions Recorded Confirmed doxepin 100 mg capsule 200 mg PO HS Sleep 12/29/21 07/07/24 insulin aspart U-100 100 unit/mL 2 - 9 unit subcut UD 12/29/21 07/07/24 (3 mL) subcutaneous pen (Novolog FlexPen U-100 Insulin aspart) metformin 500 mg tablet,extended 2,000 mg PO DAILY 12/29/21 07/07/24 release 24 hr methadone 10 mg/mL oral concentrate 150 mg PO UD 12/29/21 07/07/24 zolpidem 10 mg tablet 10 mg PO HS 12/29/21 07/07/24 levothyroxine 125 mcg tablet 125 mcg PO DAILYBB 01/22/24 07/07/24 lisinopril 10 mg tablet 10 mg PO QAM 01/22/24 07/07/24 rosuvastatin 20 mg tablet 20 mg PO DAILY 01/22/24 07/07/24 insulin glargine 100 unit/mL (3 15 unit subcut DAILY 05/05/24 07/07/24 mL) subcutaneous pen (Basaglar KwikPen U-100 Insulin) alprazolam 0.25 mg tablet 0.25 mg PO DAILY PRN Anxiety 07/07/24 07/07/24 cyanocobalamin (vitamin B-12) 1,000 mcg PO QAM 07/07/24 07/07/24 1,000 mcg tablet (Vitamin B-12) glucagon 1 mg/0.2 mL subcutaneous 1 mg subcut UD PRN UNRESPONSIVE 07/07/24 07/07/24 auto-injector (Gvoke HypoPen HYPOGLYCEMIA 2-Pack) linaclotide 290 mcg capsule 290 mcg PO DAILYBB 07/07/24 07/07/24 (Linzess) potassium chloride 10 mEq 10 meq PO QAM 07/07/24 07/07/24 capsule,extended release promethazine 25 mg tablet 25 mg PO Q6 PRN Nausea 07/07/24 07/07/24 semaglutide 2 mg/dose (8 mg/3 mL) 2 mg subcut WK 07/07/24 07/07/24 subcutaneous pen injector (Ozempic) triamcinolone acetonide 0.1 % 1 applic topical BID 07/07/24 07/07/24 topical cream Previous Rx's Medication Instructions Recorded acetone (urine) test (Ketone Urine #50 ea 01/01/22 Test strips) Oxygen Home #1 ea 02/23/23 norethindrone acetate 1 mg-ethinyl 1 tab PO DAILY #63 tabs 01/23/24 estradiol 20 mcg tablet (Junel) rimegepant 75 mg disintegrating 75 mg PO Q OTHER DAY migraine 06/13/24 tablet (Nurtec ODT) headache prevention #16 tabs tizanidine 4 mg tablet 4 mg PO TID PRN Muscle Spasm 90 06/13/24 days #270 tabs khzpxqkedr-gxfxisciuinfq-ormcfjih 1 tab PO DAILY PRN headache #10 07/03/24 50 mg-325 mg-40 mg tablet tabs Results & Data (ED) Vital Signs Vital Signs - 24 hr 07/07/24 01:46 07/07/24 01:52 07/07/24 03:00 Temperature 36.5 C 36.6 C Temperature Source Oral Oral Pulse Rate 98 H 82 Pulse Rate [Apical] 74 Pulse Rhythm Regular Pulse Strength Normal Respiratory Rate 16 16 Respiratory Effort / Characteristics Non-Labored Spontaneous Non-Labored Respiratory Depth Normal Respiratory Pattern Regular Blood Pressure 112/95 Blood Pressure [Left Arm] 125/87 Blood Pressure Mean 100 Blood Pressure Mean [Left Arm] 99 Blood Pressure Position Lying Pulse Oximetry 95 94 Oxygen Delivery Method Room Air Room Air Sepsis Recent Fever Within 48 Hours No Sepsis New/Unexplained Change in Mental Status No Sepsis Action Taken by Nursing No Action Required Laboratory Data 07/08/24 05:53 07/08/24 05:53 Lab Results 07/07/24 07/07/24 07/07/24 Range/Units 01:44 01:46 01:48 WBC 7.98 (4.8-10.8) K/ul RBC 3.62 L (4.20-5.40) M/uL Hgb 10.6 L (12.0-16.0) g/dl POC Hgb 10.5 L (12.0-16.0) g/dl Hct 30.5 L (37.0-47.0) % POC Hct 31 L (37-47) % MCV 84.3 (80.0-100.0) fL MCH 29.3 (25.0-34.0) pg MCHC 34.8 (32.0-36.0) g/dL RDW Std Deviation 37.6 (36.4-46.3) fL RDW Coeff of Renae 12.3 (11.5-14.5) % Plt Count 376 (130-400) K/uL MPV 10.4 (9.4-12.4) fL Immature Gran % (Auto) 0.4 % Neut % (Auto) 67.3 % Lymph % (Auto) 23.7 % [place] % (Auto) 6.5 % Eos % (Auto) 1.5 % Baso % (Auto) 0.6 % Neut # (Auto) 5.37 (1.40-6.50) K/uL Lymph # (Auto) 1.89 (1.20-3.40) K/uL [place] # (Auto) 0.52 (0.11-0.59) K/uL Eos # (Auto) 0.12 (0.00-0.50) K/uL Baso # (Auto) 0.05 (0.00-0.20) K/uL Immature Gran # (Auto) 0.03 (0.01-0.20) K/uL PT 9.5 (9.0-12.0) Seconds INR 0.9 (0.9-1.1) VBG pH (7.36-7.41) VBG pCO2 (38-50) mmHg VBG pO2 mmHg VBG HCO3 mmol/L VBG O2 Saturation % VBG Base Excess mEq/L POC Sodium 126 L (135-144) mmol/L Sodium 125 L (136-145) mmol/L POC Potassium 4.5 (3.3-5.0) mmol/L Potassium 4.5 (3.5-5.1) mmol/L POC Chloride 91 L (101-112) mmol/L Chloride 91 L (98-107) mmol/L Carbon Dioxide 23 (21-32) mmol/L POC Total CO2 22 L (24-31) mmol/L Anion Gap 11 (3-11) POC Anion Gap 18.0 (16-25) mmol/L POC BUN 11 (7-18) mg/dl BUN 12 (6-23) mg/dl Creatinine 0.83 (0.6-1.2) mg/dl POC Creatinine 0.7 (0.6-1.3) mg/dl Est Cr Clr Drug Dosing Not Reportable Est GFR ( Amer) 96.6 ml/min Est GFR (Non-Af Amer) 83.4 ml/min BUN/Creatinine Ratio 14.5 (10-20) Glucose 657 H* (70-99(Fasting)) mg/dl POC Glucose > 600 H* (70-99) mg/dl POC Glucose (other) 669 H* (70-99) mg/dl Estimat Average Glucose 163 mg/dl Hemoglobin A1c 7.3 H (4.5-5.6) % Osmolality 306 H (280-300) mOsm/kg Calcium 9.2 (8.6-10.3) mg/dl POC Ioniz Calcium Gaby 1.15 (1.12-1.32) mmol/l Phosphorus 3.1 (2.5-4.9) mg/dl Magnesium 2.2 (1.7-2.4) mg/dl Total Bilirubin 0.6 (0.2-1.0) mg/dl AST 14 (13-39) U/L ALT 11 (7-52) U/L Alkaline Phosphatase 120 H (34-104) U/L Troponin I High Sens 4.3 (0-14) pg/ml Total Protein 6.8 (6.0-8.3) gm/dl Albumin 3.9 (3.4-5.0) gm/dl Globulin 2.9 (2.5-4.0) gm/dl Albumin/Globulin Ratio 1.3 (0.9-2) Lipase 11 (11-82) U/L TSH 2.556 (0.300-4.500) uIu/ml HCG, Qual Negative (Negative) Urine Color Urine Appearance (Clear) Urine pH (4.5-7.5) Ur Specific [place] (1.000-1.030) Urine Protein (Negative) Urine Glucose (UA) (Negative) Urine Ketones (Negative) Urine Blood (Negative) Urine Nitrite (Negative) Urine Bilirubin (Negative) Urine Urobilinogen (Negative) Ur Leukocyte Esterase (Negative) Urine WBC (Auto) (0-5) /hpf Urine RBC (Auto) (0-2) /hpf U Hyaline Cast (Auto) (0-2) /lpf U Epithel Cells (Auto) (0-2) /hpf Urine Bacteria (Auto) (None Seen) Urine Opiates Screen (Neg) Ur Methadone, Qual (Neg) Urine Fentanyl Screen (Neg) Urine Barbiturates (Neg) Ur Phencyclidine (PCP) (Neg) U Amphetamin/Meth Scrn (Neg) MDMA (Ecstasy) Screen (Neg) U Benzodiazepines Scrn (Neg) Ur Cocaine Metabolite (Neg) U Marijuana (THC) Screen (Neg) 07/07/24 07/07/24 07/07/24 Range/Units 02:03 02:22 03:31 WBC (4.8-10.8) K/ul RBC (4.20-5.40) M/uL Hgb (12.0-16.0) g/dl POC Hgb (12.0-16.0) g/dl Hct (37.0-47.0) % POC Hct (37-47) % MCV (80.0-100.0) fL MCH (25.0-34.0) pg MCHC (32.0-36.0) g/dL RDW Std Deviation (36.4-46.3) fL RDW Coeff of Renae (11.5-14.5) % Plt Count (130-400) K/uL MPV (9.4-12.4) fL Immature Gran % (Auto) % Neut % (Auto) % Lymph % (Auto) % [place] % (Auto) % Eos % (Auto) % Baso % (Auto) % Neut # (Auto) (1.40-6.50) K/uL Lymph # (Auto) (1.20-3.40) K/uL [place] # (Auto) (0.11-0.59) K/uL Eos # (Auto) (0.00-0.50) K/uL Baso # (Auto) (0.00-0.20) K/uL Immature Gran # (Auto) (0.01-0.20) K/uL PT (9.0-12.0) Seconds INR (0.9-1.1) VBG pH 7.40 (7.36-7.41) VBG pCO2 39 (38-50) mmHg VBG pO2 53 mmHg VBG HCO3 24 mmol/L VBG O2 Saturation 86.1 % VBG Base Excess -0.5 mEq/L POC Sodium (135-144) mmol/L Sodium (136-145) mmol/L POC Potassium (3.3-5.0) mmol/L Potassium (3.5-5.1) mmol/L POC Chloride (101-112) mmol/L Chloride (98-107) mmol/L Carbon Dioxide (21-32) mmol/L POC Total CO2 (24-31) mmol/L Anion Gap (3-11) POC Anion Gap (16-25) mmol/L POC BUN (7-18) mg/dl BUN (6-23) mg/dl Creatinine (0.6-1.2) mg/dl POC Creatinine (0.6-1.3) mg/dl Est Cr Clr Drug Dosing Est GFR ( Amer) ml/min Est GFR (Non-Af Amer) ml/min BUN/Creatinine Ratio (10-20) Glucose (70-99(Fasting)) mg/dl POC Glucose 433 H* (70-99) mg/dl POC Glucose (other) (70-99) mg/dl Estimat Average Glucose mg/dl Hemoglobin A1c (4.5-5.6) % Osmolality (280-300) mOsm/kg Calcium (8.6-10.3) mg/dl POC Ioniz Calcium Gaby (1.12-1.32) mmol/l Phosphorus (2.5-4.9) mg/dl Magnesium (1.7-2.4) mg/dl Total Bilirubin (0.2-1.0) mg/dl AST (13-39) U/L ALT (7-52) U/L Alkaline Phosphatase (34-104) U/L Troponin I High Sens (0-14) pg/ml Total Protein (6.0-8.3) gm/dl Albumin (3.4-5.0) gm/dl Globulin (2.5-4.0) gm/dl Albumin/Globulin Ratio (0.9-2) Lipase (11-82) U/L TSH (0.300-4.500) uIu/ml HCG, Qual (Negative) Urine Color Yellow Urine Appearance Clear (Clear) Urine pH 7.5 (4.5-7.5) Ur Specific [place] 1.030 (1.000-1.030) Urine Protein Negative (Negative) Urine Glucose (UA) 3+ H (Negative) Urine Ketones Trace H (Negative) Urine Blood Trace H (Negative) Urine Nitrite Negative (Negative) Urine Bilirubin Negative (Negative) Urine Urobilinogen Negative (Negative) Ur Leukocyte Esterase Negative (Negative) Urine WBC (Auto) 0-5 (0-5) /hpf Urine RBC (Auto) 3-5 H (0-2) /hpf U Hyaline Cast (Auto) 0-2 (0-2) /lpf U Epithel Cells (Auto) 0-2 (0-2) /hpf Urine Bacteria (Auto) None Seen (None Seen) Urine Opiates Screen Neg (Neg) Ur Methadone, Qual Pos H (Neg) Urine Fentanyl Screen Neg (Neg) Urine Barbiturates Neg (Neg) Ur Phencyclidine (PCP) Neg (Neg) U Amphetamin/Meth Scrn Neg (Neg) MDMA (Ecstasy) Screen Neg (Neg) U Benzodiazepines Scrn Pos H (Neg) Ur Cocaine Metabolite Neg (Neg) U Marijuana (THC) Screen Neg (Neg) Administered Medications Cyanocobalamin (Cyanocobalamin (B-12) 500 Mcg Tablet) 1,000 mcg PO QAM ATIF Stop: 08/07/24 08:59 Last Admin: 07/08/24 08:40 Dose: 1,000 mcg Documented By: JULIEN Dextrose (Dextrose 50% 50 Ml Syringe) 25 - 50 ml IV UD PRN; Protocol PRN Reason: Hypoglycemia Protocol Stop: 08/06/24 02:19 Last Admin: 07/07/24 22:00 Dose: 50 ml Documented By: JESUS Doxepin HCl (Doxepin Hcl 50 Mg Capsule) 200 mg PO HS ATIF Stop: 08/06/24 20:59 Last Admin: 07/07/24 19:45 Dose: 200 mg Documented By: [facility] Hydroxyzine HCl (Hydroxyzine Hcl 25 Mg Tab) 50 mg PO Q8H PRN PRN Reason: Anxiety/Agitation Stop: 08/06/24 16:14 Last Admin: 07/08/24 06:14 Dose: 50 mg Documented By: [facility] Admin: 07/07/24 19:46 Dose: 50 mg Documented By: [facility] Acetaminophen (Ofirmev) 1,000 mg in 100 mls @ 400 mls/hr IV Q8H PRN PRN Reason: pain/fever Stop: 07/10/24 04:32 Last Infusion: 07/07/24 20:17 Dose: Infused Documented By: [facility] Admin: 07/07/24 20:02 Dose: 400 mls/hr Documented By: [facility] Potassium Chloride/Dextrose/Sod Cl (D5nss + 20meq Kcl) 20 meq in 1,000 mls @ 40 mls/hr IV .Q24H ONE Stop: 07/09/24 00:37 Last Admin: 07/08/24 01:01 Dose: 40 mls/hr Documented By: Insulin Aspart (Insulin Aspart Per Unit Charge) 0 units SC [facility]; Protocol Stop: 08/06/24 11:29 Last Admin: 07/08/24 08:42 Dose: Not Given Documented By: Admin: 07/07/24 20:40 Dose: Not Given Documented By: JESUS Co-signed By: LISBETH Admin: 07/07/24 18:22 Dose: 8 units Documented By: NITA Co-signed By: NIKKIE Admin: 07/07/24 13:54 Dose: 6 units Documented By: NITA Co-signed By: AYAZ Insulin Glargine (Lantus Per Unit Charge) 8 units SC DAILY [facility]; Protocol Stop: 08/07/24 08:59 Last Admin: 07/08/24 08:48 Dose: 8 units Documented By: JULIEN Co-signed By: NIKKIE Levothyroxine Sodium (Levothyroxine Sodium 125 Mcg Tablet) [facility] Stop: 08/07/24 06:29 Last Admin: 07/08/24 06:13 Dose: 125 mcg Documented By: JESUS Linaclotide (Linaclotide 145 Mcg Capsule) [facility] Stop: 08/07/24 06:29 Last Admin: 07/08/24 06:13 Dose: 290 mcg Documented By: JESUS Lisinopril (Lisinopril 10 Mg Tab) [facility] Stop: 08/06/24 13:29 Last Admin: 07/08/24 08:39 Dose: 10 mg Documented By: Admin: 07/07/24 16:33 Dose: 10 mg Documented By: NITA Methadone HCl (Methadone Oral Soln 2 Mg/Ml) 150 mg PO DAILY@1300 [facility] Stop: 07/21/24 12:59 Last Admin: 07/07/24 17:57 Dose: 150 mg Documented By: NITA Patient's Own Controlled Med 1 ( Methadone 150 Mg) 1 each PO TODAY@1300 [facility] Stop: 07/21/24 12:59 Last Admin: 07/07/24 17:57 Dose: Not Given Documented By: NITA Pantoprazole Sodium (Pantoprazole 40 Mg Tab) [facility] Stop: 08/07/24 08:59 Last Admin: 07/08/24 08:41 Dose: 40 mg Documented By: JULIEN Rosuvastatin Calcium (Rosuvastatin Calcium 20 Mg Tab) 20 mg PO DAILY [facility] Stop: 08/07/24 08:59 Last Admin: 07/08/24 08:39 Dose: 20 mg Documented By: JULIEN Discontinued Medications Dextrose (Dextrose 50% 50 Ml Syringe) 25 ml IV NOW [facility] Stop: 07/07/24 23:20 Last Admin: 07/07/24 23:25 Dose: 25 ml Documented By: JESUS Dextrose (Dextrose 50% 50 Ml Syringe) 50 ml IV NOW STA Stop: 07/08/24 00:28 Last Admin: 07/08/24 00:33 Dose: 50 ml Documented By: JESUS Hydroxyzine HCl (Hydroxyzine Hcl 25 Mg Tab) 50 mg PO NOW STA Stop: 07/07/24 16:16 Last Admin: 07/07/24 16:32 Dose: 50 mg Documented By: NITA Lactated Ringer's (Lr) 1,000 mls @ 999 mls/hr IV .Q1H1M ONE Stop: 07/07/24 02:49 Last Infusion: 07/07/24 03:10 Dose: Infused Documented By: Admin: 07/07/24 02:05 Dose: 999 mls/hr Documented By: KATELYN Insulin Human Regular 250 (units/ Sodium Chloride) 250 mls @ 0 mls/hr IV .Q0M ATIF; Protocol Stop: 08/06/24 02:29 Last Titration: 07/07/24 14:17 Dose: Infused Documented By: RRR Co-signed By: NIKKIE Titration: 07/07/24 07:45 Dose: 0 units/hr, 0 mls/hr Documented By: Co-signed By: JANIYA Titration: 07/07/24 06:34 Dose: 5 units/hr, 5 mls/hr Documented By: CDBenjamin Co-signed By: YENI Titration: 07/07/24 04:35 Dose: 0 units/hr, 0 mls/hr Documented By: SELVIN Co-signed By: CLIVE Admin: 07/07/24 03:33 Dose: 10 units/hr, 10 mls/hr Documented By: CDBenjamin Co-signed By: CLIVE Sodium Chloride (Nss) 1,000 mls @ 999 mls/hr IV .Q1H1M ONE Stop: 07/07/24 04:38 Last Infusion: 07/07/24 05:26 Dose: Infused Documented By: CDBenjamin Admin: 07/07/24 03:40 Dose: 999 mls/hr Documented By: SELVIN Pantoprazole Sodium 80 mg/ (Dextrose) 120 mls @ 480 mls/hr IV ONE STA Stop: 07/07/24 04:20 Last Infusion: 07/07/24 08:36 Dose: Infused Documented By: Admin: 07/07/24 05:18 Dose: 480 mls/hr Documented By: SELVIN Pantoprazole Sodium 40 mg/ (Dextrose) 100 mls @ 20 mls/hr IV Q5H ATIF Stop: 08/06/24 04:29 Last Infusion: 07/07/24 14:16 Dose: Infused Documented By: Admin: 07/07/24 11:31 Dose: 8 mg/hr, 20 mls/hr Documented By: Infusion: 07/07/24 10:30 Dose: Infused Documented By: Admin: 07/07/24 05:30 Dose: 8 mg/hr, 20 mls/hr Documented By: SELVIN Potassium Chloride/Sodium Chloride (Normal Saline W/20 Meq Kcl) 20 meq in 1,000 mls @ 100 mls/hr IV .Q10H ATIF Stop: 08/06/24 05:29 Last Infusion: 07/07/24 08:45 Dose: Infused Documented By: Infusion: 07/07/24 08:44 Dose: 0 mls/hr Documented By: Infusion: 07/07/24 07:59 Dose: 0 mls/hr Documented By: Admin: 07/07/24 05:56 Dose: 100 mls/hr Documented By: SELVIN Potassium Chloride/Dextrose/Sod Cl (D5nss + 20meq Kcl) 20 meq in 1,000 mls @ 80 mls/hr IV .[id number] ATIF Stop: 08/06/24 07:29 Last Infusion: 07/07/24 16:41 Dose: Infused Documented By: Admin: 07/07/24 08:21 Dose: 80 mls/hr Documented By: Pantoprazole Sodium 40 mg/ (Syringe) 10 mls @ 5 mls/min IV BID ATIF Stop: 08/06/24 20:59 Last Admin: 07/07/24 19:46 Dose: 5 mls/min Documented By: [facility] Potassium Chloride/Sodium Chloride (Normal Saline W/20 Meq Kcl) 20 meq in 1,000 mls @ 50 mls/hr IV .Q20H ATIF Stop: 08/07/24 06:29 Last Admin: 07/08/24 07:43 Dose: Not Given Documented By: KJW Insulin Aspart (Insulin Aspart Per Unit Charge) 0 units SC ACHS ATIF Stop: 08/06/24 07:29 Last Admin: 07/07/24 09:52 Dose: Not Given Documented By: MSG Co-signed By: JANIYA Insulin Aspart (Insulin Aspart Per Unit Charge) 0 units SC 0000 [facility]; Protocol Stop: 07/08/24 00:01 Last Admin: 07/08/24 01:11 Dose: Not Given Documented By: MCS Co-signed By: LISBETH Insulin Glargine (Lantus Per Unit Charge) 5 units SC [facility]; Protocol Stop: 08/06/24 11:29 Last Admin: 07/07/24 22:41 Dose: Not Given Documented By: Admin: 07/07/24 13:54 Dose: 5 units Documented By: RRR Co-signed By: AYAZ Insulin Human Regular (Novolin-R Bolus From Bag) 10 units IV ONE ONE Stop: 07/07/24 03:16 Last Admin: 07/07/24 03:35 Dose: 10 units Documented By: SELVIN Co-signed By: CLIVE Ioversol (Optiray 320 100ml) 93 ml IV ONCE ONE Stop: 07/07/24 04:58 Last Admin: 07/07/24 04:57 Dose: 93 ml Documented By: PLW Lorazepam (Lorazepam 2 Mg/1 Ml Vial) 0.5 mg IV Q8H PRN PRN Reason: Anxiety/Agitation Stop: 08/06/24 12:28 Last Admin: 07/07/24 14:00 Dose: 0.5 mg Documented By: RRR Lorazepam (Lorazepam 2 Mg/1 Ml Vial) 1 mg IV NOW STA Stop: 07/07/24 16:15 Last Admin: 07/07/24 16:40 Dose: Not Given Documented By: RRR Lorazepam (Lorazepam 2 Mg/1 Ml Vial) 1 mg IV NOW STA Stop: 07/08/24 07:59 Last Admin: 07/08/24 08:33 Dose: 1 mg Documented By: JULIEN Miscellaneous (Stat Iv Infusion Titration Per Protocol) 1 each N/A NOW STA Stop: 07/07/24 02:21 Last Admin: 07/07/24 03:34 Dose: 1 each Documented By: SELVIN Zolpidem Tartrate (Zolpidem Tartrate 5 Mg Tab) 10 mg PO [facility] Stop: 08/06/24 20:59 Last Admin: 07/07/24 19:53 Dose: 10 mg Documented By: [facility] Zolpidem Tartrate (Zolpidem Tartrate 5 Mg Tab) Confirm Administered Dose 10 mg .ROUTE .STK-MED ONE Stop: 07/07/24 19:53 Last Admin: 07/07/24 21:02 Dose: 10 mg Documented By: [facility] Imaging Data Radiologist's Impression: Cervical Spine CT 07/07/24 01:49 Exam(s): CT C SPINE EXAM: CT Cervical Spine Without Intravenous Contrast CLINICAL HISTORY: trauma. TECHNIQUE: Axial computed tomography images of the cervical spine without intravenous contrast. CTDI is 35.65 mGy and DLP is 624.41 mGy-cm. Automated exposure control was utilized for the study. A dose lowering technique was utilized adhering to the principles of ALARA. COMPARISON: No relevant prior studies available. FINDINGS: Vertebrae: No acute fracture. Maintenance of height of the vertebral bodies. No subluxation. Straightening of the normal cervical lordosis. Discs/spinal canal/neural foramina: No acute abnormality. No spinal canal stenosis. Soft tissues: Prevertebral soft tissues are unremarkable. IMPRESSION: Straightening of the normal cervical lordosis, most commonly seen with muscle spasm or positioning. Electronically signed by: Balta Johnson M.D. 07/07/24 03:[address] 07/07/24 01:49 Exam(s): CT HEAD Without Contrast EXAM: CT Head Without Intravenous Contrast CLINICAL HISTORY: Reason for exam: ams, trauma. TECHNIQUE: Axial computed tomography images of the head/brain without intravenous contrast. CTDI is 35.65 mGy and DLP is 624.41 mGy-cm. Automated exposure control was utilized for the study. A dose lowering technique was utilized adhering to the principles of ALARA. COMPARISON: No relevant prior studies available. FINDINGS: Brain: Unremarkable. No hemorrhage. No significant white matter disease. No edema. Ventricles: Unremarkable. No ventriculomegaly. Bones/joints: Unremarkable. No acute fracture. Soft tissues: Unremarkable. Sinuses: Unremarkable as visualized. No acute sinusitis. Mastoid air cells: Unremarkable as visualized. No mastoid effusion. IMPRESSION: Normal head/brain CT. Electronically signed by: Vince Salinas MD 07/07/24 03:04 AM Discharge Plan Visit Data Chief Complaint: Hyperglycemia Stated Complaint: AMS, DKA ED Provider: Pheasant,Marsha S. Discharge Problem: Hyperglycemia, Altered mental status, Anemia Patient Disposition: Admitted As Inpatient Discharge Instructions Interventions: ED Discharge Assessment Last Done: 07/07/24 04:56
[2024-07-07 02:00] LABS: iSTAT Creatinine 0.7 mg/dl (0.6-1.3); iSTAT Hemoglobin 10.5 g/dl (12.0-16.0); iSTAT Ionized Calcium 1.15 mmol/l (1.12-1.32); iSTAT Potassium 4.5 mmol/L (3.3-5.0)
[2024-07-07] MEDS: LACTATED RINGER'S 1,000 ML IV ONE (02:05)
[2024-07-07 02:09] LABS: Basophils # (auto) 0.05 K/uL (0.00-0.20); Basophils % (auto) 0.6 %; Eosinophils # (auto) 0.12 K/uL (0.00-0.50); Eosinophils % (auto) 1.5 %; Hematocrit (blood only) 30.5 % (37.0-47.0); Hemoglobin 10.6 g/dl (12.0-16.0); Immature Granulocytes # (auto) 0.03 K/uL (0.01-0.20); Immature Granulocytes % (auto) 0.4 %; Lymphocytes # (auto) 1.89 K/uL (1.20-3.40); Lymphocytes % (auto) 23.7 %; Mean Corpuscular Hemoglobin 29.3 pg (25.0-34.0); Mean Corpuscular Hgb Conc 34.8 g/dL (32.0-36.0); Mean Corpuscular Volume 84.3 fL (80.0-100.0); Mean Platelet Volume 10.4 fL (9.4-12.4); Monocytes # (auto) 0.52 K/uL (0.11-0.59); Monocytes % (auto) 6.5 %; Neutrophils # (auto) 5.37 K/uL (1.40-6.50); Neutrophils % (auto) 67.3 %; Platelet Count 376 K/uL (130-400); RDW Coefficient of Variation 12.3 % (11.5-14.5); RDW Standard Deviation 37.6 fL (36.4-46.3); Red Blood Count 3.62 M/uL (4.20-5.40); White Blood Count 7.98 K/ul (4.8-10.8)
[2024-07-07 02:20] LABS: Albumin Level 3.9 gm/dl (3.4-5.0); Anion Gap 11 (3-11); Bilirubin,Total 0.6 mg/dl (0.2-1.0); Calcium 9.2 mg/dl (8.6-10.3); Carbon Dioxide 23 mmol/L (21-32); Chloride 91 mmol/L (98-107); Magnesium 2.2 mg/dl (1.7-2.4); Potassium 4.5 mmol/L (3.5-5.1); Sodium 125 mmol/L (136-145)
[2024-07-07] MEDS ORDERED: CARBOHYDRATES FOR HYPOGLYCEMIA PO PRN (02:20)
[2024-07-07] MEDS ORDERED: GLUCOSE 40% GEL 15 GM TUBE PO PRN (02:20)
[2024-07-07] MEDS ORDERED: GLUCAGON FOR INJ 1 MG VIAL SQ PRN (02:20)
[2024-07-07] MEDS ORDERED: GLUCOSE 10 TAB/TUBE PO PRN (02:20)
[2024-07-07 02:30] LABS: Alanine Aminotransferase 11 U/L (7-52); Albumin Globulin Ratio 1.3 (0.9-2); Alkaline Phosphatase 120 U/L (34-104); Aspartate Aminotransferase 14 U/L (13-39); BUN Creatinine Ratio 14.5 (10-20); Blood Urea Nitrogen 12 mg/dl (6-23); Est GFR (African American) 96.6 ml/min; Est GFR (Non-African American) 83.4 ml/min; Globulin 2.9 gm/dl (2.5-4.0); Glucose 657 mg/dl (70-99(Fasting)); Lipase 11 U/L (11-82); Total Protein 6.8 gm/dl (6.0-8.3)
[2024-07-07 02:50] LABS: INR 0.9 (0.9-1.1); Prothrombin Time 9.5 Seconds (9.0-12.0)
[2024-07-07 02:51] LABS: Pregnancy Test, Serum Negative (Negative)
[2024-07-07 02:51] LABS: Appearance Urine Clear (Clear); Bacteria Urine Automated None Seen (None Seen); Bilirubin Urine Negative (Negative); Blood Urine Trace (Negative); Cast Urine Automated 0-2 /lpf (0-2); Color Urine Yellow; Epithelial Cell Urine Auto 0-2 /hpf (0-2); Glucose Urine UA 3+ (Negative); Ketones Urine Trace (Negative); Leukocyte Esterase Urine Negative (Negative); Nitrite Urine Negative (Negative); Protein Urine Negative (Negative); Urobilinogen Urine Negative (Negative); WBC Urine Automated 0-5 /hpf (0-5); pH Urine 7.5 (4.5-7.5)
--- NOTE | 2024-07-07 03:06 | CT Scan Report ---
Exam(s): CT HEAD Without Contrast EXAM: CT Head Without Intravenous Contrast CLINICAL HISTORY: Reason for exam: ams, trauma. TECHNIQUE: Axial computed tomography images of the head/brain without intravenous contrast. CTDI is 35.65 mGy and DLP is 624.41 mGy-cm. Automated exposure control was utilized for the study. A dose lowering technique was utilized adhering to the principles of ALARA. COMPARISON: No relevant prior studies available. FINDINGS: Brain: Unremarkable. No hemorrhage. No significant white matter disease. No edema. Ventricles: Unremarkable. No ventriculomegaly. Bones/joints: Unremarkable. No acute fracture. Soft tissues: Unremarkable. Sinuses: Unremarkable as visualized. No acute sinusitis. Mastoid air cells: Unremarkable as visualized. No mastoid effusion. IMPRESSION: Normal head/brain CT. Electronically signed by: Vince Salinas MD 07/07/24 03:04 AM
[2024-07-07 03:10] LABS: Base Excess VBG -0.5 mEq/L; HCO3 VBG 24 mmol/L; Oxygen Saturation VBG 86.1 %; PCO2 VBG 39 mmHg (38-50); PO2 VBG 53 mmHg
[2024-07-07] MEDS: INSULIN REGULAR 250 UNITS in SODIUM CHLORIDE 0.9% 247.5 ML IV SCH (03:33)
[2024-07-07] MEDS: STAT IV Infusion **Titration per Protocol STA (03:34)
[2024-07-07] MEDS: NovoLIN-R BOLUS FROM BAG IV ONE (03:35)
[2024-07-07] MEDS: SODIUM CHLORIDE 0.9% 1,000 ML IV ONE (03:40)
--- NOTE | 2024-07-07 03:41 | History & Physical Report ---
Date of Service July 07, 2024 Assessment & Plan (1) Encephalopathy: Plan: Multifactorial HHS, hx BOB Home narcotics/multiple neuropsychotropic meds contributory, hx chronic pain/opiate addiction on methadone New onset anemia secondary to UGIB Dark stool noted to be heme positive at the ER hypothyroidism, euthyroid as of today's TSH endometriosis status post surgery cervical cancer as per records past tobacco abuse Medical telemetry IVF, IV insulin Pharmacy glycemic control consult Appropriate to hold home neuropsychotropic medications until patient mentation back to baseline IV PPI for UGIB GI consult re: UGIB N.p.o. anticipation by endoscopy anemia workup, transfuse PRBC if hemoglobin less than 7 and or for symptomatic anemia DVT prophylaxis SCDs re: GI bleed Full code Patient's father (Dr. Aubrey Liz, contact #[phone] ) given update regarding patient's condition and plan of care over the phone. He refuses to give verbal consent to blood product transfusion if needed for now. Patient not coherent enough to sign consent form. He requests to be called again at the point when patient really needs it if patient still incoherent. Text document was generated using [employer] voice recognition software. It may contain grammatical or spelling errors. Kindly contact undersigned for clarification of any documentation item in question. History of Present Illness Chief Complaint: Confusion, falling Primary Care Provider: Alejandra Quintanilla MD History obtained from patient, family and records. Limited history from patient secondary to lethargy. Medical history significant for latent autoimmune diabetes in adults (managed as DM type I as per records ), hypothyroidism, anxiety disorder, chronic pain/opiate addiction on methadone, history of migraine, endometriosis status post surgery, past tobacco abuse Last confinement December 2021 for metabolic encephalopathy secondary to DKA. Patient seen on follow-up visit at PCP's office 3 days ago. Patient later sent messages to PCP inquiring about Ozempic dosing and doxepin refills for migraine. Patient with achy abdominal discomfort the last couple of days. Unaware of black or bloody stools. Poor appetite. Patient increasingly disoriented at home the last couple of days as per family. Patient patient noted to be falling at home last night. No chest pain, no SOB. Headache symptoms as per patient. Blood sugar cannot be read by glucometer at home. BSG 600s upon arrival at the ER. IV insulin initiated at the ER. Medical Historyas above 2016 EGD Surgical History : Gynecologic laparoscopic procedures, dental surgery Family History : Breast cancer, esophageal cancer, hypertension, skin cancer Personal/Social history : Non-smoker, no EtOH intake, disabled/part-time hairstylist Allergies Allergy/AdvReac Type Severity Reaction Status Date / Time lamotrigine Allergy diarrhea Verified 05/05/24 08:15 Home Medications Medication Instructions Recorded Confirmed Type doxepin 100 mg capsule 200 mg PO HS Sleep 12/29/21 07/07/24 History insulin aspart U-100 100 unit/mL 2 - 9 unit subcut UD 12/29/21 07/07/24 History (3 mL) subcutaneous pen (Novolog FlexPen U-100 Insulin aspart) metformin 500 mg tablet,extended 2,000 mg PO DAILY 12/29/21 07/07/24 History release 24 hr methadone 10 mg/mL oral concentrate 202 mg PO UD 12/29/21 07/07/24 History zolpidem 10 mg tablet 10 mg PO HS 12/29/21 07/07/24 History acetone (urine) test (Ketone Urine #50 ea 01/01/22 07/07/24 Rx Test strips) Oxygen Home #1 ea 02/23/23 07/07/24 Rx levothyroxine 125 mcg tablet 125 mcg PO DAILYBB 01/22/24 07/07/24 History lisinopril 10 mg tablet 10 mg PO QAM 01/22/24 07/07/24 History rosuvastatin 20 mg tablet 20 mg PO DAILY 01/22/24 07/07/24 History norethindrone acetate 1 mg-ethinyl 1 tab PO DAILY #63 tabs 01/23/24 07/07/24 Rx estradiol 20 mcg tablet (Junel) insulin glargine 100 unit/mL (3 15 unit subcut DAILY 05/05/24 07/07/24 History mL) subcutaneous pen (Basaglar KwikPen U-100 Insulin) rimegepant 75 mg disintegrating 75 mg PO Q OTHER DAY migraine 06/13/24 07/07/24 Rx tablet (Nurtec ODT) headache prevention #16 tabs tizanidine 4 mg tablet 4 mg PO TID PRN Muscle Spasm 90 06/13/24 07/07/24 Rx days #270 tabs dwsnrknzzx-deftnzjtqgobr-jjmomsku 1 tab PO DAILY PRN headache #10 07/03/24 07/07/24 Rx 50 mg-325 mg-40 mg tablet tabs alprazolam 0.25 mg tablet 0.25 mg PO DAILY PRN Anxiety 07/07/24 07/07/24 History cyanocobalamin (vitamin B-12) 1,000 mcg PO QAM 07/07/24 07/07/24 History 1,000 mcg tablet (Vitamin B-12) glucagon 1 mg/0.2 mL subcutaneous 1 mg subcut UD PRN UNRESPONSIVE 07/07/24 07/07/24 History auto-injector (Gvoke HypoPen HYPOGLYCEMIA 2-Pack) linaclotide 290 mcg capsule 290 mcg PO DAILYBB 07/07/24 07/07/24 History (Linzess) potassium chloride 10 mEq 10 meq PO QAM 07/07/24 07/07/24 History capsule,extended release promethazine 25 mg tablet 25 mg PO Q6 PRN Nausea 07/07/24 07/07/24 History semaglutide 2 mg/dose (8 mg/3 mL) 2 mg subcut WK 07/07/24 07/07/24 History subcutaneous pen injector (Ozempic) triamcinolone acetonide 0.1 % 1 applic topical BID 07/07/24 07/07/24 History topical cream Past Med/Surg History Problem List (Updated 07/07/24 @ 04:51 by Tres Ruby MD) Encephalopathy Altered mental status (Acute) Hyperglycemia (Acute) Dyslipidemia Overweight Hypertension Hypothyroidism Diabetes type 1, controlled Migraines Cluster headache Medical History (Updated 07/07/24 @ 04:51 by Tres Ruby MD) Breast pain, right Status post hysteroscopy Surgical History S/P wisdom tooth extraction S/P laparoscopic procedure S/P LEEP of cervix Family History Mother Cancer Breast cancer Skin cancer Insomnia Melanoma Panic attacks Grandmother (Maternal) Breast cancer Sister Anxiety Depression Father Insomnia Low back pain Panic attacks Aunt Panic attacks Social History Smoking Status: Never smoker Second Hand Exposure: No; Hx Alcohol Use: No Hx Substance Use: No Preferred Language: Slovenian Communication Ability: Effective Concrete Hopper Operator Required: No Beliefs That Will Affect Care: None marital status: Current Living Situation: Parent Current Living Situation Comment: Lives with family current occupational status: disabled Other Information That Helps Us Care for You: No Feels Safe at Home: Yes Safety Concerns: Feels Safe At This Time Dental Care, Regularly: Yes Physical Activity Frequency: Does not Exercise Seatbelt Use: always Sunscreen Use: Yes Assistive Devices: None Review of Systems Review of Systems: Could not be reliably obtained secondary to lethargy Physical Exam Physical Exam: GENERAL: Uncomfortable, lethargic, obese, no respiratory distress SKIN: Pallor, warm HEENT: Pale palpebral conjunctivae, no ptosis, dry buccal mucosa NECK : Supple, no tenderness CHEST : Decreased breath sounds, no tenderness HEART : RRR , no obvious murmurs ABDOMEN: Some distention, minimal epigastric tenderness RECTAL : Intact sphincter, dark stool (FOBT positive) EXTREMITIES : Bilateral LE swelling, no LE tenderness, no other conspicuous deformities noted NEUROLOGIC : Lethargic, no facial asymmetry, gait and stance not assessed Results & Data Results & Data Vital Signs (Past 12 Hours) Vital Signs Temp Pulse Resp BP Pulse Ox O2 Del Method 07/07/24 01:52 36.5 C 82 16 112/95 95 Room Air 07/07/24 01:46 98 H Laboratory Results Laboratory Results WBC 7.98 K/ul (4.8-10.8) 07/07/24 01:46 RBC 3.62 M/uL (4.20-5.40) L 07/07/24 01:46 Hgb 10.6 g/dl (12.0-16.0) L 07/07/24 01:46 POC Hgb 10.5 g/dl (12.0-16.0) L 07/07/24 01:48 Hct 30.5 % (37.0-47.0) L 07/07/24 01:46 POC Hct 31 % (37-47) L 07/07/24 01:48 MCV 84.3 fL (80.0-100.0) 07/07/24 01:46 MCH 29.3 pg (25.0-34.0) 07/07/24 01:46 MCHC 34.8 g/dL (32.0-36.0) 07/07/24 01:46 RDW Std Deviation 37.6 fL (36.4-46.3) 07/07/24 01:46 RDW Coeff of Renae 12.3 % (11.5-14.5) 07/07/24 01:46 Plt Count 376 K/uL (130-400) 07/07/24 01:46 MPV 10.4 fL (9.4-12.4) 07/07/24 01:46 Immature Gran % (Auto) 0.4 % 07/07/24 01:46 Neut % (Auto) 67.3 % 07/07/24 01:46 Lymph % (Auto) 23.7 % 07/07/24 01:46 [place] % (Auto) 6.5 % 07/07/24 01:46 Eos % (Auto) 1.5 % 07/07/24 01:46 Baso % (Auto) 0.6 % 07/07/24 01:46 Neut # (Auto) 5.37 K/uL (1.40-6.50) 07/07/24 01:46 Lymph # (Auto) 1.89 K/uL (1.20-3.40) 07/07/24 01:46 [place] # (Auto) 0.52 K/uL (0.11-0.59) 07/07/24 01:46 Eos # (Auto) 0.12 K/uL (0.00-0.50) 07/07/24 01:46 Baso # (Auto) 0.05 K/uL (0.00-0.20) 07/07/24 01:46 Immature Gran # (Auto) 0.03 K/uL (0.01-0.20) 07/07/24 01:46 PT 9.5 Seconds (9.0-12.0) 07/07/24 01:46 INR 0.9 (0.9-1.1) 07/07/24 01:46 VBG pH 7.40 (7.36-7.41) 07/07/24 02:03 VBG pCO2 39 mmHg (38-50) 07/07/24 02:03 VBG pO2 53 mmHg 07/07/24 02:03 VBG HCO3 24 mmol/L 07/07/24 02:03 VBG O2 Saturation 86.1 % 07/07/24 02:03 VBG Base Excess -0.5 mEq/L 07/07/24 02:03 POC Sodium 126 mmol/L (135-144) L 07/07/24 01:48 Sodium 125 mmol/L (136-145) L 07/07/24 01:46 POC Potassium 4.5 mmol/L (3.3-5.0) 07/07/24 01:48 Potassium 4.5 mmol/L (3.5-5.1) 07/07/24 01:46 POC Chloride 91 mmol/L (101-112) L 07/07/24 01:48 Chloride 91 mmol/L (98-107) L 07/07/24 01:46 Carbon Dioxide 23 mmol/L (21-32) 07/07/24 01:46 POC Total CO2 22 mmol/L (24-31) L 07/07/24 01:48 Anion Gap 11 (3-11) 07/07/24 01:46 POC Anion Gap 18.0 mmol/L (16-25) 07/07/24 01:48 POC BUN 11 mg/dl (7-18) 07/07/24 01:48 BUN 12 mg/dl (6-23) 07/07/24 01:46 Creatinine 0.83 mg/dl (0.6-1.2) 07/07/24 01:46 POC Creatinine 0.7 mg/dl (0.6-1.3) 07/07/24 01:48 Est Cr Clr Drug Dosing Not Reportable 07/07/24 01:46 Est GFR ( Amer) 96.6 ml/min 07/07/24 01:46 Est GFR (Non-Af Amer) 83.4 ml/min 07/07/24 01:46 BUN/Creatinine Ratio 14.5 (10-20) 07/07/24 01:46 Glucose 657 mg/dl (70-99(Fasting)) H* 07/07/24 01:46 POC Glucose > 600 mg/dl (70-99) H* 07/07/24 01:44 POC Glucose (other) 669 mg/dl (70-99) H* 07/07/24 01:48 Calcium 9.2 mg/dl (8.6-10.3) 07/07/24 01:46 POC Ioniz Calcium Gaby 1.15 mmol/l (1.12-1.32) 07/07/24 01:48 Magnesium 2.2 mg/dl (1.7-2.4) 07/07/24 01:46 Total Bilirubin 0.6 mg/dl (0.2-1.0) 07/07/24 01:46 AST 14 U/L (13-39) 07/07/24 01:46 ALT 11 U/L (7-52) 07/07/24 01:46 Alkaline Phosphatase 120 U/L (34-104) H 07/07/24 01:46 Total Protein 6.8 gm/dl (6.0-8.3) 07/07/24 01:46 Albumin 3.9 gm/dl (3.4-5.0) 07/07/24 01:46 Globulin 2.9 gm/dl (2.5-4.0) 07/07/24 01:46 Albumin/Globulin Ratio 1.3 (0.9-2) 07/07/24 01:46 Lipase 11 U/L (11-82) 07/07/24 01:46 HCG, Qual Negative (Negative) 07/07/24 01:46 Urine Color Yellow 07/07/24 02:22 Urine Appearance Clear (Clear) 07/07/24 02:22 Urine pH 7.5 (4.5-7.5) 07/07/24 02:22 Ur Specific [place] 1.030 (1.000-1.030) 07/07/24 02:22 Urine Protein Negative (Negative) 07/07/24 02:22 Urine Glucose (UA) 3+ (Negative) H 07/07/24 02:22 Urine Ketones Trace (Negative) H 07/07/24 02:22 Urine Blood Trace (Negative) H 07/07/24 02:22 Urine Nitrite Negative (Negative) 07/07/24 02:22 Urine Bilirubin Negative (Negative) 07/07/24 02:22 Urine Urobilinogen Negative (Negative) 07/07/24 02:22 Ur Leukocyte Esterase Negative (Negative) 07/07/24 02:22 Urine WBC (Auto) 0-5 /hpf (0-5) 07/07/24 02:22 Urine RBC (Auto) 3-5 /hpf (0-2) H 07/07/24 02:22 U Hyaline Cast (Auto) 0-2 /lpf (0-2) 07/07/24 02:22 U Epithel Cells (Auto) 0-2 /hpf (0-2) 07/07/24 02:22 Urine Bacteria (Auto) None Seen (None Seen) 07/07/24 02:[address] 07/07/24 01:49 Exam(s): CT HEAD Without Contrast EXAM: CT Head Without Intravenous Contrast CLINICAL HISTORY: Reason for exam: ams, trauma. TECHNIQUE: Axial computed tomography images of the head/brain without intravenous contrast. CTDI is 35.65 mGy and DLP is 624.41 mGy-cm. Automated exposure control was utilized for the study. A dose lowering technique was utilized adhering to the principles of ALARA. COMPARISON: No relevant prior studies available. FINDINGS: Brain: Unremarkable. No hemorrhage. No significant white matter disease. No edema. Ventricles: Unremarkable. No ventriculomegaly. Bones/joints: Unremarkable. No acute fracture. Soft tissues: Unremarkable. Sinuses: Unremarkable as visualized. No acute sinusitis. Mastoid air cells: Unremarkable as visualized. No mastoid effusion. IMPRESSION: Normal head/brain CT. Electronically signed by: Vince Salinas MD 07/07/24 03:04 AM CTAP No bowel obstruction or ileus. Cholelithiasis. Hepatomegaly. Distended urinary bladder. Diagnostic Findings EKG as per my interpretation : Rate 85, NSR, normal axis, nonspecific T wave abnormalities
[2024-07-07] MEDS ORDERED: PLASMA-LYTE A 1,000 ML IV SCH (03:45)
--- NOTE | 2024-07-07 03:46 | CT Scan Report ---
Exam(s): CT C SPINE EXAM: CT Cervical Spine Without Intravenous Contrast CLINICAL HISTORY: trauma. TECHNIQUE: Axial computed tomography images of the cervical spine without intravenous contrast. CTDI is 35.65 mGy and DLP is 624.41 mGy-cm. Automated exposure control was utilized for the study. A dose lowering technique was utilized adhering to the principles of ALARA. COMPARISON: No relevant prior studies available. FINDINGS: Vertebrae: No acute fracture. Maintenance of height of the vertebral bodies. No subluxation. Straightening of the normal cervical lordosis. Discs/spinal canal/neural foramina: No acute abnormality. No spinal canal stenosis. Soft tissues: Prevertebral soft tissues are unremarkable. IMPRESSION: Straightening of the normal cervical lordosis, most commonly seen with muscle spasm or positioning. Electronically signed by: Balta Johnson M.D. 07/07/24 03:45 AM
[2024-07-07 03:49] LABS: Amphetamines+Metham, Urine Neg (Neg); Barbiturates, Urine Neg (Neg); Benzodiazepine, Urine Pos (Neg); Cocaine, Urine Neg (Neg); Fentanyl, Urine Neg (Neg); MDMA (Ecstacy), Urine Neg (Neg); Marijuana, Urine Neg (Neg); Methadone, Urine Pos (Neg); Opiate, Urine Neg (Neg); Phencyclidine, Urine Neg (Neg)
[2024-07-07 03:52] LABS: Phosphorus 3.1 mg/dl (2.5-4.9)
[2024-07-07 04:25] LABS: Thyroid Stimulating Hormone 2.556 uIu/ml (0.300-4.500); Troponin I High Sensitivity 4.3 pg/ml (0-14)
[2024-07-07] MEDS ORDERED: PHARMACY GLYCEMIC MGMT CONSULT PRN (04:30)
[2024-07-07] MEDS ORDERED: PROMETHAZINE 6.25 MG/50.25 ML BAG IV PRN (04:33)
[2024-07-07 04:44] LABS: Hematocrit (blood only) 28.7 % (37.0-47.0); Hemoglobin 9.7 g/dl (12.0-16.0); Reticulocyte % 1.73 % (0.50-2.00); Reticulocytes # 0.06 10^6/uL (0.020-0.100)
[2024-07-07] MEDS ORDERED: Nursing to Pharmacy Communication SCH (04:45)
[2024-07-07 04:56] LABS: Creatinine Clr Calc Pharmacy 122.4 ml/min; Est GFR (African American) 121.1 ml/min; Est GFR (Non-African American) 104.5 ml/min
[2024-07-07] MEDS: OPTIRAY 320 100ml IV ONE (04:57)
[2024-07-07 05:16] LABS: Ferritin 15.6 ng/ml (8-388)
[2024-07-07] MEDS: PANTOprazole 80 MG in DEXTROSE 5% 100 ML IV STA (05:18)
[2024-07-07] MEDS: PANTOprazole 40 MG in DEXTROSE 5% MINI-B 100 ML IV SCH (05:30)
--- NOTE | 2024-07-07 05:43 | CT Scan Report ---
Exam(s): CT ABDOMEN + PELVIS With Contrast IV Amt: 93 ml opti 320 EXAM: CT Abdomen and Pelvis With Intravenous Contrast CLINICAL HISTORY: abd pain, ugib. TECHNIQUE: Axial computed tomography images of the abdomen and pelvis with intravenous contrast. CTDI is 28.14 mGy and DLP is 1556.11 mGy-cm. Automated exposure control was utilized for the study. A dose lowering technique was utilized adhering to the principles of ALARA. CONTRAST: Patient received 93 ml opti 320 of IV contrast COMPARISON: No relevant prior studies available. FINDINGS: Lung bases: Unremarkable. No mass. No consolidation. ABDOMEN: Liver: Enlarged 20.8 cm length. No mass. Gallbladder and bile ducts: 2 cm gallstone within the gallbladder. Gallbladder otherwise unremarkable. No ductal dilation. Pancreas: Unremarkable. No mass. No ductal dilation. Spleen: Unremarkable. No splenomegaly. Adrenals: Unremarkable. No mass. Kidneys and ureters: No obstructive uropathy. No obstructing renal or ureteral calculi. No hydronephrosis or hydroureter. Stomach and bowel: No obstruction or ileus. No evidence for diverticulitis. PELVIS: Appendix: No findings to suggest acute appendicitis. Bladder: Mildly distended. No mass. Reproductive: Uterus and ovaries are grossly unremarkable. ABDOMEN and PELVIS: Intraperitoneal space: No free air. No free fluid. Bones/joints: No acute fracture. Soft tissues: Unremarkable. Vasculature: Unremarkable. No abdominal aortic aneurysm. Lymph nodes: Unremarkable. No enlarged lymph nodes. IMPRESSION: No bowel obstruction or ileus. Cholelithiasis. Hepatomegaly. Distended urinary bladder. Electronically signed by: Balta Johnson M.D. 07/07/24 05:42 AM
[2024-07-07] MEDS: NSS + 20MEQ KCL 20 MEQ/1,000 ML BAG IV SCH (05:56)
[2024-07-07 06:41] LABS: Folate (Folic Acid),Ser orPlas 8.38 ng/ml (>5.38)
--- NOTE | 2024-07-07 06:55 | XRay Report ---
XR chest 1V portable HISTORY: 49 years-old Female ams, falls acute chest trauma status post fall COMPARISON: 12/28/2021 TECHNIQUE: AP view of the chest FINDINGS: Hypoinflation with bronchovascular crowding. No pneumothorax, pleural effusion or lobar airspace cons olidation. The bones appear intact. IMPRESSION: Hypoinflation without acute process of the chest. ACT 112: Negative or not required by law. The above report was generated using voice recognition software. It may contain grammatical, syntax o r spelling errors. Electronically signed by: Jules Corey M.D. 07/07/2024 6:54 AM
--- NOTE | 2024-07-07 08:14 | Communication Note ---
Date of Service: July 07, 2024 Called [facility] Methadone treatment center Patient takes 150mg daily of methadone
[2024-07-07] MEDS: D5NSS + 20MEQ KCL 20 MEQ/1,000 ML BAG IV SCH (08:21)
[2024-07-07 08:27] LABS: Estimated Average Glucose 163 mg/dl; Hemoglobin A1C 7.3 % (4.5-5.6)
[2024-07-07 09:14] LABS: BUN Creatinine Ratio 11.1 (10-20); Calcium 9.1 mg/dl (8.6-10.3); Creatinine Clr Calc Pharmacy 128.3 ml/min; Est GFR (African American) 122.9 ml/min; Est GFR (Non-African American) 106.1 ml/min; Magnesium 2.1 mg/dl (1.7-2.4); Phosphorus 3.3 mg/dl (2.5-4.9); Potassium 4.3 mmol/L (3.5-5.1)
[2024-07-07] MEDS: INSULIN ASPART PER UNIT CHARGE SC SCH ×2 (09:52→13:54)
[2024-07-07 11:06] LABS: Hematocrit (blood only) 28.2 % (37.0-47.0); Hemoglobin 9.9 g/dl (12.0-16.0)
--- NOTE | 2024-07-07 11:34 | Pharmacy Report ---
Pharmacy Glycemic Short Note 2 - Date of Service July 07, 2024 - Glycemic Short BSG Results (Last 24 hours): 07/07/24 07/07/24 07/07/24 01:44 01:46 01:48 Glucose 657 H* POC Glucose > 600 H* POC Glucose (other) 669 H* 07/07/24 07/07/24 07/07/24 03:31 04:32 05:09 Glucose POC Glucose 433 H* 279 H 206 H POC Glucose (other) 07/07/24 07/07/24 07/07/24 05:33 05:48 06:04 Glucose POC Glucose 227 H 205 H 205 H POC Glucose (other) 07/07/24 07/07/24 07/07/24 06:45 07:13 07:44 Glucose POC Glucose 198 H 185 H 137 H POC Glucose (other) 07/07/24 07/07/24 07/07/24 08:36 09:18 10:29 Glucose 120 H POC Glucose 133 H 158 H POC Glucose (other) OUTPATIENT ANTIDIABETIC REGIMEN: * Basaglar 15 units SC Daily * Novolog 2-9 units with meals + CF 1: 50 (about 50 units/day) * A1c 7.3% 07/07/24 ASSESSMENT: * 49 year old BOB, admitted with encephalopathy, home narcotics/multiple neuropsychotropic meds contributory, hx chronic pain/opiate addiction on methadone, in mild HHS, all resolved on insulin drip and IV fluids, now on D5NSS + 20KCl @80cc/hr, drip has been on hold x 4 hours, will transition to SC insulin. Pt reports only taking 5 units of basal every night when asked today, so we will begin with 5 units now, and then HS tonight. * Note: ED RN did not give Lantus as directed (at 11:30am when ordered and c ommunicated to give) - so it is going to be given later than scheduled at 1400 today. * Titrate to goal blood sugar. * Diet starting with lunch. PLAN FOR INPATIENT GLYCEMIC CONTROL: * Basal insulin * Lantus 5 units SQ x 1 now then SQ HS * Bolus insulin * NovoLog per scale ACHS or Q6hrs while NPO * Goal Range: Low 110 mg/dL - High 140 mg/dL * Correction Factor: 30 mg/dL/unit * Nutritional / Prandial insulin per carb ratio of 1 unit per 10 grams CHO consumed
--- NOTE | 2024-07-07 11:50 | Gastrointestinal Consultation ---
Date of Consultation July 07, 2024 Assessment & Plan (1) Heme positive stool: 49 year old female w/ latent autoimmune diabetes in adults, hypothyroidism, anxiety disorder, chronic pain/opiate addiction on methadone, history of migraine, endometriosis status post surgery, past tobacco abuse admitted w/ elevated blood sugars and confusion - GI asked to evaluate for heme positive stools. She is awake, alert and oriented on my evaluation this AM and tells me she just passed a brown bowel movement. Denies any previous history of black/bloody stools or emesis. her HGB has remained stable since admission without BUN elevation. No urgent indication to EGD. She is requesting conservative management today which I find reasonable. Trend H&H Monitor for s/s of GI blood loss Transfuse PRN per primary team IV PPI BID No NSAIDs NPO after midnight to re-evaluate at that time She notes she was consider EGD evaluation if she has black/bloody stools or if her hemoglobin further drops I spent a total of 60 minutes on the date of service in review of patient's record, and previously obtained information in person and appropriate medical visit, discussion and education of plan, with patient and/or caregiver, placing orders for tests/referral/procedures as medically necessary and documentation of pertinent clinical information in patient's medical records for their visit today. Supervising Physician Co-Signing Physician Notes I examined the patient and reviewed patient's chart , laboratory data and imaging studies. I agree with with assessment and plan of care as suggested by advanced practice provider History of Present Illness Reason for Consultation: UGI bleeding Requesting Physician: Bethany Attending Physician: Magdalene Sims MD History of Present Illness 49 year old female with history of latent autoimmune diabetes in adults, hypothyroidism, anxiety disorder, chronic pain/opiate addiction on methadone, history of migraine, endometriosis status post surgery, past tobacco abuse admitted w/ elevated blood sugars and confusion. GI was asked to evaluate for ?UGI bleeding. Pt was seen and evaluated, chart reviewed. Notes from a GI standpoint she is feeling well. She follows with [facility] and was recently started on Linzess as management for her chronic constipation. She tells me she is moving her bowels daily. Reports brown stools. No report of black o bloody stools. Denies nausea/vomiting. No fever, chills, CP, SOB. HGB 10.6 --> 9.7 --> 9.9 BUN 7 CTAP 2023: No bowel obstruction or ileus. Cholelithiasis. Hepatomegaly. Distended urinary bladder. Cologuard 2022: negative per patient EGD 2015: - Normal esophagus. - A Oral B Toothbrush were found in the stomach. Removal was successful. - Normal examined duodenum. Allergies Allergy/AdvReac Type Severity Reaction Status Date / Time lamotrigine Allergy diarrhea Verified 05/05/24 08:15 Home Medications Medication Instructions Recorded Confirmed Type doxepin 100 mg capsule 200 mg PO HS Sleep 12/29/21 07/07/24 History insulin aspart U-100 100 unit/mL 2 - 9 unit subcut UD 12/29/21 07/07/24 History (3 mL) subcutaneous pen (Novolog FlexPen U-100 Insulin aspart) metformin 500 mg tablet,extended 2,000 mg PO DAILY 12/29/21 07/07/24 History release 24 hr methadone 10 mg/mL oral concentrate 150 mg PO UD 12/29/21 07/07/24 History zolpidem 10 mg tablet 10 mg PO HS 12/29/21 07/07/24 History acetone (urine) test (Ketone Urine #50 ea 01/01/22 07/07/24 Rx Test strips) Oxygen Home #1 ea 02/23/23 07/07/24 Rx levothyroxine 125 mcg tablet 125 mcg PO DAILYBB 01/22/24 07/07/24 History lisinopril 10 mg tablet 10 mg PO QAM 01/22/24 07/07/24 History rosuvastatin 20 mg tablet 20 mg PO DAILY 01/22/24 07/07/24 History norethindrone acetate 1 mg-ethinyl 1 tab PO DAILY #63 tabs 01/23/24 07/07/24 Rx estradiol 20 mcg tablet (Junel) insulin glargine 100 unit/mL (3 15 unit subcut DAILY 05/05/24 07/07/24 History mL) subcutaneous pen (Basaglar KwikPen U-100 Insulin) rimegepant 75 mg disintegrating 75 mg PO Q OTHER DAY migraine 06/13/24 07/07/24 Rx tablet (Nurtec ODT) headache prevention #16 tabs tizanidine 4 mg tablet 4 mg PO TID PRN Muscle Spasm 90 06/13/24 07/07/24 Rx days #270 tabs mvqjladgoz-jnpgcjedociug-rilfstez 1 tab PO DAILY PRN headache #10 07/03/24 07/07/24 Rx 50 mg-325 mg-40 mg tablet tabs alprazolam 0.25 mg tablet 0.25 mg PO DAILY PRN Anxiety 07/07/24 07/07/24 History cyanocobalamin (vitamin B-12) 1,000 mcg PO QAM 07/07/24 07/07/24 History 1,000 mcg tablet (Vitamin B-12) glucagon 1 mg/0.2 mL subcutaneous 1 mg subcut UD PRN UNRESPONSIVE 07/07/24 07/07/24 History auto-injector (Gvoke HypoPen HYPOGLYCEMIA 2-Pack) linaclotide 290 mcg capsule 290 mcg PO DAILYBB 07/07/24 07/07/24 History (Linzess) potassium chloride 10 mEq 10 meq PO QAM 07/07/24 07/07/24 History capsule,extended release promethazine 25 mg tablet 25 mg PO Q6 PRN Nausea 07/07/24 07/07/24 History semaglutide 2 mg/dose (8 mg/3 mL) 2 mg subcut WK 07/07/24 07/07/24 History subcutaneous pen injector (Ozempic) triamcinolone acetonide 0.1 % 1 applic topical BID 07/07/24 07/07/24 History topical cream Patient History Medical History (Updated 07/07/24 @ 11:46 by SERGIO Amezcua) Breast pain, right Status post hysteroscopy Surgical History S/P wisdom tooth extraction S/P laparoscopic procedure S/P LEEP of cervix Family History Mother Cancer Breast cancer Skin cancer Insomnia Melanoma Panic attacks Grandmother (Maternal) Breast cancer Sister Anxiety Depression Father Insomnia Low back pain Panic attacks Aunt Panic attacks Social History Smoking Status: Never smoker Second Hand Exposure: No; Hx Alcohol Use: No Hx Substance Use: No Preferred Language: Lao Communication Ability: Effective Clinical Rehabilitation Specialist Required: No Beliefs That Will Affect Care: None marital status: Current Living Situation: Parent Current Living Situation Comment: Lives with family current occupational status: disabled Other Information That Helps Us Care for You: No Feels Safe at Home: Yes Safety Concerns: Feels Safe At This Time Dental Care, Regularly: Yes Physical Activity Frequency: Does not Exercise Seatbelt Use: always Sunscreen Use: Yes Assistive Devices: None Review of Systems Review of Systems: All other findings negative except as noted in HPI. Physical Exam Constitutional: WD/WN, vitals as above Respiratory: normal respiratory effort, lungs clear to auscultation Cardiovascular: RRR, no murmur, no edema Gastrointestinal (Abdomen): normal bowel sounds, soft, nontender, no hepatosplenomegaly Skin: no rashes, warm and dry Results & Data Vital Signs (Past 12 Hours) Vital Signs Temp Pulse Pulse Resp BP BP Pulse Ox 07/07/24 11:35 83 19 159/109 H 99 07/07/24 07:51 102 H 18 144/116 H 98 07/07/24 06:42 75 141/91 H 98 07/07/24 05:00 72 16 135/95 98 07/07/24 04:56 07/07/24 03:00 36.6 C 74 16 125/87 94 07/07/24 01:52 36.5 C 82 16 112/95 95 07/07/24 01:46 98 H Pulse Ox O2 Del Method O2 Flow Rate 07/07/24 11:35 Oxymask 1 07/07/24 07:51 Room Air 07/07/24 06:42 Room Air 07/07/24 05:00 Room Air 07/07/24 04:56 98 07/07/24 03:00 Room Air 07/07/24 01:52 Room Air 07/07/24 01:46 Laboratory Results 07/07/24 07/07/24 07/07/24 Range/Units 10:33 10:29 09:18 WBC (4.8-10.8) K/ul RBC (4.20-5.40) M/uL Hgb 9.9 L (12.0-16.0) g/dl POC Hgb (12.0-16.0) g/dl Hct 28.2 L (37.0-47.0) % POC Hct (37-47) % MCV (80.0-100.0) fL MCH (25.0-34.0) pg MCHC (32.0-36.0) g/dL RDW Std Deviation (36.4-46.3) fL RDW Coeff of Renae (11.5-14.5) % Plt Count (130-400) K/uL MPV (9.4-12.4) fL Immature Gran % (Auto) % Neut % (Auto) % Lymph % (Auto) % Reagan % (Auto) % Eos % (Auto) % Baso % (Auto) % Reticulocyte % (Auto) (0.50-2.00) % Neut # (Auto) (1.40-6.50) K/uL Lymph # (Auto) (1.20-3.40) K/uL Reagan # (Auto) (0.11-0.59) K/uL Eos # (Auto) (0.00-0.50) K/uL Baso # (Auto) (0.00-0.20) K/uL Reticulocyte # (0.020-0.100) 10^6/uL Immature Gran # (Auto) (0.01-0.20) K/uL PT (9.0-12.0) Seconds INR (0.9-1.1) VBG pH (7.36-7.41) VBG pCO2 (38-50) mmHg VBG pO2 mmHg VBG HCO3 mmol/L VBG O2 Saturation % VBG Base Excess mEq/L POC Sodium (135-144) mmol/L Sodium 136 (136-145) mmol/L POC Potassium (3.3-5.0) mmol/L Potassium (3.5-5.1) mmol/L POC Chloride (101-112) mmol/L Chloride (98-107) mmol/L Carbon Dioxide (21-32) mmol/L POC Total CO2 (24-31) mmol/L Anion Gap (3-11) POC Anion Gap (16-25) mmol/L POC BUN (7-18) mg/dl BUN (6-23) mg/dl Creatinine (0.6-1.2) mg/dl POC Creatinine (0.6-1.3) mg/dl Est Cr Clr Drug Dosing Est GFR ( Amer) ml/min Est GFR (Non-Af Amer) ml/min BUN/Creatinine Ratio (10-20) Glucose (70-99(Fasting)) mg/dl POC Glucose 158 H 133 H (70-99) mg/dl POC Glucose (other) (70-99) mg/dl Estimat Average Glucose mg/dl Hemoglobin A1c (4.5-5.6) % Osmolality (280-300) mOsm/kg Calcium (8.6-10.3) mg/dl POC Ioniz Calcium Gaby (1.12-1.32) mmol/l Phosphorus (2.5-4.9) mg/dl Magnesium (1.7-2.4) mg/dl Iron (35-150) mcg/dl Transferrin (200-360) mg/dl Ferritin (8-388) ng/ml Total Bilirubin (0.2-1.0) mg/dl AST (13-39) U/L ALT (7-52) U/L Alkaline Phosphatase (34-104) U/L Ammonia (18-72) umol/L Troponin I High Sens (0-14) pg/ml Total Protein (6.0-8.3) gm/dl Albumin (3.4-5.0) gm/dl Globulin (2.5-4.0) gm/dl Albumin/Globulin Ratio (0.9-2) Lipase (11-82) U/L Vitamin B12 (180-914) pg/ml Folate (>5.38) ng/ml TSH (0.300-4.500) uIu/ml HCG, Qual (Negative) Urine Color Urine Appearance (Clear) Urine pH (4.5-7.5) Ur Specific [place] (1.000-1.030) Urine Protein (Negative) Urine Glucose (UA) (Negative) Urine Ketones (Negative) Urine Blood (Negative) Urine Nitrite (Negative) Urine Bilirubin (Negative) Urine Urobilinogen (Negative) Ur Leukocyte Esterase (Negative) Urine WBC (Auto) (0-5) /hpf Urine RBC (Auto) (0-2) /hpf U Hyaline Cast (Auto) (0-2) /lpf U Epithel Cells (Auto) (0-2) /hpf Urine Bacteria (Auto) (None Seen) Urine Opiates Screen (Neg) Ur Methadone, Qual (Neg) U Methadone Metabolites Ur Methadone Confirm Urine Fentanyl Screen (Neg) Urine Barbiturates (Neg) Ur Phencyclidine (PCP) (Neg) U Amphetamin/Meth Scrn (Neg) MDMA (Ecstasy) Screen (Neg) U OH-Alprazolam Confrm U Benzodiazepines Scrn (Neg) 7-Amino Clonazepam Ur Nordiazepam Confirm U OH-ethylflurazepam U Lorazepam Cnf GC/MS U Oxazepam Confm GC/MS Ur Temazepam Confirm U OH-Triazolam Confirm U OH-Midazolam Confirm Ur Cocaine Metabolite (Neg) U Marijuana (THC) Screen (Neg) Drug Screen Comment Ethyl Alcohol mg/dL (<10.0) mg/dl Blood Type Antibody Screen 07/07/24 07/07/24 07/07/24 Range/Units 08:36 07:44 07:13 WBC (4.8-10.8) K/ul RBC (4.20-5.40) M/uL Hgb (12.0-16.0) g/dl POC Hgb (12.0-16.0) g/dl Hct (37.0-47.0) % POC Hct (37-47) % MCV (80.0-100.0) fL MCH (25.0-34.0) pg MCHC (32.0-36.0) g/dL RDW Std Deviation (36.4-46.3) fL RDW Coeff of Renae (11.5-14.5) % Plt Count (130-400) K/uL MPV (9.4-12.4) fL Immature Gran % (Auto) % Neut % (Auto) % Lymph % (Auto) % Reagan % (Auto) % Eos % (Auto) % Baso % (Auto) % Reticulocyte % (Auto) (0.50-2.00) % Neut # (Auto) (1.40-6.50) K/uL Lymph # (Auto) (1.20-3.40) K/uL Reagan # (Auto) (0.11-0.59) K/uL Eos # (Auto) (0.00-0.50) K/uL Baso # (Auto) (0.00-0.20) K/uL Reticulocyte # (0.020-0.100) 10^6/uL Immature Gran # (Auto) (0.01-0.20) K/uL PT (9.0-12.0) Seconds INR (0.9-1.1) VBG pH (7.36-7.41) VBG pCO2 (38-50) mmHg VBG pO2 mmHg VBG HCO3 mmol/L VBG O2 Saturation % VBG Base Excess mEq/L POC Sodium (135-144) mmol/L Sodium 137 D (136-145) mmol/L POC Potassium (3.3-5.0) mmol/L Potassium 4.3 (3.5-5.1) mmol/L POC Chloride (101-112) mmol/L Chloride 102 (98-107) mmol/L Carbon Dioxide 29 (21-32) mmol/L POC Total CO2 (24-31) mmol/L Anion Gap 6 (3-11) POC Anion Gap (16-25) mmol/L POC BUN (7-18) mg/dl BUN 7 (6-23) mg/dl Creatinine 0.63 (0.6-1.2) mg/dl POC Creatinine (0.6-1.3) mg/dl Est Cr Clr Drug Dosing 128.3 Est GFR ( Amer) 122.9 ml/min Est GFR (Non-Af Amer) 106.1 ml/min BUN/Creatinine Ratio 11.1 (10-20) Glucose 120 H (70-99(Fasting)) mg/dl POC Glucose 137 H 185 H (70-99) mg/dl POC Glucose (other) (70-99) mg/dl Estimat Average Glucose mg/dl Hemoglobin A1c (4.5-5.6) % Osmolality (280-300) mOsm/kg Calcium 9.1 (8.6-10.3) mg/dl POC Ioniz Calcium Gaby (1.12-1.32) mmol/l Phosphorus 3.3 (2.5-4.9) mg/dl Magnesium 2.1 (1.7-2.4) mg/dl Iron (35-150) mcg/dl Transferrin (200-360) mg/dl Ferritin (8-388) ng/ml Total Bilirubin (0.2-1.0) mg/dl AST (13-39) U/L ALT (7-52) U/L Alkaline Phosphatase (34-104) U/L Ammonia (18-72) umol/L Troponin I High Sens (0-14) pg/ml Total Protein (6.0-8.3) gm/dl Albumin (3.4-5.0) gm/dl Globulin (2.5-4.0) gm/dl Albumin/Globulin Ratio (0.9-2) Lipase (11-82) U/L Vitamin B12 (180-914) pg/ml Folate (>5.38) ng/ml TSH (0.300-4.500) uIu/ml HCG, Qual (Negative) Urine Color Urine Appearance (Clear) Urine pH (4.5-7.5) Ur Specific [place] (1.000-1.030) Urine Protein (Negative) Urine Glucose (UA) (Negative) Urine Ketones (Negative) Urine Blood (Negative) Urine Nitrite (Negative) Urine Bilirubin (Negative) Urine Urobilinogen (Negative) Ur Leukocyte Esterase (Negative) Urine WBC (Auto) (0-5) /hpf Urine RBC (Auto) (0-2) /hpf U Hyaline Cast (Auto) (0-2) /lpf U Epithel Cells (Auto) (0-2) /hpf Urine Bacteria (Auto) (None Seen) Urine Opiates Screen (Neg) Ur Methadone, Qual (Neg) U Methadone Metabolites Ur Methadone Confirm Urine Fentanyl Screen (Neg) Urine Barbiturates (Neg) Ur Phencyclidine (PCP) (Neg) U Amphetamin/Meth Scrn (Neg) MDMA (Ecstasy) Screen (Neg) U OH-Alprazolam Confrm U Benzodiazepines Scrn (Neg) 7-Amino Clonazepam Ur Nordiazepam Confirm U OH-ethylflurazepam U Lorazepam Cnf GC/MS U Oxazepam Confm GC/MS Ur Temazepam Confirm U OH-Triazolam Confirm U OH-Midazolam Confirm Ur Cocaine Metabolite (Neg) U Marijuana (THC) Screen (Neg) Drug Screen Comment Ethyl Alcohol mg/dL (<10.0) mg/dl Blood Type Antibody Screen 07/07/24 07/07/24 07/07/24 Range/Units 06:45 06:04 05:48 WBC (4.8-10.8) K/ul RBC (4.20-5.40) M/uL Hgb (12.0-16.0) g/dl POC Hgb (12.0-16.0) g/dl Hct (37.0-47.0) % POC Hct (37-47) % MCV (80.0-100.0) fL MCH (25.0-34.0) pg MCHC (32.0-36.0) g/dL RDW Std Deviation (36.4-46.3) fL RDW Coeff of Renae (11.5-14.5) % Plt Count (130-400) K/uL MPV (9.4-12.4) fL Immature Gran % (Auto) % Neut % (Auto) % Lymph % (Auto) % Reagan % (Auto) % Eos % (Auto) % Baso % (Auto) % Reticulocyte % (Auto) (0.50-2.00) % Neut # (Auto) (1.40-6.50) K/uL Lymph # (Auto) (1.20-3.40) K/uL Reagan # (Auto) (0.11-0.59) K/uL Eos # (Auto) (0.00-0.50) K/uL Baso # (Auto) (0.00-0.20) K/uL Reticulocyte # (0.020-0.100) 10^6/uL Immature Gran # (Auto) (0.01-0.20) K/uL PT (9.0-12.0) Seconds INR (0.9-1.1) VBG pH (7.36-7.41) VBG pCO2 (38-50) mmHg VBG pO2 mmHg VBG HCO3 mmol/L VBG O2 Saturation % VBG Base Excess mEq/L POC Sodium (135-144) mmol/L Sodium (136-145) mmol/L POC Potassium (3.3-5.0) mmol/L Potassium (3.5-5.1) mmol/L POC Chloride (101-112) mmol/L Chloride (98-107) mmol/L Carbon Dioxide (21-32) mmol/L POC Total CO2 (24-31) mmol/L Anion Gap (3-11) POC Anion Gap (16-25) mmol/L POC BUN (7-18) mg/dl BUN (6-23) mg/dl Creatinine (0.6-1.2) mg/dl POC Creatinine (0.6-1.3) mg/dl Est Cr Clr Drug Dosing Est GFR ( Amer) ml/min Est GFR (Non-Af Amer) ml/min BUN/Creatinine Ratio (10-20) Glucose (70-99(Fasting)) mg/dl POC Glucose 198 H 205 H 205 H (70-99) mg/dl POC Glucose (other) (70-99) mg/dl Estimat Average Glucose mg/dl Hemoglobin A1c (4.5-5.6) % Osmolality (280-300) mOsm/kg Calcium (8.6-10.3) mg/dl POC Ioniz Calcium Gaby (1.12-1.32) mmol/l Phosphorus (2.5-4.9) mg/dl Magnesium (1.7-2.4) mg/dl Iron (35-150) mcg/dl Transferrin (200-360) mg/dl Ferritin (8-388) ng/ml Total Bilirubin (0.2-1.0) mg/dl AST (13-39) U/L ALT (7-52) U/L Alkaline Phosphatase (34-104) U/L Ammonia (18-72) umol/L Troponin I High Sens (0-14) pg/ml Total Protein (6.0-8.3) gm/dl Albumin (3.4-5.0) gm/dl Globulin (2.5-4.0) gm/dl Albumin/Globulin Ratio (0.9-2) Lipase (11-82) U/L Vitamin B12 (180-914) pg/ml Folate (>5.38) ng/ml TSH (0.300-4.500) uIu/ml HCG, Qual (Negative) Urine Color Urine Appearance (Clear) Urine pH (4.5-7.5) Ur Specific [place] (1.000-1.030) Urine Protein (Negative) Urine Glucose (UA) (Negative) Urine Ketones (Negative) Urine Blood (Negative) Urine Nitrite (Negative) Urine Bilirubin (Negative) Urine Urobilinogen (Negative) Ur Leukocyte Esterase (Negative) Urine WBC (Auto) (0-5) /hpf Urine RBC (Auto) (0-2) /hpf U Hyaline Cast (Auto) (0-2) /lpf U Epithel Cells (Auto) (0-2) /hpf Urine Bacteria (Auto) (None Seen) Urine Opiates Screen (Neg) Ur Methadone, Qual (Neg) U Methadone Metabolites Ur Methadone Confirm Urine Fentanyl Screen (Neg) Urine Barbiturates (Neg) Ur Phencyclidine (PCP) (Neg) U Amphetamin/Meth Scrn (Neg) MDMA (Ecstasy) Screen (Neg) U OH-Alprazolam Confrm U Benzodiazepines Scrn (Neg) 7-Amino Clonazepam Ur Nordiazepam Confirm U OH-ethylflurazepam U Lorazepam Cnf GC/MS U Oxazepam Confm GC/MS Ur Temazepam Confirm U OH-Triazolam Confirm U OH-Midazolam Confirm Ur Cocaine Metabolite (Neg) U Marijuana (THC) Screen (Neg) Drug Screen Comment Ethyl Alcohol mg/dL (<10.0) mg/dl Blood Type Antibody Screen 07/07/24 07/07/24 07/07/24 Range/Units 05:33 05:09 04:32 WBC (4.8-10.8) K/ul RBC (4.20-5.40) M/uL Hgb (12.0-16.0) g/dl POC Hgb (12.0-16.0) g/dl Hct (37.0-47.0) % POC Hct (37-47) % MCV (80.0-100.0) fL MCH (25.0-34.0) pg MCHC (32.0-36.0) g/dL RDW Std Deviation (36.4-46.3) fL RDW Coeff of Renae (11.5-14.5) % Plt Count (130-400) K/uL MPV (9.4-12.4) fL Immature Gran % (Auto) % Neut % (Auto) % Lymph % (Auto) % Reagan % (Auto) % Eos % (Auto) % Baso % (Auto) % Reticulocyte % (Auto) (0.50-2.00) % Neut # (Auto) (1.40-6.50) K/uL Lymph # (Auto) (1.20-3.40) K/uL Reagan # (Auto) (0.11-0.59) K/uL Eos # (Auto) (0.00-0.50) K/uL Baso # (Auto) (0.00-0.20) K/uL Reticulocyte # (0.020-0.100) 10^6/uL Immature Gran # (Auto) (0.01-0.20) K/uL PT (9.0-12.0) Seconds INR (0.9-1.1) VBG pH (7.36-7.41) VBG pCO2 (38-50) mmHg VBG pO2 mmHg VBG HCO3 mmol/L VBG O2 Saturation % VBG Base Excess mEq/L POC Sodium (135-144) mmol/L Sodium (136-145) mmol/L POC Potassium (3.3-5.0) mmol/L Potassium (3.5-5.1) mmol/L POC Chloride (101-112) mmol/L Chloride (98-107) mmol/L Carbon Dioxide (21-32) mmol/L POC Total CO2 (24-31) mmol/L Anion Gap (3-11) POC Anion Gap (16-25) mmol/L POC BUN (7-18) mg/dl BUN (6-23) mg/dl Creatinine (0.6-1.2) mg/dl POC Creatinine (0.6-1.3) mg/dl Est Cr Clr Drug Dosing Est GFR ( Amer) ml/min Est GFR (Non-Af Amer) ml/min BUN/Creatinine Ratio (10-20) Glucose (70-99(Fasting)) mg/dl POC Glucose 227 H 206 H 279 H (70-99) mg/dl POC Glucose (other) (70-99) mg/dl Estimat Average Glucose mg/dl Hemoglobin A1c (4.5-5.6) % Osmolality (280-300) mOsm/kg Calcium (8.6-10.3) mg/dl POC Ioniz Calcium Gaby (1.12-1.32) mmol/l Phosphorus (2.5-4.9) mg/dl Magnesium (1.7-2.4) mg/dl Iron (35-150) mcg/dl Transferrin (200-360) mg/dl Ferritin (8-388) ng/ml Total Bilirubin (0.2-1.0) mg/dl AST (13-39) U/L ALT (7-52) U/L Alkaline Phosphatase (34-104) U/L Ammonia (18-72) umol/L Troponin I High Sens (0-14) pg/ml Total Protein (6.0-8.3) gm/dl Albumin (3.4-5.0) gm/dl Globulin (2.5-4.0) gm/dl Albumin/Globulin Ratio (0.9-2) Lipase (11-82) U/L Vitamin B12 (180-914) pg/ml Folate (>5.38) ng/ml TSH (0.300-4.500) uIu/ml HCG, Qual (Negative) Urine Color Urine Appearance (Clear) Urine pH (4.5-7.5) Ur Specific [place] (1.000-1.030) Urine Protein (Negative) Urine Glucose (UA) (Negative) Urine Ketones (Negative) Urine Blood (Negative) Urine Nitrite (Negative) Urine Bilirubin (Negative) Urine Urobilinogen (Negative) Ur Leukocyte Esterase (Negative) Urine WBC (Auto) (0-5) /hpf Urine RBC (Auto) (0-2) /hpf U Hyaline Cast (Auto) (0-2) /lpf U Epithel Cells (Auto) (0-2) /hpf Urine Bacteria (Auto) (None Seen) Urine Opiates Screen (Neg) Ur Methadone, Qual (Neg) U Methadone Metabolites Ur Methadone Confirm Urine Fentanyl Screen (Neg) Urine Barbiturates (Neg) Ur Phencyclidine (PCP) (Neg) U Amphetamin/Meth Scrn (Neg) MDMA (Ecstasy) Screen (Neg) U OH-Alprazolam Confrm U Benzodiazepines Scrn (Neg) 7-Amino Clonazepam Ur Nordiazepam Confirm U OH-ethylflurazepam U Lorazepam Cnf GC/MS U Oxazepam Confm GC/MS Ur Temazepam Confirm U OH-Triazolam Confirm U OH-Midazolam Confirm Ur Cocaine Metabolite (Neg) U Marijuana (THC) Screen (Neg) Drug Screen Comment Ethyl Alcohol mg/dL (<10.0) mg/dl Blood Type Antibody Screen 07/07/24 07/07/24 07/07/24 Range/Units 04:25 03:31 02:22 WBC (4.8-10.8) K/ul RBC (4.20-5.40) M/uL Hgb 9.7 L (12.0-16.0) g/dl POC Hgb (12.0-16.0) g/dl Hct 28.7 L (37.0-47.0) % POC Hct (37-47) % MCV (80.0-100.0) fL MCH (25.0-34.0) pg MCHC (32.0-36.0) g/dL RDW Std Deviation (36.4-46.3) fL RDW Coeff of Renae (11.5-14.5) % Plt Count (130-400) K/uL MPV (9.4-12.4) fL Immature Gran % (Auto) % Neut % (Auto) % Lymph % (Auto) % Reagan % (Auto) % Eos % (Auto) % Baso % (Auto) % Reticulocyte % (Auto) 1.73 (0.50-2.00) % Neut # (Auto) (1.40-6.50) K/uL Lymph # (Auto) (1.20-3.40) K/uL Reagan # (Auto) (0.11-0.59) K/uL Eos # (Auto) (0.00-0.50) K/uL Baso # (Auto) (0.00-0.20) K/uL Reticulocyte # 0.060 (0.020-0.100) 10^6/uL Immature Gran # (Auto) (0.01-0.20) K/uL PT (9.0-12.0) Seconds INR (0.9-1.1) VBG pH (7.36-7.41) VBG pCO2 (38-50) mmHg VBG pO2 mmHg VBG HCO3 mmol/L VBG O2 Saturation % VBG Base Excess mEq/L POC Sodium (135-144) mmol/L Sodium (136-145) mmol/L POC Potassium (3.3-5.0) mmol/L Potassium (3.5-5.1) mmol/L POC Chloride (101-112) mmol/L Chloride (98-107) mmol/L Carbon Dioxide (21-32) mmol/L POC Total CO2 (24-31) mmol/L Anion Gap (3-11) POC Anion Gap (16-25) mmol/L POC BUN (7-18) mg/dl BUN (6-23) mg/dl Creatinine 0.66 (0.6-1.2) mg/dl POC Creatinine (0.6-1.3) mg/dl Est Cr Clr Drug Dosing 122.4 Est GFR ( Amer) 121.1 ml/min Est GFR (Non-Af Amer) 104.5 ml/min BUN/Creatinine Ratio (10-20) Glucose (70-99(Fasting)) mg/dl POC Glucose 433 H* (70-99) mg/dl POC Glucose (other) (70-99) mg/dl Estimat Average Glucose mg/dl Hemoglobin A1c (4.5-5.6) % Osmolality (280-300) mOsm/kg Calcium (8.6-10.3) mg/dl POC Ioniz Calcium Gaby (1.12-1.32) mmol/l Phosphorus (2.5-4.9) mg/dl Magnesium (1.7-2.4) mg/dl Iron 119 (35-150) mcg/dl Transferrin 356 (200-360) mg/dl Ferritin 15.6 (8-388) ng/ml Total Bilirubin (0.2-1.0) mg/dl AST (13-39) U/L ALT (7-52) U/L Alkaline Phosphatase (34-104) U/L Ammonia 23.0 (18-72) umol/L Troponin I High Sens (0-14) pg/ml Total Protein (6.0-8.3) gm/dl Albumin (3.4-5.0) gm/dl Globulin (2.5-4.0) gm/dl Albumin/Globulin Ratio (0.9-2) Lipase (11-82) U/L Vitamin B12 609 (180-914) pg/ml Folate 8.38 (>5.38) ng/ml TSH (0.300-4.500) uIu/ml HCG, Qual (Negative) Urine Color Yellow Urine Appearance Clear (Clear) Urine pH 7.5 (4.5-7.5) Ur Specific [place] 1.030 (1.000-1.030) Urine Protein Negative (Negative) Urine Glucose (UA) 3+ H (Negative) Urine Ketones Trace H (Negative) Urine Blood Trace H (Negative) Urine Nitrite Negative (Negative) Urine Bilirubin Negative (Negative) Urine Urobilinogen Negative (Negative) Ur Leukocyte Esterase Negative (Negative) Urine WBC (Auto) 0-5 (0-5) /hpf Urine RBC (Auto) 3-5 H (0-2) /hpf U Hyaline Cast (Auto) 0-2 (0-2) /lpf U Epithel Cells (Auto) 0-2 (0-2) /hpf Urine Bacteria (Auto) None Seen (None Seen) Urine Opiates Screen Neg (Neg) Ur Methadone, Qual Pos H (Neg) U Methadone Metabolites Pending Ur Methadone Confirm Pending Urine Fentanyl Screen Neg (Neg) Urine Barbiturates Neg (Neg) Ur Phencyclidine (PCP) Neg (Neg) U Amphetamin/Meth Scrn Neg (Neg) MDMA (Ecstasy) Screen Neg (Neg) U OH-Alprazolam Confrm Pending U Benzodiazepines Scrn Pos H (Neg) 7-Amino Clonazepam Pending Ur Nordiazepam Confirm Pending U OH-ethylflurazepam Pending U Lorazepam Cnf GC/MS Pending U Oxazepam Confm GC/MS Pending Ur Temazepam Confirm Pending U OH-Triazolam Confirm Pending U OH-Midazolam Confirm Pending Ur Cocaine Metabolite Neg (Neg) U Marijuana (THC) Screen Neg (Neg) Drug Screen Comment Pending Ethyl Alcohol mg/dL < 10.0 (<10.0) mg/dl Blood Type O Positive Antibody Screen NEGATIVE 07/07/24 07/07/24 07/07/24 Range/Units 02:03 01:48 01:46 WBC 7.98 (4.8-10.8) K/ul RBC 3.62 L (4.20-5.40) M/uL Hgb 10.6 L (12.0-16.0) g/dl POC Hgb 10.5 L (12.0-16.0) g/dl Hct 30.5 L (37.0-47.0) % POC Hct 31 L (37-47) % MCV 84.3 (80.0-100.0) fL MCH 29.3 (25.0-34.0) pg MCHC 34.8 (32.0-36.0) g/dL RDW Std Deviation 37.6 (36.4-46.3) fL RDW Coeff of Renae 12.3 (11.5-14.5) % Plt Count 376 (130-400) K/uL MPV 10.4 (9.4-12.4) fL Immature Gran % (Auto) 0.4 % Neut % (Auto) 67.3 % Lymph % (Auto) 23.7 % Reagan % (Auto) 6.5 % Eos % (Auto) 1.5 % Baso % (Auto) 0.6 % Reticulocyte % (Auto) (0.50-2.00) % Neut # (Auto) 5.37 (1.40-6.50) K/uL Lymph # (Auto) 1.89 (1.20-3.40) K/uL Reagan # (Auto) 0.52 (0.11-0.59) K/uL Eos # (Auto) 0.12 (0.00-0.50) K/uL Baso # (Auto) 0.05 (0.00-0.20) K/uL Reticulocyte # (0.020-0.100) 10^6/uL Immature Gran # (Auto) 0.03 (0.01-0.20) K/uL PT 9.5 (9.0-12.0) Seconds INR 0.9 (0.9-1.1) VBG pH 7.40 (7.36-7.41) VBG pCO2 39 (38-50) mmHg VBG pO2 53 mmHg VBG HCO3 24 mmol/L VBG O2 Saturation 86.1 % VBG Base Excess -0.5 mEq/L POC Sodium 126 L (135-144) mmol/L Sodium 125 L (136-145) mmol/L POC Potassium 4.5 (3.3-5.0) mmol/L Potassium 4.5 (3.5-5.1) mmol/L POC Chloride 91 L (101-112) mmol/L Chloride 91 L (98-107) mmol/L Carbon Dioxide 23 (21-32) mmol/L POC Total CO2 22 L (24-31) mmol/L Anion Gap 11 (3-11) POC Anion Gap 18.0 (16-25) mmol/L POC BUN 11 (7-18) mg/dl BUN 12 (6-23) mg/dl Creatinine 0.83 (0.6-1.2) mg/dl POC Creatinine 0.7 (0.6-1.3) mg/dl Est Cr Clr Drug Dosing Not Reportable Est GFR ( Amer) 96.6 ml/min Est GFR (Non-Af Amer) 83.4 ml/min BUN/Creatinine Ratio 14.5 (10-20) Glucose 657 H* (70-99(Fasting)) mg/dl POC Glucose (70-99) mg/dl POC Glucose (other) 669 H* (70-99) mg/dl Estimat Average Glucose 163 mg/dl Hemoglobin A1c 7.3 H (4.5-5.6) % Osmolality 306 H (280-300) mOsm/kg Calcium 9.2 (8.6-10.3) mg/dl POC Ioniz Calcium Gaby 1.15 (1.12-1.32) mmol/l Phosphorus 3.1 (2.5-4.9) mg/dl Magnesium 2.2 (1.7-2.4) mg/dl Iron (35-150) mcg/dl Transferrin (200-360) mg/dl Ferritin (8-388) ng/ml Total Bilirubin 0.6 (0.2-1.0) mg/dl AST 14 (13-39) U/L ALT 11 (7-52) U/L Alkaline Phosphatase 120 H (34-104) U/L Ammonia (18-72) umol/L Troponin I High Sens 4.3 (0-14) pg/ml Total Protein 6.8 (6.0-8.3) gm/dl Albumin 3.9 (3.4-5.0) gm/dl Globulin 2.9 (2.5-4.0) gm/dl Albumin/Globulin Ratio 1.3 (0.9-2) Lipase 11 (11-82) U/L Vitamin B12 (180-914) pg/ml Folate (>5.38) ng/ml TSH 2.556 (0.300-4.500) uIu/ml HCG, Qual Negative (Negative) Urine Color Urine Appearance (Clear) Urine pH (4.5-7.5) Ur Specific [place] (1.000-1.030) Urine Protein (Negative) Urine Glucose (UA) (Negative) Urine Ketones (Negative) Urine Blood (Negative) Urine Nitrite (Negative) Urine Bilirubin (Negative) Urine Urobilinogen (Negative) Ur Leukocyte Esterase (Negative) Urine WBC (Auto) (0-5) /hpf Urine RBC (Auto) (0-2) /hpf U Hyaline Cast (Auto) (0-2) /lpf U Epithel Cells (Auto) (0-2) /hpf Urine Bacteria (Auto) (None Seen) Urine Opiates Screen (Neg) Ur Methadone, Qual (Neg) U Methadone Metabolites Ur Methadone Confirm Urine Fentanyl Screen (Neg) Urine Barbiturates (Neg) Ur Phencyclidine (PCP) (Neg) U Amphetamin/Meth Scrn (Neg) MDMA (Ecstasy) Screen (Neg) U OH-Alprazolam Confrm U Benzodiazepines Scrn (Neg) 7-Amino Clonazepam Ur Nordiazepam Confirm U OH-ethylflurazepam U Lorazepam Cnf GC/MS U Oxazepam Confm GC/MS Ur Temazepam Confirm U OH-Triazolam Confirm U OH-Midazolam Confirm Ur Cocaine Metabolite (Neg) U Marijuana (THC) Screen (Neg) Drug Screen Comment Ethyl Alcohol mg/dL (<10.0) mg/dl Blood Type Antibody Screen 07/07/24 Range/Units 01:44 WBC (4.8-10.8) K/ul RBC (4.20-5.40) M/uL Hgb (12.0-16.0) g/dl POC Hgb (12.0-16.0) g/dl Hct (37.0-47.0) % POC Hct (37-47) % MCV (80.0-100.0) fL MCH (25.0-34.0) pg MCHC (32.0-36.0) g/dL RDW Std Deviation (36.4-46.3) fL RDW Coeff of Renae (11.5-14.5) % Plt Count (130-400) K/uL MPV (9.4-12.4) fL Immature Gran % (Auto) % Neut % (Auto) % Lymph % (Auto) % Reagan % (Auto) % Eos % (Auto) % Baso % (Auto) % Reticulocyte % (Auto) (0.50-2.00) % Neut # (Auto) (1.40-6.50) K/uL Lymph # (Auto) (1.20-3.40) K/uL Reagan # (Auto) (0.11-0.59) K/uL Eos # (Auto) (0.00-0.50) K/uL Baso # (Auto) (0.00-0.20) K/uL Reticulocyte # (0.020-0.100) 10^6/uL Immature Gran # (Auto) (0.01-0.20) K/uL PT (9.0-12.0) Seconds INR (0.9-1.1) VBG pH (7.36-7.41) VBG pCO2 (38-50) mmHg VBG pO2 mmHg VBG HCO3 mmol/L VBG O2 Saturation % VBG Base Excess mEq/L POC Sodium (135-144) mmol/L Sodium (136-145) mmol/L POC Potassium (3.3-5.0) mmol/L Potassium (3.5-5.1) mmol/L POC Chloride (101-112) mmol/L Chloride (98-107) mmol/L Carbon Dioxide (21-32) mmol/L POC Total CO2 (24-31) mmol/L Anion Gap (3-11) POC Anion Gap (16-25) mmol/L POC BUN (7-18) mg/dl BUN (6-23) mg/dl Creatinine (0.6-1.2) mg/dl POC Creatinine (0.6-1.3) mg/dl Est Cr Clr Drug Dosing Est GFR ( Amer) ml/min Est GFR (Non-Af Amer) ml/min BUN/Creatinine Ratio (10-20) Glucose (70-99(Fasting)) mg/dl POC Glucose > 600 H* (70-99) mg/dl POC Glucose (other) (70-99) mg/dl Estimat Average Glucose mg/dl Hemoglobin A1c (4.5-5.6) % Osmolality (280-300) mOsm/kg Calcium (8.6-10.3) mg/dl POC Ioniz Calcium Gaby (1.12-1.32) mmol/l Phosphorus (2.5-4.9) mg/dl Magnesium (1.7-2.4) mg/dl Iron (35-150) mcg/dl Transferrin (200-360) mg/dl Ferritin (8-388) ng/ml Total Bilirubin (0.2-1.0) mg/dl AST (13-39) U/L ALT (7-52) U/L Alkaline Phosphatase (34-104) U/L Ammonia (18-72) umol/L Troponin I High Sens (0-14) pg/ml Total Protein (6.0-8.3) gm/dl Albumin (3.4-5.0) gm/dl Globulin (2.5-4.0) gm/dl Albumin/Globulin Ratio (0.9-2) Lipase (11-82) U/L Vitamin B12 (180-914) pg/ml Folate (>5.38) ng/ml TSH (0.300-4.500) uIu/ml HCG, Qual (Negative) Urine Color Urine Appearance (Clear) Urine pH (4.5-7.5) Ur Specific [place] (1.000-1.030) Urine Protein (Negative) Urine Glucose (UA) (Negative) Urine Ketones (Negative) Urine Blood (Negative) Urine Nitrite (Negative) Urine Bilirubin (Negative) Urine Urobilinogen (Negative) Ur Leukocyte Esterase (Negative) Urine WBC (Auto) (0-5) /hpf Urine RBC (Auto) (0-2) /hpf U Hyaline Cast (Auto) (0-2) /lpf U Epithel Cells (Auto) (0-2) /hpf Urine Bacteria (Auto) (None Seen) Urine Opiates Screen (Neg) Ur Methadone, Qual (Neg) U Methadone Metabolites Ur Methadone Confirm Urine Fentanyl Screen (Neg) Urine Barbiturates (Neg) Ur Phencyclidine (PCP) (Neg) U Amphetamin/Meth Scrn (Neg) MDMA (Ecstasy) Screen (Neg) U OH-Alprazolam Confrm U Benzodiazepines Scrn (Neg) 7-Amino Clonazepam Ur Nordiazepam Confirm U OH-ethylflurazepam U Lorazepam Cnf GC/MS U Oxazepam Confm GC/MS Ur Temazepam Confirm U OH-Triazolam Confirm U OH-Midazolam Confirm Ur Cocaine Metabolite (Neg) U Marijuana (THC) Screen (Neg) Drug Screen Comment Ethyl Alcohol mg/dL (<10.0) mg/dl Blood Type Antibody Screen PG Care Time/CCT Total # of Minutes Spent Total Time Spent with Patient: Total time spent is greater than 50% in coordination of care (as documented) at patient's floor/unit and/or counseling patient: Coding Level of Care Code 33584 INT INP/OBS CARE MIN Diagnoses Heme positive stool R19.5
--- NOTE | 2024-07-07 12:41 | Communication Note ---
Date of Service: July 07, 2024 Evaluated at bedside Reports feeling much improved overall Denies any symptoms lingering at this time Transition to IV PPI BID Repeat CBC in am Blood glucose much improved, glycemic pharamcy following rest of plan per hp
[2024-07-07] MEDS: LANTUS PER UNIT CHARGE SC SCH (13:54)
[2024-07-07] MEDS: LORazepam 2 MG/1 ML VIAL IV PRN (14:00)
[2024-07-07] MEDS: hydrOXYzine HCl 25 MG TAB PO STA (16:32)
[2024-07-07] MEDS: lisinopril 10 MG TAB PO SCH (16:33)
[2024-07-07 16:39] LABS: Hematocrit (blood only) 30.2 % (37.0-47.0); Hemoglobin 10.4 g/dl (12.0-16.0)
[2024-07-07] MEDS: LORazepam 2 MG/1 ML VIAL IV STA (16:40)
--- NOTE | 2024-07-07 16:46 | Electrocardiogram Report ---
Test Reason : Blood Pressure : */* mmHG Vent. Rate : 85 BPM Atrial Rate : 85 BPM P-R Int : 166 ms QRS Dur : 86 ms QT Int : 388 ms P-R-T Axes : 42 4 13 degrees QTcB Int : 461 ms Normal sinus rhythm Poor R wave progression, consider anterior [place] vs. lead placement vs. LVH Abnormal ECG When compared with ECG of 16-Nov-2023 12:18, No significant change was found Confirmed by Desean Calix ([id number]) on 07/07/2024 4:46:02 PM Referred By: REFERRED SELF Confirmed By: Desean Calix
[2024-07-07 16:57] LABS: BUN Creatinine Ratio 7.1 (10-20); Calcium 8.8 mg/dl (8.6-10.3); Creatinine Clr Calc Pharmacy 115.4 ml/min; Est GFR (African American) 118.7 ml/min; Est GFR (Non-African American) 102.5 ml/min; Magnesium 1.8 mg/dl (1.7-2.4); Phosphorus 2.3 mg/dl (2.5-4.9)
[2024-07-07] MEDS: METHADONE PO SCH (17:57)
[2024-07-07] MEDS: METHADONE ORAL SOLN 2 MG/ML PO SCH (17:57)
[2024-07-07] MEDS: DOXEPIN HCL 50 MG CAPSULE PO SCH (19:45)
[2024-07-07] MEDS: PANTOprazole 40 MG in SYRINGE 0 ML IV SCH (19:46)
[2024-07-07] MEDS: hydrOXYzine HCl 25 MG TAB PO PRN (19:46)
[2024-07-07] MEDS: ZOLPIDEM TARTRATE 5 MG TAB PO SCH (19:53)
[2024-07-07] MEDS: ACETAMINOPHEN 1,000 MG/100 ML VIAL IV PRN (20:02)
[2024-07-07] MEDS: ZOLPIDEM TARTRATE 5 MG TAB ONE (21:02)
[2024-07-07] MEDS: DEXTROSE 50% 50 ML SYRINGE IV PRN (22:00)
[2024-07-07 23:13] LABS: BUN Creatinine Ratio 8.1 (10-20); Calcium 8.6 mg/dl (8.6-10.3); Creatinine Clr Calc Pharmacy 130.3 ml/min; Est GFR (African American) 123.6 ml/min; Est GFR (Non-African American) 106.6 ml/min; Magnesium 1.8 mg/dl (1.7-2.4); Phosphorus 3.6 mg/dl (2.5-4.9); Potassium 3.4 mmol/L (3.5-5.1)
[2024-07-07] MEDS: DEXTROSE 50% 50 ML SYRINGE IV STA (23:25)
[2024-07-08] MEDS: DEXTROSE 50% 50 ML SYRINGE IV STA (00:33)
[2024-07-08] MEDS: D5NSS + 20MEQ KCL 20 MEQ/1,000 ML BAG IV ONE (01:01)
[2024-07-08] MEDS: INSULIN ASPART PER UNIT CHARGE SC SCH (01:11)
[2024-07-08] MEDS ORDERED: ZOLPIDEM TARTRATE 5 MG TAB PO PRN (05:07)
[2024-07-08] MEDS: LEVOTHYROXINE SODIUM 125 MCG TABLET PO SCH (06:13)
[2024-07-08] MEDS: LINACLOTIDE 145 MCG CAPSULE PO SCH (06:13)
[2024-07-08 06:22] LABS: Hematocrit (blood only) 31.8 % (37.0-47.0); Hemoglobin 10.8 g/dl (12.0-16.0); Mean Corpuscular Hemoglobin 28.6 pg (25.0-34.0); Mean Corpuscular Volume 84.1 fL (80.0-100.0); Mean Platelet Volume 9.9 fL (9.4-12.4); Platelet Count 370 K/uL (130-400); RDW Standard Deviation 39.7 fL (36.4-46.3); Red Blood Count 3.78 M/uL (4.20-5.40); White Blood Count 7.75 K/ul (4.8-10.8)
[2024-07-08 06:35] LABS: Albumin Level 3.6 gm/dl (3.4-5.0); Bilirubin,Total 0.3 mg/dl (0.2-1.0); Calcium 8.6 mg/dl (8.6-10.3); Magnesium 1.8 mg/dl (1.7-2.4); Potassium 4.3 mmol/L (3.5-5.1)
[2024-07-08 06:42] LABS: Albumin Globulin Ratio 1.3 (0.9-2); BUN Creatinine Ratio 7.7 (10-20); Creatinine Clr Calc Pharmacy 124.3 ml/min; Est GFR (African American) 121.7 ml/min; Globulin 2.8 gm/dl (2.5-4.0); Phosphorus 4.3 mg/dl (2.5-4.9); Total Protein 6.4 gm/dl (6.0-8.3)
[2024-07-08] MEDS: NSS + 20MEQ KCL 20 MEQ/1,000 ML BAG IV SCH (07:43)
[2024-07-08 07:55] VITALS: PULSE 100; RESP 18; TEMP 97.9; O2SAT 97
[2024-07-08] MEDS: LORazepam 2 MG/1 ML VIAL IV STA (08:33)
[2024-07-08] MEDS: ROSUVASTATIN CALCIUM 20 MG TAB PO SCH (08:39)
[2024-07-08] MEDS: CYANOCOBALAMIN (B-12) 500 MCG TABLET PO SCH (08:40)
[2024-07-08] MEDS: PANTOprazole 40 MG TAB PO SCH (08:41)
[2024-07-08] MEDS: LANTUS PER UNIT CHARGE SC SCH (08:48)
--- NOTE | 2024-07-08 09:24 | Gastroenterology Progress Note ---
Date of Service July 08, 2024 Assessment & Plan (1) Heme positive stool: Plan: 49 year old female w/ latent autoimmune diabetes in adults, hypothyroidism, anxiety disorder, chronic pain/opiate addiction on methadone, history of migraine, endometriosis status post surgery, past tobacco abuse admitted w/ elevated blood sugars and confusion - GI asked to evaluate for heme positive stools. She is awake, alert and oriented on my evaluation this AM and tells me she just passed a brown bowel movement. Denies any previous history of black/bloody stools or emesis. her HGB has remained stable since admission without BUN elevation. She has remained hemodynamically stable w/ stable and improved HGB at 10.8 this AM w/o BUN elevation or evidence of GI blood loss. No indication for inpatient endoscopic evaluation May advance diet as tolerated Continue conservatives measures Trend H&H May convert to PO PPI 40 mg once daily No NSAIDs Keep follow up with your [facility] GI care team to discuss EGD/Colonoscopy given anemia. GI to sign off. I spent a total of 40 minutes on the date of service in review of patient's record, and previously obtained information in person and appropriate medical visit, discussion and education of plan, with patient and/or caregiver, placing orders for tests/referral/procedures as medically necessary and documentation of pertinent clinical information in patient's medical records for their visit today. Admission and Anticipated Discharge Date Admission Date: July 07, 2024 Subjective Pt was seen and evaluated, chart reviewed. Care coordinated with father at bedside and with nursing staff. Reshma reports she is feeling well from a GI standpoint. Denies abd pain. No nausea, vomiting. Only concern is her hunger this AM. No further stools since admission. She notes this chronic constipation is unchanged for her. Has follow up with her regular GI team in the next 1-2 weeks. Review of Systems Review of Systems: All other findings negative except as noted in HPI. Physical Exam Constitutional: WD/WN, vitals as above Respiratory: normal respiratory effort, lungs clear to auscultation Cardiovascular: Rate/Rhythm: regular rate and regular rhythm Chest (Breasts): normal inspection/palpation of breasts Gastrointestinal (Abdomen): normal bowel sounds, soft, nontender, no hepatosplenomegaly Skin: no rashes, warm and dry Results & Data Results & Data Vital Signs (Past 12 Hours) Vital Signs Temp Pulse Pulse Resp BP Pulse Ox O2 Del Method 07/08/24 07:54 36.6 C 100 H 18 171/105 H 97 Room Air 07/08/24 07:47 85 07/08/24 03:25 73 16 130/81 96 Room Air 07/07/24 22:15 88 07/07/24 22:06 98 H 16 126/84 96 Room Air PG Care Time/CCT Total # of Minutes Spent Total Time Spent with Patient: Total time spent is greater than 50% in coordination of care (as documented) at patient's floor/unit and/or counseling patient: Coding Level of Care Code 37572 SUB INP/OBS CARE 2/35MIN Diagnoses Heme positive stool R19.5
--- NOTE | 2024-07-08 11:03 | Discharge Summary ---
Discharge Summary Date of Service July 08, 2024 Principal Dx & Hospital Course #1 = Principal Diagnosis (1) Encephalopathy: Ms. Cardenas is a 49 year old female w/ latent autoimmune diabetes Type I, hypothyroidism, anxiety disorder, chronic pain/opiate addiction on methadone, history of migraine, endometriosis status post surgery, past tobacco abuse admitted for hyperglycemic hyperosmolar state. Patient promptly improved with insulin drip. No clear precipitating factor identified. There was concern for GIB given FOBT + stool, however, hgb stable and no reported bleed on exam, as well as normal BUN on labs. Patient with severe anxiety, patient with recent loss of fiance. Offered services and resources. Patient declined. Plan to continue home regimen and medications. On day of discharge patient was without acute concerns, very pressured speech and high energy. Denies any SI/HI. Denies any questions about insulin regimen and patient spoke with conservation educator. Notes For Next Care Provider Medication Changes From Visit none Admission HPI Per Admitting Provider History obtained from patient, family and records. Limited history from patient secondary to lethargy. Medical history significant for latent autoimmune diabetes in adults (managed as DM type I as per records ), hypothyroidism, anxiety disorder, chronic pain/opiate addiction on methadone, history of migraine, endometriosis status post surgery, past tobacco abuse Last confinement December 2021 for metabolic encephalopathy secondary to DKA. Patient seen on follow-up visit at PCP's office 3 days ago. Patient later sent messages to PCP inquiring about Ozempic dosing and doxepin refills for migraine. Patient with achy abdominal discomfort the last couple of days. Unaware of black or bloody stools. Poor appetite. Patient increasingly disoriented at home the last couple of days as per family. Patient patient noted to be falling at home last night. No chest pain, no SOB. Headache symptoms as per patient. Blood sugar cannot be read by glucometer at home. BSG 600s upon arrival at the ER. IV insulin initiated at the ER. Medical Historyas above 2016 EGD Surgical History : Gynecologic laparoscopic procedures, dental surgery Family History : Breast cancer, esophageal cancer, hypertension, skin cancer Personal/Social history : Non-smoker, no EtOH intake, disabled/part-time hairstylist Admission Exam Per Admitting Provider GENERAL: Uncomfortable, lethargic, obese, no respiratory distress SKIN: Pallor, warm HEENT: Pale palpebral conjunctivae, no ptosis, dry buccal mucosa NECK : Supple, no tenderness CHEST : Decreased breath sounds, no tenderness HEART : RRR , no obvious murmurs ABDOMEN: Some distention, minimal epigastric tenderness RECTAL : Intact sphincter, dark stool (FOBT positive) EXTREMITIES : Bilateral LE swelling, no LE tenderness, no other conspicuous deformities noted NEUROLOGIC : Lethargic, no facial asymmetry, gait and stance not assessed Discharge Exam Constitutional WD/WN, vitals as above Respiratory normal respiratory effort, lungs clear to auscultation Cardiovascular RRR, no murmur, no edema Gastrointestinal (Abdomen) normal bowel sounds, soft, nontender, no hepatosplenomegaly Neurologic PERRL, EOMI, accommodation nl, no face palsy, no dysarthria Psychiatric Speech: + pressured speech and + loud speech Updated Medication List Medication Instructions Recorded Confirmed Type doxepin 100 mg capsule 200 mg PO HS Sleep 12/29/21 07/07/24 History insulin aspart U-100 100 unit/mL 2 - 9 unit subcut UD 12/29/21 07/07/24 History (3 mL) subcutaneous pen (Novolog FlexPen U-100 Insulin aspart) metformin 500 mg tablet,extended 2,000 mg PO DAILY 12/29/21 07/07/24 History release 24 hr methadone 10 mg/mL oral concentrate 150 mg PO UD 12/29/21 07/07/24 History zolpidem 10 mg tablet 10 mg PO HS 12/29/21 07/07/24 History Oxygen Home #1 ea 02/23/23 07/07/24 Rx levothyroxine 125 mcg tablet 125 mcg PO DAILYBB 01/22/24 07/07/24 History lisinopril 10 mg tablet 10 mg PO QAM 01/22/24 07/07/24 History rosuvastatin 20 mg tablet 20 mg PO DAILY 01/22/24 07/07/24 History norethindrone acetate 1 mg-ethinyl 1 tab PO DAILY #63 tabs 01/23/24 07/07/24 Rx estradiol 20 mcg tablet (Junel) insulin glargine 100 unit/mL (3 15 unit subcut DAILY 05/05/24 07/07/24 History mL) subcutaneous pen (Basaglar KwikPen U-100 Insulin) rimegepant 75 mg disintegrating 75 mg PO Q OTHER DAY migraine 06/13/24 07/07/24 Rx tablet (Nurtec ODT) headache prevention #16 tabs tizanidine 4 mg tablet 4 mg PO TID PRN Muscle Spasm 90 06/13/24 07/07/24 Rx days #270 tabs cewgbtkext-ibjntvwrykpto-aazgglyk 1 tab PO DAILY PRN headache #10 07/03/24 07/07/24 Rx 50 mg-325 mg-40 mg tablet tabs alprazolam 0.25 mg tablet 0.25 mg PO DAILY PRN Anxiety 07/07/24 07/07/24 History cyanocobalamin (vitamin B-12) 1,000 mcg PO QAM 07/07/24 07/07/24 History 1,000 mcg tablet (Vitamin B-12) linaclotide 290 mcg capsule 290 mcg PO DAILYBB 07/07/24 07/07/24 History (Linzess) potassium chloride 10 mEq 10 meq PO QAM 07/07/24 07/07/24 History capsule,extended release promethazine 25 mg tablet 25 mg PO Q6 PRN Nausea 07/07/24 07/07/24 History semaglutide 2 mg/dose (8 mg/3 mL) 2 mg subcut WK 07/07/24 07/07/24 History subcutaneous pen injector (Ozempic) triamcinolone acetonide 0.1 % 1 applic topical BID 07/07/24 07/07/24 History topical cream acetone (urine) test (Ketone Urine #50 ea 07/08/24 Rx Test strips) glucagon 1 mg/0.2 mL subcutaneous 1 mg (0.2 mL) subcut UD PRN 07/08/24 Rx auto-injector (Gvoke HypoPen UNRESPONSIVE HYPOGLYCEMIA #0.4 mL 2-Pack) pantoprazole 40 mg tablet,delayed 40 mg PO QAM #30 tabs 07/08/24 Rx release Hospital Stay Data Consultations 07/07/24 03:27 ED Decision to Admit Stat 07/07/24 06:35 Consult Gastroenterology Routine 07/07/24 12:29 Consult Behavioral Health Liaison Routine 07/08/24 07:58 Consult Psychiatry Routine Diagnostic Imagining Performed 07/07/24 01:49 CT cervical spine wo con Stat CT head/brain wo con Stat 07/07/24 04:06 CT Abd and Pelvis [CT abd pelvis IV con only] Stat Pending Results Patient Have Any Pending Studies at Discharge: No Discharge Instructions Given to Patient (Per Discharging Provider) You were admitted for hyperglycemic crisis which resolved with insulin management. You were evaluated for anemia and for infection. Ultimately there was no sign of infection or signs of bleeding. Please follow up with your conservation educator as an outpatient Please follow up with your psychologist for panic attacks. Please continue routine home medications Please start a PPI (pantoprazole 40mg daily) Please follow up with GI to discuss EGD or colonoscopy as an outpatient for anemia Total Time Total Time Spent Total Time Spent (In Minutes): 45
[2024-07-08 11:12] VITALS: BP 154/94
[2024-07-09 08:42] LABS: 7-Aminoclonaz, Confirm NEGATIVE ng/mL (<25); Hydro-Alp Ur, GC/MS 1010 ng/mL (<25); Hydroxyethylflurazepam, Conf NEGATIVE ng/mL (<50); Hydroxymidazolam Ur, GC/MS NEGATIVE ng/mL (<50); Hydroxytriazolam NEGATIVE ng/mL (<50); Lorazepam, Ur GC/MS NEGATIVE ng/mL (<50); Methadone, Ur Metabolite 2510 ng/mL (<100); Methadone, Ur Verification 1060 ng/mL (<100); Nordiazepam, Confirm NEGATIVE ng/mL (<50); Oxazepam Ur, GC/MS NEGATIVE ng/mL (<50); Temazepam, Confirm NEGATIVE ng/mL (<50)
== END 2024-07-08 11:50 | disposition home or self-care (01) | DRG 638 ==
LOC: ED 01:34 → INTOOBSV 03:42 → EDINP 03:42 → 2N 04:56

== ENCOUNTER 2024-07-12 04:59 | Observation (INO) ==
[2024-07-12] MEDS: NALOXONE HCL 0.4 MG/1 ML VIAL/CARP IV STA ×2 (05:51→06:50)
[2024-07-12 05:54] LABS: Basophils # (auto) 0.05 K/uL (0.00-0.20); Basophils % (auto) 0.4 %; Eosinophils # (auto) 0.23 K/uL (0.00-0.50); Eosinophils % (auto) 1.9 %; Hematocrit (blood only) 26.3 % (37.0-47.0); Hemoglobin 8.7 g/dl (12.0-16.0); Immature Granulocytes # (auto) 0.04 K/uL (0.01-0.20); Immature Granulocytes % (auto) 0.3 %; Lymphocytes # (auto) 1.77 K/uL (1.20-3.40); Lymphocytes % (auto) 14.4 %; Mean Corpuscular Hemoglobin 28.4 pg (25.0-34.0); Mean Corpuscular Hgb Conc 33.1 g/dL (32.0-36.0); Mean Corpuscular Volume 85.9 fL (80.0-100.0); Mean Platelet Volume 9.7 fL (9.4-12.4); Monocytes # (auto) 0.74 K/uL (0.11-0.59); Neutrophils # (auto) 9.45 K/uL (1.40-6.50); Platelet Count 332 K/uL (130-400); RDW Coefficient of Variation 13.1 % (11.5-14.5); RDW Standard Deviation 40.6 fL (36.4-46.3); Red Blood Count 3.06 M/uL (4.20-5.40); White Blood Count 12.28 K/ul (4.8-10.8)
[2024-07-12 06:08] LABS: Acetaminophen 6 ug/ml (10-30); Salicylate < 3.0 mg/dl (3.0-30)
[2024-07-12 06:09] LABS: Albumin Globulin Ratio 1.3 (0.9-2); Albumin Level 3.2 gm/dl (3.4-5.0); BUN Creatinine Ratio 11.7 (10-20); Bilirubin,Total 0.4 mg/dl (0.2-1.0); Calcium 8.1 mg/dl (8.6-10.3); Creatinine Clr Calc Pharmacy 70.4 ml/min; Globulin 2.5 gm/dl (2.5-4.0); Potassium 4.4 mmol/L (3.5-5.1); Total Protein 5.7 gm/dl (6.0-8.3)
[2024-07-12 06:21] LABS: Appearance Urine Turbid (Clear); Bacteria Urine Automated 4+ (None Seen); Bilirubin Urine Negative (Negative); Blood Urine 2+ (Negative); Color Urine Yellow; Glucose Urine UA Trace (Negative); Ketones Urine Trace (Negative); Leukocyte Esterase Urine 3+ (Negative); Nitrite Urine Negative (Negative); Protein Urine 2+ (Negative); Specific Gravity Urine 1.028 (1.000-1.030); Urobilinogen Urine Negative (Negative); WBC Urine Automated >50 /hpf (0-5); pH Urine 5.5 (4.5-7.5)
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
[2024-07-12 06:25] LABS: Amphetamines+Metham, Urine Neg (Neg); Barbiturates, Urine Neg (Neg); Benzodiazepine, Urine Pos (Neg); Cocaine, Urine Neg (Neg); Fentanyl, Urine Neg (Neg); MDMA (Ecstacy), Urine Neg (Neg); Marijuana, Urine Neg (Neg); Methadone, Urine Pos (Neg); Opiate, Urine Pos (Neg); Phencyclidine, Urine Neg (Neg)
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
[2024-07-12] MEDS: SODIUM CHLORIDE 0.9% 1,000 ML IV SCH (08:03)
[2024-07-12] MEDS: cefTRIAXone SODIUM 2,000 MG/50 ML BAG IV STA (08:03)
[2024-07-12] MEDS ORDERED: DEXTROSE 50% 50 ML SYRINGE IV PRN (08:22)
[2024-07-12] MEDS ORDERED: GLUCAGON FOR INJ 1 MG VIAL SQ PRN (08:22)
[2024-07-12] MEDS ORDERED: GLUCOSE 40% GEL 15 GM TUBE PO PRN (08:22)
[2024-07-12] MEDS ORDERED: PHARMACY GLYCEMIC MGMT CONSULT PRN (08:22)
[2024-07-12] MEDS ORDERED: GLUCOSE 10 TAB/TUBE PO PRN (08:22)
[2024-07-12] MEDS: LANTUS PER UNIT CHARGE SQ SCH (09:06)
[2024-07-12] MEDS: INSULIN ASPART PER UNIT CHARGE SC SCH ×2 (09:08)
--- NOTE | 2024-07-12 10:31 | Electrocardiogram Report ---
Test Reason : Blood Pressure : */* mmHG Vent. Rate : 78 BPM Atrial Rate : 78 BPM P-R Int : 168 ms QRS Dur : 90 ms QT Int : 414 ms P-R-T Axes : 45 32 22 degrees QTcB Int : 471 ms Normal sinus rhythm Normal ECG When compared with ECG of 11-Jul-2024 12:07, No significant change was found Confirmed by Yefri Hodge ([id number]) on 07/12/2024 10:31:34 AM Referred By: Confirmed By: Yefri Hodge
--- NOTE | 2024-07-12 10:58 | CT Scan Report ---
CT OF THE HEAD WITHOUT CONTRAST CLINICAL HISTORY: bruising, AMS COMPARISON STUDY: Head CT July 11, 2024. TECHNIQUE: Helical axial images of the head were obtained without IV contrast. Automated exposure con trol was utilized for the study. A dose lowering technique was utilized adhering to the principles o f ALARA. FINDINGS: No acute intracranial hemorrhage, midline shift or mass effect is present. The ventricular system is unremarkable. The basal cisterns are patent. No extra-axial collections are present. There are no findings to suggest acute dural sinus thrombosis or acute territorial infarct. No significant calvarial abnormalities are present. Visualized portions of the sinuses and mastoid air cells are fazal ar. IMPRESSION: 1. No acute intracranial findings. 2. No calvarial fractures. ACT 112: Negative or not required by law. Electronically signed by: Joshua Gama M.D. 07/12/2024 10:56 AM
[2024-07-12] MEDS ORDERED: ONDANSETRON INJ 2 MG/ML 2 ML VIAL IV PRN (11:08)
[2024-07-12] MEDS ORDERED: POLYETHYLENE (MIRALAX) 17 GM PACK PO PRN (11:08)
--- NOTE | 2024-07-12 11:12 | CT Scan Report ---
CT OF THE CHEST WITHOUT IV CONTRAST CLINICAL HISTORY: Fall. Chest pain. COMPARISON STUDY: Chest CT July 11, 2024. CT DOSE: 3014.73 mGy.cm TECHNIQUE: Axial images of the chest were obtained without IV contrast. Images were reviewed in the axial, sagittal, and coronal planes. IV contrast was not administered for this examination. Automat ed exposure control was utilized for the study. A dose lowering technique was utilized adhering to t he principles of ALARA. FINDINGS: Thoracic aorta is suboptimally assessed on this unenhanced exam but there is no mediastina l hematoma. There is mild dilatation of the ascending aorta measuring 3.9 cm. There is no pericardial effusion. There is no pneumothorax. A trace right pleural effusion is present. There are no thoracic spine fractures. A mildly displaced lateral right third rib fracture is noted. This was shown on jesusita or exam. Acute nondisplaced fractures of the lateral right fourth and fifth ribs were not clearly elena dent on prior CT. There are age indeterminate nondisplaced fractures of the anterior right second, th ird and fourth ribs. IMPRESSION: 1. Several acute right-sided rib fractures, as described above. No pneumothorax. Trace right pleural effusion. 2. No additional acute traumatic findings within the chest. ACT 112: Negative or not required by law. Electronically signed by: Joshua Gama M.D. 07/12/2024 11:10 AM
--- NOTE | 2024-07-12 11:17 | CT Scan Report ---
CT OF THE ABDOMEN AND PELVIS WITHOUT CONTRAST CLINICAL HISTORY: pain, falls, AMS COMPARISON STUDY: CT of the abdomen and pelvis July 11, 2024. TECHNIQUE: Axial images of the abdomen and pelvis were obtained without IV contrast. Images were revi ewed in the axial, sagittal, and coronal planes. Automated exposure control was utilized for the darryl dy. A dose lowering technique was utilized adhering to the principles of ALARA. FINDINGS: Several acute right-sided rib fractures are better depicted on the chest CT which will be r eported separately. There is a trace right pleural effusion. No pneumothorax. No lumbar spine, pelvic or hip fracture is present. There is contrast within the bladder from recent contrast-enhanced CT. T here is minimal stranding within the subcutaneous tissues of the anterior left thigh. No hemoperitone um or pneumoperitoneum is present. There is a gallstone within the gallbladder. Evaluation of the sofy id abdominal viscera is suboptimal on this unenhanced exam but the liver, spleen, adrenal glands, kid neys and pancreas are unremarkable. Moderate amount of stool within the colon is present. No evidence for a bowel obstruction. There is no free fluid. IMPRESSION: 1. No hemoperitoneum or pneumoperitoneum. 2. Multiple acute right-sided rib fractures are better depicted on the chest CT which will be reporte d separately. Trace right pleural effusion. 3. Suspected small anterior left thigh contusion. 4. No evidence for traumatic injury to the solid abdominal viscera on unenhanced exam. ACT 112: Negative or not required by law. Electronically signed by: Joshua Gama M.D. 07/12/2024 11:14 AM
[2024-07-12] MEDS: INSULIN HUMAN REGULAR PER UNIT 8 UNITS in SYRINGE 7.92 ML IV SCH (12:45)
[2024-07-12 12:58] LABS: HCO3 VBG 22 mmol/L; Oxygen Saturation VBG 71.8 %; PCO2 VBG 38 mmHg (38-50); PO2 VBG 43 mmHg; pH VBG 7.37 (7.36-7.41)
[2024-07-12] MEDS: LIDOCAINE 5% 1 PATCH TD STA ×2 (13:18→14:33)
[2024-07-12] MEDS ORDERED: OLANZapine 10 MG/2.1 ML SDV IM PRN (13:34)
[2024-07-12] MEDS: LORazepam 1 MG TAB PO STA (13:58)
[2024-07-12] MEDS: OLANZapine ZYDIS 5 MG ORALLY DIS. TAB PO STA (14:04)
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
--- NOTE | 2024-07-12 15:12 | Pharmacy Report ---
Pharmacy Glycemic Short Note 2 - Date of Service July 12, 2024 - Glycemic Short BSG Results (Last 24 hours): 07/12/24 07/12/24 07/12/24 05:36 08:51 11:01 Glucose 275 H POC Glucose 288 H 384 H* 07/12/24 12:59 Glucose POC Glucose 313 H* OUTPATIENT ANTIDIABETIC REGIMEN: * Basaglar 18 units SC daily * Novolog 2-9 units + SSI (TDD 50 units) ASSESSMENT: * 49 y/o F found unresponsive due to overdose and with UTI. Patient is a Type 1/2 diabetic recently admitted here in April requiring basal and bolus insulins. * On admission, patient had high blood sugars. 9 units of basal given this kwameni ng per admitting doctor. Will order 8 units of basal in AM tomorrow. * Novolog parameters ordered based off recent admission. * Pre-lunch BSG trended up above 300 mg/dl. IV insulin 0.1 units/kg x 1 ordered. Novolog correction was not given but I requested that carbs be covered. * Anticipate sugars to trend down this evening. Will add 00 and 04 checks overnight. PLAN FOR INPATIENT GLYCEMIC CONTROL: * Basal insulin * Lantus 9 units SQ x1 given today. * Lantus 8 units SQ QAM * Bolus insulin * NovoLog per scale ACHS or Q6hrs while NPO * Goal Range: Low 110 mg/dL - High 140 mg/dL * Correction Factor: 30 mg/dL/unit * Nutritional / Prandial insulin per carb ratio of 1 unit per 10 grams CHO consumed
[2024-07-12] MEDS ORDERED: METHADONE ORAL SOLN 2 MG/ML PO ONE (16:45)
[2024-07-12 16:46] LABS: Calcium 8.4 mg/dl (8.6-10.3); Creatinine Clr Calc Pharmacy 90.7 ml/min
[2024-07-12] MEDS: PATIENT'S OWN CONTROLLED MED 1 PO SCH ×2 (17:04→18:27)
[2024-07-12] MEDS: DOCUSATE SODIUM/SENNA 50/8.6MG TAB PO SCH (17:34)
[2024-07-12] MEDS: METHADONE ORAL SOLN 2 MG/ML PO ONE (17:46)
[2024-07-12] MEDS: DICLOFENAC SOD 1% GEL 100 GM TUBE EXT SCH (17:46)
[2024-07-12] MEDS: ACETAMINOPHEN 325 MG TAB PO PRN (21:06)
[2024-07-12] MEDS: CARBOHYDRATES FOR HYPOGLYCEMIA PO PRN (23:36)
[2024-07-13] MEDS: MELATONIN 3 MG TAB PO PRN (00:58)
[2024-07-13] MEDS: INSULIN ASPART PER UNIT CHARGE SC SCH (03:58)
[2024-07-13] MEDS: LEVOTHYROXINE SODIUM 125 MCG TABLET PO SCH (05:28)
[2024-07-13 06:14] LABS: Hemoglobin 9.3 g/dl (12.0-16.0); Mean Corpuscular Hemoglobin 28.2 pg (25.0-34.0); Mean Corpuscular Hgb Conc 33.2 g/dL (32.0-36.0); Mean Corpuscular Volume 84.8 fL (80.0-100.0); Mean Platelet Volume 9.8 fL (9.4-12.4); Platelet Count 378 K/uL (130-400); RDW Coefficient of Variation 12.7 % (11.5-14.5); RDW Standard Deviation 38.8 fL (36.4-46.3); White Blood Count 8.52 K/ul (4.8-10.8)
[2024-07-13 07:04] LABS: Estimated Average Glucose 163 mg/dl; Hemoglobin A1C 7.3 % (4.5-5.6)
[2024-07-13 07:21] LABS: Albumin Level 3.5 gm/dl (3.4-5.0); Bilirubin,Total 0.2 mg/dl (0.2-1.0); Calcium 8.5 mg/dl (8.6-10.3); Potassium 3.9 mmol/L (3.5-5.1)
[2024-07-13 07:27] LABS: Albumin Globulin Ratio 1.3 (0.9-2); BUN Creatinine Ratio 12.7 (10-20); Creatinine Clr Calc Pharmacy 102.2 ml/min; Globulin 2.7 gm/dl (2.5-4.0); Total Protein 6.2 gm/dl (6.0-8.3)
[2024-07-13] MEDS: cefTRIAXone SODIUM 2,000 MG/50 ML BAG IV SCH (08:43)
[2024-07-13] MEDS ORDERED: PATIENT'S OWN CONTROLLED MED 1 PO SCH (09:00)
[2024-07-13] MEDS: CYANOCOBALAMIN (B-12) 500 MCG TABLET PO SCH (09:49)
[2024-07-13] MEDS: ROSUVASTATIN CALCIUM 20 MG TAB PO SCH (09:51)
[2024-07-13] MEDS: lisinopril 10 MG TAB PO SCH (09:51)
[2024-07-13] MEDS: PANTOprazole 40 MG TAB PO SCH (09:51)
[2024-07-13] MEDS: POTASSIUM CHLORIDE 10 MEQ TABCR PO SCH (10:00)
[2024-07-13] MEDS: tiZANidine HCL 4 MG TABLET PO ONE (10:06)
[2024-07-13] MEDS: METHADONE ORAL SOLN 2 MG/ML PO SCH (13:23)
--- NOTE | 2024-07-13 13:55 | Electrocardiogram Report ---
Test Reason : Blood Pressure : */* mmHG Vent. Rate : 80 BPM Atrial Rate : 80 BPM P-R Int : 148 ms QRS Dur : 84 ms QT Int : 414 ms P-R-T Axes : 24 4 3 degrees QTcB Int : 477 ms Normal sinus rhythm Normal ECG When compared with ECG of 12-Jul-2024 17:05, (unconfirmed) No significant change was found Confirmed by Yefri Hodge ([id number]) on 07/13/2024 1:54:58 PM Referred By: REFERRED SELF Confirmed By: Yefri Hodge
--- NOTE | 2024-07-13 14:15 | Electrocardiogram Report ---
Test Reason : Blood Pressure : */* mmHG Vent. Rate : 90 BPM Atrial Rate : 90 BPM P-R Int : 146 ms QRS Dur : 84 ms QT Int : 360 ms P-R-T Axes : 43 15 10 degrees QTcB Int : 440 ms Normal sinus rhythm Normal ECG When compared with ECG of 12-Jul-2024 05:30, No significant change was found Confirmed by Yefri Hodge ([id number]) on 07/13/2024 2:15:49 PM Referred By: REFERRED SELF Confirmed By: Yefri Hodge
--- NOTE | 2024-07-13 14:23 | Psychiatric Progress Note ---
Date of Service July 13, 2024 Impression / Recommendations (1) Acute delirium: Multifactorial in setting of chronic pain on MMT, polypharmacy of multiple sedating medications and possible accidental overdose after taking an unknown pill from someone + UTI & glucose >350 (2) Toxic encephalopathy: Plan This patient lacks decisional capacity due to acute delirium and inability to reasonably appreciate why she is here and risks of leaving. She is unable to l eave AMA at this time and need a 1:1. Decisional making capacity can change as symptoms improve and patients often regain this capacity - will monitor and reassess for this when appropriate. Cannot petition 302 as this is due to medical etiology and not psychiatric, however lacking decisional capacity she nonetheless cannot leave AMA at this time. Recommend Zyprexa 5mg BIDPRN acute agitation (patient received 1 dose of this which did help) Recheck EKG Recommend holding Xanax & Ambien, methadone for now. Can continue Tizanidine HS PRN Can resume doxepin but would lower the dose tonight to 150mg to minimize sedation (though also need to minimize risk of withdrawal) MMT status & dose had been verified - can receive 100mg today as its later in the day and resume 150mg daily in AM Risk Factors Assessment Do You Have Access To A Gun?: No Interval History Chief Complaint THIS NOTE IS ENTERED BY MISTAKE - PATIENT WAS SEEN 07/12. PLEASE DISREGARD THIS NOTE Subjective Subjective Patient was seen & assessed and interval progress reviewed with [treatment team] [nursing and social work] Physical Exam Mental Examination Appearance: Disheveled Eye Contact: Maintains Eye Contact Motor Behavior: Restless Speech: Tangential and Rambling (logorrheic) Mood: Euthymic Affect: Labile Thought Process: Racing and Tangential Thought Content: Disoriented and Racing Hallucinations: None Insight: Poor Judgement: Poor Vital Signs (Past 24 Hours) Last Vital Signs Temp 36.4 C L 07/12/24 19:13 Pulse 90 07/13/24 14:21 Resp 17 07/13/24 14:21 BP 141/98 H 07/13/24 14:21 Pulse Ox 97 07/13/24 14:21 O2 Del Method Room Air 07/13/24 14:21 Results & Data (U) Laboratory Results Laboratory Results - last 24 hr 07/12/24 07/12/24 07/12/24 16:14 16:15 20:14 WBC RBC Hgb Hct MCV MCH MCHC RDW Std Deviation RDW Coeff of Renae Plt Count MPV Sodium 135 L Potassium 4.0 Chloride 103 Carbon Dioxide 25 Anion Gap 7 BUN 12 Creatinine 0.80 Est Cr Clr Drug Dosing 90.7 eGFR 90.83 BUN/Creatinine Ratio 15.0 Glucose 307 H* POC Glucose 319 H* 230 H Estimat Average Glucose Hemoglobin A1c Calcium 8.4 L Total Bilirubin AST ALT Alkaline Phosphatase Total Protein Albumin Globulin Albumin/Globulin Ratio Acetaminophen 07/12/24 07/12/24 07/12/24 23:33 23:35 23:54 WBC RBC Hgb Hct MCV MCH MCHC RDW Std Deviation RDW Coeff of Renae Plt Count MPV Sodium Potassium Chloride Carbon Dioxide Anion Gap BUN Creatinine Est Cr Clr Drug Dosing eGFR BUN/Creatinine Ratio Glucose POC Glucose 60 L* 61 L* 81 Estimat Average Glucose Hemoglobin A1c Calcium Total Bilirubin AST ALT Alkaline Phosphatase Total Protein Albumin Globulin Albumin/Globulin Ratio Acetaminophen 07/13/24 07/13/24 07/13/24 03:46 05:28 06:53 WBC 8.52 RBC 3.30 L Hgb 9.3 L Hct 28.0 L MCV 84.8 MCH 28.2 MCHC 33.2 RDW Std Deviation 38.8 RDW Coeff of Renae 12.7 Plt Count 378 MPV 9.8 Sodium 138 Potassium 3.9 Chloride 104 Carbon Dioxide 26 Anion Gap 8 BUN 9 Creatinine 0.71 Est Cr Clr Drug Dosing 102.2 eGFR 104.82 BUN/Creatinine Ratio 12.7 Glucose 194 H POC Glucose 222 H 198 H Estimat Average Glucose 163 Hemoglobin A1c 7.3 H Calcium 8.5 L Total Bilirubin 0.2 AST 15 ALT 14 Alkaline Phosphatase 67 Total Protein 6.2 Albumin 3.5 Globulin 2.7 Albumin/Globulin Ratio 1.3 Acetaminophen 6 L 07/13/24 11:24 WBC RBC Hgb Hct MCV MCH MCHC RDW Std Deviation RDW Coeff of Renae Plt Count MPV Sodium Potassium Chloride Carbon Dioxide Anion Gap BUN Creatinine Est Cr Clr Drug Dosing eGFR BUN/Creatinine Ratio Glucose POC Glucose 236 H Estimat Average Glucose Hemoglobin A1c Calcium Total Bilirubin AST ALT Alkaline Phosphatase Total Protein Albumin Globulin Albumin/Globulin Ratio Acetaminophen Current Inpatient Medications Current Inpatient Medications: Current Inpatient Medications Acetaminophen (Acetaminophen 325 Mg Tab) 650 mg PO Q6H PRN PRN Reason: Pain or Fever Stop: 08/11/24 16:59 Last Admin: 10/06/24 03:42 Dose: 650 mg Cyanocobalamin (Cyanocobalamin (B-12) 500 Mcg Tablet) 1,000 mcg PO QAM [facility] Stop: 08/12/24 08:59 Last Admin: 07/13/24 09:49 Dose: 1,000 mcg Dextrose (Dextrose 50% 50 Ml Syringe) 25 - 50 ml IV UD PRN; Protocol PRN Reason: Hypoglycemia Protocol Stop: 08/11/24 08:21 Diclofenac Sodium (Diclofenac Sod 1% Gel 100 Gm Tube) 4 gm EXT BID ATIF; Protocol Stop: 08/11/24 17:04 Last Admin: 07/13/24 09:49 Dose: 4 gm Glucagon (Glucagon For Inj 1 Mg Vial) 1 mg SQ UD PRN; Protocol PRN Reason: Hypoglycemia Protocol Stop: 08/11/24 08:21 Glucose (Glucose 40% Gel 15 Gm Tube) 15 - 30 gm PO UD PRN; Protocol PRN Reason: Hypoglycemia Protocol Stop: 08/11/24 08:21 Glucose (Glucose 10 Tab/Tube) 4 - 8 tab PO UD PRN; Protocol PRN Reason: Hypoglycemia Treatment Stop: 08/11/24 08:21 Ceftriaxone Sodium (Rocephin) 2,000 mg in 50 mls @ 100 mls/hr IV Q24H [facility] Stop: 07/18/24 07:59 Last Infusion: 07/13/24 10:08 Dose: Infused Insulin Aspart (Insulin Aspart Per Unit Charge) 0 units SC ACHS [facility] Stop: 08/11/24 11:29 Last Admin: 07/13/24 12:44 Dose: 13 units Insulin Aspart (Insulin Aspart Per Unit Charge) 0 units SC 0000,0400 [facility] Stop: 07/14/24 00:01 Last Admin: 07/13/24 03:58 Dose: 2 units Insulin Glargine (Lantus Per Unit Charge) 8 units SQ QAM [facility] Stop: 08/11/24 08:59 Last Admin: 07/13/24 09:51 Dose: 8 units Levothyroxine Sodium (Levothyroxine Sodium 125 Mcg Tablet) 125 mcg PO DAILYBB [facility] Stop: 08/12/24 06:29 Last Admin: 07/13/24 05:28 Dose: 125 mcg Lisinopril (Lisinopril 10 Mg Tab) 10 mg PO QAM [facility] Stop: 08/12/24 08:59 Last Admin: 07/13/24 09:51 Dose: 10 mg Melatonin (Melatonin 3 Mg Tab) 6 mg PO HS PRN PRN Reason: Sleep Stop: 08/12/24 00:21 Last Admin: 07/13/24 00:58 Dose: 6 mg Methadone HCl (Methadone Oral Soln 2 Mg/Ml) 150 mg PO DAILY@1300 ATIF Stop: 07/27/24 12:59 Last Admin: 07/13/24 13:23 Dose: 150 mg Miscellaneous (Carbohydrates For Hypoglycemia ) 15 - 30 gm PO UD PRN PRN Reason: Hypoglycemia Protocol Stop: 08/11/24 08:21 Last Admin: 07/12/24 23:36 Dose: 15 gm Miscellaneous (10/27 Contraceptive- Order Awaiting Action) 1 each N/A DAILY [facility] Stop: 08/12/24 08:59 Last Admin: 07/13/24 09:51 Dose: Not Given Miscellaneous (Nurtec: Order Awaiting Action) 1 each N/A QS [facility] Stop: 08/11/24 15:59 Last Admin: 07/13/24 08:43 Dose: Not Given Miscellaneous (Remove Lidoderm Patch) 1 each N/A DAILY@2100 [facility] Stop: 08/11/24 20:59 Last Admin: 07/12/24 21:04 Dose: 1 each Miscellaneous Information (Pharmacy Glycemic Mgmt Consult) 1 each N/A UD PRN PRN Reason: Consult Stop: 08/11/24 08:21 Non-Formulary Medication (Patient's Own Controlled Med 1) 1 each PO DAILY@1300 [facility] Stop: 07/26/24 12:59 Last Admin: 07/12/24 17:04 Dose: Not Given Olanzapine (Olanzapine 10 Mg/2.1 Ml Sdv) 5 mg IM BID PRN PRN Reason: Agitation Stop: 08/11/24 13:33 Pantoprazole Sodium (Pantoprazole 40 Mg Tab) 40 mg PO QAM [facility] Stop: 08/12/24 08:59 Last Admin: 07/13/24 09:51 Dose: 40 mg Polyethylene Glycol (Polyethylene (Miralax) 17 Gm Pack) 17 gm PO DAILY PRN PRN Reason: Constipation Stop: 08/11/24 11:07 Potassium Chloride (Potassium Chloride 10 Meq Tabcr) 10 meq PO QAM [facility] Stop: 08/12/24 08:59 Last Admin: 07/13/24 10:00 Dose: 10 meq Rosuvastatin Calcium (Rosuvastatin Calcium 20 Mg Tab) 20 mg PO DAILY [facility] Stop: 08/12/24 08:59 Last Admin: 07/13/24 09:51 Dose: 20 mg Senna/Docusate Sodium (Docusate Sodium/Senna 50/8.6mg Tab) 1 tab PO QAM [facility] Stop: 08/11/24 15:14 Last Admin: 07/13/24 09:50 Dose: 1 tab Tizanidine HCl (Tizanidine Hcl 4 Mg Tablet) 8 mg PO HS PRN PRN Reason: Muscle Spasm Stop: 08/12/24 08:15
--- NOTE | 2024-07-13 15:16 | Pharmacy Report ---
Pharmacy Glycemic Short Note 2 - Date of Service July 13, 2024 - Glycemic Short BSG Results (Last 24 hours): 07/12/24 07/12/24 07/12/24 16:14 16:15 20:14 Glucose 307 H* POC Glucose 319 H* 230 H 07/12/24 07/12/24 07/12/24 23:33 23:35 23:54 Glucose POC Glucose 60 L* 61 L* 81 07/13/24 07/13/24 07/13/24 03:46 05:28 06:53 Glucose 194 H POC Glucose 222 H 198 H 07/13/24 11:24 Glucose POC Glucose 236 H OUTPATIENT ANTIDIABETIC REGIMEN: * Basaglar 18 units SC daily * Novolog 2-9 units + SSI (TDD 50 units) ASSESSMENT: 07/13: * Blood sugars trended down through out evening yesterday and patient had a low value of 61 mg/dl overnight due to higher doses of Novolog given at dinner and HS. * This was corrected with juice and meal tray which led to higher fasting BSG today. * Continued with basal insulin 8 units QAM similar to recent admission. * Novolog parameters were loosened this morning. 07/12/24: * 49 y/o F found unresponsive due to overdose and with UTI. Patient is a Type 1/2 diabetic recently admitted here in April requiring basal and bolus insulins. * On admission, patient had high blood sugars. 9 units of basal given this morning per admitting doctor. Will order 8 units of basal in AM tomorrow. * Novolog parameters ordered based off recent admission. * Pre-lunch BSG trended up above 300 mg/dl. IV insulin 0.1 units/kg x 1 ordered. Novolog correction was not given but I requested that carbs be covered. * Anticipate sugars to trend down this evening. Will add 00 and 04 checks overnight. PLAN FOR INPATIENT GLYCEMIC CONTROL: * Basal insulin * Lantus 8 units SQ QAM * Bolus insulin * NovoLog per scale ACHS or Q6hrs while NPO. Added 00, 04 checks. * Goal Range: Low 110 mg/dL - High 140 mg/dL * Correction Factor: 30 mg/dL/unit * Nutritional / Prandial insulin per carb ratio of 1 unit per 10 grams CHO consumed
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
[2024-07-13] MEDS: LIDOCAINE 5% 1 PATCH TD STA (18:15)
[2024-07-13] MEDS: DOXEPIN HCL 75 MG CAPSULE PO SCH (21:04)
[2024-07-13] MEDS: ZOLPIDEM TARTRATE 5 MG TAB PO SCH (21:15)
[2024-07-14] MEDS: tiZANidine HCL 4 MG TABLET PO PRN (00:39)
[2024-07-14] MEDS: INSULIN ASPART PER UNIT CHARGE SC ONE (00:56)
[2024-07-14] MEDS: lisinopril 20 MG TAB PO SCH (00:57)
[2024-07-14] MEDS: INSULIN ASPART PER UNIT CHARGE SC SCH (04:19)
[2024-07-14 06:29] LABS: Hematocrit (blood only) 27.5 % (37.0-47.0); Hemoglobin 8.9 g/dl (12.0-16.0); Mean Corpuscular Hemoglobin 28.3 pg (25.0-34.0); Mean Corpuscular Hgb Conc 32.4 g/dL (32.0-36.0); Mean Corpuscular Volume 87.3 fL (80.0-100.0); Mean Platelet Volume 9.6 fL (9.4-12.4); Platelet Count 336 K/uL (130-400); RDW Coefficient of Variation 12.6 % (11.5-14.5); RDW Standard Deviation 39.9 fL (36.4-46.3); Red Blood Count 3.15 M/uL (4.20-5.40); White Blood Count 7.38 K/ul (4.8-10.8)
[2024-07-14 06:53] LABS: BUN Creatinine Ratio 14.7 (10-20); Calcium 8.5 mg/dl (8.6-10.3); Creatinine Clr Calc Pharmacy 106.7 ml/min; Potassium 3.9 mmol/L (3.5-5.1)
[2024-07-14] MEDS: LANTUS PER UNIT CHARGE SQ SCH (08:44)
[2024-07-14 13:15] VITALS: PULSE 82; O2SAT 97
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
[2024-07-14 14:44] VITALS: BP 155/93; RESP 15; TEMP 97.9
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
[2024-07-15] MEDS ORDERED: LINACLOTIDE 145 MCG CAPSULE PO SCH (06:30)
[2024-07-15] MEDS ORDERED: cephALEXin 500 MG CAP PO SCH (09:00)
[2024-07-17 13:52] LABS: 7-Aminoclonaz, Confirm NEGATIVE ng/mL (<25); Codeine Urine 120 ng/mL (<50); Hydro-Alp Ur, GC/MS >2000 ng/mL (<25); Hydrocodone Urine NEGATIVE ng/mL (<50); Hydromor Urine NEGATIVE ng/mL (<50); Hydroxyethylflurazepam, Conf NEGATIVE ng/mL (<50); Hydroxymidazolam Ur, GC/MS NEGATIVE ng/mL (<50); Hydroxytriazolam NEGATIVE ng/mL (<50); Lorazepam, Ur GC/MS 105 ng/mL (<50); Methadone, Ur Metabolite >10000 ng/mL (<100); Methadone, Ur Verification >10000 ng/mL (<100); Morphine Urine NEGATIVE ng/mL (<50); Nordiazepam, Confirm NEGATIVE ng/mL (<50); Norhydrocodone Conf Ur 88 ng/mL (<50); Noroxycodone Urine NEGATIVE ng/mL (<50); Oxazepam Ur, GC/MS NEGATIVE ng/mL (<50); Oxycodone Urine NEGATIVE ng/mL (<50); Oxymorph Urine NEGATIVE ng/mL (<50); Temazepam, Confirm NEGATIVE ng/mL (<50)
== END 2024-07-14 18:04 | disposition home or self-care (01) | DRG 92 ==
LOC: ED 04:59 → INTOOBSV 07:48 → EDINP 07:48 → 2E 12:13